=== PATIENT | female | born 1945 | race Caucasian/White ===

== ENCOUNTER 2017-03-12 22:05 | Inpatient (IN) | payer MEDICARE, MEDICAID ==
[~2017-03-12] VITALS: Ht 152.4 cm; Wt 73.9 kg
[2017-03-12 22:30] VITALS: BP 155/70
[2017-03-12] MEDS ORDERED: LORAZEPAM 0.5 MG TABLET PO PRN (23:00)
[2017-03-12] MEDS ORDERED: MAGNESIUM HYDROXIDE 30 ML UDC PO PRN (23:00)
[2017-03-12] MEDS ORDERED: MAG HYDROX/AL HYDROX/SIMETH 30 ML UDC PO PRN (23:00)
[2017-03-13] MEDS ORDERED: LISI2.5T2 PO (00:30)
[2017-03-13] MEDS ORDERED: MORP15TA PO (00:30)
[2017-03-13] MEDS ORDERED: SIMV20TA6 PO (00:30)
[2017-03-13] MEDS ORDERED: ESCI20TA PO (00:30)
[2017-03-13] MEDS ORDERED: ROPI1TAB4 PO (00:30)
[2017-03-13] MEDS ORDERED: MESA400C2 PO (00:30)
[2017-03-13] MEDS ORDERED: PRAZ1CAP5 PO (00:30)
[2017-03-13] MEDS ORDERED: METO-302 PO (00:30)
[2017-03-13] MEDS ORDERED: ZOLM5TAB10 PO (00:30)
[2017-03-13] MEDS ORDERED: TOPI-37 PO (00:30)
[2017-03-13] MEDS ORDERED: SOLI5TAB PO (00:30)
[2017-03-13] MEDS ORDERED: FURO40TA5 PO (00:30)
[2017-03-13] MEDS ORDERED: MORP60CP14 PO (00:30)
[2017-03-13] MEDS ORDERED: myrbetriq (00:34)
[2017-03-13] MEDS ORDERED: PRAZOSIN HCL 1 MG CAPSULE PO ONE (05:24)
[2017-03-13] MEDS ORDERED: FUROSEMIDE 40 MG TABLET ONE (05:24)
[2017-03-13] MEDS ORDERED: METOPROLOL SUCCINATE 25 MG TAB.SR.24H ONE (05:25)
[2017-03-13] MEDS ORDERED: ACETAMINOPHEN 325 MG TABLET ONE (05:27)
[2017-03-13] MEDS: ACETAMINOPHEN 325 MG TABLET PO PRN (05:34)
[2017-03-13] MEDS: PRAZOSIN HCL 1 MG CAPSULE PO SCH ×3 (05:34→14:32)
[2017-03-13] MEDS: FUROSEMIDE 40 MG TABLET PO SCH (05:34)
[2017-03-13] MEDS: METOPROLOL SUCCINATE 25 MG TAB.SR.24H PO SCH (05:35)
--- NOTE | 2017-03-13 06:30 | NUR ---
GPS RN NOTES ADMITTED THIS 72 YEAR OLD FEMALE ON 5150 HOLD FOR DANGER TO SELF. PATIENT ARRIVED VIA AMBULANCE AT AROUND 2230, 03/12/2017. PER HOLD PATIENT WAS ENDORSING SUICIDAL IDEATION AND TOOK AN UNKNOWN AMOUNT OF PILLS. ON FACE TO FACE, PATIENT WAS DEPRESSED, WITH FLAT AFFECT, HOPELESS, SAD. VITAL SIGNS CHECKED AND RECORDED. AFEBRILE. ASSESSMENT OF BODY SYSTEMS COMPLETED. SKIN/BODY CHECK DONE. SKIN IS CLEAR. PATIENTS BELONGINGS CHECKED FOR CONTRABAND ITEMS. CONTRABAND ITEMS BROUGHT TO SAFE. AFTER THE ASSESSMENT PATIENT ASKED TO GO TO THE BATHROOM. PATIENT ASSISTED TO THE BATHROOM, WHEN GOING BACK TO HER BED PATIENT HAD A SYNCOPAL EPISODE AND PASSED OUT FOR A FEW SECONDS. PATIENT WAS ASSISTED TO A CHAIR AND EVENTUALLY BACK TO HER BED. NO FURTHER UNTOWARD EPISODES NOTED THEREAFTER. PATIENT ADMITTED UNDER THE CARE OF DR. NARAYANAN FOR PSYCHE AND DR. BENJAMIN FOR MEDICAL. BOTH NOTIFIED OF THIS ADMISSION. MED RECON DONE. MRSA SWAB DONE WELL. PT EVAL REQUESTED. PATIENT KEPT COMFORTABLE IN BED.
[2017-03-13 08:00] VITALS: BP 157/90
[2017-03-13 09:00] VITALS: BP 150/87
--- NOTE | 2017-03-13 09:00 | NUR ---
GPS/RN PATIENT REFUSED TO REMOVE DENTURES X 3, EXPLAINED RISKS BUT STILL REFUSED. WAIVER SIGNED BY PATIENT
[2017-03-13] MEDS: LISINOPRIL (5MG) 5 MG TABLET PO SCH (09:19)
[2017-03-13] MEDS ORDERED: OXYBUTYNIN CHLORIDE 5 MG TABLET PO SCH (09:30)
[2017-03-13 09:37] LABS: ALANINE AMINOTRANSFERASE 21 U/L (12-78); ALBUMIN 3.1 g/dL (3.4-5.0); ALKALINE PHOSPHATASE 87 U/L (46-116); ASPARTATE AMINOTRANSFERASE 13 U/L (15-37); BILIRUBIN,TOTAL 0.3 mg/dL (0.2-1.0); CALCIUM, SERUM 8.6 mg/dL (8.5-10.1); CARBON DIOXIDE 25 mmol/L (21-32); CHLORIDE 108 mmol/L (98-107); GLUCOSE 123 mg/dL (74-106); POTASSIUM 2.9 mmol/L (3.5-5.1); SODIUM SERUM 143 mmol/L (136-145); TOTAL PROTEIN, SERUM 6.9 g/dL (6.4-8.2); UREA NITROGEN, BLOOD 8 mg/dL (7-18)
[2017-03-13 09:39] LABS: CHOLESTEROL 213 mg/dL (<200); HDL CHOLESTEROL 37 mg/dL (40-60); LDL 133 mg/dL (0-99); TRIGLYCERIDES 119 mg/dL (30-150)
[2017-03-13] MEDS: MORPHINE SULFATE SR 30 MG TABLET.SA PO SCH ×3 (10:32→21:50)
[2017-03-13] MEDS ORDERED: POTASSIUM CHLORIDE 10 MEQ TABLET.SA PO ONE (14:00)
--- NOTE | 2017-03-13 14:32 | NUR ---
Initial Discharge plan: Patient lives alone at [address] [address]. ([phone]). Patient wants to return home upon discharge. long term care social worker attempted to contact patient's sister Lauren Pond ([phone]) however, she was unavailable, long term care social worker left her a voicemail with her contact information. settlement worker will attempt again later. settlement worker will help form a safe and proper discharge. settlement worker will provide patient with referrals for substance abuse upon discharge.
--- NOTE | 2017-03-13 14:33 | NUR ---
GPS/RN DR GIRALDO CONTACTED REGARDING K LEVEL OF 2.9, NEW ORDERS OF K DUR 60 MEQ X ONE DOSE, CARRIED OUT ORDERED. WILL CONTINUE TO MONITOR.
--- NOTE | 2017-03-13 14:40 | NUR ---
GPS/RN CHECKED BP BEFORE ADMINISTERING MINIPRES 2MG PO, BP READING OF 179/115, ADMINISTERED ORDERED, WILL RECHECK IN 30 MIN.
[2017-03-13 15:30] VITALS: BP 145/95
--- NOTE | 2017-03-13 15:30 | NUR ---
GPS/RN RECHECKED PATIENT BP WITH A READING OF, 147/95, P - 72, 02- 97. BREATHING EVEN AND UNLABORED,STABLE CONDITION, NO DISTRESS NOTED, WILL CONTINUE TO MONITOR. Addendum: 03/13/17 at 1812 by TERI AN RN DR GIRALDO AWARE. NO NEW ORDERS.
[2017-03-13 16:22] VITALS: BP 147/95
--- NOTE | 2017-03-13 18:12 | NUR ---
GPS/RN SPOKE WITH DR GIRALDO REGARDING TOMAX 200 MG BID ON HOME MED LIST, STATED TO INPUT TOPOMAX 200 MG BID IN SYSTEM, CARRIED OUT ORDERED.
[2017-03-13 20:00] VITALS: BP 140/92
[2017-03-13] MEDS: SIMVASTATIN 20 MG TABLET PO SCH (21:50)
--- NOTE | 2017-03-14 01:44 | NUR ---
GPS/RN NOTE: C/O PAIN ON BOTH LEGS, TYLENOL 650 MG TAB PO GIVEN.
[2017-03-14] MEDS: ACETAMINOPHEN 325 MG TABLET PO PRN (01:45)
[2017-03-14] MEDS: ZOLPIDEM TARTRATE 5 MG TABLET PO PRN (01:46)
--- NOTE | 2017-03-14 01:47 | NUR ---
GPS/RN NOTE: C/O INSOMNIA, 5 MG TAB 1 PO GIVEN
[2017-03-14] MEDS: LISINOPRIL (5MG) 5 MG TABLET PO SCH (06:36)
[2017-03-14] MEDS: FUROSEMIDE 40 MG TABLET PO SCH (06:36)
[2017-03-14] MEDS: METOPROLOL SUCCINATE 25 MG TAB.SR.24H PO SCH (06:37)
[2017-03-14] MEDS: MORPHINE SULFATE SR 30 MG TABLET.SA PO SCH ×3 (06:38→21:41)
[2017-03-14] MEDS: PRAZOSIN HCL 1 MG CAPSULE PO SCH ×3 (06:39→14:21)
[2017-03-14 08:00] VITALS: BP 147/84
[2017-03-14] MEDS ORDERED: SOLIFENACIN SUCCINATE 5 MG TABLET PO SCH (09:00)
[2017-03-14] MEDS: DULOXETINE HCL 30 MG CAPSULE.DR PO SCH (09:08)
[2017-03-14] MEDS: TOPIRAMATE 100 MG TABLET PO SCH ×2 (09:08→16:10)
[2017-03-14] MEDS ORDERED: hydrALAZINE HCL 25 MG TABLET PO PRN (15:30)
[2017-03-14 16:35] VITALS: BP 148/90
--- NOTE | 2017-03-14 19:25 | NUR ---
GPS/RN NOTE: PATIENT ASLEEP, NO APPARENT DISTRESS NOTED.
[2017-03-14 20:00] VITALS: BP 121/67
[2017-03-14] MEDS: SIMVASTATIN 20 MG TABLET PO SCH (21:55)
[2017-03-15] MEDS: METOPROLOL SUCCINATE 25 MG TAB.SR.24H PO SCH (06:04)
[2017-03-15] MEDS: LISINOPRIL (5MG) 5 MG TABLET PO SCH (06:05)
[2017-03-15] MEDS: MORPHINE SULFATE SR 30 MG TABLET.SA PO SCH ×3 (06:06→23:55)
[2017-03-15] MEDS: PRAZOSIN HCL 1 MG CAPSULE PO SCH ×3 (06:08→13:45)
[2017-03-15] MEDS: FUROSEMIDE 40 MG TABLET PO SCH (07:01)
[2017-03-15 08:25] LABS: CALCIUM, SERUM 8.7 mg/dL (8.5-10.1); CARBON DIOXIDE 25 mmol/L (21-32); CHLORIDE 107 mmol/L (98-107); CREATININE 1.1 mg/dL (0.6-1.3); GLUCOSE 93 mg/dL (74-106); MAGNESIUM 1.8 mg/dL (1.8-2.4); POTASSIUM 3.3 mmol/L (3.5-5.1); SODIUM SERUM 143 mmol/L (136-145); UREA NITROGEN, BLOOD 22 mg/dL (7-18)
[2017-03-15 08:47] VITALS: BP 162/83
[2017-03-15] MEDS: DULOXETINE HCL 30 MG CAPSULE.DR PO SCH (09:02)
[2017-03-15] MEDS: TOPIRAMATE 100 MG TABLET PO SCH ×2 (09:02→16:23)
[2017-03-15] MEDS: SOLIFENACIN SUCCINATE 5 MG PO SCH (09:03)
[2017-03-15] MEDS ORDERED: POTASSIUM CHLORIDE 20 MEQ TAB.PRT.SR PO SCH (11:00)
[2017-03-15 13:45] VITALS: BP 126/76
[2017-03-15] MEDS ORDERED: POTASSIUM CHLORIDE 20 MEQ TAB.PRT.SR PO ONE (15:00)
[2017-03-15 16:14] VITALS: BP 132/78
[2017-03-15 20:00] VITALS: BP 98/60
[2017-03-15] MEDS: SIMVASTATIN 20 MG TABLET PO SCH (23:55)
[2017-03-15] MEDS: ZOLPIDEM TARTRATE 5 MG TABLET PO PRN (23:56)
[2017-03-16] MEDS: MORPHINE SULFATE IR 15 MG TABLET PO PRN
[2017-03-16] MEDS: MORPHINE SULFATE SR 30 MG TABLET.SA PO SCH ×3 (06:17→21:40)
[2017-03-16] MEDS: FUROSEMIDE 40 MG TABLET PO SCH (06:17)
[2017-03-16] MEDS: METOPROLOL SUCCINATE 25 MG TAB.SR.24H PO SCH (06:21)
[2017-03-16] MEDS: LISINOPRIL (5MG) 5 MG TABLET PO SCH (06:21)
[2017-03-16] MEDS: PRAZOSIN HCL 1 MG CAPSULE PO SCH ×3 (06:22→14:00)
[2017-03-16] MEDS: DULOXETINE HCL 30 MG CAPSULE.DR PO SCH (08:01)
[2017-03-16 08:02] LABS: CALCIUM, SERUM 8.6 mg/dL (8.5-10.1); CARBON DIOXIDE 26 mmol/L (21-32); CHLORIDE 104 mmol/L (98-107); CREATININE 1.2 mg/dL (0.6-1.3); GLUCOSE 101 mg/dL (74-106); POTASSIUM 3.9 mmol/L (3.5-5.1); SODIUM SERUM 139 mmol/L (136-145); UREA NITROGEN, BLOOD 27 mg/dL (7-18)
[2017-03-16] MEDS: SOLIFENACIN SUCCINATE 5 MG PO SCH (08:02)
[2017-03-16] MEDS: TOPIRAMATE 100 MG TABLET PO SCH ×2 (08:02→16:18)
[2017-03-16 08:12] VITALS: BP 124/88
[2017-03-16 10:30] VITALS: BP 110/54
[2017-03-16 16:14] VITALS: BP 105/60
[2017-03-16 20:00] VITALS: BP 114/66
[2017-03-16] MEDS: SIMVASTATIN 20 MG TABLET PO SCH (21:40)
[2017-03-16] MEDS: ZOLPIDEM TARTRATE 5 MG TABLET PO PRN (22:43)
--- NOTE | 2017-03-17 00:01 | NUR ---
Pt has been anhedonic, with flat affect, & withdrawn but denies any SI/HI. She complied with her meds w/o any promptings.
[2017-03-17] MEDS: MORPHINE SULFATE IR 15 MG TABLET PO PRN (01:51)
[2017-03-17] MEDS: PRAZOSIN HCL 1 MG CAPSULE PO SCH ×3 (06:00→14:00)
[2017-03-17] MEDS: FUROSEMIDE 40 MG TABLET PO SCH (06:19)
[2017-03-17] MEDS: MORPHINE SULFATE SR 30 MG TABLET.SA PO SCH ×3 (06:19→21:19)
[2017-03-17] MEDS: LISINOPRIL (5MG) 5 MG TABLET PO SCH (06:19)
[2017-03-17] MEDS: METOPROLOL SUCCINATE 25 MG TAB.SR.24H PO SCH (06:20)
[2017-03-17 08:00] VITALS: BP 133/69
[2017-03-17] MEDS: DULOXETINE HCL 30 MG CAPSULE.DR PO SCH (08:00)
[2017-03-17] MEDS: TOPIRAMATE 100 MG TABLET PO SCH ×2 (08:00→16:12)
[2017-03-17] MEDS: SOLIFENACIN SUCCINATE 5 MG PO SCH (08:09)
[2017-03-17 14:00] VITALS: BP 110/53
[2017-03-17 16:00] VITALS: BP 123/88
[2017-03-17 19:34] VITALS: BP 98/59
[2017-03-17] MEDS: SIMVASTATIN 20 MG TABLET PO SCH (21:19)
[2017-03-17] MEDS: ZOLPIDEM TARTRATE 5 MG TABLET PO PRN (23:48)
[2017-03-18] MEDS: PRAZOSIN HCL 1 MG CAPSULE PO SCH ×3 (06:00→14:00)
[2017-03-18] MEDS: METOPROLOL SUCCINATE 25 MG TAB.SR.24H PO SCH (06:00)
[2017-03-18] MEDS: MORPHINE SULFATE SR 30 MG TABLET.SA PO SCH ×3 (06:18→21:15)
[2017-03-18] MEDS: FUROSEMIDE 40 MG TABLET PO SCH (06:18)
[2017-03-18] MEDS: LISINOPRIL (5MG) 5 MG TABLET PO SCH (06:19)
[2017-03-18 08:00] VITALS: BP 122/56
[2017-03-18] MEDS: DULOXETINE HCL 30 MG CAPSULE.DR PO SCH (08:24)
[2017-03-18] MEDS: TOPIRAMATE 100 MG TABLET PO SCH ×2 (08:24→16:17)
[2017-03-18] MEDS: SOLIFENACIN SUCCINATE 5 MG PO SCH (08:26)
[2017-03-18] MEDS: MORPHINE SULFATE IR 15 MG TABLET PO PRN (09:35)
--- NOTE | 2017-03-18 09:35 | NUR ---
[id number]: PT WAS FOUND THE FLOOR BY RT. PT STATED, " I TRIPPED OVER MY FEET. I FALL ON MY LEFT SIDE OF MY CHEST. " NO REDNESS NOTED AT THIS TIME. PT IS ABLE TO MOVE ALL EXTREMITIES. PT COMPLAINED OF PAIN 8/10 PAIN ON LEFT SIDE OF THE CHEST AND REQUESTED FOR A PAIN PILL GAVE MORPHINE [address] NARAYANAN MADE AWARE. PHYSICAL SCIENCES PROFESSOR MADE AWARE. NOTIFIED KAILASH THOMAS ABOUT THE INCIDENT. KAILASH OH ORDERED CHEST X-RAY. ORDERED CARRIED OUT. NOTIFIED SISTER ISABEL ABOUT THE INCIDENT. PT HAS A HISTORY OF SYNCOPAL EPISODES. WILL CONTINUE TO MONITOR FOR SAFETY AND BEHAVIOR EVERY 15 MINUTES.
--- NOTE | 2017-03-18 10:30 | NUR ---
[id number]: PT IS CALM AND SLEEPING IN BED. PT STATED, " I DON'T HAVE ANY PAIN ANYMORE. " SAFETY PRECAUTIONS IMPLEMENTED. SIDE RAILS UP X2. CALL LOAIZA IS WITHIN REACH. BED IS AT THE LOWEST POSITION LOCKED. WILL CONTINUE TO MONITOR FOR SAFETY AND BEHAVIOR EVERY 15 MINUTES.
--- NOTE | 2017-03-18 11:45 | NUR ---
[id number]: NOTIFIED [employer] ALTHEA THOMAS ABOUT CHEST X-RAY RESULTS. NO NEW ORDERS GIVEN AT THIS TIME.
--- NOTE | 2017-03-18 12:30 | NUR ---
[id number]: PT IS CALM AND COOPERATIVE WITH STAFF. OBSERVED PT TO BE CONVERSING WITH PEERS IN THE DAYROOM. PT HAS BRIGHT AFFECT. PT STATED, " I FEEL BETTER NOW."
[2017-03-18 16:00] VITALS: BP 106/60
[2017-03-18 20:57] VITALS: BP 122/63
[2017-03-18] MEDS: SIMVASTATIN 20 MG TABLET PO SCH (21:14)
[2017-03-19] MEDS: PRAZOSIN HCL 1 MG CAPSULE PO SCH ×3 (06:00→14:50)
[2017-03-19] MEDS: METOPROLOL SUCCINATE 25 MG TAB.SR.24H PO SCH (06:00)
[2017-03-19] MEDS: FUROSEMIDE 40 MG TABLET PO SCH (06:12)
[2017-03-19] MEDS: LISINOPRIL (5MG) 5 MG TABLET PO SCH (06:12)
[2017-03-19] MEDS: MORPHINE SULFATE SR 30 MG TABLET.SA PO SCH ×3 (06:13→21:22)
[2017-03-19 08:00] VITALS: BP 124/66
[2017-03-19] MEDS: SOLIFENACIN SUCCINATE 5 MG PO SCH (08:17)
[2017-03-19] MEDS: TOPIRAMATE 100 MG TABLET PO SCH ×2 (08:17→17:04)
[2017-03-19] MEDS: DULOXETINE HCL 30 MG CAPSULE.DR PO SCH (08:17)
--- NOTE | 2017-03-19 08:24 | NUR ---
private household worker spoke to Sho from admissions (phone: [phone]/ ) from [place] [address] who stated that patient often goes between living in the facility and home. Sho stated that patient can return to the facility as long as she pays a fee up front. private household worker will follow-up with patient and patient's family.
--- NOTE | 2017-03-19 10:30 | NUR ---
RN-CO: Per Tasha ARCEO, patient's discharge will be cancelled due to transportation issue. Dr Rivas is aware.
--- NOTE | 2017-03-19 11:09 | NUR ---
RN-CO: Notified [address] that patient will be discharge tommorow.
--- NOTE | 2017-03-19 15:48 | NUR ---
tray service worker arranged transportation with Sheron ([phone]) from [facility] who stated that patient will be picked up at noon tomorrow March 20, 2017 and taken home.
--- NOTE | 2017-03-19 15:53 | NUR ---
family services worker spoke to patient's brother- in -law Raoul Pond ([phone]/ cell: [phone]) who stated that he and patient's sister Lauren Pond would help the patient pay the copay and upfront cost to [address] [address] (phone: [phone]/ ) if patient agreed to exterminator placement. family services worker spoke to patient regarding alf residential placement at [facility] and patient stated that she does not want to make that decision now and wanted to go home and talk to her family as to whether they would help her pay for temporary placement or whether she would agree to go long- term placement at [facility]. family services worker informed family of patient's decision and they were agreeable with the discharge plan of patient returning home.
[2017-03-19 16:00] VITALS: BP 107/62
[2017-03-19 20:11] VITALS: BP 118/60
[2017-03-19] MEDS: SIMVASTATIN 20 MG TABLET PO SCH (21:21)
[2017-03-19] MEDS: ZOLPIDEM TARTRATE 5 MG TABLET PO PRN (21:33)
[2017-03-20] MEDS: PRAZOSIN HCL 1 MG CAPSULE PO SCH ×2 (06:00→10:47)
[2017-03-20] MEDS: MORPHINE SULFATE SR 30 MG TABLET.SA PO SCH (06:02)
[2017-03-20] MEDS: METOPROLOL SUCCINATE 25 MG TAB.SR.24H PO SCH (06:02)
[2017-03-20] MEDS: FUROSEMIDE 40 MG TABLET PO SCH (06:02)
[2017-03-20] MEDS: LISINOPRIL (5MG) 5 MG TABLET PO SCH (06:03)
[2017-03-20] MEDS: DULOXETINE HCL 30 MG CAPSULE.DR PO SCH (08:30)
[2017-03-20] MEDS: TOPIRAMATE 100 MG TABLET PO SCH (08:30)
[2017-03-20 08:41] VITALS: BP 104/62
--- NOTE | 2017-03-20 08:56 | NUR ---
PT. WITH AN ORDER TO D/C HOLD AND D/C HOME. PT. WITHOUT DISTRESS, DENIES SUICIDAL AND HOMICIDAL. TO FOLLOW UP WITH PSYCH AND MEDICAL DOCTORS.
[2017-03-20] MEDS: SOLIFENACIN SUCCINATE 5 MG PO SCH (09:00)
[2017-03-20 10:47] VITALS: BP 104/62
--- NOTE | 2017-03-20 12:30 | NUR ---
GPS/RN PATIENT CLEARED FOR DISCHARGE HOME BY DR NARAYANAN AND KAILASH THOMAS. ALL D/C FORMS SIGNED, BELONGINGS RETURNED AND SIGNED FOR. PSYCHIATRIC PRESCRIPTIONS INCLUDED, MEDICAL PRESCRIPTION TRANSCRIBED ELECTRONICALLY BY KAILASH THOMAS, ALL MEDICATIONS EXPLAINED TO PATIENT, VERBALIZED UNDERSTANDING. PATIENT DENIES SI/HI/AH AT TIME OF DISCHARGE, PSYCHIATRIC TREATMENT PLANS MET, LEFT UNIT VIA WHEELCHAIR, CALM, COOPERATIVE, NO AGITATION, NO DISTRESS WITH TRANSPORT AND CN AT SIDE.
--- NOTE | 2017-03-20 13:33 | NUR ---
Discharge Note: Patient was discharged home [address] [place] [address]. ([phone]) via [facility] transportation ([employer] [phone]). Patient's sister Lauren Pond ([phone]) has been notified. Patient and patient's sister were agreeable with the discharge plan. Patient's mood and affect were appropriate upon discharge. Patient denied suicidal and homicidal ideations. Patient was also provided with a referral to [facility] [address] [facility] [place] [address] ([phone]) and agreed to follow-up with a psychiatrist within 30 days. Patient was referred to the [facility] drug and alcohol services. Walk-in screenings are done [address] [place] [address] ([phone]) Friday 8:30-11:30 am and 2:30-5:30pm. Facilitated info to IDT team who are in agreement with discharge arrangement. The multidisciplinary exitcare form was done, printed, signed, and given to the patient. Addendum: 03/20/17 at 1408 by LESA ARCEO farmworker diversified crops Lesa Fry wrote the discharge note.
== END 2017-03-20 12:30 | disposition home or self-care (01) | DRG 885 ==
LOC: GPS 22:05
PROVIDERS: ADMIT Psychiatry & Neurology Psychiatry; ATTEND Internal Medicine
DX: F33.2 Major depressive disorder, recurrent severe without psychotic features (principal); R45.851 Suicidal ideations; K86.1 Other chronic pancreatitis; F23 Brief psychotic disorder; F41.9 Anxiety disorder, unspecified; G89.4 Chronic pain syndrome; M79.7 Fibromyalgia; I10 Essential (primary) hypertension; Z73.6 Limitation of activities due to disability; M19.90 Unspecified osteoarthritis, unspecified site; N28.9 Disorder of kidney and ureter, unspecified
CPT/HCPCS: 36415; 71010-TC; 80048-TC; 80053-TC; 80061-TC; 82962-TC; 83735-TC; 87081-TC; 97001-TC; 97116-TC; 97530-TC

== ENCOUNTER 2017-05-03 12:18 | Inpatient (IN) | payer MEDICARE, MEDICAID ==
[~2017-05-03] VITALS: Ht 160 cm; Wt 64.4 kg
[~2017-05-03 12:18] MED LIST: ESCI20TA PO; FURO40TA5 PO; LISI2.5T2 PO; MESA400C2 PO; METO-302 PO; MORP15TA PO; MORP60CP14 PO; PRAZ1CAP5 PO; ROPI1TAB4 PO; SIMV20TA6 PO; SOLI5TAB PO; TOPI-37 PO; ZOLM5TAB10 PO; myrbetriq
[2017-05-03 12:44] VITALS: BP 165/78
[2017-05-03] MEDS ORDERED: BUTA-262 PO (12:44)
[2017-05-03] MEDS ORDERED: SOLI5TAB PO (12:44)
[2017-05-03] MEDS ORDERED: DIPH1TAB70 PO (12:44)
[2017-05-03] MEDS ORDERED: POTA10TA15 PO (12:44)
[2017-05-03] MEDS ORDERED: TRAZ-144 PO ×2 (12:46→16:16)
[2017-05-03] MEDS ORDERED: ACETAMINOPHEN 325 MG TABLET PO PRN (13:00)
[2017-05-03] MEDS ORDERED: LORAZEPAM 0.5 MG TABLET PO PRN (13:00)
[2017-05-03] MEDS ORDERED: MAGNESIUM HYDROXIDE 30 ML UDC PO PRN (13:00)
[2017-05-03] MEDS ORDERED: ZOLPIDEM TARTRATE 5 MG TABLET PO PRN (13:00)
[2017-05-03] MEDS ORDERED: MAG HYDROX/AL HYDROX/SIMETH 30 ML UDC PO PRN (13:00)
--- NOTE | 2017-05-03 13:01 | NUR ---
GPS ADMITTING NOTE: PATIENT 72 Y/O FEMALE ADMITTED TO [facility] ON 5150 HOLD FOR DANGER TO HERSELF.PER HOLD PATIENT ATTEMPTED TO CAT HERSELF AT THER HOUSE AND WHEN BROUGHT TO ER ATTEMPTED BITE HER HANDS AND WRIST.UPON 1:1 EVALUATION PATIENT A/O X3 DEPRESSED MOOD ANSWERING SONE QUESTIONS, DENIES SI/HI AT THIS TIME ADMITTED FOR BEEN HELPLESS AND DEPRESSED. DR NARAYANAN NOTIFIED WITH STANDING ORDERS, BELONGINGS CHECKED AND CONTRABAND TAKEN FROM PATIENT.PT HAS HX RESTLESS LEG SYNDROME,FIBROMYALGIA,CROHN DISEASE,HERD,HTN,PTSD WILL CONTINUE MONITORING FOR SAFETY AND BEHAVIOR Q 15 MIN
[2017-05-03 14:58] VITALS: BP 201/105
[2017-05-03] MEDS ORDERED: METOPROLOL TARTRATE 50 MG TABLET PO STA (15:03)
--- NOTE | 2017-05-03 15:08 | NUR ---
GPS RN NOTE: PT SITTING IN THE DINNING ROOM SHIVERING AND LOOKING PALE CHECKED PT VS PB 201/105 P81 T 98.8 R 19 ,REACHED 193/[address] HILL NOTIFIED WITH STAT ORDERS FOR EKG,CARDIAC ENZYMES,METOPROLOL 50 MG PO ONCE STAT AND TO TRANSFER PATIENT TO TELEMETRY. ORDER PLACED AND CARED OUT WILL CONTINUE MONITORING.
--- NOTE | 2017-05-03 15:16 | NUR ---
DR. NARAYANAN NOTIFIED THAT PT. WITH AN ORDER FROM THE BIT SHARPENER OPERATOR TO TRANSFER PT. TO TELEMETRY AND HE ORDERED TO D/C PT. TO TELEMETRY AND TO CONTINUE ON HOLD AND CONTINUE SAME MEDS.
[2017-05-03 15:25] VITALS: BP 193/87
[2017-05-03] MEDS ORDERED: LORA1TAB PO (16:16)
[2017-05-03] MEDS ORDERED: DULO60CA45 PO (16:16)
[2017-05-03] MEDS ORDERED: SUMA50TA PO (16:41)
[2017-05-03] MEDS ORDERED: TRAZODONE 50 MG TABLET PO SCH (22:00)
[2017-05-04] MEDS ORDERED: DULOXETINE HCL 30 MG CAPSULE.DR PO SCH (09:00)
== END 2017-05-03 15:38 | disposition short-term general hospital (02) | DRG 885 ==
LOC: GPS 12:18
PROVIDERS: ADMIT Psychiatry & Neurology Psychiatry; ATTEND Psychiatry & Neurology Psychiatry
DX: F33.2 Major depressive disorder, recurrent severe without psychotic features (principal); R45.851 Suicidal ideations; I10 Essential (primary) hypertension
CPT/HCPCS: 36415; 84484-TC; Z7610

== ENCOUNTER 2017-05-03 16:12 | Inpatient (IN) | payer MEDICARE, MEDICAID ==
[~2017-05-03] VITALS: Ht 160 cm; Wt 64.4 kg
[~2017-05-03 16:12] MED LIST changes: +BUTA-262 PO; +DIPH1TAB70 PO; +POTA10TA15 PO; +TRAZ-144 PO
[2017-05-03] MEDS ORDERED: LORA1TAB PO (16:16)
[2017-05-03] MEDS ORDERED: TRAZ-144 PO (16:16)
[2017-05-03] MEDS ORDERED: DULO60CA45 PO (16:16)
[2017-05-03 16:20] VITALS: BP 193/104
--- NOTE | 2017-05-03 16:20 | NUR ---
BIODIESEL PLANT MANAGER NOTES PATIENT FROM GPS TRANSFERRED TO DUE TO HIGH BP, DR. HILL NOTIFIED FOR ADMISSION. PATIENT CAME FROM AN ASSISTED LIVING IN [place], WITH SUICIDAL IDEATION AND DTS, SHE WAS INITIALLY ADMITTED AT GPS, PLACED ON [address]. SITTER AT BEDSIDE. PATIENT ALERT/ORIENTED X 3, ON RA, NOT IN ANY DISTRESS, C/O HEADACHE 04/24, WILL ADMINISTER MEDICATION IN A WHILE. REFUSE BODY EVALUATION AND PHOTOS OF SKIN ISSUES. THERES ONLY A BRUISE ON HER ABDOMEN, OT MEASURABLE. UNIT ORIENTATION DONE AND USE OF CALL LIGHT. SAFETY MEASURES IN PLACE. WILL CONT TO MONITOR.
[2017-05-03] MEDS ORDERED: SUMA50TA PO (16:41)
[2017-05-03] MEDS ORDERED: ONDANSETRON HCL/PF 4 MG/2 ML VIAL IVP PRN (17:00)
[2017-05-03] MEDS ORDERED: MAG HYDROX/AL HYDROX/SIMETH 30 ML UDC PO PRN (17:00)
[2017-05-03] MEDS ORDERED: Z GUARD REMEDY 2 OZ OINT TP PRN (17:00)
[2017-05-03] MEDS ORDERED: MAGNESIUM HYDROXIDE 30 ML UDC PO PRN (17:00)
[2017-05-03] MEDS ORDERED: ACETAMINOPHEN 325 MG TABLET PO PRN (17:00)
[2017-05-03] MEDS: MESALAMINE 400 MG CAP PO SCH (17:30)
[2017-05-03] MEDS: PRAZOSIN HCL 1 MG CAPSULE PO SCH (17:31)
[2017-05-03] MEDS: METOPROLOL SUCCINATE 25 MG TAB.SR.24H PO SCH (17:31)
[2017-05-03] MEDS: LISINOPRIL (5MG) 5 MG TABLET PO SCH (17:31)
[2017-05-03] MEDS: TOPIRAMATE 100 MG TABLET PO SCH (17:31)
[2017-05-03 18:00] VITALS: BP 180/90
--- NOTE | 2017-05-03 18:26 | NUR ---
GLAZE CARRIER CLOSING NOTES PT IN BED, RESTING, ASLEEP, AROUSABLE TO NAME AND TOUCH, ORIENTED X 3, PATIENT CAME FROM [facility] IN [place], WITH SUICIDAL IDEATION AND DTS, SHE WAS INITIALLY ADMITTED AT GPS, PLACED ON [address]. SITTER AT BEDSIDE. BP RECHECKED 180/90. DOES NOT WANT ANY LIGHTS INSIDE HER ROOM. TELEMETRY SR HR 62. DENIES ANY CHEST DISCOMFORT. RT FA F22 IN SITU, FLUSHES WELL. SITE CLEAR. CALL LIGHT WITHIN REACH. SAFETY MEASURES IN PLACE. ALL NEEDS MET. NO OTHER SIGNIFICANT CONDITION NOTED. WILL ENDORSE TO NEXT SHIFT FOR RAVINDRA.
[2017-05-03 20:00] VITALS: BP 149/82
--- NOTE | 2017-05-03 20:00 | NUR ---
TELE/RN RECEIVE PATIENT APPEAR SLEEPING, CALM AND COMFORTABLE, NO SIGNS OF DISTRESS NOTED, SITTER AT BEDSIDE. WILL MONITOR.
[2017-05-03] MEDS: HYDROCODONE/APAP 5/325MG 1 EACH TABLET PO PRN (21:00)
--- NOTE | 2017-05-03 22:39 | NUR ---
TELE/RN BROUGHT DOWN BY THE PHOTOGRAPHER FINISH FOR CT OF THE HEAD.
--- NOTE | 2017-05-03 22:48 | NUR ---
TELE/RN BACK FROM CT. NO CHANGE IN CONDITION. WILL CONTINUE TO MONITOR.
[2017-05-03] MEDS: TRAZODONE 50 MG TABLET PO SCH (22:59)
[2017-05-03] MEDS: SIMVASTATIN 20 MG TABLET PO SCH (23:00)
[2017-05-03] MEDS: ZOLPIDEM TARTRATE 5 MG TABLET PO PRN (23:56)
[2017-05-04] VITALS (8 sets, daily range): BP systolic 111–167; BP diastolic 53–97
--- NOTE | 2017-05-04 01:02 | NUR ---
TELE/RN PATIENT IS SLEEPING AT THIS TIME, EASILY AROUSABLE, APPEAR COMFORTABLE, NO DISTRESS NOTED, CALL LIGHT IN REACH. WILL MONITOR.
--- NOTE | 2017-05-04 06:21 | NUR ---
TELE/RN STILL SLEEPING, AROUSABLE, APPEAR COMFORTABLE, NO SIGNS OF DISTRESS NOTED, CALL LIGHT IN REACH. ALL NEEDS ATTENDED AT THIS TIME. WILL CONTINUE TO MONITOR.
[2017-05-04 06:59] LABS: BASOPHILS % (AUTO) 0.3 % (0.0-2.0); EOSINOPHILS # (AUTO) 0.1 /CMM (0.0-0.7); EOSINOPHILS % (AUTO) 1.8 % (0.0-6.0); HEMATOCRIT 38 % (33-45); HEMOGLOBIN 12.8 g/dL (11.5-14.8); LYMPHOCYTES # (AUTO) 1.7 /CMM (0.8-4.8); LYMPHOCYTES % (AUTO) 20.9 % (20.0-44.0); MEAN CORPUSCULAR HEMOGLOBIN 30 PG (26.0-33.0); MEAN CORPUSCULAR HGB CONC 34 g/dl (31.0-36.0); MEAN CORPUSCULAR VOLUME 89 fL (82-100); MONOCYTES # (AUTO) 0.4 /CMM (0.1-1.30); NEUTROPHILS # (AUTO) 5.9 /CMM (1.8-8.9); PLATELET COUNT (AUTO) 221 /CMM (150-450); RDW COEFFICIENT OF VARIATION 14.4 (11.5-15.0); RED BLOOD CELL COUNT(AUTO) 4.22 MIL/uL (4.0-5.2); WHITE BLOOD COUNT (AUTO) 8.2 K/uL (4.3-11.0)
[2017-05-04 07:18] LABS: CHOLESTEROL 213 mg/dL (<200); HDL CHOLESTEROL 44 mg/dL (40-60); LDL 128 mg/dL (0-99); THYROID STIMULATING HORMONE 0.873 uIU/mL (0.358-3.74); TRIGLYCERIDES 177 mg/dL (30-150)
[2017-05-04 07:21] LABS: RETICULOCYTE COUNT 1.8 % (0.6-2.5)
[2017-05-04 07:24] LABS: INR 0.94 (0.87-1.13)
--- NOTE | 2017-05-04 07:28 | NUR ---
TELE/RN AT AROUND 0710 WHILE I WAS GIVING REPORT TO THE NEXT RN, PATRICE, BY THE DOOR OF THE ROOM, I WAS NOTIFIED BY THE SITTER WHO WAS ASSISTING THE PATIENT IN THE BATHROOM. PER SITTER, WHILE THE PATIENT WAS WASHING HER HANDS IN THE SINK, VERBALIZING THAT SHE WAS NOT FEELING WELL. WHEN WE WENT INSIDE THE ROOM WE FOUND THE PATIENT STANDING BUT LOOKS WEAK,NOT ANSWERING TO QUESTIONS AND COULD NOT HOLD HER WEIGHT AND LOOKS ABOUT TO PASS OUT. WE ASSISTED HER TO THE FLOOR IN LYING POSITION. PATIENT STILL NOT VERBALLY RESPONSIVE, LOOKS PALE, EYES CLOSED, BUT RESPONSIVE TO PAINFUL STIMULATION. WE THEN CALLED RAPID RESPONSE, TRANSFERRED PATIENT TO THE BED, VITAL SIGNS TAKEN,TEMP 98.6, P 74, RR 18, BP 167/91, O2 SAT 97% ON ROOM AIR. BLOOD SUGAR 122. RAPID RESPONSE TEAM ARRIVED BUT THE PATIENT WAS ALREADY RESPONSIVE, AWAKE AND ORIENTED. RAPID RESPONSE TEAM LEFT, STAT EKG WAS DONE WHICH SHOWED SR. ENDORSED PATIENT TO NEXT RN.
--- NOTE | 2017-05-04 07:32 | NUR ---
RN OPENING NOTES RECEIVED REPORT FROM ILENE GATES IN THE ROOM AT 0710. PATIENT HAD AN ASSISTED FALL EVEN WHILE AMBULATED BACK FRFOM THE BATHROOM WITH THE SITTER. PATIENT UNRESPONSIVE. PULSE PALPABLE. TELE READING AT . PATIENT HAS RESPONSE TO PAIN. PATIENT WAS UNABLE TO RESPOND TO VERBAL COMMANDS. RAPID RESPONSE TEAM CALLED AT 0710. PATIENT WAS RETURNED TO BED AND VS CHECK. PATIENT. BP 167/91, HR 74, O2 100%. PATIENT WAS ABLE TO THEN RESPOND TO VERBAL COMMANDS. PATIENT WAS ABLE TO STATE NAME, YEAR AND PLACE. PATIENT NOW IN BED RESTING COMPLAINING OF HEADACHE AND ABD. DISCOMFORT. WILL IMPLEMENT APPROPRIATE INTERVENTIONS. PATIENT A/OX3. DENIES SOB. RESPIRATIONS EVEN AND UNLABORED. PATIENT DENIES SI AT THIS TIME. BED LOCKED IN THE LOWEST POSITION WITH SIDE RAILS UP X2. CALL LIGHT WITHIN REACH. SITTER AT BED SIDE. WILL CONTINUE TO MONITOR PATIENT FOR CHANGE IN LOC AND CONDITION. Addendum: 05/04/17 at 0808 by PATRICE CHOU RN RN OPENING NOTES RECEIVED REPORT FROM ILENE GATES IN THE ROOM AT 0710. PATIENT HAD AN ASSISTED FALL EVEN WHILE AMBULATED BACK FRFOM THE BATHROOM WITH THE SITTER. PATIENT UNRESPONSIVE. PULSE PALPABLE. TELE READING AT . PATIENT HAS RESPONSE TO PAIN. PATIENT WAS UNABLE TO RESPOND TO VERBAL COMMANDS. RAPID RESPONSE TEAM CALLED AT 0710. PATIENT WAS RETURNED TO BED AND VS CHECK. PATIENT. BP 167/91, HR 74, O2 100%. BS 122. PATIENT WAS ABLE TO THEN RESPOND TO VERBAL COMMANDS. PATIENT WAS ABLE TO STATE NAME, YEAR AND PLACE. PATIENT NOW IN BED RESTING COMPLAINING OF HEADACHE AND ABD. DISCOMFORT. WILL IMPLEMENT APPROPRIATE INTERVENTIONS. PATIENT A/OX3. DENIES SOB. RESPIRATIONS EVEN AND UNLABORED. PATIENT DENIES SI AT THIS TIME. BED LOCKED IN THE LOWEST POSITION WITH SIDE RAILS UP X2. CALL LIGHT WITHIN REACH. SITTER AT BED SIDE. WILL CONTINUE TO MONITOR PATIENT FOR CHANGE IN LOC AND CONDITION.
[2017-05-04 07:40] LABS: ALANINE AMINOTRANSFERASE 86 U/L (12-78); ALKALINE PHOSPHATASE 99 U/L (46-116); ASPARTATE AMINOTRANSFERASE 40 U/L (15-37); BILIRUBIN,TOTAL 0.3 mg/dL (0.2-1.0); CALCIUM, SERUM 8.9 mg/dL (8.5-10.1); CARBON DIOXIDE 20 mmol/L (21-32); CHLORIDE 111 mmol/L (98-107); GLUCOSE 102 mg/dL (74-106); POTASSIUM 3.9 mmol/L (3.5-5.1); SODIUM SERUM 142 mmol/L (136-145); TOTAL PROTEIN, SERUM 7.1 g/dL (6.4-8.2); UREA NITROGEN, BLOOD 24 mg/dL (7-18)
[2017-05-04 08:00] LABS: IRON, SERUM 76 ug/dl (50-175); TOTAL IRON BINDING CAPACITY 226 ug/dl (250-450)
[2017-05-04] MEDS: TOPIRAMATE 100 MG TABLET PO SCH ×2 (08:39→17:30)
[2017-05-04] MEDS: DULOXETINE HCL 30 MG CAPSULE.DR PO SCH (08:40)
[2017-05-04] MEDS: PANTOPRAZOLE 40 MG TABLET.DR PO SCH (08:40)
[2017-05-04] MEDS: LISINOPRIL (5MG) 5 MG TABLET PO SCH (08:40)
[2017-05-04] MEDS: PRAZOSIN HCL 1 MG CAPSULE PO SCH ×3 (08:40→17:00)
[2017-05-04] MEDS: MESALAMINE 400 MG CAP PO SCH ×2 (08:43→17:33)
[2017-05-04] MEDS ORDERED: SOLIFENACIN SUCCINATE 5 MG TABLET PO SCH (09:00)
[2017-05-04] MEDS: METOPROLOL SUCCINATE 25 MG TAB.SR.24H PO SCH (09:35)
[2017-05-04] MEDS: HYDROCODONE/APAP 5/325MG 1 EACH TABLET PO PRN ×2 (09:37→21:34)
--- NOTE | 2017-05-04 10:08 | NUR ---
RN NOTES PATIENT D/C FROM TELE. ORTHOSTATIC BP TAKEN. LAYING DOWN BP: 165/74. SITTING BP: 154/80, STANDING BP: 143/76. GIVEN TO CHARGE.
[2017-05-04] MEDS: IV NS 0.9% 1,000 ML IV PRN (10:40)
[2017-05-04] MEDS ORDERED: KETOROLAC TROMETHAMINE INJ 30 MG/ML VIAL IV STA (11:11)
--- NOTE | 2017-05-04 12:45 | NUR ---
RN NOTES NEW IV PLACED IN THE RAC 22G. PATIENT TOLERATED PROCEDURE WELL. THREE ATTEMPTS. NS RUNNING AT 125ML/HR. IV PATENT AND INTACT AT THIS TIME. NO S/S OF INFILTRATION. WILL CONTINUE TO MONITOR.
--- NOTE | 2017-05-04 13:01 | NUR ---
RN NON ADMIN NOTES PATIENT BP 111/70. BP MED HELD TO PREVENT HYPOTENSION. WILL CONTINUE TO MONITOR AND ASSESS.
[2017-05-04] MEDS: OXYBUTYNIN CHLORIDE 5 MG TABLET PO SCH (17:30)
--- NOTE | 2017-05-04 19:20 | NUR ---
RN CLOSING NOTES PATIENT IS RESTING COMFORTABLY IN BED AT THIS TIME WITH EYES CLOSED. PATIENT APPEARS TO BE IN NO ACUTE DISTRESS. PATIENT DENIED SI DURING SHIFT. PATIENT HAS SITTER AT THE BED SIDE. PATIENT HAS NS RUNNING AT 125 IN THE RAC. IV PATENT AND INTACT. ALL MEDS NEED. ALL MEDS GIVEN APPROPRIATE. BP CONTROLLED DURING SHIFT. REPORT GIVEN TO NIGHT RN FOR CONTINUATION OF CARE.
--- NOTE | 2017-05-04 19:35 | NUR ---
MS/RN NOTES RECEIVED PT. LYING IN BED. AWAKE, ALERT AND ORIENTED X3. BREATHING EVEN AND UNLABORED ON ROOM AIR. NO SOB, RESPIRATORY DISTRESS OR COMPLAINTS OF PAIN NOTED AT THIS TIME. PT. WITH RIGHT AC 22 GAUGE PERIPHERAL IV PRESENT, PATENT AND INTACT ADMINISTERING TO PT. NS @ 125 ML/HR. PT. WITH 1:1 SITTER PRESENT AT BEDSIDE. BED IN LOWEST POSITION, CALL LIGHT WITHIN REACH, SIDE RAILS UP X3, WILL CONTINUE TO MONITOR.
[2017-05-04 21:27] LABS: APPEARANCE,URINE SL CLOUDY (CLEAR); BILIRUBIN,URINE NEGATIVE (NEGATIVE); BLOOD, URINE NEGATIVE Ery/uL (NEGATIVE); COLOR,URINE YELLOW (YELLOW); KETONES,URINE TRACE (NEGATIVE); LEUKOCYTE ESTERASE ,URINE 1+ (NEGATIVE); NITRITE, URINE NEGATIVE (NEGATIVE); PH,URINE 5.5 (5.0-8.0); PROTEIN,URINE 1+ mg/dl (NEGATIVE); UGLUCOSE NEGATIVE (NEGATIVE); UROBILINOGEN,URINE 0.2 EU/dL (0.2)
[2017-05-04] MEDS: TRAZODONE 50 MG TABLET PO SCH (21:34)
[2017-05-04] MEDS: SIMVASTATIN 20 MG TABLET PO SCH (21:34)
[2017-05-04 21:38] LABS: BACTERIA,URINE 3+ /HPF (None Seen); WBC,URINE 21-50 /HPF (0-3)
--- NOTE | 2017-05-05 06:52 | NUR ---
MS/RN NOTES PT. IS LYING IN BED RESTING. BREATHING EVEN AND UNLABORED ON ROOM AIR. NO SOB, RESPIRATORY DISTRESS OR COMPLAINTS OF PAIN NOTED AT THIS TIME. PT. WITH RIGHT AC 22 GAUGE PERIPHERAL IV PRESENT, PATENT AND INTACT. PT. REFUSING IV FLUIDS AT THIS TIME. PT. WITH 1:1 SITTER PRESENT AT BEDSIDE. ALL PT. NEEDS MET. BED IN LOWEST POSITION, CALL LIGHT WITHIN REACH, SIDE RAILS UP X3, WILL ENDORSE TO DAYSHIFT NURSE FOR CONTINUITY OF CARE.
[2017-05-05 07:05] LABS: BASOPHILS % (AUTO) 0.7 % (0.0-2.0); EOSINOPHILS # (AUTO) 0.2 /CMM (0.0-0.7); EOSINOPHILS % (AUTO) 2.4 % (0.0-6.0); HEMATOCRIT 35 % (33-45); HEMOGLOBIN 11.8 g/dL (11.5-14.8); LYMPHOCYTES # (AUTO) 2.1 /CMM (0.8-4.8); LYMPHOCYTES % (AUTO) 27.9 % (20.0-44.0); MEAN CORPUSCULAR HEMOGLOBIN 30 PG (26.0-33.0); MEAN CORPUSCULAR HGB CONC 33 g/dl (31.0-36.0); MEAN CORPUSCULAR VOLUME 90 fL (82-100); MONOCYTES # (AUTO) 0.6 /CMM (0.1-1.30); MONOCYTES % (AUTO) 7.4 % (2.0-12.0); NEUTROPHILS # (AUTO) 4.6 /CMM (1.8-8.9); NEUTROPHILS % (AUTO) 61.6 % (43.0-81.0); PLATELET COUNT (AUTO) 174 /CMM (150-450); RDW COEFFICIENT OF VARIATION 14.4 (11.5-15.0); RED BLOOD CELL COUNT(AUTO) 3.91 MIL/uL (4.0-5.2); WHITE BLOOD COUNT (AUTO) 7.5 K/uL (4.3-11.0)
[2017-05-05 07:37] LABS: ALANINE AMINOTRANSFERASE 101 U/L (12-78); ALBUMIN 2.7 g/dL (3.4-5.0); ALKALINE PHOSPHATASE 88 U/L (46-116); ASPARTATE AMINOTRANSFERASE 36 U/L (15-37); BILIRUBIN,TOTAL 0.2 mg/dL (0.2-1.0); CALCIUM, SERUM 8.6 mg/dL (8.5-10.1); CARBON DIOXIDE 22 mmol/L (21-32); CHLORIDE 112 mmol/L (98-107); CREATININE 1.2 mg/dL (0.6-1.3); GLUCOSE 93 mg/dL (74-106); MAGNESIUM 1.9 mg/dL (1.8-2.4); PHOSPHORUS 4.1 mg/dL (2.5-4.9); SODIUM SERUM 144 mmol/L (136-145); TOTAL PROTEIN, SERUM 6.3 g/dL (6.4-8.2); UREA NITROGEN, BLOOD 33 mg/dL (7-18)
--- NOTE | 2017-05-05 07:48 | NUR ---
RN OPENING NOTES PATIENT IS RESTING QUIETLY IN BED WITH EYES OPEN. PATIENT APPEARS TO HAVE NO ACUTE DISTRESS. DENIES SOB. RESPIRATION EVEN AND UNLABORED. RAC 22G. IV PATENT AND INTACT WITH NS RUNNING AT 125 ML/HR. PATIENT DENIES ANY SI AT THIS TIME WILL CONTINUE TO REASSESS DURING SHIFT. PATIENT COMPLAINING OF A HEADACHE AND LEG PAIN 04/24. WILL IMPLEMENT APPROPRIATE INTERVENTIONS. BED LOCKED IN THE LOWEST POSITION WITH SIDE RAILS UP X2. CALL LIGHT WITHIN REACH. SITTER AT THE BED SIDE. WILL CONTINUE TO MONITOR, ASSESS AND EDUCATE PATIENT THROUGHOUT SHIFT.
[2017-05-05 08:00] VITALS: BP 151/101
[2017-05-05] MEDS: PANTOPRAZOLE 40 MG TABLET.DR PO SCH (09:01)
[2017-05-05] MEDS: PRAZOSIN HCL 1 MG CAPSULE PO SCH ×3 (09:02→18:28)
[2017-05-05] MEDS: LISINOPRIL (5MG) 5 MG TABLET PO SCH (09:02)
[2017-05-05] MEDS: DULOXETINE HCL 30 MG CAPSULE.DR PO SCH (09:02)
[2017-05-05] MEDS: OXYBUTYNIN CHLORIDE 5 MG TABLET PO SCH ×2 (09:03→18:28)
[2017-05-05] MEDS: METOPROLOL SUCCINATE 25 MG TAB.SR.24H PO SCH (09:03)
[2017-05-05] MEDS: TOPIRAMATE 100 MG TABLET PO SCH ×2 (09:03→18:28)
[2017-05-05] MEDS: MESALAMINE 400 MG CAP PO SCH ×2 (09:07→18:29)
--- NOTE | 2017-05-05 11:59 | NUR ---
RN NOTES PATIENT IV INFILTRATED. IV REMOVED FROM RAC. NEW IV PLACED IN THE RIGHT FOREARM. 22 G. PATIENT TOLERATED WELL. TWO ATTEMPTS. NS RUNNING AT 125ML/HR. IV PATENT AND INTACT. WILL CONTINUE TO MONITOR.
[2017-05-05] MEDS: CEFTRIAXONE 1 G in IV D5W 50 ML IV SCH (12:33)
[2017-05-05 16:00] VITALS: BP 138/74
--- NOTE | 2017-05-05 19:30 | NUR ---
MS/RN NOTES RECEIVED PT. LYING IN BED. AWAKE, ALERT AND ORIENTED X3. BREATHING EVEN AND UNLABORED ON ROOM AIR. NO SOB, RESPIRATORY DISTRESS OR COMPLAINTS OF PAIN NOTED AT THIS TIME. PT. WITH RIGHT FOREARM 22 GAUGE PERIPHERAL IV PRESENT, PATENT AND INTACT ADMINISTERING TO PT. NS @ 125 ML/HR. PT. WITH 1:1 SITTER PRESENT AT BEDSIDE. BED IN LOWEST POSITION, CALL LIGHT WITHIN REACH, SIDE RAILS UP X3, WILL CONTINUE TO MONITOR.
[2017-05-05 20:00] VITALS: BP 142/89
--- NOTE | 2017-05-05 20:03 | NUR ---
RN CLOSING NOTES PATIENT IS RESTING COMFORTABLY IN BED AT THIS TIME WITH EYES CLOSED. PATIENT APPEARS TO BE IN NO ACUTE DISTRESS. PATIENT DENIED SI DURING SHIFT. PATIENT HAS SITTER AT THE BED SIDE. PATIENT HAS NS RUNNING AT 125 IN THE RFA. IV PATENT AND INTACT. ALL MEDS NEED. ALL MEDS GIVEN APPROPRIATE. BP CONTROLLED DURING SHIFT. REPORT GIVEN TO NIGHT RN FOR CONTINUATION OF CARE.
[2017-05-05 20:28] VITALS: BP 142/77
[2017-05-05] MEDS: HYDROCODONE/APAP 5/325MG 1 EACH TABLET PO PRN (20:31)
[2017-05-05] MEDS: SIMVASTATIN 20 MG TABLET PO SCH (22:16)
[2017-05-05] MEDS: TRAZODONE 50 MG TABLET PO SCH (22:16)
[2017-05-05] MEDS: ZOLPIDEM TARTRATE 5 MG TABLET PO PRN (22:21)
[2017-05-06] MEDS: IV NS 0.9% 1,000 ML IV PRN (03:38)
--- NOTE | 2017-05-06 06:14 | NUR ---
MS/RN NOTES PT. IS LYING IN BED RESTING. BREATHING EVEN AND UNLABORED ON ROOM AIR. NO SOB, RESPIRATORY DISTRESS OR COMPLAINTS OF PAIN NOTED AT THIS TIME. PT. WITH RIGHT FOREARM 22 GAUGE PERIPHERAL IV PRESENT, PATENT AND INTACT ADMINISTERING TO PT. NS @ 125 ML/HR. ALL PT. NEEDS MET. PT. WITH 1:1 SITTER PRESENT AT BEDSIDE. BED IN LOWEST POSITION, CALL LIGHT WITHIN REACH, SIDE RAILS UP X3, WILL ENDORSE TO DAYSHIFT NURSE FOR CONTINUITY OF CARE.
--- NOTE | 2017-05-06 07:34 | NUR ---
RN OPENING NOTES PATIENT AWAKE RESTING IN BED WITH EYES OPEN. PATIENT AOX4. PATIENT DENIES SI AT THIS TIME. BSC AT THE BEDSIDE. PATIENT IS COMPLAINING OF HEADACHE. WILL IMPLEMENT APPROPRIATE INTERVENTIONS. PATIENT TO BE MOVED TO [facility] [place] PER RN HARLETT. PATIENT DENIES SOB. IV RFA 22G WITH NS RUNNING AT 125ML/HR. IV PATENT AND INTACT. PATIENT IN NO ACUTE DISTRESS. PATIENT RESPIRATIONS EVEN AND UNLABORED. BED LOCKED IN THE LOWEST POSITION WITH SIDE RAILS UP X2. CALL LIGHT WITHIN REACH. WILL CONTINUE TO MONITOR PATIENT THROUGHOUT SHIFT.
[2017-05-06 08:00] VITALS: BP 190/98
[2017-05-06 08:05] LABS: BASOPHILS % (AUTO) 0.4 % (0.0-2.0); EOSINOPHILS # (AUTO) 0.2 /CMM (0.0-0.7); EOSINOPHILS % (AUTO) 2.2 % (0.0-6.0); HEMATOCRIT 35 % (33-45); HEMOGLOBIN 11.7 g/dL (11.5-14.8); LYMPHOCYTES # (AUTO) 1.6 /CMM (0.8-4.8); LYMPHOCYTES % (AUTO) 21.8 % (20.0-44.0); MEAN CORPUSCULAR HEMOGLOBIN 30 PG (26.0-33.0); MEAN CORPUSCULAR HGB CONC 34 g/dl (31.0-36.0); MEAN CORPUSCULAR VOLUME 90 fL (82-100); MONOCYTES # (AUTO) 0.4 /CMM (0.1-1.30); MONOCYTES % (AUTO) 5.2 % (2.0-12.0); NEUTROPHILS # (AUTO) 5.2 /CMM (1.8-8.9); NEUTROPHILS % (AUTO) 70.4 % (43.0-81.0); PLATELET COUNT (AUTO) 175 /CMM (150-450); RDW COEFFICIENT OF VARIATION 14.2 (11.5-15.0); RED BLOOD CELL COUNT(AUTO) 3.88 MIL/uL (4.0-5.2); WHITE BLOOD COUNT (AUTO) 7.4 K/uL (4.3-11.0)
[2017-05-06 08:35] LABS: CALCIUM, SERUM 8.7 mg/dL (8.5-10.1); CARBON DIOXIDE 23 mmol/L (21-32); CHLORIDE 112 mmol/L (98-107); CREATININE 1.1 mg/dL (0.6-1.3); GLUCOSE 96 mg/dL (74-106); MAGNESIUM 1.9 mg/dL (1.8-2.4); PHOSPHORUS 4.1 mg/dL (2.5-4.9); POTASSIUM 4.1 mmol/L (3.5-5.1); SODIUM SERUM 144 mmol/L (136-145); UREA NITROGEN, BLOOD 28 mg/dL (7-18)
[2017-05-06] MEDS: PANTOPRAZOLE 40 MG TABLET.DR PO SCH (08:55)
[2017-05-06] MEDS: LISINOPRIL (5MG) 5 MG TABLET PO SCH (08:56)
[2017-05-06] MEDS: METOPROLOL SUCCINATE 25 MG TAB.SR.24H PO SCH (08:56)
[2017-05-06] MEDS: OXYBUTYNIN CHLORIDE 5 MG TABLET PO SCH ×2 (08:56→17:04)
[2017-05-06] MEDS: DULOXETINE HCL 30 MG CAPSULE.DR PO SCH (08:56)
[2017-05-06] MEDS: PRAZOSIN HCL 1 MG CAPSULE PO SCH ×3 (08:57→17:04)
[2017-05-06] MEDS: TOPIRAMATE 100 MG TABLET PO SCH ×2 (08:57→17:04)
[2017-05-06] MEDS: MESALAMINE 400 MG CAP PO SCH ×2 (08:58→17:05)
[2017-05-06] MEDS: CEFTRIAXONE 1 G in IV D5W 50 ML IV SCH (11:36)
[2017-05-06] MEDS ORDERED: IV 1/2NS 1000 ML 1,000 ML IV PRN (12:00)
[2017-05-06] MEDS: HYDROCODONE/APAP 5/325MG 1 EACH TABLET PO PRN ×3 (13:02→22:55)
[2017-05-06 13:36] VITALS: BP_SYST 113; BP_SYST 125; BP_SYST 133; BP_DIAS 66; BP_DIAS 68; BP_DIAS 72
--- NOTE | 2017-05-06 15:42 | NUR ---
RN NOTES PATIENT RESTING IN BED QUIETLY WATCHING TV. PATIENT HAS COMPLAINTS OF LEG PAIN 02/22. INTERVENTION ALREADY IMPLEMENTED. WILL REASSESS. PATIENT COMFORTABLE. SITTER AT THE BEDSIDE FOR SAFETY. WILL CONTINUE TO MONITOR PATIENT.
[2017-05-06 16:00] VITALS: BP 122/63
--- NOTE | 2017-05-06 18:32 | NUR ---
RN CLOSING NOTES PATIENT IS A/OX4. PATIENT DENIES SI. PATIENT IS RESTING COMFORTABLY IN BED WATCHING TV. PATIENT COMPLAINING OF PAIN 8/10 BILATERALLY IN THE LEGS. APPROPRIATE INTERVENTIONS IMPLEMENTED. DENIES SOB. NO S/S OF ACUTE DISTRESS. IV 22G LEFT HAND PATENT AND INTAKE WITH NS 1/2 @60ML/HR. PATIENT BP CONTROLLED DURING SHIFT. ALL NEEDS MET DURING SHIFT. ALL MEDS GIVEN APPROPRIATE. NO BM TODAY. BED LOCKED IN THE LOWEST POSITION WITH SIDERAILS UP X2. CALL LIGHT WITHIN REACH. WILL GIVE REPORT TO NIGHT RN FOR CONTINUATION OF CARE.
--- NOTE | 2017-05-06 19:30 | NUR ---
MS RN NOTE PATIENT STABLE. NO SOB OR RESPIRATORY DISTRESS. C/O 8/10 GENERALIZED PAIN. RELAXATION TECHNIQUES PROVIDED. WILL ADMINISTER PAIN MEDICATION WHEN DUE. IV SITE INTACT, WITH FLUIDS RUNNING ORDERED. SITTER AT BEDSIDE. BED LOCKED AND IN LOWEST POSITION. SIDE RAILS UP, CALL LIGHT WITHIN REACH. WILL CONTINUE TO MONITOR.
[2017-05-06 20:00] VITALS: BP 134/69
[2017-05-06] MEDS: TRAZODONE 50 MG TABLET PO SCH (21:29)
[2017-05-06] MEDS: SIMVASTATIN 20 MG TABLET PO SCH (21:29)
[2017-05-06 22:00] VITALS: BP 134/69
[2017-05-06] MEDS: ZOLPIDEM TARTRATE 5 MG TABLET PO PRN (23:53)
[2017-05-07] VITALS (8 sets, daily range): BP systolic 132–166; BP diastolic 55–99
--- NOTE | 2017-05-07 01:51 | NUR ---
RN NOTE , RESPOND TO FUNERAL HOME GENERAL MANAGER PT HAD AN EPISODE OF ALOC AFTER USING THE BED SIDE COMMODE. PT WAS WITH THE WOOD REPATCHERNABEEL THE WHOLE TIME USING THE COMMODE . WOOD REPATCHER SCREAMED FOR HELP AND PT WAS ASSISTED TO THE BED . CALLED FUNERAL HOME GENERAL MANAGER. PT GAINED CONSCIOUS AFTER STERNAL RUB. VITAL SIGNS OBTAINED. PT RETAINED SPO2 LEVEL OF 98% ON RA. BS:102. PT W/ C/O OF DIZZINESS . PT REMAINED STABLE AFTER THE EPISODE OF ALOC. MADE AWARE BY COLE ODOM W/ A NEW ORDER TO TRANSFER PT TO TELE. WILL CONT TO MONITOR
--- NOTE | 2017-05-07 02:00 | NUR ---
SAW RUNNER NOTE MD AWARE OF PILOT PLANT SUPERVISOR. NEW ORDER FOR TELE. PATIENT STABLE. NO DIZZINESS AT THIS TIME.
--- NOTE | 2017-05-07 06:46 | NUR ---
SUPPORT ASSOCIATE NOTE PATIENT STABLE. TELE SB 50. NO DIZZINESS AT THIS TIME. SITTER AT BEDSIDE. ALL NEEDS MET AND ATTENDED TO. WILL ENDORSE TO DAY SHIFT FOR RAVINDRA.
[2017-05-07 06:52] LABS: BASOPHILS % (AUTO) 0.6 % (0.0-2.0); EOSINOPHILS # (AUTO) 0.2 /CMM (0.0-0.7); EOSINOPHILS % (AUTO) 2.2 % (0.0-6.0); HEMATOCRIT 34 % (33-45); HEMOGLOBIN 11.4 g/dL (11.5-14.8); LYMPHOCYTES % (AUTO) 27.7 % (20.0-44.0); MEAN CORPUSCULAR HEMOGLOBIN 30 PG (26.0-33.0); MEAN CORPUSCULAR HGB CONC 33 g/dl (31.0-36.0); MEAN CORPUSCULAR VOLUME 90 fL (82-100); MONOCYTES # (AUTO) 0.5 /CMM (0.1-1.30); MONOCYTES % (AUTO) 6.9 % (2.0-12.0); NEUTROPHILS # (AUTO) 4.5 /CMM (1.8-8.9); NEUTROPHILS % (AUTO) 62.6 % (43.0-81.0); PLATELET COUNT (AUTO) 156 /CMM (150-450); RDW COEFFICIENT OF VARIATION 14.6 (11.5-15.0); RED BLOOD CELL COUNT(AUTO) 3.79 MIL/uL (4.0-5.2); WHITE BLOOD COUNT (AUTO) 7.3 K/uL (4.3-11.0)
[2017-05-07 07:26] LABS: CALCIUM, SERUM 8.5 mg/dL (8.5-10.1); CARBON DIOXIDE 23 mmol/L (21-32); CHLORIDE 113 mmol/L (98-107); GLUCOSE 91 mg/dL (74-106); POTASSIUM 3.7 mmol/L (3.5-5.1); SODIUM SERUM 145 mmol/L (136-145); UREA NITROGEN, BLOOD 23 mg/dL (7-18)
--- NOTE | 2017-05-07 07:30 | NUR ---
HOSPITALIST NOCTURNIST PHYSICIAN AM NOTES PATIENT IN BED, ASLEEP, RESPONDS TO NAME AND TOUCH, AOX3. NOT IN ANY DISTRESS, NO SOB, TELEMETRY READS SB HR 57, PATIENT DENIES PAIN AT THIS TIME. 1/2 NS AT 60 ML/H R INFUSING WELL TO LEFT HAND G22, SITE CLEAR. USES BEDSIDE COMMODE, CARDIAC DIET. BED LOCKED IN THE LOWEST POSITION WITH SIDE RAILS UP X2. CALL LIGHT WITHIN REACH. WILL CONTINUE TO MONITOR.
[2017-05-07] MEDS: POTASSIUM CHLORIDE 20 MEQ TAB.PRT.SR PO SCH ×2 (09:22→10:44)
[2017-05-07] MEDS: PANTOPRAZOLE 40 MG TABLET.DR PO SCH (09:22)
[2017-05-07] MEDS: LISINOPRIL (5MG) 5 MG TABLET PO SCH (09:23)
[2017-05-07] MEDS: PRAZOSIN HCL 1 MG CAPSULE PO SCH ×3 (09:23→16:33)
[2017-05-07] MEDS: DULOXETINE HCL 30 MG CAPSULE.DR PO SCH (09:23)
[2017-05-07] MEDS: TOPIRAMATE 100 MG TABLET PO SCH ×2 (09:24→16:33)
[2017-05-07] MEDS: METOPROLOL SUCCINATE 25 MG TAB.SR.24H PO SCH (09:24)
[2017-05-07] MEDS: OXYBUTYNIN CHLORIDE 5 MG TABLET PO SCH ×2 (09:24→16:33)
[2017-05-07] MEDS: MESALAMINE 400 MG CAP PO SCH ×2 (09:26→16:33)
[2017-05-07] MEDS: CEFTRIAXONE 1 G in IV D5W 50 ML IV SCH (09:30)
--- NOTE | 2017-05-07 09:30 | NUR ---
TARGET WORKER NOTES ADMINISTERED DUE MEDS. STARTED ROCEPHIN IV.
[2017-05-07] MEDS ORDERED: CEPH-570 PO (11:25)
--- NOTE | 2017-05-07 11:58 | NUR ---
MS ILENE NOTES SPOKE WITH PATIENT'S SISTER SAMANTHA [phone]. SHE CAN NOT PICK THE PATIENT " THERES NO WAY I CAN PICK HER UP, I AM 3 1/2 HOURS AWAY FROM YOU GUYS". Addendum: 05/07/17 at 1202 by BRIAN GONZALEZ RN MESSAGE LEFT AT CASE MANAGEMENT .
[2017-05-07] MEDS: HYDROCODONE/APAP 5/325MG 1 EACH TABLET PO PRN ×2 (13:40→19:41)
--- NOTE | 2017-05-07 18:21 | NUR ---
MS RN NOTES PATIENT TO BE DISCHARGED BACK TO [facility] [place] PER MD IN STABLE CONDITION. PROVIDED DC INSTRUCTIONS, MED RECON LIST AND PRESCRIPTIONS. TO FOLLOW UP WITH PCP IN 1-2 WEEKS. WILL MAKE OWN APPOINTMENT. ALL BELONGINGS SIGNED AND RETURNED. ALL PAPER WORKS SIGNED. PER CASE MANAGEMENT, PATIENT TO BE PICKED UP BY AMBULANCE TO BE PAID BY PATIENT. WILL REMOVE LEFT HAND IV ACCESS UPON AMBULANCE SPINNING LATHE OPERATOR. ALL NEEDS MET. NO OTHER SIGNIFICANT CHANGE IN CONDITION. SAFETY MEASURES IN PLACE. WILL ENDORSE TO NEXT SHIFT FOR RAVINDRA.
--- NOTE | 2017-05-07 19:30 | NUR ---
MS FIRE FIGHTER CRASH FIRE AND RESCUE INITIAL NOTES SEEN PT IN BED AWAKE AND ALERT , AWARE THAT SHE'S GOING HOME TONIGHT. NO SOB NOTED, DENIES ANY DIZZINESS. SHE JUST ASKED FOR PAIN MEDICATION FOR HER LOWER LEGS. SKIN WARM AND DRY TO TOUCH NO EDEMA NOTED. OFFERED TYLENOL OR NORCO AND SHE REQUESTED NORCO TABLET . PAIN 61/0.VITAL SIGNS FF BP 128/72, PULSE 77 RESP 18 AND TEMP 98.
--- NOTE | 2017-05-07 20:05 | NUR ---
SECRETARY SPECIALIST CLOSING NOTES PT AWAKE AND WATCHING TV, STATED FEEL MUCH BETTER. READY FOR IMCU SPECIALIST , KASIA NAME JONATHAN JUST ARRIVED, GAVED REPORT AND PT AWARE SHE GOING BACK HOME TO [place]. DENIES ANY PAIN OR NAY DISCOMFORT. STATED "THANK YOU ". COPY AND BELONGING GAVE TO THE PATIENT.
== END 2017-05-07 20:05 | disposition home or self-care (01) | DRG 304 ==
LOC: TELE 16:12 → MED 05-04 09:49 → TELE 05-07 01:45 → MED 05-07 09:17
PROVIDERS: ADMIT Internal Medicine; ATTEND Internal Medicine
DX: I16.0 Hypertensive urgency (principal); N17.0 Acute kidney failure with tubular necrosis; E44.0 Moderate protein-calorie malnutrition; F33.2 Major depressive disorder, recurrent severe without psychotic features; K86.1 Other chronic pancreatitis; K50.90 Crohn's disease, unspecified, without complications; R45.851 Suicidal ideations; N28.1 Cyst of kidney, acquired; N39.0 Urinary tract infection, site not specified; E86.0 Dehydration; I12.9 Hypertensive chronic kidney disease with stage 1 through stage 4 chronic kidney disease, or unspecified chronic kidney disease; G43.909 Migraine, unspecified, not intractable, without status migrainosus; F29 Unspecified psychosis not due to a substance or known physiological condition; Z73.6 Limitation of activities due to disability; D63.8 Anemia in other chronic diseases classified elsewhere; M19.90 Unspecified osteoarthritis, unspecified site; M79.7 Fibromyalgia; N18.2 Chronic kidney disease, stage 2 (mild); N27.0 Small kidney, unilateral; Z90.49 Acquired absence of other specified parts of digestive tract; R55 Syncope and collapse
CPT/HCPCS: 36415; 70450-TC; 71010-TC; 76700-TC; 80048-TC; 80053-TC; 80061-TC; 81000-TC; 82746; 82962-TC; 83540-TC; 83735-TC; 84100-TC; 84443-TC; 84484-TC; 85025-TC; 85045-TC; 85730-TC; 87040-TC; 87086-TC; 93307-TC; J0696; J1885; J3490; J7030; J7060

== ENCOUNTER 2018-12-27 23:40 | Inpatient (IN) | payer MEDICARE, OTHER ==
[~2018-12-27] VITALS: Ht 160 cm; Wt 97.5 kg
[~2018-12-27 23:40] MED LIST changes: -BUTA-262 PO; +CEPH-570 PO; -DIPH1TAB70 PO; +DULO60CA45 PO; -ESCI20TA PO; -FURO40TA5 PO; -METO-302 PO; +METO-356 PO; -MORP15TA PO; -MORP60CP14 PO; -POTA10TA15 PO; -ROPI1TAB4 PO; -SOLI5TAB PO; +SOLI5TAB2 PO; -TOPI-37 PO; +TOPI100T38 PO; -TRAZ-144 PO; +TRAZ-182 PO; -ZOLM5TAB10 PO; -myrbetriq
[2018-12-27 23:50] VITALS: BP 100/60
--- NOTE | 2018-12-27 23:50 | NUR ---
GPS-SALES SERVICE TECHNICIAN NOTES: ADMITTED A 73 YR-OLD, FEMALE, FROM [facility]. ADMITTED ON 5150 FOR DTS. PER HOLD, PATIENT ADMITS FOR DEPRESSION AND SELF HARM. SHE OVERDOSED 1 WEEK AGO. PATIENT ADMITS SUICIDE ATTEMPT CUT HER LEFT WRIST. UPON FACE TO FACE ASSESSMENT, PATIENT IS ALERT, ORIENTED X3, DEPRESSED, QUIET, INTERACT WHEN ENGAGED, AMBULATES WITH WALKER. DENIES SI/HI OR HALLUCINATIONS AT THIS TIME. IN NO APPARENT DISTRESS NOTED. PT. C/O MILD PAIN ON HER LOWER BACK, MEDICATED WITH PRN MEDICATION. BELONGINGS WERE INVENTORIED AND CHECKED FOR CONTRABAND. PT. IS UNDER THE PSYCHIATRIC CARE OF DR. MUSE ORDERS OBTAINED, AND UNDER THE MEDICAL CARE OF KAILASH HARRIS, EVALUATED AND ASSESSED PATIENT AT BEDSIDE. SKIN ASSESSMENT DONE NOTED WITH LACERATION/CUT ON LEFT WRIST. BED LOCKED AND PLACED ON LOWEST POSITION TO MAINTAIN SAFETY. FALL PRECAUTIONS IMPLEMENTED. WILL CONTINUE TO MONITOR Q15 MINS. FOR SAFETY AND BEHAVIOR.
[2018-12-28] MEDS ORDERED: MAGNESIUM HYDROXIDE 30 ML UDC PO PRN (00:30)
[2018-12-28] MEDS ORDERED: MAG HYDROX/AL HYDROX/SIMETH 30 ML UDC PO PRN (00:30)
[2018-12-28] MEDS: ACETAMINOPHEN 325 MG TABLET PO PRN ×2 (02:08→14:35)
--- NOTE | 2018-12-28 06:52 | NUR ---
GPS-RN CALLED PATIENT'S SISTER ISABEL WEISS ([phone]) NO ANSWER. LEFT A MESSAGE ON VOICEMAIL. WILL ENDORSE TO ONCOMING SHIFT FOR CONTINUITY OF CARE.
[2018-12-28 07:12] LABS: BASOPHILS # (AUTO) 0.1 /CMM (0.0-0.2); BASOPHILS % (AUTO) 0.7 % (0.0-2.0); EOSINOPHILS % (AUTO) 2.2 % (0.0-6.0); HEMATOCRIT 36 % (33-45); HEMOGLOBIN 11.8 g/dL (11.5-14.8); LYMPHOCYTES # (AUTO) 1.7 /CMM (0.8-4.8); LYMPHOCYTES % (AUTO) 22.3 % (20.0-44.0); MEAN CORPUSCULAR HGB CONC 32 g/dl (31.0-36.0); MEAN CORPUSCULAR VOLUME 89 fL (82-100); MONOCYTES # (AUTO) 0.6 /CMM (0.1-1.30); MONOCYTES % (AUTO) 8.3 % (2.0-12.0); NEUTROPHILS % (AUTO) 66.5 % (43.0-81.0); PLATELET COUNT (AUTO) 153 /CMM (150-450); RED BLOOD CELL COUNT(AUTO) 4.07 MIL/uL (4.0-5.2); WHITE BLOOD COUNT (AUTO) 7.5 K/uL (4.3-11.0)
[2018-12-28 07:25] LABS: CALCIUM, SERUM 9.2 mg/dL (8.5-10.1); CARBON DIOXIDE 18 mmol/L (21-32); CHLORIDE 106 mmol/L (98-107); CREATININE 1.8 mg/dL (0.6-1.3); GLUCOSE 108 mg/dL (74-106); PHOSPHORUS 4.8 mg/dL (2.5-4.9); POTASSIUM 3.9 mmol/L (3.5-5.1); SODIUM SERUM 138 mmol/L (136-145); UREA NITROGEN, BLOOD 49 mg/dL (7-18)
[2018-12-28] MEDS ORDERED: ESCI10TA PO (07:58)
[2018-12-28] MEDS ORDERED: ROPI0.5T PO (07:58)
[2018-12-28] MEDS ORDERED: DIPH1TAB PO (07:58)
[2018-12-28] MEDS ORDERED: BUTA-247 PO (07:58)
[2018-12-28] MEDS ORDERED: HYDR25TA4 PO (07:58)
[2018-12-28 08:00] VITALS: BP 106/60
[2018-12-28 08:45] LABS: CHOLESTEROL 188 mg/dL (<200); HDL CHOLESTEROL 40 mg/dL (40-60); LDL 121 mg/dL (0-99); TRIGLYCERIDES 203 mg/dL (30-150)
[2018-12-28] MEDS ORDERED: DIPHENOXYLATE HCL/ATROP SULF 1 UDTAB TABLET PO PRN (10:00)
[2018-12-28] MEDS ORDERED: BUTALB/APAP/CAFFEINE 1 EACH TABLET PO PRN (10:00)
[2018-12-28] MEDS: OXYBUTYNIN CHLORIDE 5 MG TABLET PO SCH ×2 (10:34→17:19)
[2018-12-28] MEDS: LISINOPRIL (5MG) 5 MG TABLET PO SCH (10:34)
[2018-12-28] MEDS: ropiniROLE 0.5 MG TABLET PO SCH ×2 (13:19→17:18)
[2018-12-28] MEDS: PRAZOSIN HCL 1 MG CAPSULE PO SCH ×2 (13:25→17:18)
--- NOTE | 2018-12-28 14:37 | NUR ---
RN NOTE: Patient c/o pain 6/10 on BLE and back. Tylenol 650mg given. Re-Assess pain.
[2018-12-28 16:00] VITALS: BP 148/56
[2018-12-28] MEDS: TOPIRAMATE 100 MG TABLET PO SCH (17:19)
[2018-12-28 19:52] VITALS: BP 107/62
[2018-12-28 20:00] VITALS: BP 107/62
[2018-12-28] MEDS: ARIPIPRAZOLE 5 MG TABLET PO SCH (21:35)
[2018-12-28] MEDS: SIMVASTATIN 20 MG TABLET PO SCH (21:35)
[2018-12-29 07:40] LABS: ALANINE AMINOTRANSFERASE 19 U/L (12-78); ALBUMIN 2.9 g/dL (3.4-5.0); ALKALINE PHOSPHATASE 85 U/L (46-116); ASPARTATE AMINOTRANSFERASE 15 U/L (15-37); BILIRUBIN,TOTAL 0.3 mg/dL (0.2-1.0); CALCIUM, SERUM 8.9 mg/dL (8.5-10.1); CARBON DIOXIDE 19 mmol/L (21-32); CHLORIDE 106 mmol/L (98-107); CREATININE 1.8 mg/dL (0.6-1.3); GLUCOSE 103 mg/dL (74-106); SODIUM SERUM 139 mmol/L (136-145); TOTAL PROTEIN, SERUM 6.8 g/dL (6.4-8.2); UREA NITROGEN, BLOOD 58 mg/dL (7-18)
[2018-12-29 08:00] VITALS: BP 107/64
[2018-12-29] MEDS: OXYBUTYNIN CHLORIDE 5 MG TABLET PO SCH ×2 (08:45→16:30)
[2018-12-29] MEDS: TOPIRAMATE 100 MG TABLET PO SCH ×2 (08:45→16:30)
[2018-12-29] MEDS: ESCITALOPRAM OXALATE (10 MG) 10 MG TABLET PO SCH (08:48)
[2018-12-29] MEDS: ropiniROLE 0.5 MG TABLET PO SCH ×3 (08:49→16:30)
[2018-12-29] MEDS ORDERED: HYDROCHLOROTHIAZIDE 25 MG TABLET PO SCH (09:00)
[2018-12-29] MEDS ORDERED: SOLIFENACIN SUCCINATE 5 MG TABLET PO SCH (09:00)
[2018-12-29] MEDS: PRAZOSIN HCL 1 MG CAPSULE PO SCH ×2 (10:33→16:29)
[2018-12-29] MEDS: LISINOPRIL (5MG) 5 MG TABLET PO SCH (10:34)
--- NOTE | 2018-12-29 10:34 | NUR ---
WOUND CARE CONSULT: PT PRESENTS WITH DRY SCRATCH MOTA ON LEFT WRIST AND REDNESS/RASH TO ABDOMINAL FOLDS, PRESENT ON ADMISSION. PT REQUESTS NYSTATIN POWDER FOR ABDOMINAL FOLD AREA. RECOMMENDATIONS DISCUSSED WITH NURSING STAFF FOR SKIN CARE AND PROTECTION. WILL SEE PRN. BOYER IN AGREEMENT WITH PLAN OF CARE. PT IS CONTINENT AND INDEPENDENT WITH BED MOBILITY. CURRENT TC SCORE IS 19. Addendum: 12/29/18 at 1036 by ALEXUS HEART WNDNU Amended: Links added.
[2018-12-29] MEDS ORDERED: Z GUARD REMEDY 2 OZ OINT TP PRN (11:00)
[2018-12-29 16:00] VITALS: BP 119/76
[2018-12-29] MEDS: NYSTATIN TOP POWDER 15 GM BOTTLE TP SCH (17:51)
--- NOTE | 2018-12-29 18:58 | NUR ---
RN NOTE :PATIENT FOUND ON THE FLOOR BY WALL INSULATION SPRAYER PATIENT STATED "I FELL ON THE FLOOR ".BODY ASSESSMENT DONE ABLE TO MOVE UPPER AND LOWER EXTREMITIES ,NO C/O PAIN AT THIS TIME ,NO BRUISES OR BLEEDING NOTED BP 124/72,P108 ,R 20 ,O2 SAT 93%.ALTHEA THOMAS ACCIDENT INVESTIGATOR NOTIFIED WITH NEW ORDER CT HEAD WITHOUT CONTRAST ,CBC,BMP IN AM .NURSING LEAD MATERIAL HANDLER SARAH ESCOBEDO NOTIFIED .LEFT MESSAGE FOR SISTER PHYLLIS. REPORT GIVEN TO INCOMING NURSE .
[2018-12-29 20:09] VITALS: BP 92/60
[2018-12-29] MEDS: TEMAZEPAM 7.5 MG CAPSULE PO PRN (21:22)
[2018-12-29] MEDS: ARIPIPRAZOLE 5 MG TABLET PO SCH (21:23)
[2018-12-29] MEDS: SIMVASTATIN 20 MG TABLET PO SCH (21:23)
--- NOTE | 2018-12-29 22:05 | NUR ---
ms/rn notes Patient in bed, aaox3. Resp. even et unlabored. Denies pain or discomfort. V/ss table, afebrile. Denies pain or discomfort. Medicated with Restoril for insomnia. All safety precautions rendered. Bed alarm on.
[2018-12-30] MEDS: LORAZEPAM 0.5 MG TABLET PO PRN (01:01)
[2018-12-30 07:16] LABS: CALCIUM, SERUM 8.6 mg/dL (8.5-10.1); CARBON DIOXIDE 20 mmol/L (21-32); CHLORIDE 106 mmol/L (98-107); CREATININE 1.9 mg/dL (0.6-1.3); GLUCOSE 99 mg/dL (74-106); SODIUM SERUM 139 mmol/L (136-145); UREA NITROGEN, BLOOD 56 mg/dL (7-18)
[2018-12-30 07:22] LABS: BASOPHILS % (AUTO) 0.5 % (0.0-2.0); EOSINOPHILS % (AUTO) 2.2 % (0.0-6.0); HEMATOCRIT 36 % (33-45); HEMOGLOBIN 11.8 g/dL (11.5-14.8); LYMPHOCYTES # (AUTO) 1.6 /CMM (0.8-4.8); LYMPHOCYTES % (AUTO) 20.5 % (20.0-44.0); MEAN CORPUSCULAR HGB CONC 33 g/dl (31.0-36.0); MEAN CORPUSCULAR VOLUME 89 fL (82-100); MONOCYTES # (AUTO) 0.7 /CMM (0.1-1.30); MONOCYTES % (AUTO) 8.5 % (2.0-12.0); NEUTROPHILS # (AUTO) 5.5 /CMM (1.8-8.9); NEUTROPHILS % (AUTO) 68.3 % (43.0-81.0); PLATELET COUNT (AUTO) 139 /CMM (150-450); RED BLOOD CELL COUNT(AUTO) 4.07 MIL/uL (4.0-5.2)
[2018-12-30 08:00] VITALS: BP 132/61
[2018-12-30] MEDS: PRAZOSIN HCL 1 MG CAPSULE PO SCH ×2 (09:03→18:15)
[2018-12-30] MEDS: ESCITALOPRAM OXALATE (10 MG) 10 MG TABLET PO SCH (09:04)
[2018-12-30] MEDS: TOPIRAMATE 100 MG TABLET PO SCH ×2 (09:04→18:15)
[2018-12-30] MEDS: ropiniROLE 0.5 MG TABLET PO SCH ×3 (09:05→18:13)
[2018-12-30] MEDS: HYDROCHLOROTHIAZIDE 25 MG TABLET PO SCH (09:06)
[2018-12-30] MEDS: OXYBUTYNIN CHLORIDE 5 MG TABLET PO SCH ×2 (09:06→18:14)
[2018-12-30] MEDS: LISINOPRIL (5MG) 5 MG TABLET PO SCH (09:07)
[2018-12-30] MEDS: NYSTATIN TOP POWDER 15 GM BOTTLE TP SCH ×2 (09:08→18:16)
--- NOTE | 2018-12-30 11:01 | NUR ---
Initial Discharge Plan: Pt currently resides at a detention apartment called [facility] located at [address] [place] [address], [place] [address]; ([phone]). Per pt, she would like to return to her apartment as soon as possible. SW will work with the pt and the MD regarding appropriate discharge planning. SW will form a safe and proper discharge.
--- NOTE | 2018-12-30 11:02 | NUR ---
ADIS called [facility] ([phone]) and left a voicemail message for Ariadne stating that she would like to coordinate with her regarding whether or not the pt can return to the facility.
--- NOTE | 2018-12-30 11:04 | NUR ---
Pt did not give the permission to contact the pt's sister, Lauren ([phone]), because she is on vacation in [place] and she does not want her to be bothered with her situation.
--- NOTE | 2018-12-30 11:44 | NUR ---
Ariadne ([phone]) from [facility] called the SW and stated that the pt is allowed to return to her home once she is cleared for discharge. She also stated that the pt did much better in a previous setting at [facility] and asked the SW to work on transferring the pt there so that she can receive the necessary support.
[2018-12-30 12:33] LABS: APPEARANCE,URINE SL CLOUDY (CLEAR); BILIRUBIN,URINE NEGATIVE (NEGATIVE); BLOOD, URINE NEGATIVE Ery/uL (NEGATIVE); COLOR,URINE YELLOW (YELLOW); KETONES,URINE NEGATIVE (NEGATIVE); LEUKOCYTE ESTERASE ,URINE NEGATIVE (NEGATIVE); NITRITE, URINE NEGATIVE (NEGATIVE); PH,URINE 5.5 (5.0-8.0); PROTEIN,URINE NEGATIVE (NEGATIVE); UGLUCOSE NEGATIVE (NEGATIVE); UROBILINOGEN,URINE 0.2 EU/dL (0.2)
[2018-12-30 16:00] VITALS: BP 124/73
--- NOTE | 2018-12-30 16:16 | NUR ---
Group Therapy: SW prompted the pt to go to group but the pt refused.
--- NOTE | 2018-12-30 19:33 | NUR ---
GPS/RN OPENING NOTES RECEIVED PATIENT IN BED, ABLE TO AMBULATE WITH WALKER WITH ASSIST, MONITORED FOR ANY CHANGES, REQUESTED FOR PAIN MEDICATION IN BOTH LEGS, PAIN LEVEL 8/10. WILL CONTINUE TO MONITOR.
[2018-12-30 19:36] VITALS: BP 120/64
[2018-12-30] MEDS: ACETAMINOPHEN 325 MG TABLET PO PRN (19:44)
[2018-12-30 20:30] VITALS: BP 120/64
[2018-12-30] MEDS: TEMAZEPAM 7.5 MG CAPSULE PO PRN (21:33)
[2018-12-30] MEDS: SIMVASTATIN 20 MG TABLET PO SCH (21:33)
[2018-12-31 07:57] LABS: BASOPHILS # (AUTO) 0.1 /CMM (0.0-0.2); BASOPHILS % (AUTO) 0.7 % (0.0-2.0); EOSINOPHILS % (AUTO) 3.5 % (0.0-6.0); HEMATOCRIT 36 % (33-45); HEMOGLOBIN 11.9 g/dL (11.5-14.8); LYMPHOCYTES # (AUTO) 1.7 /CMM (0.8-4.8); LYMPHOCYTES % (AUTO) 24.2 % (20.0-44.0); MEAN CORPUSCULAR HGB CONC 33 g/dl (31.0-36.0); MEAN CORPUSCULAR VOLUME 88 fL (82-100); MONOCYTES # (AUTO) 0.6 /CMM (0.1-1.30); MONOCYTES % (AUTO) 8.6 % (2.0-12.0); NEUTROPHILS # (AUTO) 4.4 /CMM (1.8-8.9); PLATELET COUNT (AUTO) 149 /CMM (150-450); RED BLOOD CELL COUNT(AUTO) 4.14 MIL/uL (4.0-5.2)
[2018-12-31 08:00] VITALS: BP 115/63
[2018-12-31 08:10] LABS: CALCIUM, SERUM 8.8 mg/dL (8.5-10.1); CARBON DIOXIDE 20 mmol/L (21-32); CHLORIDE 104 mmol/L (98-107); CREATININE 1.7 mg/dL (0.6-1.3); GLUCOSE 101 mg/dL (74-106); POTASSIUM 3.7 mmol/L (3.5-5.1); SODIUM SERUM 138 mmol/L (136-145); UREA NITROGEN, BLOOD 50 mg/dL (7-18)
[2018-12-31] MEDS: ropiniROLE 0.5 MG TABLET PO SCH ×3 (08:10→16:44)
[2018-12-31] MEDS: TOPIRAMATE 100 MG TABLET PO SCH ×2 (08:11→16:44)
[2018-12-31] MEDS: LISINOPRIL (5MG) 5 MG TABLET PO SCH (08:11)
[2018-12-31] MEDS: OXYBUTYNIN CHLORIDE 5 MG TABLET PO SCH ×2 (08:11→16:44)
[2018-12-31] MEDS: PRAZOSIN HCL 1 MG CAPSULE PO SCH ×2 (08:12→17:00)
[2018-12-31] MEDS: HYDROCHLOROTHIAZIDE 25 MG TABLET PO SCH (08:14)
[2018-12-31] MEDS: ESCITALOPRAM OXALATE (10 MG) 10 MG TABLET PO SCH (08:16)
[2018-12-31] MEDS: NYSTATIN TOP POWDER 15 GM BOTTLE TP SCH ×2 (09:33→16:51)
[2018-12-31] MEDS: ACETAMINOPHEN 325 MG TABLET PO PRN ×2 (10:27→16:43)
[2018-12-31 16:00] VITALS: BP 114/60
[2018-12-31 17:25] VITALS: BP 97/57
--- NOTE | 2018-12-31 17:45 | NUR ---
RN NOTE: Acetaminophen 650 mg was given to patient d/t complaints of 6/10 back pain radiating to bilateral legs. Re-Assessed patient post divorce mediator. No more complaints of back pain. Patient satisfied.
[2018-12-31 20:00] VITALS: BP 105/53
[2018-12-31] MEDS: ARIPIPRAZOLE 5 MG TABLET PO SCH (21:18)
[2018-12-31] MEDS: SIMVASTATIN 20 MG TABLET PO SCH (21:18)
[2018-12-31] MEDS: TEMAZEPAM 7.5 MG CAPSULE PO PRN (21:56)
[2019-01-01 08:00] VITALS: BP 132/69
[2019-01-01] MEDS: TOPIRAMATE 100 MG TABLET PO SCH ×2 (08:22→16:57)
[2019-01-01] MEDS: ESCITALOPRAM OXALATE (10 MG) 10 MG TABLET PO SCH (08:22)
[2019-01-01] MEDS: OXYBUTYNIN CHLORIDE 5 MG TABLET PO SCH ×2 (08:22→16:58)
[2019-01-01] MEDS: ropiniROLE 0.5 MG TABLET PO SCH ×3 (08:22→16:58)
[2019-01-01] MEDS: HYDROCHLOROTHIAZIDE 25 MG TABLET PO SCH (08:23)
[2019-01-01] MEDS: PRAZOSIN HCL 1 MG CAPSULE PO SCH ×2 (08:23→16:57)
[2019-01-01] MEDS: LISINOPRIL (5MG) 5 MG TABLET PO SCH (08:24)
[2019-01-01] MEDS: NYSTATIN TOP POWDER 15 GM BOTTLE TP SCH ×2 (09:21→17:05)
[2019-01-01 09:30] LABS: BASOPHILS % (AUTO) 0.4 % (0.0-2.0); EOSINOPHILS % (AUTO) 2.4 % (0.0-6.0); HEMATOCRIT 37 % (33-45); LYMPHOCYTES # (AUTO) 1.3 /CMM (0.8-4.8); LYMPHOCYTES % (AUTO) 16.2 % (20.0-44.0); MEAN CORPUSCULAR HGB CONC 33 g/dl (31.0-36.0); MEAN CORPUSCULAR VOLUME 88 fL (82-100); MONOCYTES # (AUTO) 0.5 /CMM (0.1-1.30); MONOCYTES % (AUTO) 6.8 % (2.0-12.0); NEUTROPHILS # (AUTO) 5.9 /CMM (1.8-8.9); NEUTROPHILS % (AUTO) 74.2 % (43.0-81.0); PLATELET COUNT (AUTO) 148 /CMM (150-450); RED BLOOD CELL COUNT(AUTO) 4.15 MIL/uL (4.0-5.2)
[2019-01-01 09:35] LABS: CREATINE KINASE, TOTAL 89 U/L (26-192)
[2019-01-01 09:38] LABS: ALANINE AMINOTRANSFERASE 38 U/L (12-78); ALBUMIN 3.1 g/dL (3.4-5.0); ALKALINE PHOSPHATASE 95 U/L (46-116); ASPARTATE AMINOTRANSFERASE 14 U/L (15-37); BILIRUBIN,TOTAL 0.3 mg/dL (0.2-1.0); CALCIUM, SERUM 8.3 mg/dL (8.5-10.1); CARBON DIOXIDE 20 mmol/L (21-32); CHLORIDE 104 mmol/L (98-107); CREATININE 2.2 mg/dL (0.6-1.3); GLUCOSE 154 mg/dL (74-106); MAGNESIUM 1.8 mg/dL (1.8-2.4); PHOSPHORUS 4.6 mg/dL (2.5-4.9); POTASSIUM 3.7 mmol/L (3.5-5.1); SODIUM SERUM 139 mmol/L (136-145); TOTAL PROTEIN, SERUM 7.2 g/dL (6.4-8.2); UREA NITROGEN, BLOOD 66 mg/dL (7-18)
[2019-01-01] MEDS ORDERED: hydrALAZINE HCL 25 MG TABLET PO PRN (12:00)
--- NOTE | 2019-01-01 13:53 | NUR ---
Ariadne ([phone]) from [facility] called the SW and the SW informed her that the pt was not transferred and that she will be discharged on Friday.
[2019-01-01 16:14] VITALS: BP 114/65
[2019-01-01 20:00] VITALS: BP 97/42
[2019-01-01] MEDS: SIMVASTATIN 20 MG TABLET PO SCH (21:03)
[2019-01-01] MEDS: ARIPIPRAZOLE 5 MG TABLET PO SCH (21:03)
[2019-01-01] MEDS: TEMAZEPAM 7.5 MG CAPSULE PO PRN (21:04)
[2019-01-02 08:00] VITALS: BP 136/67
[2019-01-02 08:11] LABS: BASOPHILS # (AUTO) 0.1 /CMM (0.0-0.2); BASOPHILS % (AUTO) 0.7 % (0.0-2.0); EOSINOPHILS % (AUTO) 2.7 % (0.0-6.0); HEMATOCRIT 39 % (33-45); HEMOGLOBIN 12.3 g/dL (11.5-14.8); LYMPHOCYTES # (AUTO) 1.9 /CMM (0.8-4.8); LYMPHOCYTES % (AUTO) 21.4 % (20.0-44.0); MEAN CORPUSCULAR HGB CONC 32 g/dl (31.0-36.0); MEAN CORPUSCULAR VOLUME 91 fL (82-100); MONOCYTES # (AUTO) 0.6 /CMM (0.1-1.30); MONOCYTES % (AUTO) 6.7 % (2.0-12.0); NEUTROPHILS # (AUTO) 6.2 /CMM (1.8-8.9); NEUTROPHILS % (AUTO) 68.5 % (43.0-81.0); PLATELET COUNT (AUTO) 139 /CMM (150-450); RED BLOOD CELL COUNT(AUTO) 4.26 MIL/uL (4.0-5.2); WHITE BLOOD COUNT (AUTO) 9.1 K/uL (4.3-11.0)
[2019-01-02] MEDS: PRAZOSIN HCL 1 MG CAPSULE PO SCH ×2 (08:27→17:10)
[2019-01-02] MEDS: ESCITALOPRAM OXALATE (10 MG) 10 MG TABLET PO SCH (08:28)
[2019-01-02] MEDS: OXYBUTYNIN CHLORIDE 5 MG TABLET PO SCH ×2 (08:29→17:10)
[2019-01-02] MEDS: TOPIRAMATE 100 MG TABLET PO SCH ×2 (08:29→17:10)
[2019-01-02] MEDS: ropiniROLE 0.5 MG TABLET PO SCH ×3 (08:29→17:10)
[2019-01-02] MEDS: NYSTATIN TOP POWDER 15 GM BOTTLE TP SCH ×2 (08:30→17:13)
[2019-01-02 09:03] LABS: CALCIUM, SERUM 8.6 mg/dL (8.5-10.1); CARBON DIOXIDE 18 mmol/L (21-32); CHLORIDE 104 mmol/L (98-107); CREATININE 2.4 mg/dL (0.6-1.3); GLUCOSE 117 mg/dL (74-106); MAGNESIUM 2.1 mg/dL (1.8-2.4); PHOSPHORUS 5.2 mg/dL (2.5-4.9); POTASSIUM 4.3 mmol/L (3.5-5.1); SODIUM SERUM 137 mmol/L (136-145)
[2019-01-02 09:10] LABS: UREA NITROGEN, BLOOD 81 mg/dL (7-18)
[2019-01-02] MEDS ORDERED: IV 1/2NS 1000 ML 1,000 ML IV PRN (09:30)
--- NOTE | 2019-01-02 10:30 | NUR ---
GPS/RN-NOTES DR. GIRALDO IN THE UNIT AND MADE AWARE OF PATIENT LABS RESULTS INCLUDING BUN OF 81 WITH ORDER OF IV FLUID OF 1/2 NS 1000ML AT 100 MLS/HR. IV LINE STARTED ON LEFT HAND #20 GAUGE.
[2019-01-02 12:11] LABS: PTH, INTACT 144 pg/mL (15-65)
[2019-01-02 16:00] VITALS: BP 124/75
--- NOTE | 2019-01-02 18:23 | NUR ---
GPS/RN-NOTES PATIENT AGREED ON APPLYING FREEDOM SPLINT ON LEFT HAND TO STABILIZE IV INFUSION.
[2019-01-02 20:00] VITALS: BP 119/59
[2019-01-02] MEDS: SIMVASTATIN 20 MG TABLET PO SCH (21:25)
[2019-01-02] MEDS: ARIPIPRAZOLE 5 MG TABLET PO SCH (21:25)
[2019-01-02] MEDS: TEMAZEPAM 7.5 MG CAPSULE PO PRN (22:20)
[2019-01-03] MEDS: LORAZEPAM 0.5 MG TABLET PO PRN ×2 (00:23→19:54)
--- NOTE | 2019-01-03 06:44 | NUR ---
GPS RN NOTES : PT. RECEIVED 1/2 NS ,100ML IV FLUID PER MD ORDERS , PT. TOLERATE WELL, NO ACUTE DISTRESS NOTED ,DENIES ANY DISCOMFORT AT THIS TIME . WILL CONTINUTY WITH CARE.
[2019-01-03 07:22] LABS: BASOPHILS % (AUTO) 0.6 % (0.0-2.0); HEMATOCRIT 34 % (33-45); HEMOGLOBIN 11.5 g/dL (11.5-14.8); LYMPHOCYTES # (AUTO) 1.5 /CMM (0.8-4.8); LYMPHOCYTES % (AUTO) 19.1 % (20.0-44.0); MEAN CORPUSCULAR HGB CONC 34 g/dl (31.0-36.0); MEAN CORPUSCULAR VOLUME 87 fL (82-100); MONOCYTES # (AUTO) 0.6 /CMM (0.1-1.30); MONOCYTES % (AUTO) 7.2 % (2.0-12.0); NEUTROPHILS # (AUTO) 5.5 /CMM (1.8-8.9); NEUTROPHILS % (AUTO) 70.1 % (43.0-81.0); PLATELET COUNT (AUTO) 145 /CMM (150-450); RED BLOOD CELL COUNT(AUTO) 3.95 MIL/uL (4.0-5.2); WHITE BLOOD COUNT (AUTO) 7.8 K/uL (4.3-11.0)
[2019-01-03 07:37] LABS: CALCIUM, SERUM 8.6 mg/dL (8.5-10.1); CARBON DIOXIDE 18 mmol/L (21-32); CHLORIDE 105 mmol/L (98-107); CREATININE 1.8 mg/dL (0.6-1.3); GLUCOSE 111 mg/dL (74-106); POTASSIUM 4.2 mmol/L (3.5-5.1); SODIUM SERUM 139 mmol/L (136-145); UREA NITROGEN, BLOOD 65 mg/dL (7-18)
[2019-01-03 08:00] VITALS: BP 139/64
[2019-01-03] MEDS: TOPIRAMATE 100 MG TABLET PO SCH ×2 (08:24→17:07)
[2019-01-03] MEDS: ESCITALOPRAM OXALATE (10 MG) 10 MG TABLET PO SCH (08:25)
[2019-01-03] MEDS: OXYBUTYNIN CHLORIDE 5 MG TABLET PO SCH ×2 (08:26→17:09)
[2019-01-03] MEDS: PRAZOSIN HCL 1 MG CAPSULE PO SCH ×2 (08:29→17:31)
[2019-01-03] MEDS: ropiniROLE 0.5 MG TABLET PO SCH ×3 (08:29→17:10)
[2019-01-03] MEDS: NYSTATIN TOP POWDER 15 GM BOTTLE TP SCH ×2 (08:30→17:11)
--- NOTE | 2019-01-03 10:40 | NUR ---
Approx 1040 Candy LEAD RIDER notified regarding abnormal lab results BUN = 65 & CR =1.8 N.N.O given.
[2019-01-03 16:00] VITALS: BP 132/65
[2019-01-03 19:48] VITALS: BP 128/63
[2019-01-03] MEDS: ARIPIPRAZOLE 5 MG TABLET PO SCH (21:15)
[2019-01-03] MEDS: SIMVASTATIN 20 MG TABLET PO SCH (21:15)
--- NOTE | 2019-01-04 06:48 | NUR ---
GPS RN NOTES: PT. RESTING IN HER BED , NO ACUTE DISTRESS NOTED, DENIES ANY PAIN DISCOMFORT AT THIS TIME , WILL CONTINUITY WITH CARE.
[2019-01-04 07:44] LABS: BASOPHILS % (AUTO) 0.6 % (0.0-2.0); EOSINOPHILS % (AUTO) 2.5 % (0.0-6.0); HEMATOCRIT 35 % (33-45); HEMOGLOBIN 11.6 g/dL (11.5-14.8); LYMPHOCYTES # (AUTO) 1.4 /CMM (0.8-4.8); LYMPHOCYTES % (AUTO) 16.8 % (20.0-44.0); MEAN CORPUSCULAR HGB CONC 34 g/dl (31.0-36.0); MEAN CORPUSCULAR VOLUME 87 fL (82-100); MONOCYTES # (AUTO) 0.6 /CMM (0.1-1.30); MONOCYTES % (AUTO) 7.1 % (2.0-12.0); PLATELET COUNT (AUTO) 149 /CMM (150-450); RED BLOOD CELL COUNT(AUTO) 3.97 MIL/uL (4.0-5.2); WHITE BLOOD COUNT (AUTO) 8.2 K/uL (4.3-11.0)
[2019-01-04 07:55] LABS: ALANINE AMINOTRANSFERASE 37 U/L (12-78); ALBUMIN 3.3 g/dL (3.4-5.0); ALKALINE PHOSPHATASE 97 U/L (46-116); ASPARTATE AMINOTRANSFERASE 15 U/L (15-37); BILIRUBIN,TOTAL 0.3 mg/dL (0.2-1.0); CALCIUM, SERUM 8.6 mg/dL (8.5-10.1); CARBON DIOXIDE 20 mmol/L (21-32); CHLORIDE 105 mmol/L (98-107); CREATININE 1.6 mg/dL (0.6-1.3); GLUCOSE 107 mg/dL (74-106); MAGNESIUM 1.9 mg/dL (1.8-2.4); PHOSPHORUS 3.5 mg/dL (2.5-4.9); POTASSIUM 4.1 mmol/L (3.5-5.1); SODIUM SERUM 139 mmol/L (136-145); TOTAL PROTEIN, SERUM 7.6 g/dL (6.4-8.2); UREA NITROGEN, BLOOD 47 mg/dL (7-18)
[2019-01-04 08:00] VITALS: BP 148/56
[2019-01-04 08:06] LABS: *SPE A/G RATIO 0.9 (0.7-1.7); *SPE ALBUMIN 3.1 g/dL (2.9-4.4); *SPE ALPHA-1-GLOBULIN 0.2 g/dL (0.0-0.4); *SPE ALPHA-2-GLOBULIN 1.1 g/dL (0.4-1.0); *SPE BETA GLOBULIN 1.1 g/dL (0.7-1.3); *SPE GLOBULIN, TOTAL 3.5 g/dL (2.2-3.9); *SPE M-SPIKE Not Observed g/dL (Not Observed); *SPEGAMMA GLOBULIN 1.2 g/dL (0.4-1.8)
[2019-01-04] MEDS: TOPIRAMATE 100 MG TABLET PO SCH ×2 (08:32→16:20)
[2019-01-04] MEDS: ropiniROLE 0.5 MG TABLET PO SCH ×3 (08:32→16:19)
[2019-01-04] MEDS: OXYBUTYNIN CHLORIDE 5 MG TABLET PO SCH ×2 (08:32→16:20)
[2019-01-04] MEDS: ESCITALOPRAM OXALATE (10 MG) 10 MG TABLET PO SCH (08:32)
[2019-01-04] MEDS: PRAZOSIN HCL 1 MG CAPSULE PO SCH ×2 (08:33→16:20)
[2019-01-04] MEDS: NYSTATIN TOP POWDER 15 GM BOTTLE TP SCH ×2 (08:34→16:20)
--- NOTE | 2019-01-04 12:51 | NUR ---
Discharge Planning: community action worker attempted to reach [facility], no pickling solution maker. community action worker left two voicemail requesting return call. community action worker reached out to [facility] at [phone], no pickling solution maker, SW left for return call.
--- NOTE | 2019-01-04 13:46 | NUR ---
Discharge Planning: fabric worker attempted to reach [facility], no merchandise pickup/receiving associate. fabric worker reached out to main office and was transferred to Mono Carbajal LCSW ([phone]), GASOLINE POWER SHOVEL OPERATOR stated that he will set up transportation however can not confirm time of merchandise pickup/receiving associate. GASOLINE POWER SHOVEL OPERATOR is to call SO and update SW tomorrow morning.
[2019-01-04 16:00] VITALS: BP 150/75
--- NOTE | 2019-01-04 16:16 | NUR ---
animal nursery worker called Ariadne ([phone]) from [facility], SW informed her that the pt is to be discharged Friday however no time has been specified.
[2019-01-04 20:15] VITALS: BP 130/56
[2019-01-04] MEDS: ARIPIPRAZOLE 5 MG TABLET PO SCH (21:11)
[2019-01-04] MEDS: SIMVASTATIN 20 MG TABLET PO SCH (21:12)
[2019-01-05 07:38] LABS: CALCIUM, SERUM 8.6 mg/dL (8.5-10.1); CARBON DIOXIDE 22 mmol/L (21-32); CHLORIDE 105 mmol/L (98-107); CREATININE 1.5 mg/dL (0.6-1.3); GLUCOSE 106 mg/dL (74-106); POTASSIUM 3.8 mmol/L (3.5-5.1); SODIUM SERUM 140 mmol/L (136-145); UREA NITROGEN, BLOOD 41 mg/dL (7-18)
[2019-01-05 08:00] VITALS: BP 145/63
[2019-01-05] MEDS: OXYBUTYNIN CHLORIDE 5 MG TABLET PO SCH ×2 (08:24→16:28)
[2019-01-05] MEDS: TOPIRAMATE 100 MG TABLET PO SCH ×2 (08:25→16:29)
[2019-01-05] MEDS: ESCITALOPRAM OXALATE (10 MG) 10 MG TABLET PO SCH (08:26)
[2019-01-05] MEDS: ropiniROLE 0.5 MG TABLET PO SCH ×3 (08:27→16:29)
[2019-01-05] MEDS: PRAZOSIN HCL 1 MG CAPSULE PO SCH ×2 (08:27→16:28)
--- NOTE | 2019-01-05 09:07 | NUR ---
SW called Mono Carbajal ([phone]) from the [facility] and he stated that there are no rides available for today and that they rescheduled it for the following day.
[2019-01-05] MEDS: NYSTATIN TOP POWDER 15 GM BOTTLE TP SCH ×2 (09:42→16:30)
--- NOTE | 2019-01-05 10:45 | NUR ---
GPS RN NOTE: PT WAS SEEN AND EXAMINE PT LEFT WRIST BY DR. AUSTIN ANTIBIOTIC ORDERED
[2019-01-05] MEDS: CLINDAMYCIN HCL 150 MG CAPSULE PO SCH ×2 (12:14→21:22)
[2019-01-05 16:00] VITALS: BP 153/79
[2019-01-05] MEDS: ACETAMINOPHEN 325 MG TABLET PO PRN (18:05)
--- NOTE | 2019-01-05 18:07 | NUR ---
RN NOTE: PATIENT C/O 7/10 PAIN TO LEFT WRIST. ACETAMINOPHEN 650 MG PO PRN WAS GIVEN. WILL MONITOR PAIN.
[2019-01-05 20:01] VITALS: BP 141/89
[2019-01-05] MEDS: SIMVASTATIN 20 MG TABLET PO SCH (21:22)
[2019-01-05] MEDS: ARIPIPRAZOLE 5 MG TABLET PO SCH (21:22)
[2019-01-06] MEDS ORDERED: CLINDAMYCIN HCL 150 MG CAPSULE PO ONE (06:17)
[2019-01-06] MEDS: CLINDAMYCIN HCL 150 MG CAPSULE PO SCH ×3 (06:20→20:26)
[2019-01-06 08:00] VITALS: BP 138/84
[2019-01-06] MEDS: OXYBUTYNIN CHLORIDE 5 MG TABLET PO SCH ×2 (08:21→16:53)
[2019-01-06] MEDS: ropiniROLE 0.5 MG TABLET PO SCH ×3 (08:22→16:55)
[2019-01-06] MEDS: TOPIRAMATE 100 MG TABLET PO SCH ×2 (08:22→16:53)
[2019-01-06] MEDS: PRAZOSIN HCL 1 MG CAPSULE PO SCH ×2 (08:23→16:54)
[2019-01-06] MEDS: ESCITALOPRAM OXALATE (10 MG) 10 MG TABLET PO SCH (08:25)
--- NOTE | 2019-01-06 08:30 | NUR ---
ADIS called Mono Carbajal ([phone]) who stated that a ride was arranged to picking supervisor the pt the previous night but the night nurses were unable to discharge the pt. He stated that the SW should call his pack worker supervisor, Rufino Tan ([phone]). ADIS stated that she would follow up with his pack worker supervisor.
--- NOTE | 2019-01-06 08:35 | NUR ---
ADIS called Rufino Tan ([phone]), retail chain store area supervisor at the [facility], and he stated that he was disappointed with the staff's inability to discharge the pt when a ride had become available. ADIS apologized for the inconvenience and he stated that he set up an alternative ride to parts picker the pt around 3pm.
[2019-01-06] MEDS: NYSTATIN TOP POWDER 15 GM BOTTLE TP SCH ×2 (09:00→17:00)
--- NOTE | 2019-01-06 09:15 | NUR ---
ADIS called Ariadne ([phone]) from [facility] and left a voicemail stating that the pt is going to be discharged today because there were no rides available the previous day. ADIS stated that the pt has an infection and she is currently on antibiotics so that she would like a call back from someone regarding that matter.
--- NOTE | 2019-01-06 09:38 | NUR ---
Yelena ([phone]) from [facility] called and stated that Ariadne was out of the office for the rest of the week. ADIS stated that someone needs to make sure that the pt takes her medications especially her antibiotics. Yelena stated that their facility is very independent and that the residents take care of themselves.
--- NOTE | 2019-01-06 10:22 | NUR ---
WOUND CARE CONSULT: PT PRESENTS WITH LEFT WRIST RAISED RED AREA AND PURULENT WOUND. PER NURSING STAFF, PT PREVIOUSLY HAD IV IN THIS LOCATION. PT EXAMINED BY DR MARI AND IS IN AGREEMENT WITH TREATMENT PLAN. PT ON CLINDAMYCIN AT THIS TIME. DISCUSSED RECOMMENDATIONS WITH NURSING STAFF. WILL SEE PRN.
[2019-01-06] MEDS ORDERED: NEOMY SULF/BACITRAC ZN/POLY 15 GM TUBE TP SCH (10:30)
--- NOTE | 2019-01-06 12:54 | NUR ---
ADIS faxed a referral to [facility] to the fax number: [phone].
--- NOTE | 2019-01-06 15:00 | NUR ---
GPS RN NOTE: PT NOTED AT 0700 WITH LEFT WRIST PUS COMING,REDNESS ,COMPLAINING OF PAIN ON LEFT WRIST. SEEN AND EXAMIN BY DR MARI, CONTINUE ANTIBIOTIC ,WAS SEEN BY WOUND NURSE ORDER NEOSPORIN OINTMENT , CLEAN WITH NS, DRY APPLY DRESSING. CN AWARE , NS NOTIFIED, PICTURE PLACED IN THE CHART.INCIDENT REPORT DONE.
--- NOTE | 2019-01-06 15:42 | NUR ---
Shira ([phone]) from [facility] called the and stated that their services do not reach out to the [facility] and offered back up referrals.
--- NOTE | 2019-01-06 15:43 | NUR ---
ADIS faxed a home health referral to [facility] to the fax number: [phone].
--- NOTE | 2019-01-06 15:43 | NUR ---
ADIS faxed a referral to [facility] to the fax number: [phone].
[2019-01-06 16:00] VITALS: BP 118/77
--- NOTE | 2019-01-06 16:05 | NUR ---
[facility] ([phone]) called the SW and stated that they would be assisting with the pt and they have been on her case previously in the past.
[2019-01-06 20:00] VITALS: BP 135/65
--- NOTE | 2019-01-06 21:13 | NUR ---
DISCHARGE NOTES: PT. DISCHARGE TO HOME IN STABLE CONDITION, NO ACUTE DISTRESS NOTED , DENIES SI/ HI AT THIS TIME , AND PICKED UP BY [employer] ,HOME HEALTH ORDERS, SKIN ASSESSMENT DONE AND PICTURES TAKEN PLACED IN THE CHART,ALL PRESCRIPTION EXPLAINED TO PATIENT VERBALIZED UNDERSTANDING, PT. WHEEL BY STAFF MEMEBER TO KAYLEEN ,
--- NOTE | 2019-01-07 11:59 | NUR ---
Discharge Note: Pt was discharged back to [facility] located at [address], [address], [place] [address]; ([phone]). Pts facility is aware that the pt is returning. Pt appeared to be in a euthymic mood and presented with a calm and pleasant affect. Pt denied both suicidal and homicidal ideation as well as auditory and visual hallucinations. Pt was also referred to [facility] and they will begin services the next day. Pt will be under the care of a psychiatrist, [facility], located at [address] [place] [address]; ([phone]), information was faxed to: [phone] and her acute care physician, Dr. Alberto Engel, located at [address] [place] [address], [facility], [place] [address]; ([phone]).
== END 2019-01-06 21:10 | disposition home health service (06) | DRG 885 ==
LOC: GPS 23:40
PROVIDERS: ADMIT Psychiatry & Neurology Psychosomatic Medicine; ATTEND Nurse Practitioner Acute Care
DX: F33.2 Major depressive disorder, recurrent severe without psychotic features (principal); N17.0 Acute kidney failure with tubular necrosis; N18.9 Chronic kidney disease, unspecified; K50.90 Crohn's disease, unspecified, without complications; R45.851 Suicidal ideations; L03.113 Cellulitis of right upper limb; Z91.5 Personal history of self-harm; Z73.6 Limitation of activities due to disability; F41.9 Anxiety disorder, unspecified; Z87.442 Personal history of urinary calculi; I12.9 Hypertensive chronic kidney disease with stage 1 through stage 4 chronic kidney disease, or unspecified chronic kidney disease; G43.909 Migraine, unspecified, not intractable, without status migrainosus; D63.1 Anemia in chronic kidney disease; N27.0 Small kidney, unilateral; R73.9 Hyperglycemia, unspecified
CPT/HCPCS: 36415; 70450-TC; 71045-TC; 76770-TC; 80048-TC; 80053-TC; 80061-TC; 81000-TC; 82550-TC; 83735-TC; 83970; 84100-TC; 84155; 84165; 85025-TC; 87081-TC; A6402; J3490

== ENCOUNTER 2019-01-23 16:03 | Inpatient (IN) | payer MEDICARE, OTHER ==
[~2019-01-23] VITALS: Ht 152.4 cm; Wt 97.5 kg
[~2019-01-23 16:03] MED LIST changes: +BUTA-247 PO; -CEPH-570 PO; +DIPH1TAB PO; -DULO60CA45 PO; +ESCI10TA PO; +HYDR25TA4 PO; -MESA400C2 PO; -METO-356 PO; +ROPI0.5T PO
[2019-01-23] MEDS ORDERED: MAGNESIUM HYDROXIDE 30 ML UDC PO PRN (20:30)
[2019-01-23] MEDS ORDERED: MAG HYDROX/AL HYDROX/SIMETH 30 ML UDC PO PRN (20:30)
--- NOTE | 2019-01-23 20:30 | NUR ---
GPS MEDICAL CODER NOTE: ADMITTED A 74 YEAR OLD FEMALE FROM [place] WHO LIVES IN AN APARTMENT, ALONE., CAME TO THE UNIT ACCOMPANIED BY PARAMEDICS.PATIENT ADMITTED ON 5150 HOLD FOR DTS. PLACED IN BED COMFORTABLY. PER HOLD, PATIENT CONTINUES TO ENDORSE FEELINGS OF DEPRESSION WITH FLAT AFFECT. HAS 2 RECENT ATTEMPTS OF SUICIDE, PATIENT REPORTED PLAN OF SLITTING HER WRIST. AWAKE, ALERT, ORIENTED X3-4, AMBULATORY. PATIENT IS CALM, COOPERATIVE, PROVIDES PERTINENT INFORMATIONS. PATIENT SHOWS NO S/S OF ANY PAIN, NO ACUTE DISTRESS NOTED, BREATHING PATTERN NON-LABORED. PATIENT IS COOPERATIVE, AMBULATORY, SKIN ASSESSMENT, CLEAR AND NO SWELLING NOTED. BELONGINGS INVENTORIED AND CHECKED FOR CONTRABAND. PATIENT IS UNDER THE PSYCHIATRIC CARE OF DR. MUSE AND MEDICAL CARE OF KAILASH AUSTIN. PATIENT REFUSED TO SIGN LEGAL CONSENT. BED LOCKED AND PLACED ON LOWEST POSITION TO MAINTAIN SAFETY. WILL CONTINUE TO MONITOR Q 15 MINS. FOR SAFETY AND BEHAVIOR.
--- NOTE | 2019-01-23 22:20 | NUR ---
C/O GASTRIC UPSET, MAALOX 30 ML PO GIVEN AT [phone]
--- NOTE | 2019-01-23 22:35 | NUR ---
RESTORIL 7.5 MG TAB PO GIVEN PER REQUEST FOR INSOMNIA @8590
[2019-01-23] MEDS: TEMAZEPAM 7.5 MG CAPSULE PO PRN (22:36)
[2019-01-23] MEDS: LORAZEPAM 0.5 MG TABLET PO PRN (23:20)
--- NOTE | 2019-01-24 00:26 | NUR ---
ATIVAN 0.5 MG TAB PO GIVEN FOR ANXIETY
--- NOTE | 2019-01-24 00:27 | NUR ---
PAGED AND SPOKE WITH KAILASH AUSTIN, RE: INCREASED BP, LEFT ARM 162/122, HR 70, RIGHT ARM 164/115, HR 72. NEW ORDER GIVEN FOR CLONIDINE 0.1 MG PRN SPB.160, HR>110. CURRENT BP AT 12 MN 164/113, HR 75 AT MIDNIGHT.
[2019-01-24] MEDS: CLONIDINE HCL 0.1 MG TABLET PO PRN (00:32)
[2019-01-24] MEDS ORDERED: SPIR25TA PO (01:46)
[2019-01-24] MEDS ORDERED: MONT10TA22 PO (01:46)
[2019-01-24] MEDS ORDERED: SENN-168 PO (01:46)
[2019-01-24] MEDS ORDERED: BUDE0.5A4 NEB (01:46)
[2019-01-24] MEDS ORDERED: DILT-32 PO (01:46)
[2019-01-24] MEDS ORDERED: METO-357 PO ×2 (01:46→08:01)
[2019-01-24] MEDS ORDERED: FURO40TA5 PO (01:46)
[2019-01-24] MEDS ORDERED: APIX2.5T PO (01:46)
--- NOTE | 2019-01-24 04:56 | NUR ---
LATEST BP 147/70,. HR 71. PATIENT AWAKE, ALERT, STABLE CONDITION, NO ACUTE DISTRESS NOTED.
[2019-01-24 08:00] VITALS: BP 149/79
[2019-01-24] MEDS ORDERED: ARIP5TAB10 PO (08:01)
[2019-01-24] MEDS ORDERED: MESA800T9 PO (08:01)
[2019-01-24] MEDS ORDERED: HYDR-4076 PO (08:01)
[2019-01-24] MEDS ORDERED: OXYB5TAB11 PO (08:01)
[2019-01-24] MEDS ORDERED: CLIN300C11 PO (08:01)
[2019-01-24] MEDS ORDERED: POTA10TA15 PO (08:01)
[2019-01-24 08:58] LABS: CHOLESTEROL 207 mg/dL (<200); HDL CHOLESTEROL 45 mg/dL (40-60); LDL 137 mg/dL (0-99); TRIGLYCERIDES 140 mg/dL (30-150)
[2019-01-24 09:05] LABS: ALANINE AMINOTRANSFERASE 23 U/L (12-78); ALBUMIN 3.1 g/dL (3.4-5.0); ALKALINE PHOSPHATASE 90 U/L (46-116); ASPARTATE AMINOTRANSFERASE 13 U/L (15-37); BILIRUBIN,TOTAL 0.2 mg/dL (0.2-1.0); CALCIUM, SERUM 8.5 mg/dL (8.5-10.1); CARBON DIOXIDE 21 mmol/L (21-32); CHLORIDE 105 mmol/L (98-107); CREATININE 1.6 mg/dL (0.6-1.3); GLUCOSE 100 mg/dL (74-106); POTASSIUM 4.1 mmol/L (3.5-5.1); SODIUM SERUM 138 mmol/L (136-145); TOTAL PROTEIN, SERUM 7.5 g/dL (6.4-8.2); UREA NITROGEN, BLOOD 42 mg/dL (7-18)
[2019-01-24 09:14] LABS: BASOPHILS # (AUTO) 0.1 /CMM (0.0-0.2); BASOPHILS % (AUTO) 0.8 % (0.0-2.0); EOSINOPHILS % (AUTO) 3.8 % (0.0-6.0); HEMATOCRIT 34 % (33-45); HEMOGLOBIN 11.2 g/dL (11.5-14.8); LYMPHOCYTES # (AUTO) 1.4 /CMM (0.8-4.8); LYMPHOCYTES % (AUTO) 18.8 % (20.0-44.0); MEAN CORPUSCULAR HGB CONC 33 g/dl (31.0-36.0); MEAN CORPUSCULAR VOLUME 88 fL (82-100); MONOCYTES # (AUTO) 0.6 /CMM (0.1-1.30); MONOCYTES % (AUTO) 7.5 % (2.0-12.0); NEUTROPHILS # (AUTO) 5.3 /CMM (1.8-8.9); NEUTROPHILS % (AUTO) 69.1 % (43.0-81.0); PLATELET COUNT (AUTO) 162 /CMM (150-450); RED BLOOD CELL COUNT(AUTO) 3.87 MIL/uL (4.0-5.2); WHITE BLOOD COUNT (AUTO) 7.7 K/uL (4.3-11.0)
[2019-01-24] MEDS: LORAZEPAM 0.5 MG TABLET PO PRN ×2 (10:13→21:10)
[2019-01-24 16:00] VITALS: BP 152/86
[2019-01-24] MEDS: PRAZOSIN HCL 1 MG CAPSULE PO SCH (17:47)
[2019-01-24] MEDS: OXYBUTYNIN CHLORIDE 5 MG TABLET PO SCH (17:47)
--- NOTE | 2019-01-24 18:16 | NUR ---
RN NOTES ALL NEEDS MET. PATIENT NOT IN ANY DISTRESS. MED RECON AND CODE STATUS DISCUSSED WITH GUNNAR HARRIS EARLIER. PER PATIENT WANTS TO BE TRANSFERRED TO [facility].
[2019-01-24 20:00] VITALS: BP 169/90
[2019-01-24] MEDS: hydrALAZINE HCL 25 MG TABLET PO PRN (20:42)
[2019-01-24] MEDS: SIMVASTATIN 20 MG TABLET PO SCH (21:10)
[2019-01-24 21:15] VITALS: BP 145/88
[2019-01-24] MEDS: TEMAZEPAM 7.5 MG CAPSULE PO PRN (21:39)
--- NOTE | 2019-01-24 21:52 | NUR ---
GPS-RN PATIENT IS AWAKE, ALERT AND ORIENTED X3, PT. CALLED FOR HELP AND FOUND SITTING ON THE FLOOR. WHEN ASKED WHAT HAPPENED? "PATIENT STATED I WAS TRYING TO GET UP FROM BED AND SLID OFF FROM BED SLOWLY. I WAS TRYING TO FIX MY SHOES AND I GOT OUT OF BALANCE". ASSISTED BACK TO BED WITH 2 PERSON ASSIST. FULL BODY ASSESSMENT DONE NO APPARENT INJURY NOTED, NO BRUISES NOTED. NO C/O BACK PAIN. PT. DENIES HITTING HER HEAD PT. C/O MILD PAIN ON HER BILATERAL KNEE 3/10 PAIN SCALE. ACETAMINOPHEN 650MG PO GIVEN. 22:10 SPOKE WITH FOREIGN EXCHANGE CLERK GEOVANNA NOTIFIED OF THE INCIDENT WITH NO NEW ORDER AT THIS TIME. SWATCH PASTER MADE AWARE. NOTIFICATION TO FAMILY WILL BE DONE IN AM. 22:12 PATIENT ASLEEP AT THIS TIME. NO S/SX OF ACUTE DISTRESS NOTED. INSTRUCTED PATIENT TO USE CALL LOAIZA WHEN ASSISTANCE IS NEEDED. PT VERBALIZED UNDERSTANDING. BED IN LOCKED AND IN LOWEST POSITION. FALL PRECAUTIONS IMPLEMENTED. WILL CONTINUE TO MONITOR Q15MIN ROUNDS FOR SAFETY AND BEHAVIOR. Addendum: 01/25/19 at 0609 by VIVEK GRISSOM RN PT FOUND SITTING ON THE FLOOR NEXT TO BED. PATIENT REFUSED TO HAVE HER SISTER ISABEL NOTIFY REGARDING THE INCIDENT S/P FALL. EXPLAINED PT THAT IT IS A PROTOCOL TO INFORM THE NEXT OF KIN BUT PT. STILL REFUSED.
[2019-01-24] MEDS: ACETAMINOPHEN 325 MG TABLET PO PRN (21:54)
[2019-01-25] MEDS: CLONIDINE HCL 0.1 MG TABLET PO PRN ×2 (06:00→19:51)
[2019-01-25 08:00] VITALS: BP 157/95
[2019-01-25] MEDS: OXYBUTYNIN CHLORIDE 5 MG TABLET PO SCH ×2 (08:15→16:31)
[2019-01-25] MEDS: PRAZOSIN HCL 1 MG CAPSULE PO SCH ×2 (08:15→16:31)
[2019-01-25] MEDS: HYDROCHLOROTHIAZIDE 25 MG TABLET PO SCH (08:16)
[2019-01-25] MEDS: METOPROLOL SUCCINATE 50 MG TAB.SR.24H PO SCH (08:17)
--- NOTE | 2019-01-25 09:57 | NUR ---
GPS RN NOTE: T.O. ORDER FROM DR GILMER MCCLURE 5 MG PO HS , LEXAPRO 10 MG PO DAILY ORDER PLACED AND CARED OUT.
[2019-01-25] MEDS ORDERED: ESCITALOPRAM OXALATE (10 MG) 10 MG TABLET PO SCH (10:00)
--- NOTE | 2019-01-25 14:08 | NUR ---
Group note: Pt attended a group session on 01/25/19 at 11AM discussing the topic of what has caused their admission to the hospital and what contributes to their discharge plan. S: Pt stated, I have been feeling depressed lately and especially at night when it is past 3AM. The worst thing about feeling depressed at that time is that there is no one around, no one to call, and I am just all by myself. I like living in a senior care community because everyone is a support to each other but at night it gets really hard and I do not know how to handle it. O: Pt was present during the group session and was attentive and cooperative. Pt appeared to be in a euthymic mood and presented with a calm affect. Pt maintained appropriate eye contact throughout the group. A: SW worked with the pt in discussing other potential options for what the pt can do at 3AM when she feels depressed such as journaling, playing her music, creating art or even being with her cats. Pt gained awareness on other options for positive coping and expressed her gratitude towards having these options. P: Pt will continue milieu treatment and medication stabilization.
[2019-01-25 16:00] VITALS: BP 159/75
[2019-01-25 19:46] VITALS: BP 170/99
[2019-01-25] MEDS: ACETAMINOPHEN 325 MG TABLET PO PRN (20:33)
[2019-01-25] MEDS: LORAZEPAM 0.5 MG TABLET PO PRN (20:34)
[2019-01-25] MEDS: SIMVASTATIN 20 MG TABLET PO SCH (21:25)
[2019-01-25 21:30] VITALS: BP 146/88
[2019-01-25] MEDS: ARIPIPRAZOLE 5 MG TABLET PO SCH (21:38)
[2019-01-25] MEDS: TEMAZEPAM 7.5 MG CAPSULE PO PRN (21:46)
[2019-01-25] MEDS ORDERED: DULOXETINE HCL 30 MG CAPSULE.DR PO SCH (22:00)
[2019-01-26 08:00] VITALS: BP 159/98
[2019-01-26] MEDS: PRAZOSIN HCL 1 MG CAPSULE PO SCH ×2 (08:20→16:57)
[2019-01-26] MEDS: HYDROCHLOROTHIAZIDE 25 MG TABLET PO SCH (08:20)
[2019-01-26] MEDS: METOPROLOL SUCCINATE 50 MG TAB.SR.24H PO SCH (08:21)
[2019-01-26] MEDS: OXYBUTYNIN CHLORIDE 5 MG TABLET PO SCH ×2 (08:21→16:56)
--- NOTE | 2019-01-26 12:16 | NUR ---
Psychosocial Note: I, Barbara Bowers MSW, attest to the patients previous psychosocial information dated on 12/30/18. Update On Events leading to Admission and Discharge Plan: Pt has returned to the geropsychiatric unit of the hospital within one month of her previous discharge date (01/06/19) from [facility]. Per hold, the pt endorsed suicidal ideation and had attempted to overdose on her medications on 01/20/19. Pt female lives alone and was unable to present a viable safety plan. Pt endorsed suicidal ideation to the school photographer and stated that she had a plan to slit her wrists. The pt appeared to be oriented x4 (time, place, self and situation). The pt appeared to be in a depressed mood and presented with a flat affect. Pt appeared to be ambulatory with the assistance of a walker. Pt appeared to be well groomed and appropriately dressed. SW will work with the pt, the pts family and the MD regarding appropriate discharge planning. Pt stated that she needs a psychiatrist and the SW discussed outpatient treatment programs as a potential option. SW will form a safe and proper discharge.
--- NOTE | 2019-01-26 12:28 | NUR ---
ADIS called the pt's sister, Lauren ([phone]), and informed her of the pts admission to the hospital and discussed the initial discharge plan. ADIS stated that she is more than welcome to give the SW a call back if she has any questions.
[2019-01-26] MEDS: SPIRONOLACTONE 25 MG TABLET PO SCH (12:51)
--- NOTE | 2019-01-26 15:11 | NUR ---
GROUP NOTE: TOPIC: "Why were you placed on a hold?" S: "I was suicidal and I called 911 and they called the crisis team and that is how I ended up here. They went straight to my apartment. I have their number as my favorites on my phone. My medication was not working and I just didn't know what to do anymore. I feel way better now and I am ready to go home to my 2 cats." O: Pts mood was euthymic with congruent affect. Pt maintained appropriate eye contact and was appropriately participating in group. Pt was interacting with other pts and giving appropriate feedback. A: Pt gained awareness of mental health and stated, she has been suffering with depression and anxiety and stated she would do a better job at making sure she was compliant with her medication and also requested to be referred to outside community programs. P: Pt will continue milieu treatment and medication compliance.
[2019-01-26 16:00] VITALS: BP 158/98
--- NOTE | 2019-01-26 19:30 | NUR ---
GPS RN NOTE, RECEIVED PATIENT AWAKE AND IN ROOM NO S/S OR COMPLAINTS OF PAIN AT THIS TIME. PATIENT IS DISPLAYING NO S/S OF APPARENT DISTRESS AT THIS TIME. PATIENT BREATHING IS UNLABORED WITH EQUAL RISE AND FALL OF THE CHEST. PATIENT IS ALERT AND ORIENTED X 3 ON ROOM AIR WITH A SPO2 OF 99%. PATIENT IS MED COMPLAINT, ANXIOUS, BRIGHT, COOPERATIVE, AND NEEDS REORIENTATION. PATIENT DENIES SUICIDE AND HOMICIDAL IDEATIONS AT THIS TIME. PATIENT ASSISTED WITH TURNING AND REPOSITIONING Q2HR AND PRN FOR COMFORT AND CIRCULATION. PATIENT HAS NO NEEDS AT THIS TIME. PATIENT EDUCATED ON THE USE OF THE CALL LOAIZA. PATIENT BED SIDE RAILS ARE UP X 2 FOR SAFETY, BED IS LOCKED AND LOW. WILL CONTINUE TO MONITOR AND MAINTAIN SAFETY Q15 MIN WITH THE HELP OF STAFF.
[2019-01-26 19:47] VITALS: BP 132/60
[2019-01-26] MEDS: SIMVASTATIN 20 MG TABLET PO SCH (21:55)
[2019-01-26] MEDS: ARIPIPRAZOLE 5 MG TABLET PO SCH (21:55)
[2019-01-26] MEDS: TEMAZEPAM 7.5 MG CAPSULE PO PRN (21:56)
--- NOTE | 2019-01-26 21:56 | NUR ---
GPS RN NOTE, PATIENT HAS A COMPLAINT OF NOT BEING ABLE TO SLEEP AND IS REQUESTING RESTORIL AT THIS TIME. PATIENT VITAL SIGNS ARE STABLE. GAVE RESTORIL 15 MG PO HS ORDERED. WILL REASSESS FOR INSOMNIA AND I WILL CONTINUE TO MONITOR THIS PATIENT.
[2019-01-26] MEDS ORDERED: DULOXETINE HCL 30 MG CAPSULE.DR PO SCH (22:00)
[2019-01-27] MEDS: CLONIDINE HCL 0.1 MG TABLET PO PRN (05:36)
--- NOTE | 2019-01-27 05:36 | NUR ---
GPS RN NOTE, PATIENT BLOOD PRESSURE IS FOLLOWS 198 /78. GAVE CLONIDINE 0.1MG PO Q8HR PRN ORDERED. WILL REASSESS B/P AND I WILL CONTINUE TO MONITOR THIS PATIENT.
[2019-01-27 06:33] LABS: BASOPHILS # (AUTO) 0.1 /CMM (0.0-0.2); BASOPHILS % (AUTO) 0.9 % (0.0-2.0); EOSINOPHILS % (AUTO) 3.8 % (0.0-6.0); HEMATOCRIT 35 % (33-45); HEMOGLOBIN 11.6 g/dL (11.5-14.8); LYMPHOCYTES # (AUTO) 1.9 /CMM (0.8-4.8); LYMPHOCYTES % (AUTO) 23.7 % (20.0-44.0); MEAN CORPUSCULAR HGB CONC 33 g/dl (31.0-36.0); MEAN CORPUSCULAR VOLUME 89 fL (82-100); MONOCYTES # (AUTO) 0.6 /CMM (0.1-1.30); MONOCYTES % (AUTO) 8.3 % (2.0-12.0); NEUTROPHILS % (AUTO) 63.3 % (43.0-81.0); PLATELET COUNT (AUTO) 155 /CMM (150-450); RED BLOOD CELL COUNT(AUTO) 3.95 MIL/uL (4.0-5.2); WHITE BLOOD COUNT (AUTO) 7.8 K/uL (4.3-11.0)
[2019-01-27 06:47] LABS: ALANINE AMINOTRANSFERASE 24 U/L (12-78); ALBUMIN 3.2 g/dL (3.4-5.0); ALKALINE PHOSPHATASE 91 U/L (46-116); ASPARTATE AMINOTRANSFERASE 13 U/L (15-37); BILIRUBIN,TOTAL 0.2 mg/dL (0.2-1.0); CALCIUM, SERUM 8.8 mg/dL (8.5-10.1); CARBON DIOXIDE 22 mmol/L (21-32); CHLORIDE 105 mmol/L (98-107); CREATININE 1.6 mg/dL (0.6-1.3); GLUCOSE 101 mg/dL (74-106); PHOSPHORUS 3.3 mg/dL (2.5-4.9); POTASSIUM 4.2 mmol/L (3.5-5.1); SODIUM SERUM 139 mmol/L (136-145); TOTAL PROTEIN, SERUM 7.5 g/dL (6.4-8.2); UREA NITROGEN, BLOOD 39 mg/dL (7-18)
[2019-01-27 08:00] VITALS: BP 164/97
[2019-01-27] MEDS: OXYBUTYNIN CHLORIDE 5 MG TABLET PO SCH ×2 (08:40→16:13)
[2019-01-27] MEDS: PRAZOSIN HCL 1 MG CAPSULE PO SCH ×2 (08:40→16:13)
[2019-01-27] MEDS: METOPROLOL SUCCINATE 50 MG TAB.SR.24H PO SCH (08:40)
[2019-01-27] MEDS: HYDROCHLOROTHIAZIDE 25 MG TABLET PO SCH (08:41)
[2019-01-27] MEDS: SPIRONOLACTONE 25 MG TABLET PO SCH (08:41)
--- NOTE | 2019-01-27 15:01 | NUR ---
Group note: Pt attended a group session on 01/27/19 at 1:30PM discussing the topic of their substance abuse/abusing prescription medication as well as the importance of being compliant with their medications. S: Pt stated, I have overdosed on my medications multiple times as well as making other attempts such as slitting my wrists. I always do this because I think that I want to kill myself but always immediately after I think that I made a mistake. I think that I do it as a cry for help or attention since I always call someone and tell them what I did after doing it. If I ask for help I usually do not get it until I overdose or cut myself. O: Pt was present during the group session and was attentive and cooperative. Pt appeared to be in a euthymic mood and presented with a calm affect. Pt maintained appropriate eye contact throughout the group. A: Pt gained awareness on her need for receiving help and how she can ask in a more positive and adaptive way. Pt also made a statement about the importance of therapy. She stated that she understands that she needs to ask for help before her actions become maladaptive and she makes a serious attempt on her life. P: Pt will continue milieu treatment and medication stabilization.
[2019-01-27 16:00] VITALS: BP 151/94
--- NOTE | 2019-01-27 16:03 | NUR ---
SW called the [facility] ([phone]) and stated that she would like to refer the pt to the program and was told to call on the day of her discharge so that the pt can get up directly with services.
[2019-01-27] MEDS: LIDOCAINE 5% OINT 35.44 GM TUBE TP SCH (16:13)
[2019-01-27 19:56] VITALS: BP 131/83
[2019-01-27] MEDS: SIMVASTATIN 20 MG TABLET PO SCH (21:29)
[2019-01-27] MEDS: DULOXETINE HCL 30 MG CAPSULE.DR PO SCH (21:29)
[2019-01-27] MEDS: ARIPIPRAZOLE 5 MG TABLET PO SCH (21:30)
[2019-01-27] MEDS: TEMAZEPAM 7.5 MG CAPSULE PO PRN (21:42)
[2019-01-28] MEDS: ACETAMINOPHEN 325 MG TABLET PO PRN (01:36)
[2019-01-28 08:00] VITALS: BP 164/90
[2019-01-28] MEDS: SPIRONOLACTONE 25 MG TABLET PO SCH (08:14)
[2019-01-28] MEDS: METOPROLOL SUCCINATE 50 MG TAB.SR.24H PO SCH (08:15)
[2019-01-28] MEDS: PRAZOSIN HCL 1 MG CAPSULE PO SCH ×3 (08:15→16:23)
[2019-01-28] MEDS: OXYBUTYNIN CHLORIDE 5 MG TABLET PO SCH ×2 (08:15→16:22)
[2019-01-28] MEDS: HYDROCHLOROTHIAZIDE 25 MG TABLET PO SCH (08:16)
[2019-01-28] MEDS: LIDOCAINE 5% OINT 35.44 GM TUBE TP SCH ×2 (08:57→16:23)
[2019-01-28 10:46] VITALS: BP 141/101
[2019-01-28 13:49] VITALS: BP 155/93
--- NOTE | 2019-01-28 15:31 | NUR ---
GROUP NOTE: TOPIC: "Discharge Planning" S: "I don't know when I'll be discharged but I do know I need to follow up with a psychiatrist and psychologist near my home. I really hope I can be connected to services before I'm discharged." O: Pt maintained appropriate eye contact and also provided good feedback to the rest of the group. Pts angela appeared euthymic with congruent affect. A: Pt gained awareness of her needs after discharge and also expressed concern for the wellbeing of her mental health. Addendum: 01/28/19 at 1618 by AMALIA ARCEO P: Pt will continue milieu treatment and medication compliance.
[2019-01-28 16:00] VITALS: BP 154/91
[2019-01-28 20:00] VITALS: BP 139/90
[2019-01-28] MEDS: SIMVASTATIN 20 MG TABLET PO SCH (20:44)
[2019-01-28] MEDS: DULOXETINE HCL 30 MG CAPSULE.DR PO SCH (20:44)
[2019-01-28] MEDS: ARIPIPRAZOLE 5 MG TABLET PO SCH (20:44)
[2019-01-28] MEDS: TEMAZEPAM 7.5 MG CAPSULE PO PRN (20:44)
[2019-01-29] MEDS: ACETAMINOPHEN 325 MG TABLET PO PRN ×2 (05:11→22:25)
--- NOTE | 2019-01-29 05:13 | NUR ---
RN NOTES COMPLAINED OF BILATERAL KNEE PAIN- TYLENOL 650MG PO GIVEN ORDERED
[2019-01-29 08:21] VITALS: BP 162/112
[2019-01-29] MEDS: CLONIDINE HCL 0.1 MG TABLET PO PRN (08:40)
[2019-01-29] MEDS: PRAZOSIN HCL 1 MG CAPSULE PO SCH ×2 (08:40→16:10)
[2019-01-29] MEDS: METOPROLOL SUCCINATE 50 MG TAB.SR.24H PO SCH (08:41)
[2019-01-29] MEDS: SPIRONOLACTONE 25 MG TABLET PO SCH (08:41)
[2019-01-29] MEDS: OXYBUTYNIN CHLORIDE 5 MG TABLET PO SCH ×2 (08:41→16:10)
[2019-01-29] MEDS: HYDROCHLOROTHIAZIDE 25 MG TABLET PO SCH (08:41)
[2019-01-29] MEDS: LIDOCAINE 5% OINT 35.44 GM TUBE TP SCH ×2 (08:49→16:18)
[2019-01-29 10:14] VITALS: BP 154/98
[2019-01-29] MEDS: hydrALAZINE HCL 25 MG TABLET PO PRN (11:19)
[2019-01-29] MEDS: LORAZEPAM 0.5 MG TABLET PO PRN (11:19)
[2019-01-29 11:39] VITALS: BP 122/78
--- NOTE | 2019-01-29 13:25 | NUR ---
SW called [facility] ([phone]) and stated that the pt will be discharging on Friday morning. It was stated that the SW would have to call on the day of discharge to see if a ride can be provided. ADIS stated that was not concrete and would push the discharge if a ride was unavailable but was told that there are no other options.
[2019-01-29 16:00] VITALS: BP 126/51
--- NOTE | 2019-01-29 16:00 | NUR ---
Group note: Pt attended a group session on 01/29/19 at 3PM discussing the topic of what their needs are upon their discharge. S: Pt stated, I feel like everything that I need for being discharged has been provided to me through my stay. I have an aftercare plan, I have home health in order, my medications have been stabilized. This hospitalization is just what I needed. O: Pt was present during the group session and was attentive and cooperative. Pt appeared to be in a euthymic mood and presented with a calm affect. Pt maintained appropriate eye contact throughout the group. A: Pt expressed how her medications being changed and stabilized were the most important factor for her hospitalization and she feels like she did her part in being compliant with all of the changes. Pt stated that the Cymbalta caused a real difference for her. She came to understand that medication management is important but also she needs to be able to utilize other coping skills when she feels depressed. P: Pt will continue milieu treatment and medication stabilization.
[2019-01-29 20:00] VITALS: BP 108/57
[2019-01-29] MEDS: SIMVASTATIN 20 MG TABLET PO SCH (21:13)
[2019-01-29] MEDS: ARIPIPRAZOLE 5 MG TABLET PO SCH (21:13)
[2019-01-29] MEDS: DULOXETINE HCL 30 MG CAPSULE.DR PO SCH (21:13)
[2019-01-29] MEDS: TEMAZEPAM 7.5 MG CAPSULE PO PRN (21:14)
--- NOTE | 2019-01-29 22:28 | NUR ---
GPS RN NOTES: NURSES ATTENTION WAS CALLED BY PATIENT, PER ROOMMATE, SHE ASSISTED THE PATIENT TO THE FLOOR, WHEN SHE FELT HER KNEE CLICK. THE PATIENT WAS ASKED IF SHE FELL, PATIENT ANSWERED "NO, I NEED TO HAVE SURGERY OF MY KNEES BECAUSE IT IS HURTING SO BAD." STATED THAT SHE IS IN PAIN, AND FACIAL GRIMACE WAS NOTED, TYLENOL 650 MG GIVEN ORALLY A PRN ORDER. WILL MONITOR PATIENT.
[2019-01-30 08:00] VITALS: BP 164/63
[2019-01-30] MEDS: SPIRONOLACTONE 25 MG TABLET PO SCH (08:27)
[2019-01-30] MEDS: PRAZOSIN HCL 1 MG CAPSULE PO SCH ×2 (08:27→16:18)
[2019-01-30] MEDS: HYDROCHLOROTHIAZIDE 25 MG TABLET PO SCH (08:28)
[2019-01-30] MEDS: METOPROLOL SUCCINATE 50 MG TAB.SR.24H PO SCH (08:28)
[2019-01-30] MEDS: OXYBUTYNIN CHLORIDE 5 MG TABLET PO SCH ×2 (08:28→16:17)
[2019-01-30] MEDS: LIDOCAINE 5% OINT 35.44 GM TUBE TP SCH ×2 (08:29→16:18)
[2019-01-30 16:00] VITALS: BP 144/63
[2019-01-30] MEDS: ACETAMINOPHEN 325 MG TABLET PO PRN (19:55)
--- NOTE | 2019-01-30 19:55 | NUR ---
GPS RN NOTE, RECEIVED PATIENT AWAKE AND IN ROOM COMPLAINT OF RIGHT KNEE PAIN AT A 3 OUT 10 ON THE PAIN SCALE. PATIENT IS TAKING ORAL PAIN MEDICATION FOR THIS PAIN. PATIENT IS DISPLAYING NO S/S OF APPARENT DISTRESS AT THIS TIME. PATIENT BREATHING IS UNLABORED WITH EQUAL RISE AND FALL OF THE CHEST. PATIENT IS ALERT AND ORIENTED X 3 ON ROOM AIR WITH A SPO2 OF 95%. PATIENT IS MED COMPLAINT, ANXIOUS, BRIGHT, COOPERATIVE, AND NEEDS REORIENTATION. PATIENT DENIES SUICIDE AND HOMICIDAL IDEATIONS AT THIS TIME. PATIENT ASSISTED WITH TURNING AND REPOSITIONING Q2HR AND PRN FOR COMFORT AND CIRCULATION. PATIENT HAS NO NEEDS AT THIS TIME. PATIENT EDUCATED ON THE USE OF THE CALL LOAIZA. PATIENT BED SIDE RAILS ARE UP X 2 FOR SAFETY, BED IS LOCKED AND LOW. WILL CONTINUE TO MONITOR AND MAINTAIN SAFETY Q15 MIN WITH THE HELP OF STAFF.
--- NOTE | 2019-01-30 19:55 | NUR ---
GPS RN NOTE, PATIENT HAS A COMPLAINT OF RIGHT KNEE PAIN AT A 3 OUT OF 10 ON THE PAIN SCALE AND IS REQUESTING TYLENOL AT THIS TIME. PATIENT VITAL SIGNS ARE STABLE. GAVE TYLENOL 650 MG PO Q6HR PRN ORDERED. WILL REASSESS PAIN AND I WILL CONTINUE TO MONITOR THIS PATIENT.
[2019-01-30 20:00] VITALS: BP 157/84
[2019-01-30] MEDS: DULOXETINE HCL 30 MG CAPSULE.DR PO SCH (21:37)
[2019-01-30] MEDS: SIMVASTATIN 20 MG TABLET PO SCH (21:37)
[2019-01-30] MEDS: ARIPIPRAZOLE 5 MG TABLET PO SCH (21:37)
[2019-01-30] MEDS: TEMAZEPAM 7.5 MG CAPSULE PO PRN (23:35)
--- NOTE | 2019-01-30 23:35 | NUR ---
GPS RN NOTE, PATIENT HAS A COMPLAINT OF NOT BEING ABLE TO SLEEP AND IS REQUESTING RESTORIL AT THIS TIME. PATIENT VITAL SIGNS ARE STABLE. GAVE RESTORIL 15MG PO HS ORDERED. WILL REASSESS FOR INSOMNIA AND I WILL CONTINUE TO MONITOR THIS PATIENT.
[2019-01-31] MEDS: ACETAMINOPHEN 325 MG TABLET PO PRN ×2 (03:27→11:09)
[2019-01-31 06:47] LABS: BASOPHILS # (AUTO) 0.1 /CMM (0.0-0.2); BASOPHILS % (AUTO) 1.1 % (0.0-2.0); EOSINOPHILS % (AUTO) 3.9 % (0.0-6.0); HEMATOCRIT 35 % (33-45); HEMOGLOBIN 11.6 g/dL (11.5-14.8); LYMPHOCYTES # (AUTO) 1.8 /CMM (0.8-4.8); LYMPHOCYTES % (AUTO) 23.7 % (20.0-44.0); MEAN CORPUSCULAR HGB CONC 33 g/dl (31.0-36.0); MEAN CORPUSCULAR VOLUME 87 fL (82-100); MONOCYTES # (AUTO) 0.7 /CMM (0.1-1.30); MONOCYTES % (AUTO) 8.9 % (2.0-12.0); NEUTROPHILS # (AUTO) 4.7 /CMM (1.8-8.9); NEUTROPHILS % (AUTO) 62.4 % (43.0-81.0); PLATELET COUNT (AUTO) 145 /CMM (150-450); RED BLOOD CELL COUNT(AUTO) 4.01 MIL/uL (4.0-5.2); WHITE BLOOD COUNT (AUTO) 7.5 K/uL (4.3-11.0)
[2019-01-31 07:42] LABS: ALANINE AMINOTRANSFERASE 32 U/L (12-78); ALBUMIN 3.1 g/dL (3.4-5.0); ALKALINE PHOSPHATASE 92 U/L (46-116); ASPARTATE AMINOTRANSFERASE 18 U/L (15-37); BILIRUBIN,TOTAL 0.2 mg/dL (0.2-1.0); CALCIUM, SERUM 8.9 mg/dL (8.5-10.1); CARBON DIOXIDE 22 mmol/L (21-32); CHLORIDE 103 mmol/L (98-107); CREATININE 1.6 mg/dL (0.6-1.3); GLUCOSE 100 mg/dL (74-106); SODIUM SERUM 138 mmol/L (136-145); TOTAL PROTEIN, SERUM 7.3 g/dL (6.4-8.2); UREA NITROGEN, BLOOD 44 mg/dL (7-18)
[2019-01-31 08:00] VITALS: BP 160/97
[2019-01-31] MEDS: HYDROCHLOROTHIAZIDE 25 MG TABLET PO SCH (08:40)
[2019-01-31] MEDS: PRAZOSIN HCL 1 MG CAPSULE PO SCH ×2 (08:40→16:18)
[2019-01-31] MEDS: hydrALAZINE HCL 25 MG TABLET PO PRN (08:41)
[2019-01-31] MEDS: METOPROLOL SUCCINATE 50 MG TAB.SR.24H PO SCH (08:41)
[2019-01-31] MEDS: SPIRONOLACTONE 25 MG TABLET PO SCH (08:42)
[2019-01-31] MEDS: OXYBUTYNIN CHLORIDE 5 MG TABLET PO SCH ×2 (08:44→16:18)
[2019-01-31] MEDS: LIDOCAINE 5% OINT 35.44 GM TUBE TP SCH ×2 (08:45→16:19)
[2019-01-31 11:25] VITALS: BP 137/90
[2019-01-31 16:00] VITALS: BP 156/85
--- NOTE | 2019-01-31 20:26 | NUR ---
GPS RN NOTE, PATIENT HAS A COMPLAINT OF CHRONIC RIGHT KNEE PAIN AT 7 OUT 10 PAIN ON THE PAIN SCALE. PATIENT WOULD LIKE A MEDICATION THAT IS STRONGER THAN TYLENOL. PAGED [facility] AND INFORMED JOSÉ LAUREN OF MY FINDINGS. JOSÉ LAUREN ORDERED TO GIVE NORCO 5-325 1 TAB PO Q6HR PRN FOR MODERATE PAIN 4-7. ALL ORDERS NOTED AND CARRIED OUT WILL CONTINUE TO MONITOR THIS PATIENT.
[2019-01-31] MEDS: SIMVASTATIN 20 MG TABLET PO SCH (21:18)
[2019-01-31] MEDS: ARIPIPRAZOLE 5 MG TABLET PO SCH (21:19)
[2019-01-31] MEDS: DULOXETINE HCL 30 MG CAPSULE.DR PO SCH (21:19)
[2019-01-31] MEDS: TEMAZEPAM 7.5 MG CAPSULE PO PRN (21:20)
[2019-01-31] MEDS: HYDROCODONE/APAP 5/325MG 1 EACH TABLET PO PRN (21:22)
[2019-01-31 21:30] VITALS: BP 148/63
[2019-02-01] MEDS: HYDROCODONE/APAP 5/325MG 1 EACH TABLET PO PRN ×3 (04:40→18:39)
--- NOTE | 2019-02-01 04:40 | NUR ---
GPS RN NOTE, PATIENT HAS A COMPLAINT OF CHRONIC RIGHT KNEE PAIN AT 7 OUT 10 ON THE PAIN SCALE AND IS REQUESTING NORCO AT THIS TIME. PATIENT VITAL SIGNS ARE STABLE. GAVE NORCO 5-325 1 TAB PO Q6HR PRN ORDERED. WILL REASSESS PAIN AND I WILL CONTINUE TO MONITOR THIS PATIENT.
[2019-02-01] MEDS: hydrALAZINE HCL 25 MG TABLET PO PRN (05:44)
[2019-02-01] MEDS: METOPROLOL SUCCINATE 50 MG TAB.SR.24H PO SCH (08:32)
[2019-02-01] MEDS: HYDROCHLOROTHIAZIDE 25 MG TABLET PO SCH (08:33)
[2019-02-01] MEDS: PRAZOSIN HCL 1 MG CAPSULE PO SCH ×2 (08:33→16:04)
[2019-02-01] MEDS: SPIRONOLACTONE 25 MG TABLET PO SCH (08:33)
[2019-02-01] MEDS: OXYBUTYNIN CHLORIDE 5 MG TABLET PO SCH ×2 (08:33→16:04)
[2019-02-01] MEDS: LIDOCAINE 5% OINT 35.44 GM TUBE TP SCH ×2 (08:34→16:04)
[2019-02-01 09:06] VITALS: BP 155/94
--- NOTE | 2019-02-01 09:14 | NUR ---
ADIS called the pt's sister, Lauren ([phone]), and informed her that the pt will be discharging back to [facility] tomorrow. ADIS stated that the [facility] would like a call on the day of discharge to arrange transportation if drivers are available. ADIS stated that is not a concrete plan and asked if it would be possible for the pts sister to pick her up. She stated that she cannot due to the distance. ADIS stated that she understands and hopes that the [facility] will be able to provide transportation the day of.
--- NOTE | 2019-02-01 09:22 | NUR ---
ADIS called [employer] ([phone]) and was told that the pt's discharge summary would have to be faxed over the morning of her discharge and then a road train driver can be scheduled. AIDS stated that she would fax over the paperwork the following morning then.
--- NOTE | 2019-02-01 09:28 | NUR ---
ADIS called Ariadne ([phone]) from [facility] and informed her that the pt is going to be discharged tomorrow with the following services: FSP, Home health and a psychiatrist appointment. She stated that transportation cannot be provided so the SW stated that she is arranging transportation with [employer].
--- NOTE | 2019-02-01 10:43 | NUR ---
GPS RN NOTE: PATIENT HAS A COMPLAINT OF BOTH KNEE PAIN AT 8 OUT 10 ON THE PAIN SCALE AND IS REQUESTING NORCO AT THIS TIME. GAVE NORCO 5-325 1 TAB PO Q6HR PRN ORDERED. WILL REASSESS PAIN AND I WILL CONTINUE TO MONITOR THIS PATIENT.
--- NOTE | 2019-02-01 15:50 | NUR ---
Group Note: Pt attended a group session on 02/01/2019 at 2 PM to discuss patients' feelings about being at [facility] and plans after discharge S = Pt. stated, " I am here because I tried to commit suicide and that was not the first time, I tried many times before. This time I cut my wrists on Mother's day, I only have these thoughts at night. I am going to be discharged tomorrow" O- Pt. active participated in session, respond to questions cooperatively and cohesively.Pt. had a calm affect and demonstrated good listening skills. Good eye contact and sense of humor. A - Pt said that she feels good about the medication given to her, does not feel depressed and does not have suicidal ideations . Pt said she misses her cats and can't wait to see them again. She mentioned that she is aware the importance of taking her medications daily and will do so. P- Patient will continue with treatment and medication stabilization.
[2019-02-01 16:00] VITALS: BP 150/90
[2019-02-01 20:47] VITALS: BP 142/86
[2019-02-01] MEDS: ACETAMINOPHEN 325 MG TABLET PO PRN (20:59)
[2019-02-01] MEDS: SIMVASTATIN 20 MG TABLET PO SCH (21:01)
[2019-02-01] MEDS: DULOXETINE HCL 30 MG CAPSULE.DR PO SCH (21:01)
[2019-02-01] MEDS: ARIPIPRAZOLE 5 MG TABLET PO SCH (21:01)
[2019-02-01] MEDS: TEMAZEPAM 7.5 MG CAPSULE PO PRN (21:30)
[2019-02-02] MEDS: HYDROCODONE/APAP 5/325MG 1 EACH TABLET PO PRN ×4 (01:47→21:33)
[2019-02-02 08:00] VITALS: BP 106/90
--- NOTE | 2019-02-02 08:34 | NUR ---
ADIS faxed a discharge order to [facility] to the fax number: [phone]. ADIS also faxed it to an alternative fax number: [phone].
[2019-02-02] MEDS: HYDROCHLOROTHIAZIDE 25 MG TABLET PO SCH (08:40)
[2019-02-02] MEDS: PRAZOSIN HCL 1 MG CAPSULE PO SCH ×2 (08:40→16:59)
[2019-02-02] MEDS: SPIRONOLACTONE 25 MG TABLET PO SCH (08:40)
[2019-02-02] MEDS: OXYBUTYNIN CHLORIDE 5 MG TABLET PO SCH ×2 (08:40→16:59)
[2019-02-02] MEDS: METOPROLOL SUCCINATE 50 MG TAB.SR.24H PO SCH (08:41)
[2019-02-02] MEDS: LIDOCAINE 5% OINT 35.44 GM TUBE TP SCH ×2 (08:41→17:00)
--- NOTE | 2019-02-02 08:53 | NUR ---
MEDICATED FOR BILATERAL KNEE PAIN.
--- NOTE | 2019-02-02 09:40 | NUR ---
VERBALIZED CONCERN THAT BP MAY BE HIGH.RN CHECKED AND 148/113 HEART RATE 99.
--- NOTE | 2019-02-02 14:00 | NUR ---
ADIS called [employer] ([phone]) and spoke to the male at the javascript front end developer who stated that the pts fax went through and that they are working on having the trip authorized with the insurance company due to the distance. ADIS stated that she would like to be updated.
--- NOTE | 2019-02-02 14:01 | NUR ---
ADIS called [employer] ([phone]) once again and was told that it may expedite the process if the SW called [facility] about the trip. ADIS called [employer] ([phone]) and was told to speak to Haven at the [employer] [facility] about scheduling the ride and having the insurance authorize it later.
--- NOTE | 2019-02-02 14:02 | NUR ---
ADIS called [employer] ([phone]) and asked to speak to Hvaen. Priya answered the phone and stated that Haven is not available but she would try to assist the SW. When the SW provided the pts information to her, she stated that her [employer] is on hold and therefore they will not be able to authorize a trip.
--- NOTE | 2019-02-02 14:03 | NUR ---
ADIS called the pt's sister, Lauren ([phone]), and left her a voicemail stating that she would like a call back regarding the pts discharge.
--- NOTE | 2019-02-02 14:46 | NUR ---
ADIS called Ariadne ([phone]) from [facility] and informed her that the pt is going to be discharged tomorrow and that she will be transported via [employer] bus. She stated that someone will need to pick her up from the station and ADIS stated that she would work on it.
--- NOTE | 2019-02-02 15:12 | NUR ---
MED. AGAIN FOR BILATERAL KNEE PAIN.
[2019-02-02 16:14] VITALS: BP 161/90
--- NOTE | 2019-02-02 18:05 | NUR ---
PT. CALLED OUT AND REPORTS RT. KNEE BUCKLED AND LOWERED HERSELF ON FLOOR,SUPPORTING HERSELF ON SINK.STATES NO PAIN ANYWHERE.PT. PUT IN W/CHAIR.WAS USING WALKER FOR ASSIST AND HAS HAD PAIN IN BOTH KNEES.PASSENGER FLAGMAN ASH AND EPIC MD Clementina MCGRAW TABLEAU ADMINISTRATOR NOTIFIED. NO APPARENT INJURY AND NO NEW ORDERS.
[2019-02-02 20:00] VITALS: BP 149/102
[2019-02-02] MEDS: SIMVASTATIN 20 MG TABLET PO SCH (21:31)
[2019-02-02] MEDS: ARIPIPRAZOLE 5 MG TABLET PO SCH (21:31)
[2019-02-02] MEDS: DULOXETINE HCL 30 MG CAPSULE.DR PO SCH (21:32)
[2019-02-02] MEDS: TEMAZEPAM 7.5 MG CAPSULE PO PRN (21:33)
[2019-02-02 23:19] VITALS: BP 149/102
[2019-02-03] MEDS: HYDROCODONE/APAP 5/325MG 1 EACH TABLET PO PRN (03:40)
[2019-02-03 07:54] LABS: CALCIUM, SERUM 8.7 mg/dL (8.5-10.1); CARBON DIOXIDE 25 mmol/L (21-32); CHLORIDE 102 mmol/L (98-107); CREATININE 1.6 mg/dL (0.6-1.3); GLUCOSE 112 mg/dL (74-106); MAGNESIUM 1.9 mg/dL (1.8-2.4); PHOSPHORUS 3.8 mg/dL (2.5-4.9); POTASSIUM 3.9 mmol/L (3.5-5.1); SODIUM SERUM 139 mmol/L (136-145); UREA NITROGEN, BLOOD 43 mg/dL (7-18)
[2019-02-03 08:00] VITALS: BP 145/88
[2019-02-03 08:05] LABS: BASOPHILS # (AUTO) 0.1 /CMM (0.0-0.2); BASOPHILS % (AUTO) 0.9 % (0.0-2.0); EOSINOPHILS % (AUTO) 4.7 % (0.0-6.0); HEMATOCRIT 35 % (33-45); HEMOGLOBIN 11.5 g/dL (11.5-14.8); LYMPHOCYTES % (AUTO) 23.6 % (20.0-44.0); MEAN CORPUSCULAR HGB CONC 33 g/dl (31.0-36.0); MEAN CORPUSCULAR VOLUME 89 fL (82-100); MONOCYTES # (AUTO) 0.6 /CMM (0.1-1.30); MONOCYTES % (AUTO) 7.7 % (2.0-12.0); NEUTROPHILS # (AUTO) 5.2 /CMM (1.8-8.9); NEUTROPHILS % (AUTO) 63.1 % (43.0-81.0); PLATELET COUNT (AUTO) 154 /CMM (150-450); RED BLOOD CELL COUNT(AUTO) 3.99 MIL/uL (4.0-5.2); WHITE BLOOD COUNT (AUTO) 8.3 K/uL (4.3-11.0)
[2019-02-03 08:21] VITALS: BP 145/88
[2019-02-03] MEDS: HYDROCHLOROTHIAZIDE 25 MG TABLET PO SCH (08:21)
[2019-02-03] MEDS: SPIRONOLACTONE 25 MG TABLET PO SCH (08:21)
[2019-02-03] MEDS: OXYBUTYNIN CHLORIDE 5 MG TABLET PO SCH (08:21)
[2019-02-03] MEDS: METOPROLOL SUCCINATE 50 MG TAB.SR.24H PO SCH (08:21)
[2019-02-03] MEDS: PRAZOSIN HCL 1 MG CAPSULE PO SCH (08:21)
[2019-02-03] MEDS: LIDOCAINE 5% OINT 35.44 GM TUBE TP SCH (09:24)
--- NOTE | 2019-02-03 09:45 | NUR ---
ADIS called the pts brother in law, Filiberto ([phone]), and informed him that the pt is being discharged to the [facility] and will be arriving around 5:20PM. He stated that he would be the one to go machine operator picker the pt and take her to her home.
--- NOTE | 2019-02-03 11:08 | NUR ---
ADIS faxed a home health referral to [facility] with attention to [place] to the fax number: [phone].
--- NOTE | 2019-02-03 12:00 | NUR ---
GPS/RN-NOTES PATIENT DISCHARGE TO HOME TODAY. DR. MUSE ( PSYCHIATRIST) AND KAILASH MURDOCK ( FACILITIES MAINTENANCE TECHNICIAN) AWARE AND AGREES OF PATIENT DISCHARGE WITH ORDERS. DISCHARGE MEDICATION WAS REVIEWED WITH THE PATIENT WITH UNDERSTANDING ALSO INSTRUCTED PATIENT TO F/U WITH PRIMARY PHYSICIAN AND PSYCHIATRIST AND GO TO THE NEAREST EMERGENCY FACILITY OR CALL 911 FOR EMERGENCY.PATIENT SIGNS ALL DISCHARGE PAPERS ,RX WAS GIVEN TO THE PATIENT, PATIENT DID NOT VERBALIZE SI/HI,DENIES VISUAL/AUDITORY HALLUCINATIONS AT THE TIME OF DISCHARGE. PATIENT LEFT THE UNIT IN STABLE CONDITION, AMBULATORY WITH WALKER ,LEFT WITH ALL BELONGINGS. PATIENT WAS ACCOMPANIED IN THE LOBBY BY THE ACTIVITY STAFF FOR SAFETY. SERVICE PLUMBER BY [employer].
--- NOTE | 2019-02-03 13:32 | NUR ---
Discharge Note: Pt was discharged back to [facility] located at [address], [address] [place] [address]; ([phone]). arranged transportation through [employer]. Pt was given a taxi voucher to the [facility] at 12PM. Upon discharge, the pt appeared to be in a euthymic mood and presented with a calm and cooperative affect. Pt has been set up with home health for medication management and physical therapy. Pt is also connected with the [facility]. Pt will be under the care of her psychiatrist, Dr. Mitch Kessler, located at [address] [place] [address]; ([phone]); and a fax with updated notes was sent to: ([phone]). Pt has an appointment on February 05 at 10:30AM. Pt will be under the care of her director energy, Dr. Alberto Engel, located at [address], [address], [place] [address]; ([phone]).
--- NOTE | 2019-02-03 13:32 | NUR ---
ADIS called the [facility] in [facility] ([phone]) and it was stated that the pt is set up to see Dr. Kessler on Friday and that she is connected to the FSP program.
== END 2019-02-03 12:00 | disposition home health service (06) | DRG 885 ==
LOC: GPS 19:55
PROVIDERS: ADMIT Psychiatry & Neurology Psychiatry; ATTEND Nurse Practitioner Acute Care
DX: F33.2 Major depressive disorder, recurrent severe without psychotic features (principal); N17.0 Acute kidney failure with tubular necrosis; N18.9 Chronic kidney disease, unspecified; F23 Brief psychotic disorder; K50.90 Crohn's disease, unspecified, without complications; M79.7 Fibromyalgia; D63.8 Anemia in other chronic diseases classified elsewhere; I12.9 Hypertensive chronic kidney disease with stage 1 through stage 4 chronic kidney disease, or unspecified chronic kidney disease; M20.10 Hallux valgus (acquired), unspecified foot; Z73.6 Limitation of activities due to disability; F41.9 Anxiety disorder, unspecified; L84 Corns and callosities; M21.619 Bunion of unspecified foot
CPT/HCPCS: 36415; 80048-TC; 80053-TC; 80061-TC; 83735-TC; 84100-TC; 85025-TC; 87081-TC

== ENCOUNTER 2019-02-18 09:35 | Inpatient (IN) | payer MEDICARE, OTHER ==
[~2019-02-18] VITALS: Ht 152.4 cm; Wt 99.8 kg
[~2019-02-18 09:35] MED LIST changes: +ARIP5TAB10 PO; -BUTA-247 PO; +CLIN300C11 PO; -ESCI10TA PO; +HYDR-4076 PO; +MESA800T9 PO; +METO-357 PO; +OXYB5TAB11 PO; +POTA10TA15 PO; -SOLI5TAB2 PO; -TRAZ-182 PO
[2019-02-18] MEDS ORDERED: NYST15PO4 TD (14:17)
[2019-02-18] MEDS ORDERED: TRAM50TA2 PO (14:17)
[2019-02-18] MEDS ORDERED: DULO60CA45 PO (14:17)
[2019-02-18] MEDS ORDERED: ESCI10TA PO (14:17)
[2019-02-18] MEDS ORDERED: MAGNESIUM HYDROXIDE 30 ML UDC PO PRN (14:30)
[2019-02-18] MEDS ORDERED: LORAZEPAM 0.5 MG TABLET PO PRN (14:30)
[2019-02-18] MEDS ORDERED: MAG HYDROX/AL HYDROX/SIMETH 30 ML UDC PO PRN (14:30)
[2019-02-18 15:07] VITALS: BP 159/76
[2019-02-18 16:00] VITALS: BP 158/94
--- NOTE | 2019-02-18 16:48 | NUR ---
Group Note: Pt attended a group session on 02/18/19 at 2PM discussing goals for when they are in the hospital and goals for once they are discharged. S: Pt stated, My goal is to stop cutting. I know that I am very impulsive and I just take the razor and cut even if I am not triggered or overwhelmed." O: Pt was present during the group session and was engaged. Pt appeared to be in a depressed mood and presented with a calm affect. Pt maintained appropriate eye contact and had an appropriate tone of voice. A: Pt expressed that she understands that she needs to stop engaging in self harming activities but continuously stated that she does not know how to. SW attempted to have the pt think about what feelings occur when she decides to cut and she stated that she may have been feeling overwhelmed. Pt explored the feeling of cutting and how it does not necessarily help with the overwhelming feeling. P: Pt will continue milieu treatment and medication stabilization.
--- NOTE | 2019-02-18 17:59 | NUR ---
GPS/RN-NOTES ADMITTED 74 Y.O FEMALE FEMALE PATIENT FROM [facility]. PATIENT ON 5150 FOR DTS. PATIENT IS UNDER THE CARE OF DR. FINN( PSYCHIATRIST) AND KAILASH HARRIS ( AIR REDUCTION EQUIPMENT OPERATOR), BOTH WERE MADE AWARE OF THE ADMISSION. UPON FACE TO FACE ASSESSMENT WITH THE PATIENT,PATIENT ALERT ORIENTED X3 AMBULATORY USING WALKER. PATIENT DENIES SI/HI AT THIS TIME. PATIENT'S RIGHT WAS REVIEWED WITH THE PATIENT WITH UNDERSTANDING, A PATIENT'S RIGHT COPY AND ADVISEMENT WAS GIVEN TO THE PATIENT. CONTRABAND, AND FULL BODY ASSESSMENT DONE. PATIENT WAS ORIENTED IN THE UNIT AND UNIT POLICIES. PATIENT SISTER ISABEL ) MADE AWARE OF THE PATIENT 'S ADMISSION. MRSA SWAB DONE AND SEND TO THE LAB.
[2019-02-18] MEDS: ACETAMINOPHEN 325 MG TABLET PO PRN (19:58)
[2019-02-18 20:00] VITALS: BP 123/91
--- NOTE | 2019-02-18 20:54 | NUR ---
PAGED DR. MARI, RE: MED RECONCILIATION.
[2019-02-18] MEDS: MESALAMINE 400 MG CAP PO SCH (22:27)
[2019-02-18] MEDS: OXYBUTYNIN CHLORIDE 5 MG TABLET PO SCH (22:28)
[2019-02-18] MEDS: PRAZOSIN HCL 1 MG CAPSULE PO SCH (22:28)
[2019-02-18] MEDS: ropiniROLE 0.5 MG TABLET PO SCH (22:29)
[2019-02-18] MEDS: SIMVASTATIN 20 MG TABLET PO SCH (22:29)
[2019-02-18] MEDS: TEMAZEPAM 7.5 MG CAPSULE PO PRN (22:30)
[2019-02-19] MEDS: TRAMADOL HCL 50 MG TABLET PO PRN ×3 (05:58→23:03)
[2019-02-19 07:53] LABS: BASOPHILS % (AUTO) 0.4 % (0.0-2.0); EOSINOPHILS % (AUTO) 3.3 % (0.0-6.0); HEMATOCRIT 38 % (33-45); HEMOGLOBIN 12.3 g/dL (11.5-14.8); LYMPHOCYTES # (AUTO) 1.7 /CMM (0.8-4.8); LYMPHOCYTES % (AUTO) 19.2 % (20.0-44.0); MEAN CORPUSCULAR HGB CONC 33 g/dl (31.0-36.0); MEAN CORPUSCULAR VOLUME 89 fL (82-100); MONOCYTES # (AUTO) 0.5 /CMM (0.1-1.30); MONOCYTES % (AUTO) 6.1 % (2.0-12.0); NEUTROPHILS # (AUTO) 6.2 /CMM (1.8-8.9); PLATELET COUNT (AUTO) 204 /CMM (150-450); RED BLOOD CELL COUNT(AUTO) 4.24 MIL/uL (4.0-5.2); WHITE BLOOD COUNT (AUTO) 8.7 K/uL (4.3-11.0)
[2019-02-19 08:00] VITALS: BP 155/90
[2019-02-19 08:05] LABS: CHOLESTEROL 220 mg/dL (<200); HDL CHOLESTEROL 39 mg/dL (40-60); LDL 147 mg/dL (0-99); TRIGLYCERIDES 191 mg/dL (30-150)
[2019-02-19 08:06] LABS: ALANINE AMINOTRANSFERASE 26 U/L (12-78); ALBUMIN 3.2 g/dL (3.4-5.0); ALKALINE PHOSPHATASE 96 U/L (46-116); ASPARTATE AMINOTRANSFERASE 14 U/L (15-37); BILIRUBIN,TOTAL 0.3 mg/dL (0.2-1.0); CALCIUM, SERUM 9.2 mg/dL (8.5-10.1); CARBON DIOXIDE 20 mmol/L (21-32); CHLORIDE 106 mmol/L (98-107); CREATININE 1.6 mg/dL (0.6-1.3); GLUCOSE 111 mg/dL (74-106); PHOSPHORUS 3.7 mg/dL (2.5-4.9); POTASSIUM 4.3 mmol/L (3.5-5.1); SODIUM SERUM 139 mmol/L (136-145); TOTAL PROTEIN, SERUM 7.7 g/dL (6.4-8.2); UREA NITROGEN, BLOOD 42 mg/dL (7-18)
[2019-02-19] MEDS: ropiniROLE 0.5 MG TABLET PO SCH ×3 (08:39→16:27)
[2019-02-19] MEDS: METOPROLOL SUCCINATE 50 MG TAB.SR.24H PO SCH (08:40)
[2019-02-19] MEDS: MESALAMINE 400 MG CAP PO SCH ×2 (08:40→16:26)
[2019-02-19] MEDS: PRAZOSIN HCL 1 MG CAPSULE PO SCH ×2 (08:41→16:27)
[2019-02-19] MEDS: POTASSIUM CHLORIDE 10 MEQ TABLET.SA PO SCH (08:41)
[2019-02-19] MEDS: LISINOPRIL (5MG) 5 MG TABLET PO SCH (08:41)
[2019-02-19] MEDS: OXYBUTYNIN CHLORIDE 5 MG TABLET PO SCH ×2 (08:42→16:27)
[2019-02-19] MEDS: HYDROCHLOROTHIAZIDE 25 MG TABLET PO SCH (08:42)
--- NOTE | 2019-02-19 10:50 | NUR ---
ADIS called the pt's sister, Gene ([phone]), and left her a voicemail stating that the SW for the pt would like to discuss the pt's treatment plan and her initial discharge plan.
--- NOTE | 2019-02-19 12:38 | NUR ---
RN NOTES/PAIN MANAGEMENT PATIENT C/O B/L KNEE PAIN, PRN TRAMADOL 50 MG PO ADMINISTERED AT 1237. WILL CONTINUE TO MONITOR AND REASSESS PT.
--- NOTE | 2019-02-19 14:26 | NUR ---
Initial Discharge Plan: Pt currently resides at [facility] located at [address], [address], [place] [address]; ([phone]). Per pt, she would like to return to her home and to her cats. SW will work with the pt and the MD regarding appropriate discharge planning. SW will form a safe and proper discharge.
--- NOTE | 2019-02-19 14:27 | NUR ---
Gene ([phone]), pts sister, called the SW back and stated that she will be going on vacation for the next 6 weeks to the [facility]. She stated that she feels as if the pt gets admitted to the hospital whenever her family members leave for their vacations. SW went over the pts treatment plan and initial discharge plan and stated that she would provide her with an update once she can speak to the pts psychiatrist.
--- NOTE | 2019-02-19 14:59 | NUR ---
Group Note: Pt attended a group session on 02/19/19 at 2PM discussing stress management strategies for when they are in the hospital and for once they are discharged. S: Pt stated, I like to draw and color when I am stressed. It is something I really enjoy and I can share this hobby with my sister who is an artist so its even more fun for me. O: Pt was present during the group session and was engaged. Pt appeared to be in a relaxed mood and presented with a calm affect. Pt maintained appropriate eye contact and had an appropriate tone of voice. A: Pt expressed that she has been using art as a stress reliever for many years, and it is always a useful tool for her to use when she is very stressed. She states that she enjoys coloring mandalas and is happy that she has access to adult coloring books while she is here. Pt states that when she is discharged she will continue to do her art because it is her hobby. P: Pt will continue milieu treatment and medication stabilization.
[2019-02-19 16:00] VITALS: BP 128/93
--- NOTE | 2019-02-19 20:01 | NUR ---
urine collected for urine profile and culture, lab was notified. 02/19/2019
[2019-02-19 20:11] VITALS: BP 152/82
[2019-02-19 20:16] LABS: APPEARANCE,URINE CLEAR (CLEAR); BILIRUBIN,URINE NEGATIVE (NEGATIVE); BLOOD, URINE NEGATIVE Ery/uL (NEGATIVE); COLOR,URINE YELLOW (YELLOW); KETONES,URINE NEGATIVE (NEGATIVE); LEUKOCYTE ESTERASE ,URINE NEGATIVE (NEGATIVE); NITRITE, URINE NEGATIVE (NEGATIVE); PH,URINE 5.5 (5.0-8.0); PROTEIN,URINE NEGATIVE (NEGATIVE); UGLUCOSE NEGATIVE (NEGATIVE); UROBILINOGEN,URINE 0.2 EU/dL (0.2)
[2019-02-19] MEDS ORDERED: DIVALPROEX SODIUM 250 MG TABLET.DR PO SCH (22:00)
[2019-02-19] MEDS: SIMVASTATIN 20 MG TABLET PO SCH (23:02)
[2019-02-19] MEDS: ARIPIPRAZOLE 5 MG TABLET PO SCH (23:02)
[2019-02-20] MEDS: TRAMADOL HCL 50 MG TABLET PO PRN ×3 (05:22→21:19)
[2019-02-20 08:00] VITALS: BP 128/97
[2019-02-20] MEDS: LISINOPRIL (5MG) 5 MG TABLET PO SCH (09:16)
[2019-02-20] MEDS: METOPROLOL SUCCINATE 50 MG TAB.SR.24H PO SCH (09:17)
[2019-02-20] MEDS: OXYBUTYNIN CHLORIDE 5 MG TABLET PO SCH ×2 (09:17→17:54)
[2019-02-20] MEDS: MESALAMINE 400 MG CAP PO SCH ×2 (09:17→17:54)
[2019-02-20] MEDS: DULOXETINE HCL 30 MG CAPSULE.DR PO SCH (09:18)
[2019-02-20] MEDS: HYDROCHLOROTHIAZIDE 25 MG TABLET PO SCH (09:18)
[2019-02-20] MEDS: PRAZOSIN HCL 1 MG CAPSULE PO SCH ×2 (09:23→17:53)
[2019-02-20] MEDS: POTASSIUM CHLORIDE 10 MEQ TABLET.SA PO SCH (09:24)
[2019-02-20] MEDS: ropiniROLE 0.5 MG TABLET PO SCH ×3 (09:24→17:54)
--- NOTE | 2019-02-20 14:05 | NUR ---
MEDICATED FOR KNEE PAIN WITH ULTRAM.
[2019-02-20 16:00] VITALS: BP 123/86
[2019-02-20] MEDS: DIVALPROEX SODIUM 250 MG TABLET.DR PO SCH (19:39)
[2019-02-20 19:42] VITALS: BP 146/106
[2019-02-20] MEDS: ARIPIPRAZOLE 5 MG TABLET PO SCH (21:19)
[2019-02-20] MEDS: SIMVASTATIN 20 MG TABLET PO SCH (21:19)
[2019-02-20] MEDS: ACETAMINOPHEN 325 MG TABLET PO PRN (22:51)
[2019-02-21] MEDS: TRAMADOL HCL 50 MG TABLET PO PRN ×3 (06:13→21:43)
[2019-02-21] MEDS: NYSTATIN TOP POWDER 15 GM BOTTLE TP PRN ×2 (07:24→21:13)
[2019-02-21 08:00] VITALS: BP 148/81
[2019-02-21] MEDS: MESALAMINE 400 MG CAP PO SCH ×2 (08:56→17:20)
[2019-02-21] MEDS: ropiniROLE 0.5 MG TABLET PO SCH ×3 (08:57→17:20)
[2019-02-21] MEDS: DULOXETINE HCL 30 MG CAPSULE.DR PO SCH (08:57)
[2019-02-21] MEDS: POTASSIUM CHLORIDE 10 MEQ TABLET.SA PO SCH (08:57)
[2019-02-21] MEDS: OXYBUTYNIN CHLORIDE 5 MG TABLET PO SCH ×2 (08:57→17:19)
[2019-02-21] MEDS: LISINOPRIL (5MG) 5 MG TABLET PO SCH (08:58)
[2019-02-21] MEDS: PRAZOSIN HCL 1 MG CAPSULE PO SCH ×2 (08:59→17:21)
[2019-02-21] MEDS: hydrALAZINE HCL 25 MG TABLET PO PRN (08:59)
[2019-02-21] MEDS: METOPROLOL SUCCINATE 50 MG TAB.SR.24H PO SCH (08:59)
[2019-02-21] MEDS: HYDROCHLOROTHIAZIDE 25 MG TABLET PO SCH (09:00)
[2019-02-21 16:00] VITALS: BP 126/86
[2019-02-21 21:10] VITALS: BP 117/87
[2019-02-21] MEDS: DIVALPROEX SODIUM 250 MG TABLET.DR PO SCH (21:11)
[2019-02-21] MEDS: ARIPIPRAZOLE 5 MG TABLET PO SCH (21:11)
[2019-02-21] MEDS: SIMVASTATIN 20 MG TABLET PO SCH (21:12)
[2019-02-21] MEDS: TEMAZEPAM 7.5 MG CAPSULE PO PRN (22:45)
[2019-02-22] MEDS: TRAMADOL HCL 50 MG TABLET PO PRN ×3 (05:47→20:51)
[2019-02-22 08:00] VITALS: BP 130/76
[2019-02-22] MEDS: MESALAMINE 400 MG CAP PO SCH ×2 (08:40→17:06)
[2019-02-22] MEDS: ropiniROLE 0.5 MG TABLET PO SCH ×3 (08:41→17:05)
[2019-02-22] MEDS: PRAZOSIN HCL 1 MG CAPSULE PO SCH ×2 (08:41→17:05)
[2019-02-22] MEDS: POTASSIUM CHLORIDE 10 MEQ TABLET.SA PO SCH (08:43)
[2019-02-22] MEDS: METOPROLOL SUCCINATE 50 MG TAB.SR.24H PO SCH (08:43)
[2019-02-22] MEDS: OXYBUTYNIN CHLORIDE 5 MG TABLET PO SCH ×2 (08:43→17:09)
[2019-02-22] MEDS: LISINOPRIL (5MG) 5 MG TABLET PO SCH (08:44)
[2019-02-22] MEDS: DULOXETINE HCL 30 MG CAPSULE.DR PO SCH (08:44)
[2019-02-22] MEDS: HYDROCHLOROTHIAZIDE 25 MG TABLET PO SCH (08:44)
--- NOTE | 2019-02-22 15:50 | NUR ---
GROUP NOTE: Pt was present in group therapy on 02/22/19 at 2:00pm but minimally participated. Pt remained quiet with her head down and only stated she would consider moving to a different place with her cats. SW attempted to engage pt in conversation but pt appeared sad with flat affect and did not want to share anything else regarding her discharge plan.
[2019-02-22 16:00] VITALS: BP 123/80
[2019-02-22 20:31] VITALS: BP 116/63
[2019-02-22] MEDS: DIVALPROEX SODIUM 250 MG TABLET.DR PO SCH (20:49)
[2019-02-22] MEDS: SIMVASTATIN 20 MG TABLET PO SCH (21:18)
[2019-02-22] MEDS: ARIPIPRAZOLE 5 MG TABLET PO SCH (21:18)
--- NOTE | 2019-02-22 23:00 | NUR ---
gps rn notes: patient found by annie carroll on the floor. patient was then asked by the write if she fell, patient denied. per patient once she feels the clicking sound other knees, it gives her excruciating pain. patient then assisted back to bed, and tucked back into bed. will continue to monitor patient's pain status.
[2019-02-22] MEDS: TEMAZEPAM 7.5 MG CAPSULE PO PRN (23:25)
[2019-02-23] MEDS: TRAMADOL HCL 50 MG TABLET PO PRN ×2 (05:15→17:16)
[2019-02-23 08:00] VITALS: BP 153/88
--- NOTE | 2019-02-23 08:35 | NUR ---
PC Hearing: SW called the pt's sister, Gene ([phone]), and left her a voicemail stating that the pt is going to have a Probable Cause Hearing today and if they have any questions to give the SW a call back.
[2019-02-23] MEDS: MESALAMINE 400 MG CAP PO SCH ×2 (09:51→17:07)
[2019-02-23] MEDS: METOPROLOL SUCCINATE 50 MG TAB.SR.24H PO SCH (09:52)
[2019-02-23] MEDS: PRAZOSIN HCL 1 MG CAPSULE PO SCH ×2 (09:52→17:07)
[2019-02-23] MEDS: DULOXETINE HCL 30 MG CAPSULE.DR PO SCH (09:53)
[2019-02-23] MEDS: LISINOPRIL (5MG) 5 MG TABLET PO SCH (09:53)
[2019-02-23] MEDS: OXYBUTYNIN CHLORIDE 5 MG TABLET PO SCH ×2 (09:53→17:08)
[2019-02-23] MEDS: HYDROCHLOROTHIAZIDE 25 MG TABLET PO SCH (09:54)
[2019-02-23] MEDS: POTASSIUM CHLORIDE 10 MEQ TABLET.SA PO SCH (09:54)
[2019-02-23] MEDS: ropiniROLE 0.5 MG TABLET PO SCH ×3 (10:03→17:08)
--- NOTE | 2019-02-23 15:25 | NUR ---
Group Note: Pt attended group therapy on 02/23/19 at 2pm discussing the topic of their goals in areas of both their hospitalization and their personal life. S: Pt stated, There was no misunderstanding about why I am here. My goal was to kill myself but I did not succeed. Next time I will have to do a better job if nothing helps. O: Pt was present during the group session but appeared to be less engaged. Pt appeared to be in a depressed mood and presented with a calm affect. Pt maintained appropriate eye contact and had an appropriate tone of voice. A: Pt expressed that she feels like she comes into the hospital to have her medications adjusted but then she goes home and sometimes it becomes hard for her to manage her life and she does not know what to do about it other than make an attempt on her life. Pt expressed that she cannot rely on her sister for support because she does not understand how the pt feels. Pt expressed feeling lonely in her life and determined that her goal would be to create meaningful connections and relationships with others. P: Pt will continue milieu treatment and medication stabilization.
[2019-02-23 16:00] VITALS: BP 147/99
--- NOTE | 2019-02-23 20:00 | NUR ---
RN-NOTES: PATIENT NOTED WITH ELEVEN RINGS ON HER FINGERS SINCE ADMISSION. PATIENT IS WILLING TO PUT HER RINGS IN THE SAFE BUT THEY WILL NOT COME OFF HER FINGERS DUE TO RINGS BEING STUCK.
[2019-02-23] MEDS: hydrALAZINE HCL 25 MG TABLET PO PRN (20:20)
[2019-02-23] MEDS: DIVALPROEX SODIUM 250 MG TABLET.DR PO SCH (20:22)
[2019-02-23 20:32] VITALS: BP 162/85
[2019-02-23] MEDS: SIMVASTATIN 20 MG TABLET PO SCH (21:10)
[2019-02-23] MEDS: ARIPIPRAZOLE 5 MG TABLET PO SCH (21:10)
[2019-02-23 21:12] VITALS: BP 148/75
[2019-02-23] MEDS: TEMAZEPAM 7.5 MG CAPSULE PO PRN (21:53)
[2019-02-24] MEDS: TRAMADOL HCL 50 MG TABLET PO PRN ×2 (05:50→16:09)
[2019-02-24 07:33] LABS: ALANINE AMINOTRANSFERASE 18 U/L (12-78); ALKALINE PHOSPHATASE 92 U/L (46-116); ASPARTATE AMINOTRANSFERASE 11 U/L (15-37); BILIRUBIN,TOTAL 0.2 mg/dL (0.2-1.0); CALCIUM, SERUM 8.8 mg/dL (8.5-10.1); CARBON DIOXIDE 22 mmol/L (21-32); CHLORIDE 102 mmol/L (98-107); CREATININE 1.6 mg/dL (0.6-1.3); GLUCOSE 100 mg/dL (74-106); PHOSPHORUS 3.8 mg/dL (2.5-4.9); POTASSIUM 4.4 mmol/L (3.5-5.1); SODIUM SERUM 136 mmol/L (136-145); TOTAL PROTEIN, SERUM 7.4 g/dL (6.4-8.2); UREA NITROGEN, BLOOD 38 mg/dL (7-18)
[2019-02-24 07:41] LABS: BASOPHILS # (AUTO) 0.1 /CMM (0.0-0.2); BASOPHILS % (AUTO) 0.8 % (0.0-2.0); EOSINOPHILS % (AUTO) 4.1 % (0.0-6.0); HEMATOCRIT 34 % (33-45); HEMOGLOBIN 11.3 g/dL (11.5-14.8); LYMPHOCYTES # (AUTO) 1.7 /CMM (0.8-4.8); LYMPHOCYTES % (AUTO) 24.3 % (20.0-44.0); MEAN CORPUSCULAR HGB CONC 34 g/dl (31.0-36.0); MEAN CORPUSCULAR VOLUME 87 fL (82-100); MONOCYTES # (AUTO) 0.6 /CMM (0.1-1.30); NEUTROPHILS # (AUTO) 4.5 /CMM (1.8-8.9); NEUTROPHILS % (AUTO) 62.8 % (43.0-81.0); PLATELET COUNT (AUTO) 148 /CMM (150-450); RED BLOOD CELL COUNT(AUTO) 3.87 MIL/uL (4.0-5.2); WHITE BLOOD COUNT (AUTO) 7.1 K/uL (4.3-11.0)
[2019-02-24 08:00] VITALS: BP 167/91
[2019-02-24] MEDS: OXYBUTYNIN CHLORIDE 5 MG TABLET PO SCH ×2 (08:05→16:10)
[2019-02-24] MEDS: DULOXETINE HCL 30 MG CAPSULE.DR PO SCH (08:05)
[2019-02-24] MEDS: POTASSIUM CHLORIDE 10 MEQ TABLET.SA PO SCH (08:05)
[2019-02-24] MEDS: METOPROLOL SUCCINATE 50 MG TAB.SR.24H PO SCH (08:05)
[2019-02-24] MEDS: PRAZOSIN HCL 1 MG CAPSULE PO SCH ×2 (08:06→16:10)
[2019-02-24] MEDS: ropiniROLE 0.5 MG TABLET PO SCH ×3 (08:06→16:09)
[2019-02-24] MEDS: HYDROCHLOROTHIAZIDE 25 MG TABLET PO SCH (08:07)
[2019-02-24] MEDS: LISINOPRIL (5MG) 5 MG TABLET PO SCH (08:07)
[2019-02-24] MEDS: MESALAMINE 400 MG CAP PO SCH ×2 (08:07→16:09)
--- NOTE | 2019-02-24 11:28 | NUR ---
WOUND CARE CONSULT: PT REQUESTS NYSTATIN POWDER FOR ABDOMINAL FOLD REDNESS, PRESENT ON ADMISSION. RECOMMENDATIONS DISCUSSED WITH NURSING STAFF. PT IS AMBULATORY AND CONTINENT. WILL SEE PRN. IN AGREEMENT WITH PLAN OF CARE.
--- NOTE | 2019-02-24 15:20 | NUR ---
Group Note: Pt attended group therapy on 02/24/19 at 2pm discussing the topic of patients rights. S: Pt stated, I have enjoyed my stay at the hospital and I feel as if my rights have been respected. O: Pt was present during the group session and was engaged. Pt appeared to be in a euthymic mood and presented with a calm affect. Pt maintained appropriate eye contact and had an appropriate tone of voice. A: Pt expressed that she understands that the patients have rights in the hospital and she expressed that every time she has been in the hospital she has been respected. P: Pt will continue milieu treatment and medication stabilization.
[2019-02-24 16:00] VITALS: BP 142/68
[2019-02-24] MEDS: DIVALPROEX SODIUM 250 MG TABLET.DR PO SCH (19:58)
[2019-02-24] MEDS: hydrALAZINE HCL 25 MG TABLET PO PRN (19:58)
[2019-02-24 20:00] VITALS: BP 163/99
[2019-02-24 20:34] VITALS: BP 145/89
[2019-02-24] MEDS: SIMVASTATIN 20 MG TABLET PO SCH (21:11)
[2019-02-24] MEDS: ARIPIPRAZOLE 5 MG TABLET PO SCH (21:11)
[2019-02-24] MEDS: TEMAZEPAM 7.5 MG CAPSULE PO PRN (21:29)
[2019-02-25] MEDS: TRAMADOL HCL 50 MG TABLET PO PRN ×3 (01:13→16:57)
[2019-02-25 08:00] VITALS: BP 141/59
[2019-02-25] MEDS: ropiniROLE 0.5 MG TABLET PO SCH ×3 (08:56→16:44)
[2019-02-25] MEDS: DULOXETINE HCL 30 MG CAPSULE.DR PO SCH (08:56)
[2019-02-25] MEDS: PRAZOSIN HCL 1 MG CAPSULE PO SCH ×2 (08:56→16:45)
[2019-02-25] MEDS: METOPROLOL SUCCINATE 50 MG TAB.SR.24H PO SCH (08:57)
[2019-02-25] MEDS: MESALAMINE 400 MG CAP PO SCH ×2 (08:57→16:44)
[2019-02-25] MEDS: LISINOPRIL (5MG) 5 MG TABLET PO SCH (08:57)
[2019-02-25] MEDS: HYDROCHLOROTHIAZIDE 25 MG TABLET PO SCH (08:58)
[2019-02-25] MEDS: POTASSIUM CHLORIDE 10 MEQ TABLET.SA PO SCH (08:58)
[2019-02-25] MEDS: OXYBUTYNIN CHLORIDE 5 MG TABLET PO SCH ×2 (08:58→16:44)
[2019-02-25 16:00] VITALS: BP 124/71
--- NOTE | 2019-02-25 16:15 | NUR ---
Gene ([phone]), pts sister, called the SW back and stated that the pt was once at a facility called [facility] and that the SW should attempt to get the pt readmitted. SW stated that she would send a referral.
[2019-02-25] MEDS: MENTHOL/CETYLPYRD (CEPACOL) 1 LOZ LOZENGE PO PRN (18:44)
[2019-02-25] MEDS: DIVALPROEX SODIUM 250 MG TABLET.DR PO SCH (20:27)
[2019-02-25] MEDS: ACETAMINOPHEN 325 MG TABLET PO PRN (21:45)
[2019-02-25] MEDS: ARIPIPRAZOLE 5 MG TABLET PO SCH (21:46)
[2019-02-25] MEDS: SIMVASTATIN 20 MG TABLET PO SCH (21:46)
--- NOTE | 2019-02-25 22:21 | NUR ---
GPR/RN NOTE: AT AROUND 2029, PATIENT CALLED FROM HER ROOM, WENT TO CHECK, SHE WAS FOUND SITTING ON THE FLOOR. PATIENT CLAIMED SHE USED THE TOILET AND FELL WHILE ON HER WAY BACK TO HER BED USING HER WALKER. PATIENT IS A/O X4, MOSTLY INDEPENDENT WITH ROUTINE ADL'S. PATIENT UNABLE TO GET UP ON HER OWN DUE TO PAIN ON HER RIGHT LEG. AUDITOR IN CHARGE ASSIGNED ASSISTED HER BACK TO BED. NO SWELLING, SKIN DISCOLORATION, NO OPEN AREA NOTED. VITALS TAKEN 113/53, 78, 19, 98.0. C/O PAIN ON THE RIGHT LEG, TYLENOL 650 MG TAB PO GIVEN. SISTER ISABEL WEISS WAS NOTIFIED OF THE INCIDENT, RN SPECIALTY THERAPIST RONNY SCHERER MADE AWARE. PAGED AND SPOKE WITH WAREHOUSE STOCK CLERK NABEEL MCGRAW, ORDERED X-RAY OF THE RIGHT LEG TO RULE OUT FRACTURE. INSTRUCTED PATIENT TO CALL/USE HER CALL LO[employer]ZA WHEN HELP IS NEEDED, STAFF INSTRUCTED TO KEEP CALL [employer]ZA WITHIN REACH AT ALL TIME, BED LOCKED AND PLACED ON LOWEST POSITION, SIDE RAILS UP X2, BED ALARM ALWAYS ACTIVATED. WILL CONTINUE TO MONITOR Q 2 HOURS FOR SAFETY.
[2019-02-26] MEDS: TRAMADOL HCL 50 MG TABLET PO PRN ×3 (01:17→23:01)
[2019-02-26 05:43] VITALS: BP 116/71
--- NOTE | 2019-02-26 06:25 | NUR ---
PATIENT REFUSED TO TAKE ULTRAM @ 0115, MEDICATION UNDONE. PATIENT REQUESTED FOR ULTRAM NOW, C/O PAIN ON THE RIGHT KNEE.
[2019-02-26 08:00] VITALS: BP 158/87
[2019-02-26] MEDS: DULOXETINE HCL 30 MG CAPSULE.DR PO SCH (08:43)
[2019-02-26] MEDS: HYDROCHLOROTHIAZIDE 25 MG TABLET PO SCH (08:43)
[2019-02-26] MEDS: MESALAMINE 400 MG CAP PO SCH ×2 (08:43→16:01)
[2019-02-26] MEDS: OXYBUTYNIN CHLORIDE 5 MG TABLET PO SCH ×2 (08:43→16:01)
[2019-02-26] MEDS: ropiniROLE 0.5 MG TABLET PO SCH ×3 (08:43→16:02)
[2019-02-26] MEDS: POTASSIUM CHLORIDE 10 MEQ TABLET.SA PO SCH (08:43)
[2019-02-26] MEDS: LISINOPRIL (5MG) 5 MG TABLET PO SCH (08:44)
[2019-02-26] MEDS: METOPROLOL SUCCINATE 50 MG TAB.SR.24H PO SCH (08:44)
[2019-02-26] MEDS: PRAZOSIN HCL 1 MG CAPSULE PO SCH ×2 (08:44→16:02)
[2019-02-26] MEDS: MENTHOL/CETYLPYRD (CEPACOL) 1 LOZ LOZENGE PO PRN ×2 (10:22→15:52)
--- NOTE | 2019-02-26 12:25 | NUR ---
Group Note: Pt attended group therapy on 02/26/19 at 11:30 discussing the topic of social supports for when they are in the hospital and for once they are discharged S: Pt stated, I have a very close family. We are very close. They are my support group. Especially my sister. I have a lot of friends too. And my psychiatrist is also a support. O: Pt was present during the group session and was engaged. Pt appeared depressed and presented with a calm affect. Pt maintained appropriate eye contact and had an appropriate tone of voice. A: Pt expressed that she has a good support group but admits that it is sometimes difficult to reach out to people when she is having difficulties. Pt will work on being more assertive with asking for help, and she hopes to extend her support group with volunteer opportunities once she is discharged from the hospital. P: Pt will continue milieu treatment and medication stabilization.
--- NOTE | 2019-02-26 15:16 | NUR ---
ADIS faxed a referral to [facility] to the fax number: [phone].
[2019-02-26 16:00] VITALS: BP 119/77
[2019-02-26] MEDS: ACETAMINOPHEN 325 MG TABLET PO PRN (16:07)
--- NOTE | 2019-02-26 16:08 | NUR ---
RN-CO: TYLENOL 650 MG PO GIVEN FOR MILD KNEE PAIN, 12/01.
[2019-02-26] MEDS: DIVALPROEX SODIUM 250 MG TABLET.DR PO SCH (19:50)
[2019-02-26 20:00] VITALS: BP 118/59
[2019-02-26] MEDS: ARIPIPRAZOLE 5 MG TABLET PO SCH (21:14)
[2019-02-26] MEDS: SIMVASTATIN 20 MG TABLET PO SCH (21:14)
[2019-02-26] MEDS: TEMAZEPAM 7.5 MG CAPSULE PO PRN (21:27)
[2019-02-27 07:41] LABS: VALPROIC ACID 73 ug/mL (50-100)
[2019-02-27] MEDS: TRAMADOL HCL 50 MG TABLET PO PRN ×3 (07:42→18:33)
[2019-02-27 07:46] LABS: BASOPHILS # (AUTO) 0.1 /CMM (0.0-0.2); BASOPHILS % (AUTO) 1.3 % (0.0-2.0); EOSINOPHILS % (AUTO) 4.5 % (0.0-6.0); HEMATOCRIT 33 % (33-45); HEMOGLOBIN 11.1 g/dL (11.5-14.8); LYMPHOCYTES # (AUTO) 1.5 /CMM (0.8-4.8); LYMPHOCYTES % (AUTO) 20.3 % (20.0-44.0); MEAN CORPUSCULAR HGB CONC 33 g/dl (31.0-36.0); MEAN CORPUSCULAR VOLUME 88 fL (82-100); MONOCYTES # (AUTO) 0.5 /CMM (0.1-1.30); MONOCYTES % (AUTO) 7.2 % (2.0-12.0); NEUTROPHILS % (AUTO) 66.7 % (43.0-81.0); PLATELET COUNT (AUTO) 133 /CMM (150-450); RED BLOOD CELL COUNT(AUTO) 3.79 MIL/uL (4.0-5.2); WHITE BLOOD COUNT (AUTO) 7.5 K/uL (4.3-11.0)
[2019-02-27 08:01] LABS: ALANINE AMINOTRANSFERASE 16 U/L (12-78); ALBUMIN 2.9 g/dL (3.4-5.0); ALKALINE PHOSPHATASE 87 U/L (46-116); ASPARTATE AMINOTRANSFERASE 11 U/L (15-37); BILIRUBIN,TOTAL 0.3 mg/dL (0.2-1.0); CALCIUM, SERUM 8.6 mg/dL (8.5-10.1); CARBON DIOXIDE 25 mmol/L (21-32); CHLORIDE 101 mmol/L (98-107); CREATININE 1.7 mg/dL (0.6-1.3); GLUCOSE 90 mg/dL (74-106); POTASSIUM 4.3 mmol/L (3.5-5.1); SODIUM SERUM 136 mmol/L (136-145); TOTAL PROTEIN, SERUM 6.8 g/dL (6.4-8.2); UREA NITROGEN, BLOOD 44 mg/dL (7-18)
[2019-02-27 08:05] VITALS: BP 160/89
[2019-02-27] MEDS: MENTHOL/CETYLPYRD (CEPACOL) 1 LOZ LOZENGE PO PRN ×2 (08:41→20:23)
[2019-02-27] MEDS: POTASSIUM CHLORIDE 10 MEQ TABLET.SA PO SCH (08:41)
[2019-02-27] MEDS: OXYBUTYNIN CHLORIDE 5 MG TABLET PO SCH ×2 (08:41→17:55)
[2019-02-27] MEDS: DULOXETINE HCL 30 MG CAPSULE.DR PO SCH (08:41)
[2019-02-27] MEDS: PRAZOSIN HCL 1 MG CAPSULE PO SCH ×2 (08:42→17:54)
[2019-02-27] MEDS: ropiniROLE 0.5 MG TABLET PO SCH ×3 (08:43→17:55)
[2019-02-27] MEDS: MESALAMINE 400 MG CAP PO SCH ×2 (08:43→17:55)
[2019-02-27] MEDS: METOPROLOL SUCCINATE 50 MG TAB.SR.24H PO SCH (08:43)
[2019-02-27] MEDS: LISINOPRIL (5MG) 5 MG TABLET PO SCH (10:38)
[2019-02-27] MEDS: HYDROCHLOROTHIAZIDE 25 MG TABLET PO SCH (10:38)
--- NOTE | 2019-02-27 14:14 | NUR ---
DR. LEMUS JUST HERE AND INFORMED PT. WITH LOOSE CONGESTION AND COUGH,NOW PT. STATES SHE HAS MOD. PRODUCTION OF THICK YELLOW SPUTUM.CALL OUT TO DR. LEMUS TO INFORM HIM.
--- NOTE | 2019-02-27 14:21 | NUR ---
RECEIVED ORDER FROM DR. LEMUS REGARDING SPUTUM PRODUCTION.
--- NOTE | 2019-02-27 14:49 | NUR ---
PT. INFORMED OF NEED FOR SPUTUM SAMPLE.
[2019-02-27 16:00] VITALS: BP 135/89
--- NOTE | 2019-02-27 18:02 | NUR ---
SPUTUM SPECIMEN OBTAINED PER ORDERS.
[2019-02-27] MEDS: NYSTATIN TOP POWDER 15 GM BOTTLE TP PRN (18:42)
--- NOTE | 2019-02-27 18:56 | NUR ---
MEDICATED FOR BILATERAL KNEE PAIN WITH ULTRAM X2 TODAY
[2019-02-27 20:00] VITALS: BP 135/66
[2019-02-27] MEDS: DIVALPROEX SODIUM 250 MG TABLET.DR PO SCH (20:01)
[2019-02-27] MEDS: SIMVASTATIN 20 MG TABLET PO SCH (22:03)
[2019-02-27] MEDS: ARIPIPRAZOLE 5 MG TABLET PO SCH (22:04)
[2019-02-28] MEDS: ACETAMINOPHEN 325 MG TABLET PO PRN (05:55)
[2019-02-28 08:00] VITALS: BP 141/62
[2019-02-28] MEDS: DULOXETINE HCL 30 MG CAPSULE.DR PO SCH (08:54)
[2019-02-28] MEDS: ropiniROLE 0.5 MG TABLET PO SCH ×3 (08:55→17:04)
[2019-02-28] MEDS: OXYBUTYNIN CHLORIDE 5 MG TABLET PO SCH ×2 (08:55→16:57)
[2019-02-28] MEDS: MESALAMINE 400 MG CAP PO SCH ×2 (08:55→16:56)
[2019-02-28] MEDS: PRAZOSIN HCL 1 MG CAPSULE PO SCH ×2 (08:56→16:57)
[2019-02-28] MEDS: HYDROCHLOROTHIAZIDE 25 MG TABLET PO SCH (08:56)
[2019-02-28] MEDS: POTASSIUM CHLORIDE 10 MEQ TABLET.SA PO SCH (08:56)
[2019-02-28] MEDS: hydrALAZINE HCL 25 MG TABLET PO PRN (08:57)
[2019-02-28] MEDS: METOPROLOL SUCCINATE 50 MG TAB.SR.24H PO SCH (08:57)
[2019-02-28] MEDS: LISINOPRIL (20MG) 20 MG TABLET PO SCH (08:58)
[2019-02-28] MEDS: TRAMADOL HCL 50 MG TABLET PO PRN (14:15)
[2019-02-28 16:11] VITALS: BP 149/78
[2019-02-28] MEDS: MENTHOL/CETYLPYRD (CEPACOL) 1 LOZ LOZENGE PO PRN (16:56)
[2019-02-28 20:01] VITALS: BP 157/91
[2019-02-28] MEDS: DIVALPROEX SODIUM 250 MG TABLET.DR PO SCH (20:55)
[2019-02-28] MEDS: SIMVASTATIN 20 MG TABLET PO SCH (21:25)
[2019-02-28] MEDS: TEMAZEPAM 7.5 MG CAPSULE PO PRN (21:25)
[2019-02-28] MEDS: ARIPIPRAZOLE 5 MG TABLET PO SCH (21:25)
[2019-03-01] MEDS: TRAMADOL HCL 50 MG TABLET PO PRN ×3 (02:49→18:51)
[2019-03-01 08:00] VITALS: BP 199/98
[2019-03-01] MEDS: METOPROLOL SUCCINATE 50 MG TAB.SR.24H PO SCH ×2 (08:15→09:00)
[2019-03-01] MEDS: POTASSIUM CHLORIDE 10 MEQ TABLET.SA PO SCH (08:16)
[2019-03-01] MEDS: HYDROCHLOROTHIAZIDE 25 MG TABLET PO SCH (08:16)
[2019-03-01] MEDS: PRAZOSIN HCL 1 MG CAPSULE PO SCH ×2 (08:16→17:02)
[2019-03-01] MEDS: DULOXETINE HCL 30 MG CAPSULE.DR PO SCH (08:16)
[2019-03-01] MEDS: OXYBUTYNIN CHLORIDE 5 MG TABLET PO SCH ×2 (08:17→17:02)
[2019-03-01] MEDS: LISINOPRIL (20MG) 20 MG TABLET PO SCH (08:17)
[2019-03-01] MEDS: ropiniROLE 0.5 MG TABLET PO SCH ×3 (08:45→17:01)
[2019-03-01] MEDS: MESALAMINE 400 MG CAP PO SCH ×2 (08:45→17:00)
[2019-03-01 09:00] VITALS: BP 163/119
[2019-03-01] MEDS: hydrALAZINE HCL 25 MG TABLET PO PRN (10:04)
--- NOTE | 2019-03-01 10:18 | NUR ---
RN NOTE: PATIENT HAD BP 199/98 P 78 THIS MORNING. MORNING MEDICATIONS WERE GIVEN WITH HTN ATC MEDS INCLUDING 25MG METOPROLOL. KAILASH ROOT WAS NOTIFIED OF PATIENT'S VITALS. BP WAS RE-CHECKED, BP 163/119 P 76. HYDRALAZINE WAS GIVEN. DK CHANGED METOPROLOL DOSE TO 50MG AND CAME UP ON THE NOV TO ADMINISTER AT 0900. DK WAS CONTACTED FOR CLARIFICATION AND INSTRUCTED TO HOLD THE METOPROLOL UNTIL NEXT DOSE AND CONTACT BACK IF HTN PERSISTS. Addendum: 03/01/19 at 1108 by CHRISTELLE MONTERO RN VS RE-CHECKED: BP 167/84 P 73- WILL CONTINUE TO MONITOR BP.
--- NOTE | 2019-03-01 10:55 | NUR ---
Judy Group Note: Pt attended group therapy on 03/01/19 at 9:30 discussing the topic of anger management for when they are in the hospital and for once they are discharged S: Pt stated, I sometimes get angry but I try to not let other people get to me. I try to relax and not pay attention to them. O: Pt was present during the group session and was engaged. Pt appeared depressed and presented with a calm affect. Pt maintained appropriate eye contact and had an appropriate tone of voice. A: Pt expressed that she is able to manager forensic her anger by staying calm and practicing meditation. Pt states that her emotional support animals are a source of comfort and she is able to calm herself when she gets angry by petting her pets. Pt will work on speaking up when something initially upsets her in order to manage her feelings before they get dysregulated. P: Pt will continue milieu treatment and medication stabilization.
[2019-03-01 11:00] VITALS: BP 167/84
--- NOTE | 2019-03-01 11:02 | NUR ---
ADIS called [facility] ([phone]) and left a voicemail for Tri the director of nurses registry. ADIS stated that the pt is being discharged tomorrow and would like to know if the pt was accepted to their facility or not.
--- NOTE | 2019-03-01 12:00 | NUR ---
SW called [facility] ([phone]) and spoke to Haleigh who stated that she can arrange transportation and that the SW does not need to be in contact with a [facility] aquacultural worker supervisor. ADIS provided her with information about the pts discharge and she stated that she would submit the request and then call the SW back with updates.
[2019-03-01] MEDS ORDERED: ALBUTEROL FS 2.5 MG/0.5 ML VIAL.NEB NEB PRN (14:30)
[2019-03-01] MEDS: GUAIFENESIN 300 MG/15 ML UDC PO PRN ×2 (15:03→20:51)
[2019-03-01 16:00] VITALS: BP 123/76
[2019-03-01 19:32] VITALS: BP 156/79
[2019-03-01] MEDS: DIVALPROEX SODIUM 250 MG TABLET.DR PO SCH (20:51)
[2019-03-01] MEDS: ARIPIPRAZOLE 5 MG TABLET PO SCH (21:32)
[2019-03-01] MEDS: SIMVASTATIN 20 MG TABLET PO SCH (21:32)
[2019-03-01] MEDS: TEMAZEPAM 7.5 MG CAPSULE PO PRN (21:33)
[2019-03-02 08:00] VITALS: BP 161/82
[2019-03-02] MEDS: DULOXETINE HCL 30 MG CAPSULE.DR PO SCH (08:08)
[2019-03-02] MEDS: METOPROLOL SUCCINATE 50 MG TAB.SR.24H PO SCH (08:08)
[2019-03-02] MEDS: POTASSIUM CHLORIDE 10 MEQ TABLET.SA PO SCH (08:09)
[2019-03-02] MEDS: ropiniROLE 0.5 MG TABLET PO SCH (08:09)
[2019-03-02] MEDS: OXYBUTYNIN CHLORIDE 5 MG TABLET PO SCH (08:09)
[2019-03-02] MEDS: HYDROCHLOROTHIAZIDE 25 MG TABLET PO SCH (08:09)
[2019-03-02] MEDS: MESALAMINE 400 MG CAP PO SCH (08:09)
[2019-03-02 08:10] VITALS: BP 161/82
[2019-03-02] MEDS: GUAIFENESIN 300 MG/15 ML UDC PO PRN (08:10)
[2019-03-02] MEDS: LISINOPRIL (20MG) 20 MG TABLET PO SCH (08:10)
[2019-03-02] MEDS: PRAZOSIN HCL 1 MG CAPSULE PO SCH (08:10)
--- NOTE | 2019-03-02 09:23 | NUR ---
[facility][phone][facility] and left a voicemail stating that the SW would like to apply for [facility] lunchroom food service supervisor for the pt who is being discharged today.
--- NOTE | 2019-03-02 09:40 | NUR ---
ADIS called the pts brother in law, Raoul ([phone]), and informed him and the pts sister Gene that the pt is being discharged today back to [facility] where she will be transported via [place] [facility]. DAIS also informed them that she is in the process of being set up with [facility] caretakers.
--- NOTE | 2019-03-02 09:52 | NUR ---
Rachael from [facility] ([phone]) called the SW and conducted the application for the pt over the phone. Rachael stated that she will fax the medication request to the SW who will then fax it back to her at [phone]. She stated that once that is completed, a SW will go to the pts home and conduct their assessment.
--- NOTE | 2019-03-02 12:30 | NUR ---
NURSING DISCHARGE NOTE: PT WAS DISCHARGED TODAY AT 1230 TO [facility] LOCATED AT [address], [address], [place], [place] [id number] . PT LEFT THE UNIT VIA WHEELCHAIR ACCOMPANIED BY 1 WILDLIFE BIOSTATION RESEARCH ECOLOGIST AND A [facility] FERTILIZER LOADER JACQUELINE DONNAJEROME TO [facility]. PT IS A&OX4, CALM, COOPERATIVE, PLEASANT, MED COMPLIANT, DENIES SI/HI AT THE TIME OF DISCHARGE. PT WAS COOPERATIVE WITH DISCHARGE PROCESS AND HAS SIGNED ALL DISCHARGE PAPERWORK. DISCHARGE ORDER WAS GIVEN BY DR. MUSE WITH PRESCRIPTIONS WELL. PT HAS BEEN MEDICALLY CLEARED FOR DISCHARGE BY DR. ROOT WITH PRESCRIPTIONS WELL. PER DR. ROOT PT WAS BEEN NOTIFIED TO FOLLOW UP WITH HER PCP IN 1 WEEK REGARDING RECENT CHANGE OF BP MEDS AND HIGH BP. 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 ALL BELONGINGS WERE RETURNED TO PT AND PT HAS SIGNED THE PAPERWORK WELL. SKIN ASSESSMENT HAS BEEN DONE AND PHOTOS WERE TAKEN AND PLACED IN THE CHART. VS STABLE, NO S/S OF ANY DISTRESS NOTED. NO C/O PAIN OR ANY DISCOMFORT. ALL DISCHARGE PAPERWORK WAS GIVEN TO THE [facility] FERTILIZER LOADER INCLUDING PRESCRIPTIONS.
--- NOTE | 2019-03-02 12:53 | NUR ---
Discharge Note: Pt was discharged back to [facility] located at [address], [address], [place] [address]; ([phone]). Pt was picked up by [facility] drivers at 12pm. Pts sister, Gene ([phone]), was made aware of this discharge. Upon discharge, the pt appeared to be in a euthymic mood and presented with a calm affect. Pt denied both suicidal and homicidal ideation as well as auditory and visual hallucinations. Pt was referred to [facility] special assets officer. Pt will be under the care of her psychiatrist, Dr. Mitch Kessler, located at [address] [place] [address]; ([phone]); and a fax with updated notes was sent to: ([phone]). Pt will be under the care of his television production clerk, Dr. Alberto Engel, located at [address], [address], [place] [address]; ([phone]).
== END 2019-03-02 12:30 | disposition home or self-care (01) | DRG 885 ==
LOC: GPS 13:30
PROVIDERS: ADMIT Psychiatry & Neurology Psychosomatic Medicine; ATTEND Nurse Practitioner Acute Care
DX: F39 Unspecified mood [affective] disorder (principal); N17.9 Acute kidney failure, unspecified; N18.9 Chronic kidney disease, unspecified; K50.90 Crohn's disease, unspecified, without complications; F23 Brief psychotic disorder; R45.851 Suicidal ideations; D63.8 Anemia in other chronic diseases classified elsewhere; I12.9 Hypertensive chronic kidney disease with stage 1 through stage 4 chronic kidney disease, or unspecified chronic kidney disease; F32.9 Major depressive disorder, single episode, unspecified; M21.629 Bunionette of unspecified foot; L84 Corns and callosities; M20.10 Hallux valgus (acquired), unspecified foot; F41.9 Anxiety disorder, unspecified; M79.7 Fibromyalgia; Z87.442 Personal history of urinary calculi
CPT/HCPCS: 36415; 71046; 73564-TC; 80053-TC; 80061-TC; 80164-TC; 81000-TC; 83735-TC; 84100-TC; 85025-TC; 87070-TC; 87081-TC; 87086-TC

== ENCOUNTER 2019-03-22 12:06 | Inpatient (IN) | payer MEDICARE, OTHER ==
[~2019-03-22] VITALS: Ht 152.4 cm; Wt 99.8 kg
[~2019-03-22 12:06] MED LIST changes: -ARIP5TAB10 PO; -CLIN300C11 PO; +NYST15PO4 TD; -TOPI100T38 PO; +TRAM50TA2 PO
[2019-03-22] MEDS ORDERED: MAG HYDROX/AL HYDROX/SIMETH 30 ML UDC PO PRN (12:30)
[2019-03-22] MEDS ORDERED: MAGNESIUM HYDROXIDE 30 ML UDC PO PRN (12:30)
[2019-03-22] MEDS ORDERED: ARIP5TAB10 PO (13:19)
[2019-03-22] MEDS ORDERED: DIVA-78 PO (13:19)
[2019-03-22] MEDS ORDERED: DULO30CA2 PO (13:19)
[2019-03-22] MEDS ORDERED: SIMVASTATIN 20 MG TABLET PO SCH (15:30)
[2019-03-22] MEDS ORDERED: NYSTATIN TOP POWDER 15 GM BOTTLE TP PRN (15:30)
[2019-03-22 16:00] VITALS: BP 149/90
[2019-03-22] MEDS: PRAZOSIN HCL 1 MG CAPSULE PO SCH (16:25)
[2019-03-22] MEDS: OXYBUTYNIN CHLORIDE 5 MG TABLET PO SCH (16:25)
[2019-03-22] MEDS: ropiniROLE 0.5 MG TABLET PO SCH (16:25)
[2019-03-22] MEDS: LISINOPRIL (5MG) 5 MG TABLET PO SCH (16:25)
[2019-03-22] MEDS: MESALAMINE 400 MG CAP PO SCH (16:25)
[2019-03-22] MEDS: HYDROCHLOROTHIAZIDE 25 MG TABLET PO SCH (16:26)
[2019-03-22] MEDS: METOPROLOL SUCCINATE 25 MG TAB.SR.24H PO SCH (16:27)
[2019-03-22 16:58] LABS: CALCIUM, SERUM 9.1 mg/dL (8.5-10.1); CARBON DIOXIDE 19 mmol/L (21-32); CHLORIDE 103 mmol/L (98-107); CREATININE 1.8 mg/dL (0.6-1.3); GLUCOSE 142 mg/dL (74-106); POTASSIUM 3.9 mmol/L (3.5-5.1); SODIUM SERUM 135 mmol/L (136-145)
[2019-03-22 17:08] LABS: UREA NITROGEN, BLOOD 51 mg/dL (7-18)
[2019-03-22] MEDS: POTASSIUM CHLORIDE 10 MEQ TABLET.SA PO SCH (17:31)
[2019-03-22 20:49] VITALS: BP 127/77
[2019-03-22] MEDS: SIMVASTATIN 20 MG TABLET PO SCH (21:46)
[2019-03-22] MEDS ORDERED: risperiDONE 0.25 MG TABLET PO SCH (22:00)
[2019-03-22] MEDS ORDERED: DIVALPROEX SODIUM 250 MG TABLET.DR PO SCH (22:00)
[2019-03-23 08:00] VITALS: BP 129/60
[2019-03-23 08:07] LABS: ALANINE AMINOTRANSFERASE 21 U/L (12-78); ALBUMIN 3.3 g/dL (3.4-5.0); ALKALINE PHOSPHATASE 80 U/L (46-116); ASPARTATE AMINOTRANSFERASE 11 U/L (15-37); BILIRUBIN,TOTAL 0.3 mg/dL (0.2-1.0); CALCIUM, SERUM 8.5 mg/dL (8.5-10.1); CARBON DIOXIDE 20 mmol/L (21-32); CHLORIDE 103 mmol/L (98-107); CREATININE 2.5 mg/dL (0.6-1.3); GLUCOSE 103 mg/dL (74-106); POTASSIUM 4.3 mmol/L (3.5-5.1); SODIUM SERUM 137 mmol/L (136-145); TOTAL PROTEIN, SERUM 7.9 g/dL (6.4-8.2); UREA NITROGEN, BLOOD 64 mg/dL (7-18)
[2019-03-23 08:19] LABS: CHOLESTEROL 185 mg/dL (<200); HDL CHOLESTEROL 39 mg/dL (40-60); LDL 118 mg/dL (0-99); TRIGLYCERIDES 179 mg/dL (30-150)
[2019-03-23] MEDS: MESALAMINE 400 MG CAP PO SCH ×2 (09:22→16:59)
[2019-03-23] MEDS: POTASSIUM CHLORIDE 10 MEQ TABLET.SA PO SCH (09:23)
[2019-03-23] MEDS: ropiniROLE 0.5 MG TABLET PO SCH ×3 (09:23→17:01)
[2019-03-23] MEDS: PRAZOSIN HCL 1 MG CAPSULE PO SCH ×2 (09:24→17:01)
[2019-03-23] MEDS: LISINOPRIL (5MG) 5 MG TABLET PO SCH (09:25)
[2019-03-23] MEDS: METOPROLOL SUCCINATE 25 MG TAB.SR.24H PO SCH (09:25)
[2019-03-23] MEDS: HYDROCHLOROTHIAZIDE 25 MG TABLET PO SCH (09:26)
[2019-03-23] MEDS: OXYBUTYNIN CHLORIDE 5 MG TABLET PO SCH ×2 (09:26→17:00)
[2019-03-23 16:00] VITALS: BP 120/59
[2019-03-23 20:31] VITALS: BP 135/79
[2019-03-23] MEDS: SIMVASTATIN 20 MG TABLET PO SCH (21:13)
[2019-03-23] MEDS: risperiDONE 0.25 MG TABLET PO SCH (21:13)
[2019-03-23] MEDS: DIVALPROEX SODIUM 250 MG TABLET.DR PO SCH (21:13)
[2019-03-23] MEDS: TEMAZEPAM 7.5 MG CAPSULE PO PRN (21:14)
[2019-03-24 08:00] VITALS: BP 136/80
[2019-03-24] MEDS: MESALAMINE 400 MG CAP PO SCH ×2 (09:25→17:52)
[2019-03-24] MEDS: ropiniROLE 0.5 MG TABLET PO SCH ×3 (09:26→17:51)
[2019-03-24] MEDS: HYDROCHLOROTHIAZIDE 25 MG TABLET PO SCH (09:26)
[2019-03-24] MEDS: POTASSIUM CHLORIDE 10 MEQ TABLET.SA PO SCH (09:27)
[2019-03-24] MEDS: OXYBUTYNIN CHLORIDE 5 MG TABLET PO SCH ×2 (09:27→17:52)
[2019-03-24] MEDS: METOPROLOL SUCCINATE 25 MG TAB.SR.24H PO SCH (09:27)
[2019-03-24] MEDS: LISINOPRIL (5MG) 5 MG TABLET PO SCH (11:27)
[2019-03-24] MEDS: PRAZOSIN HCL 1 MG CAPSULE PO SCH ×2 (11:27→17:52)
[2019-03-24 14:42] LABS: BASOPHILS # (AUTO) 0.1 /CMM (0.0-0.2); BASOPHILS % (AUTO) 1.1 % (0.0-2.0); EOSINOPHILS % (AUTO) 4.8 % (0.0-6.0); HEMATOCRIT 38 % (33-45); HEMOGLOBIN 12.4 g/dL (11.5-14.8); LYMPHOCYTES # (AUTO) 1.8 /CMM (0.8-4.8); LYMPHOCYTES % (AUTO) 20.5 % (20.0-44.0); MEAN CORPUSCULAR HGB CONC 33 g/dl (31.0-36.0); MEAN CORPUSCULAR VOLUME 88 fL (82-100); MONOCYTES # (AUTO) 0.6 /CMM (0.1-1.30); MONOCYTES % (AUTO) 6.5 % (2.0-12.0); NEUTROPHILS % (AUTO) 67.1 % (43.0-81.0); PLATELET COUNT (AUTO) 143 /CMM (150-450); RED BLOOD CELL COUNT(AUTO) 4.27 MIL/uL (4.0-5.2)
[2019-03-24 15:06] LABS: ALANINE AMINOTRANSFERASE 20 U/L (12-78); ALBUMIN 3.3 g/dL (3.4-5.0); ALKALINE PHOSPHATASE 86 U/L (46-116); ASPARTATE AMINOTRANSFERASE 13 U/L (15-37); BILIRUBIN,TOTAL 0.2 mg/dL (0.2-1.0); CALCIUM, SERUM 8.5 mg/dL (8.5-10.1); CARBON DIOXIDE 20 mmol/L (21-32); CHLORIDE 101 mmol/L (98-107); CREATININE 1.9 mg/dL (0.6-1.3); GLUCOSE 104 mg/dL (74-106); MAGNESIUM 2.1 mg/dL (1.8-2.4); PHOSPHORUS 4.2 mg/dL (2.5-4.9); POTASSIUM 4.3 mmol/L (3.5-5.1); SODIUM SERUM 133 mmol/L (136-145); TOTAL PROTEIN, SERUM 8.1 g/dL (6.4-8.2); UREA NITROGEN, BLOOD 61 mg/dL (7-18)
[2019-03-24 15:40] LABS: APPEARANCE,URINE CLEAR (CLEAR); BILIRUBIN,URINE NEGATIVE (NEGATIVE); BLOOD, URINE NEGATIVE Ery/uL (NEGATIVE); COLOR,URINE YELLOW (YELLOW); KETONES,URINE NEGATIVE (NEGATIVE); LEUKOCYTE ESTERASE ,URINE NEGATIVE (NEGATIVE); NITRITE, URINE NEGATIVE (NEGATIVE); PH,URINE 5.5 (5.0-8.0); PROTEIN,URINE NEGATIVE (NEGATIVE); UGLUCOSE NEGATIVE (NEGATIVE); UROBILINOGEN,URINE 0.2 EU/dL (0.2)
[2019-03-24 15:53] LABS: CREATININE, URINE 48.2 MG/DL (30.0-125.0); URINE TOTAL PROTEIN 3.4 mg/dL (0-11.9)
[2019-03-24 16:00] VITALS: BP 133/77
[2019-03-24 16:12] LABS: EOSINOPHIL,URINE None Seen
[2019-03-24 20:11] VITALS: BP 136/84
[2019-03-24] MEDS: SIMVASTATIN 20 MG TABLET PO SCH (21:11)
[2019-03-24] MEDS: risperiDONE 0.25 MG TABLET PO SCH (21:11)
[2019-03-24] MEDS: DIVALPROEX SODIUM 250 MG TABLET.DR PO SCH (21:12)
[2019-03-25 07:05] LABS: BASOPHILS # (AUTO) 0.1 /CMM (0.0-0.2); BASOPHILS % (AUTO) 1.2 % (0.0-2.0); HEMATOCRIT 34 % (33-45); HEMOGLOBIN 11.5 g/dL (11.5-14.8); LYMPHOCYTES # (AUTO) 1.6 /CMM (0.8-4.8); LYMPHOCYTES % (AUTO) 20.3 % (20.0-44.0); MEAN CORPUSCULAR HGB CONC 33 g/dl (31.0-36.0); MEAN CORPUSCULAR VOLUME 87 fL (82-100); MONOCYTES # (AUTO) 0.6 /CMM (0.1-1.30); MONOCYTES % (AUTO) 7.6 % (2.0-12.0); NEUTROPHILS # (AUTO) 5.1 /CMM (1.8-8.9); NEUTROPHILS % (AUTO) 65.9 % (43.0-81.0); PLATELET COUNT (AUTO) 128 /CMM (150-450); RED BLOOD CELL COUNT(AUTO) 3.94 MIL/uL (4.0-5.2); WHITE BLOOD COUNT (AUTO) 7.7 K/uL (4.3-11.0)
[2019-03-25 07:22] LABS: CALCIUM, SERUM 8.4 mg/dL (8.5-10.1); CARBON DIOXIDE 20 mmol/L (21-32); CHLORIDE 103 mmol/L (98-107); CREATININE 1.9 mg/dL (0.6-1.3); GLUCOSE 104 mg/dL (74-106); MAGNESIUM 2.2 mg/dL (1.8-2.4); PHOSPHORUS 4.2 mg/dL (2.5-4.9); POTASSIUM 4.6 mmol/L (3.5-5.1); SODIUM SERUM 134 mmol/L (136-145); UREA NITROGEN, BLOOD 58 mg/dL (7-18)
[2019-03-25 07:53] LABS: CREATINE KINASE, TOTAL 1 U/L (26-192)
[2019-03-25 08:00] VITALS: BP 159/68
[2019-03-25] MEDS: OXYBUTYNIN CHLORIDE 5 MG TABLET PO SCH ×2 (08:39→17:03)
[2019-03-25] MEDS: METOPROLOL SUCCINATE 25 MG TAB.SR.24H PO SCH (08:40)
[2019-03-25] MEDS: MESALAMINE 400 MG CAP PO SCH ×2 (08:40→17:05)
[2019-03-25] MEDS: LISINOPRIL (5MG) 5 MG TABLET PO SCH (08:40)
[2019-03-25] MEDS: POTASSIUM CHLORIDE 10 MEQ TABLET.SA PO SCH (08:40)
[2019-03-25] MEDS: PRAZOSIN HCL 1 MG CAPSULE PO SCH ×2 (08:40→17:03)
[2019-03-25] MEDS: ropiniROLE 0.5 MG TABLET PO SCH ×3 (08:40→17:02)
[2019-03-25] MEDS: HYDROCHLOROTHIAZIDE 25 MG TABLET PO SCH (08:41)
[2019-03-25 16:00] VITALS: BP 140/80
[2019-03-25 20:00] VITALS: BP 148/51
[2019-03-25] MEDS: risperiDONE 0.25 MG TABLET PO SCH (21:50)
[2019-03-25] MEDS: SIMVASTATIN 20 MG TABLET PO SCH (21:50)
[2019-03-25] MEDS: DIVALPROEX SODIUM 250 MG TABLET.DR PO SCH (21:50)
[2019-03-26 08:00] VITALS: BP 143/73
[2019-03-26] MEDS: PRAZOSIN HCL 1 MG CAPSULE PO SCH ×2 (08:44→16:45)
[2019-03-26] MEDS: ropiniROLE 0.5 MG TABLET PO SCH ×3 (08:44→16:45)
[2019-03-26] MEDS: OXYBUTYNIN CHLORIDE 5 MG TABLET PO SCH ×2 (08:45→16:46)
[2019-03-26] MEDS: POTASSIUM CHLORIDE 10 MEQ TABLET.SA PO SCH (08:45)
[2019-03-26] MEDS: METOPROLOL SUCCINATE 25 MG TAB.SR.24H PO SCH (08:45)
[2019-03-26] MEDS: HYDROCHLOROTHIAZIDE 25 MG TABLET PO SCH (08:45)
[2019-03-26] MEDS: LISINOPRIL (10MG) 10 MG TABLET PO SCH (08:46)
[2019-03-26] MEDS: MESALAMINE 400 MG CAP PO SCH ×2 (08:46→16:46)
[2019-03-26 16:00] VITALS: BP 151/79
[2019-03-26 19:52] VITALS: BP 122/69
[2019-03-26 20:11] VITALS: BP 122/69
[2019-03-26] MEDS: risperiDONE 0.25 MG TABLET PO SCH (22:01)
[2019-03-26] MEDS: DIVALPROEX SODIUM 250 MG TABLET.DR PO SCH (22:01)
[2019-03-26] MEDS: SIMVASTATIN 20 MG TABLET PO SCH (22:01)
[2019-03-27 08:00] VITALS: BP 125/76
[2019-03-27] MEDS: ropiniROLE 0.5 MG TABLET PO SCH ×3 (08:17→16:20)
[2019-03-27] MEDS: POTASSIUM CHLORIDE 10 MEQ TABLET.SA PO SCH (08:17)
[2019-03-27] MEDS: PRAZOSIN HCL 1 MG CAPSULE PO SCH ×2 (08:18→16:20)
[2019-03-27] MEDS: OXYBUTYNIN CHLORIDE 5 MG TABLET PO SCH ×2 (08:18→16:19)
[2019-03-27] MEDS: METOPROLOL SUCCINATE 25 MG TAB.SR.24H PO SCH (08:18)
[2019-03-27] MEDS: LISINOPRIL (10MG) 10 MG TABLET PO SCH (08:19)
[2019-03-27] MEDS: HYDROCHLOROTHIAZIDE 25 MG TABLET PO SCH (08:19)
[2019-03-27] MEDS: MESALAMINE 400 MG CAP PO SCH ×2 (08:51→16:20)
[2019-03-27 16:00] VITALS: BP 128/88
[2019-03-27 19:51] VITALS: BP 144/87
[2019-03-27] MEDS: SIMVASTATIN 20 MG TABLET PO SCH (21:29)
[2019-03-27] MEDS: risperiDONE 0.25 MG TABLET PO SCH (21:29)
[2019-03-27] MEDS: TEMAZEPAM 7.5 MG CAPSULE PO PRN (21:30)
[2019-03-27] MEDS: DIVALPROEX SODIUM 250 MG TABLET.DR PO SCH (21:30)
[2019-03-28 07:16] LABS: CALCIUM, SERUM 8.6 mg/dL (8.5-10.1); CARBON DIOXIDE 18 mmol/L (21-32); CHLORIDE 103 mmol/L (98-107); CREATININE 1.8 mg/dL (0.6-1.3); GLUCOSE 99 mg/dL (74-106); MAGNESIUM 2.1 mg/dL (1.8-2.4); PHOSPHORUS 4.2 mg/dL (2.5-4.9); POTASSIUM 4.7 mmol/L (3.5-5.1); SODIUM SERUM 136 mmol/L (136-145); UREA NITROGEN, BLOOD 56 mg/dL (7-18)
[2019-03-28 07:21] LABS: BASOPHILS # (AUTO) 0.1 /CMM (0.0-0.2); BASOPHILS % (AUTO) 1.1 % (0.0-2.0); EOSINOPHILS % (AUTO) 5.7 % (0.0-6.0); HEMATOCRIT 34 % (33-45); LYMPHOCYTES # (AUTO) 2.8 /CMM (0.8-4.8); LYMPHOCYTES % (AUTO) 26.3 % (20.0-44.0); MEAN CORPUSCULAR HGB CONC 33 g/dl (31.0-36.0); MEAN CORPUSCULAR VOLUME 89 fL (82-100); MONOCYTES # (AUTO) 0.9 /CMM (0.1-1.30); MONOCYTES % (AUTO) 8.1 % (2.0-12.0); NEUTROPHILS # (AUTO) 6.2 /CMM (1.8-8.9); NEUTROPHILS % (AUTO) 58.8 % (43.0-81.0); PLATELET COUNT (AUTO) 115 /CMM (150-450); RED BLOOD CELL COUNT(AUTO) 3.78 MIL/uL (4.0-5.2); WHITE BLOOD COUNT (AUTO) 10.5 K/uL (4.3-11.0)
[2019-03-28 08:00] VITALS: BP 149/84
[2019-03-28] MEDS: PRAZOSIN HCL 1 MG CAPSULE PO SCH ×2 (08:19→16:52)
[2019-03-28] MEDS: OXYBUTYNIN CHLORIDE 5 MG TABLET PO SCH ×2 (08:20→16:51)
[2019-03-28] MEDS: LISINOPRIL (10MG) 10 MG TABLET PO SCH (08:20)
[2019-03-28] MEDS: ropiniROLE 0.5 MG TABLET PO SCH ×3 (08:20→16:52)
[2019-03-28] MEDS: METOPROLOL SUCCINATE 25 MG TAB.SR.24H PO SCH (08:20)
[2019-03-28] MEDS: MESALAMINE 400 MG CAP PO SCH ×2 (08:21→16:55)
[2019-03-28] MEDS: POTASSIUM CHLORIDE 10 MEQ TABLET.SA PO SCH (08:21)
[2019-03-28] MEDS: HYDROCHLOROTHIAZIDE 25 MG TABLET PO SCH (08:21)
[2019-03-28 16:00] VITALS: BP 140/88
[2019-03-28] MEDS: ACETAMINOPHEN 325 MG TABLET PO PRN ×2 (16:02→23:51)
[2019-03-28 20:00] VITALS: BP 145/55
[2019-03-28] MEDS: risperiDONE 0.25 MG TABLET PO SCH (21:26)
[2019-03-28] MEDS: DIVALPROEX SODIUM 250 MG TABLET.DR PO SCH (21:26)
[2019-03-28] MEDS: TEMAZEPAM 7.5 MG CAPSULE PO PRN (21:26)
[2019-03-28] MEDS: SIMVASTATIN 20 MG TABLET PO SCH (21:26)
[2019-03-29 08:00] VITALS: BP 138/94
[2019-03-29 08:09] LABS: *SPE A/G RATIO 0.9 (0.7-1.7); *SPE ALBUMIN 3.4 g/dL (2.9-4.4); *SPE ALPHA-1-GLOBULIN 0.3 g/dL (0.0-0.4); *SPE ALPHA-2-GLOBULIN 1.1 g/dL (0.4-1.0); *SPE BETA GLOBULIN 1.1 g/dL (0.7-1.3); *SPE M-SPIKE 0.2 g/dL (Not Observed); *SPEGAMMA GLOBULIN 1.5 g/dL (0.4-1.8)
[2019-03-29] MEDS: PRAZOSIN HCL 1 MG CAPSULE PO SCH ×2 (09:06→17:50)
[2019-03-29] MEDS: METOPROLOL SUCCINATE 25 MG TAB.SR.24H PO SCH (09:07)
[2019-03-29] MEDS: POTASSIUM CHLORIDE 10 MEQ TABLET.SA PO SCH (09:08)
[2019-03-29] MEDS: LISINOPRIL (10MG) 10 MG TABLET PO SCH (09:08)
[2019-03-29] MEDS: ropiniROLE 0.5 MG TABLET PO SCH ×3 (09:08→17:49)
[2019-03-29] MEDS: HYDROCHLOROTHIAZIDE 25 MG TABLET PO SCH (09:09)
[2019-03-29] MEDS: OXYBUTYNIN CHLORIDE 5 MG TABLET PO SCH ×2 (09:09→17:49)
[2019-03-29] MEDS: MESALAMINE 400 MG CAP PO SCH ×2 (09:09→17:50)
[2019-03-29] MEDS: LORAZEPAM 0.5 MG TABLET PO PRN ×2 (15:49→21:46)
[2019-03-29 20:19] VITALS: BP 153/106
[2019-03-29] MEDS: DIVALPROEX SODIUM 250 MG TABLET.DR PO SCH (21:45)
[2019-03-29] MEDS: SIMVASTATIN 20 MG TABLET PO SCH (21:45)
[2019-03-29] MEDS: risperiDONE 0.25 MG TABLET PO SCH (21:45)
[2019-03-30] MEDS: ACETAMINOPHEN 325 MG TABLET PO PRN (02:07)
[2019-03-30 08:00] VITALS: BP 153/102
[2019-03-30] MEDS: OXYBUTYNIN CHLORIDE 5 MG TABLET PO SCH ×2 (09:41→16:58)
[2019-03-30] MEDS: LISINOPRIL (10MG) 10 MG TABLET PO SCH (09:41)
[2019-03-30] MEDS: METOPROLOL SUCCINATE 25 MG TAB.SR.24H PO SCH (09:41)
[2019-03-30] MEDS: PRAZOSIN HCL 1 MG CAPSULE PO SCH ×2 (09:41→16:59)
[2019-03-30] MEDS: POTASSIUM CHLORIDE 10 MEQ TABLET.SA PO SCH (09:42)
[2019-03-30] MEDS: MESALAMINE 400 MG CAP PO SCH ×2 (09:42→16:58)
[2019-03-30] MEDS: ropiniROLE 0.5 MG TABLET PO SCH ×3 (09:42→16:58)
[2019-03-30] MEDS: HYDROCHLOROTHIAZIDE 25 MG TABLET PO SCH (09:42)
[2019-03-30 16:00] VITALS: BP 155/81
[2019-03-30 20:24] VITALS: BP 157/83
[2019-03-30] MEDS: SIMVASTATIN 20 MG TABLET PO SCH (23:46)
[2019-03-30] MEDS: TEMAZEPAM 7.5 MG CAPSULE PO PRN (23:46)
[2019-03-30] MEDS: risperiDONE 0.25 MG TABLET PO SCH (23:47)
[2019-03-30] MEDS: DIVALPROEX SODIUM 250 MG TABLET.DR PO SCH (23:47)
[2019-03-31 06:32] LABS: BASOPHILS # (AUTO) 0.1 /CMM (0.0-0.2); EOSINOPHILS % (AUTO) 5.8 % (0.0-6.0); HEMATOCRIT 32 % (33-45); HEMOGLOBIN 10.8 g/dL (11.5-14.8); LYMPHOCYTES # (AUTO) 2.1 /CMM (0.8-4.8); LYMPHOCYTES % (AUTO) 25.3 % (20.0-44.0); MEAN CORPUSCULAR HGB CONC 34 g/dl (31.0-36.0); MEAN CORPUSCULAR VOLUME 87 fL (82-100); MONOCYTES # (AUTO) 0.7 /CMM (0.1-1.30); NEUTROPHILS # (AUTO) 4.8 /CMM (1.8-8.9); NEUTROPHILS % (AUTO) 58.9 % (43.0-81.0); PLATELET COUNT (AUTO) 132 /CMM (150-450); WHITE BLOOD COUNT (AUTO) 8.2 K/uL (4.3-11.0)
[2019-03-31 06:56] LABS: CALCIUM, SERUM 8.6 mg/dL (8.5-10.1); CARBON DIOXIDE 21 mmol/L (21-32); CHLORIDE 99 mmol/L (98-107); CREATININE 1.9 mg/dL (0.6-1.3); GLUCOSE 102 mg/dL (74-106); MAGNESIUM 1.7 mg/dL (1.8-2.4); PHOSPHORUS 4.8 mg/dL (2.5-4.9); POTASSIUM 4.6 mmol/L (3.5-5.1); SODIUM SERUM 132 mmol/L (136-145); UREA NITROGEN, BLOOD 47 mg/dL (7-18)
[2019-03-31 07:01] LABS: VALPROIC ACID 73 ug/mL (50-100)
[2019-03-31 08:00] VITALS: BP 136/92
[2019-03-31] MEDS: POTASSIUM CHLORIDE 10 MEQ TABLET.SA PO SCH (09:38)
[2019-03-31] MEDS: MESALAMINE 400 MG CAP PO SCH ×2 (09:39→17:47)
[2019-03-31] MEDS: LISINOPRIL (10MG) 10 MG TABLET PO SCH (09:39)
[2019-03-31] MEDS: PRAZOSIN HCL 1 MG CAPSULE PO SCH ×2 (09:39→17:47)
[2019-03-31] MEDS: ropiniROLE 0.5 MG TABLET PO SCH ×3 (09:40→17:47)
[2019-03-31] MEDS: OXYBUTYNIN CHLORIDE 5 MG TABLET PO SCH ×2 (09:40→17:47)
[2019-03-31] MEDS: METOPROLOL SUCCINATE 25 MG TAB.SR.24H PO SCH (09:41)
[2019-03-31] MEDS: HYDROCHLOROTHIAZIDE 25 MG TABLET PO SCH (09:42)
[2019-03-31 16:00] VITALS: BP 139/87
[2019-03-31 17:47] VITALS: BP 139/87
== END 2019-03-31 18:45 | DRG 885 ==
LOC: GPS 12:06
PROVIDERS: ADMIT Psychiatry & Neurology Psychosomatic Medicine; ATTEND Nurse Practitioner Acute Care
DX: F31.9 Bipolar disorder, unspecified (principal); N17.0 Acute kidney failure with tubular necrosis; N18.9 Chronic kidney disease, unspecified; Z68.41 Body mass index [BMI] 40.0-44.9, adult; K50.90 Crohn's disease, unspecified, without complications; I12.9 Hypertensive chronic kidney disease with stage 1 through stage 4 chronic kidney disease, or unspecified chronic kidney disease; M79.7 Fibromyalgia; E78.5 Hyperlipidemia, unspecified; E66.01 Morbid (severe) obesity due to excess calories; F41.9 Anxiety disorder, unspecified; F29 Unspecified psychosis not due to a substance or known physiological condition; Z73.6 Limitation of activities due to disability; D63.8 Anemia in other chronic diseases classified elsewhere; M19.90 Unspecified osteoarthritis, unspecified site; N27.0 Small kidney, unilateral; Z87.442 Personal history of urinary calculi; Z91.5 Personal history of self-harm
CPT/HCPCS: 36415; 76770-TC; 80048-TC; 80053-TC; 80061-TC; 80164-TC; 81000-TC; 82550-TC; 82570-TC; 83735-TC; 83970; 84100-TC; 84155; 84155-TC; 84165; 84300-TC; 85025-TC; 87081-TC

== ENCOUNTER 2019-05-01 21:14 | Emergency (ER) | payer MEDICARE, OTHER ==
[~2019-05-01] VITALS: Ht 154.9 cm; Wt 104.3 kg
[~2019-05-01 21:14] MED LIST changes: -DIPH1TAB PO; -HYDR-4076 PO; -TRAM50TA2 PO
--- NOTE | 2019-05-01 21:20 | NUR ---
PT AMANDA FROM HOME C/O HEADACHE X2 HR GRINDER CARBON PLANT. PER RA, REC'D TYLENOL AND KLONIDINE GRINDER CARBON PLANT. PT AAOX4. RESPIRATIONS EVEN AND UNLABORED. SKIN INTACT. NO ACUTE DISTRESS NOTED AT THIS TIME. PT HYPERTENSIVE, ER AWARE. PLACED ON MONITOR, WILL CONTINUE TO MONITOR. WAITING MD MARI
[2019-05-01] MEDS ORDERED: NA P133E RC (21:47)
[2019-05-01] MEDS ORDERED: ACET325C5 PO (21:47)
[2019-05-01] MEDS ORDERED: MAG30ORA PO (21:47)
[2019-05-01] MEDS ORDERED: DOCU-141 PO (21:47)
[2019-05-01] MEDS ORDERED: DIVA500T2 PO (21:47)
[2019-05-01] MEDS ORDERED: RISP0.5T5 PO (21:47)
[2019-05-01] MEDS ORDERED: hydrALAZINE HCL IV 20 MG VIAL IV ONE (22:00)
--- NOTE | 2019-05-01 22:00 | NUR ---
IV INITIATED L FOREARM 20G. LABS DRAWN FROM SITE. CUSTODIAL LABORER AT BED SIDE FOR COLLECTION. IV INTACT AND PATENT, PLACED ON SALINE LOCK.
[2019-05-01] MEDS ORDERED: hydrALAZINE HCL IV 20 MG VIAL ONE (22:01)
[2019-05-01 22:11] LABS: BASOPHILS # (AUTO) 0.1 /CMM (0.0-0.2); BASOPHILS % (AUTO) 0.9 % (0.0-2.0); EOSINOPHILS % (AUTO) 3.9 % (0.0-6.0); HEMATOCRIT 33 % (33-45); HEMOGLOBIN 10.8 g/dL (11.5-14.8); LYMPHOCYTES % (AUTO) 23.6 % (20.0-44.0); MEAN CORPUSCULAR HGB CONC 33 g/dl (31.0-36.0); MEAN CORPUSCULAR VOLUME 90 fL (82-100); MONOCYTES # (AUTO) 0.8 /CMM (0.1-1.30); MONOCYTES % (AUTO) 9.9 % (2.0-12.0); NEUTROPHILS # (AUTO) 5.2 /CMM (1.8-8.9); NEUTROPHILS % (AUTO) 61.7 % (43.0-81.0); PLATELET COUNT (AUTO) 162 /CMM (150-450); WHITE BLOOD COUNT (AUTO) 8.5 K/uL (4.3-11.0)
--- NOTE | 2019-05-01 22:13 | NUR ---
PT BROUGHT BY RADIOLOGY TO CT
[2019-05-01] MEDS ORDERED: diphenhydrAMINE HCL 50 MG/ML VIAL ONE (22:28)
[2019-05-01] MEDS ORDERED: METOCLOPRAMIDE HCL 10 MG/2 ML VIAL ONE (22:28)
[2019-05-01] MEDS ORDERED: KETOROLAC TROMETHAMINE INJ 30 MG/ML VIAL ONE (22:28)
[2019-05-01] MEDS ORDERED: KETOROLAC TROMETHAMINE INJ 30 MG/ML VIAL IV ONE (22:30)
[2019-05-01] MEDS ORDERED: diphenhydrAMINE HCL 50 MG/ML VIAL IV ONE (22:30)
[2019-05-01] MEDS ORDERED: METOCLOPRAMIDE HCL 10 MG/2 ML VIAL IV ONE (22:30)
[2019-05-01 22:33] LABS: CALCIUM, SERUM 9.1 mg/dL (8.5-10.1); CARBON DIOXIDE 23 mmol/L (21-32); CHLORIDE 102 mmol/L (98-107); CREATININE 1.9 mg/dL (0.6-1.3); GLUCOSE 114 mg/dL (74-106); POTASSIUM 4.8 mmol/L (3.5-5.1); SODIUM SERUM 135 mmol/L (136-145); UREA NITROGEN, BLOOD 49 mg/dL (7-18)
[2019-05-01 22:38] LABS: ALANINE AMINOTRANSFERASE 23 U/L (12-78); ALKALINE PHOSPHATASE 79 U/L (46-116); ASPARTATE AMINOTRANSFERASE 16 U/L (15-37); BILIRUBIN,DIRECT 0.1 mg/dL (0.0-0.2); BILIRUBIN,TOTAL 0.1 mg/dL (0.2-1.0); TOTAL PROTEIN, SERUM 7.2 g/dL (6.4-8.2)
--- NOTE | 2019-05-01 22:38 | NUR ---
PT RETURNED FROM CT
--- NOTE | 2019-05-01 22:48 | NUR ---
DURING ADMINISTRATION OF REGLAN, PT COMPLAINING OF WORSENING HEADACHE. STATES "I FEEL LIKE MY HEAD IS GOING TO EXPLODE". PER VERBAL MD ORDER, STOPPED REGLAN ADMINISTRATION. PT RECEIVED ABOUT 5MG REGLAN IV
--- NOTE | 2019-05-01 22:55 | NUR ---
PT ABLE TO AMBULATE TO RESTROOM WITH ASSISTANCE
--- NOTE | 2019-05-01 23:01 | NUR ---
[facility]ON [facility]
--- NOTE | 2019-05-01 23:40 | NUR ---
GAVE REPORT TO [facility]ANA OD[facility] WILL BE RETURNING
--- NOTE | 2019-05-01 23:43 | NUR ---
CALLED [facility] [phone] FOR TRANSPORT. SPOKE ANDI. TRANSFER ETA TO [facility] 1AM. TRIP #[id number]
[2019-05-02] MEDS ORDERED: DEXAMETHASONE SOD PHOSPHATE 10 MG in IV D5W 50 ML IV ONE ×2
[2019-05-02] MEDS ORDERED: DEXAMETHASONE SOD PHOSPHATE 10 MG/ML VIAL ONE (00:10)
--- NOTE | 2019-05-02 00:38 | NUR ---
GAVE REPORT TO PRABHJOT Lott FOR TRANSPORTATION RAVINDRA
[2019-05-02 00:55] VITALS: BP 119/55
== END 2019-05-02 00:56 | disposition home or self-care (01) ==
LOC: ER 21:14
DX: R51 Headache (principal); I12.9 Hypertensive chronic kidney disease with stage 1 through stage 4 chronic kidney disease, or unspecified chronic kidney disease; N18.9 Chronic kidney disease, unspecified; M19.90 Unspecified osteoarthritis, unspecified site; M79.7 Fibromyalgia; Z79.899 Other long term (current) drug therapy
CPT/HCPCS: 36415; 70450; 80048; 80076; 84484; 85025; 96374; 96375 ×2; 99284; J0360; J1100 ×2; J1200; J1885; J2765; J7060

== ENCOUNTER 2019-05-10 02:22 | Emergency (ER) | payer MEDICARE, OTHER ==
[~2019-05-10] VITALS: Ht 152.4 cm; Wt 97.5 kg
[~2019-05-10 02:22] MED LIST changes: +ACET325C5 PO; +DIVA500T2 PO; +DOCU-141 PO; +MAG30ORA PO; +NA P133E RC; -NYST15PO4 TD; +RISP0.5T5 PO
--- NOTE | 2019-05-10 03:20 | NUR ---
[facility] BED 11. AAOX4. NO RESP DISTRESS NOTED, EVEN AND UNLABORED BREATHING. C/O MID CHEST PAIN X 1 HOUR AGO. PT REPORTS PAIN OF 8/10 DULL ACHING PAIN RADIATING TO JAW AND BACK. PT DENIES ANY N/V/D.MD AT BEDSIDE FOR EVAL. ORDERS RECEIVED, NOTED AND CARRIED OUT
[2019-05-10 03:56] LABS: BASOPHILS # (AUTO) 0.1 /CMM (0.0-0.2); EOSINOPHILS % (AUTO) 3.9 % (0.0-6.0); HEMATOCRIT 31 % (33-45); HEMOGLOBIN 10.7 g/dL (11.5-14.8); LYMPHOCYTES # (AUTO) 1.9 /CMM (0.8-4.8); LYMPHOCYTES % (AUTO) 22.2 % (20.0-44.0); MEAN CORPUSCULAR HGB CONC 34 g/dl (31.0-36.0); MEAN CORPUSCULAR VOLUME 89 fL (82-100); MONOCYTES # (AUTO) 0.7 /CMM (0.1-1.30); NEUTROPHILS # (AUTO) 5.6 /CMM (1.8-8.9); NEUTROPHILS % (AUTO) 64.9 % (43.0-81.0); PLATELET COUNT (AUTO) 148 /CMM (150-450); RED BLOOD CELL COUNT(AUTO) 3.51 MIL/uL (4.0-5.2); WHITE BLOOD COUNT (AUTO) 8.7 K/uL (4.3-11.0)
--- NOTE | 2019-05-10 03:57 | NUR ---
EKG AND BLOOD DRAW DONE
--- NOTE | 2019-05-10 03:57 | NUR ---
XRAY AT BEDSIDE
[2019-05-10 04:04] LABS: CARBON DIOXIDE 24 mmol/L (21-32); CHLORIDE 106 mmol/L (98-107); CREATININE 1.6 mg/dL (0.6-1.3); GLUCOSE 111 mg/dL (74-106); POTASSIUM 4.6 mmol/L (3.5-5.1); SODIUM SERUM 140 mmol/L (136-145); UREA NITROGEN, BLOOD 37 mg/dL (7-18)
[2019-05-10] MEDS ORDERED: CLONIDINE HCL 0.1 MG TABLET ONE (04:49)
[2019-05-10] MEDS: CLONIDINE HCL 0.1 MG TABLET PO ONE (04:52)
--- NOTE | 2019-05-10 04:53 | NUR ---
BP NOTED AT 204/130. MADE AWARE. ORDER RECEIVED, NOTED AND CARIIED OUT
--- NOTE | 2019-05-10 05:51 | NUR ---
PRABHJOT CALLED FOR TRANSPORT. ETA [phone]. TRIP# [id number]
--- NOTE | 2019-05-10 06:00 | NUR ---
REPORT GIVEN TO ILENE ELLIS FOR RAVINDRA AT THE [facility]
[2019-05-10 06:50] VITALS: BP 145/92
--- NOTE | 2019-05-10 06:51 | NUR ---
AMBULANZ 122 AT BEDSIDE FOR PT TRANSPORT TO [facility] FOR [facility]. REPORT GIVEN. PT IS IN STABLE CONDITION FOR TRANPORT. NAD NOTED UPON D/C
[2019-05-10] MEDS ORDERED: MAGN400O6 PO (10:31)
[2019-05-10] MEDS ORDERED: NA P133E RC (10:31)
[2019-05-10] MEDS ORDERED: BISA10SU11 RC (10:31)
[2019-05-11] MEDS ORDERED: HYDR-4077 PO (09:56)
== END 2019-05-10 07:00 | disposition home or self-care (01) ==
LOC: ER 02:25
DX: R07.89 Other chest pain (principal); E11.22 Type 2 diabetes mellitus with diabetic chronic kidney disease; I12.9 Hypertensive chronic kidney disease with stage 1 through stage 4 chronic kidney disease, or unspecified chronic kidney disease; N18.9 Chronic kidney disease, unspecified; G43.909 Migraine, unspecified, not intractable, without status migrainosus; M79.7 Fibromyalgia; F20.9 Schizophrenia, unspecified; R45.851 Suicidal ideations; F31.9 Bipolar disorder, unspecified; F41.9 Anxiety disorder, unspecified; F39 Unspecified mood [affective] disorder
CPT/HCPCS: 36415; 71045-TC; 80048-TC; 84484-TC; 85025-TC

== ENCOUNTER 2019-05-10 08:21 | Inpatient (IN) | payer MEDICARE, OTHER ==
[~2019-05-10] VITALS: Ht 154.9 cm; Wt 103.9 kg
--- NOTE | 2019-05-10 08:27 | NUR ---
PT BIB PRIVATE AMBULANCE, WAS SEEN EARLIER FOR CHEST PAIN AND WAS DISCHARGE. [facility]PORT[facility] BECAUSE HER SYSTOLIC BP WAS IN THE 170'S. PT GOWNED AND PLACED ON MONITOR. CURRENT BP 148/66. VSS. AWAITING MD MARI.
--- NOTE | 2019-05-10 08:47 | NUR ---
room 106
--- NOTE | 2019-05-10 09:22 | NUR ---
REPORT GIVEN TO NARDA OF TELE UNIT
--- NOTE | 2019-05-10 09:45 | NUR ---
COMMUNITY CASE MANAGER NOTE TO RU PATIENT ADMITTED FROM ER FOR HYPERTENSIVE EPISODE. ALERT ORIENTED X3. COOPERATIVE IN CARE IV PATENT AND INTACT. PATIET ABLE TO AMBULATE WITH ASSIST TO RESTOOM. MD AWARE PATIENT IS ON UNIT. MONITORING PRESSURE AND AWAITING MED RECON TO BE DONE. NO WOUNDS PRESENT AT ALL ON ADMISSION. CALL LIGHT WITHIN REACH, BED IN LOW POSTIION EXTERNAL MONITOR IN PLACE.
[2019-05-10] MEDS ORDERED: BISA10SU11 RC (10:31)
[2019-05-10] MEDS ORDERED: MAGN400O6 PO (10:31)
[2019-05-10] MEDS ORDERED: NA P133E RC (10:31)
[2019-05-10 12:00] VITALS: BP 167/80
[2019-05-10 13:00] VITALS: BP 167/80
[2019-05-10] MEDS ORDERED: NA PHOS,M-B/NA PHOS,DI-BA 1 EA ENEMA RC PRN (13:30)
[2019-05-10] MEDS ORDERED: MAG HYDROX/AL HYDROX/SIMETH 30 ML UDC PO PRN (13:30)
[2019-05-10] MEDS ORDERED: MAGNESIUM HYDROXIDE 30 ML UDC PO PRN (13:30)
[2019-05-10] MEDS ORDERED: ACETAMINOPHEN 325 MG TABLET PO PRN (13:30)
[2019-05-10] MEDS: PRAZOSIN HCL 1 MG CAPSULE PO SCH ×2 (13:30→18:29)
[2019-05-10] MEDS ORDERED: BISACODYL SUPP (10 MG) 10 MG/SUPP.RECT SUPP.RECT RC PRN (13:30)
[2019-05-10] MEDS ORDERED: HYDROCHLOROTHIAZIDE 25 MG TABLET PO SCH (13:30)
--- NOTE | 2019-05-10 13:30 | NUR ---
RN NOTE MINIPRESS NOT GIVEN, UNAVAILABLE THROUGH PHARM. WILL ADMINISTER PM DOSE PER MD ORDER
[2019-05-10] MEDS ORDERED: LISINOPRIL (5MG) 5 MG TABLET PO SCH (14:00)
[2019-05-10] MEDS: DOCUSATE SODIUM 100 MG CAPSULE PO SCH (14:12)
[2019-05-10] MEDS: DIVALPROEX SODIUM 500 MG TABLET.DR PO SCH ×2 (14:12→21:10)
[2019-05-10] MEDS: METOPROLOL SUCCINATE 25 MG TAB.SR.24H PO SCH (14:19)
[2019-05-10] MEDS: OXYBUTYNIN CHLORIDE 5 MG TABLET PO SCH ×2 (14:19→16:30)
[2019-05-10 16:00] VITALS: BP 189/90
[2019-05-10] MEDS ORDERED: ENOXAPARIN SODIUM 30 MG/0.3 ML DISP.SYRIN SQ SCH (16:00)
[2019-05-10 16:28] LABS: THYROID STIMULATING HORMONE 2.454 uIU/mL (0.358-3.74)
[2019-05-10] MEDS: NITROGLYCERIN 30 GM TUBE TP SCH ×2 (16:30→21:10)
[2019-05-10] MEDS: hydrALAZINE HCL 50 MG TABLET PO SCH (16:31)
[2019-05-10] MEDS: MESALAMINE 400 MG CAP PO SCH (16:31)
[2019-05-10 17:00] VITALS: BP 148/84
[2019-05-10] MEDS ORDERED: risperiDONE 0.25 MG TABLET PO SCH (18:00)
--- NOTE | 2019-05-10 19:25 | NUR ---
RN CLOSING NOTE PATIENT ALERT AND ORIENTED ABLE TO PARTICIPATE IN CARE. BED IN LOW POSITION CALL LIGHT WITHIN REACH. MONITOR FOR HYPERTENSIVE CRISIS, BP MANAGED WITH MEDICATION REGIMEN. CARDIOLOGY AND NEPHRO SAW PATIENT TODAY, ORDERS CARRIED OUT BY RN. CALL LIGHT WITHIN REACH, BED IN LOW POSITION SAFETY MEASURES IN PLACE.
[2019-05-10 20:00] VITALS: BP 139/78
--- NOTE | 2019-05-10 20:00 | NUR ---
MS ILENE NOTE PT IN BED AWAKE. A/O X 3, NO SOB, NO DISTRESS OR DISCOMFORT NOTED. DENIES PAIN. ALL NEEDS ATTENDED. SIDE RAILS UP X 2 AND CALL LIGHT WITHIN REACH. VSS. CONTINUE TO MONITOR HER. Addendum: 05/11/19 at 0335 by MARILYN GARCIA RN CHARTED MY NOTE ACCIDENTLY UNDER WRONG EMPLOYEE.
[2019-05-10 21:00] VITALS: BP 139/78
[2019-05-10] MEDS ORDERED: SIMVASTATIN 20 MG TABLET PO SCH (22:00)
[2019-05-11 04:00] VITALS: BP 137/68
[2019-05-11 05:00] VITALS: BP 137/68
--- NOTE | 2019-05-11 06:49 | NUR ---
MS RN NOTE PT IN BED ASLEEP, AROUSABLE. NO DISTRESS OR DISCOMFORT NOTED. DENIES PAIN. SL INTACT AND PATENT. SIDE RAILS UP X 2 AND CALL LIGHT WITHIN REACH. WILL ENDORSE TO DAY SHIFT NURSE FOR CONTINUE TO CARE.
[2019-05-11 06:54] LABS: ALANINE AMINOTRANSFERASE 17 U/L (12-78); ALBUMIN 2.6 g/dL (3.4-5.0); ALKALINE PHOSPHATASE 62 U/L (46-116); ASPARTATE AMINOTRANSFERASE 13 U/L (15-37); BILIRUBIN,TOTAL 0.2 mg/dL (0.2-1.0); CALCIUM, SERUM 8.6 mg/dL (8.5-10.1); CARBON DIOXIDE 22 mmol/L (21-32); CHLORIDE 103 mmol/L (98-107); CREATININE 1.5 mg/dL (0.6-1.3); GLUCOSE 96 mg/dL (74-106); MAGNESIUM 1.6 mg/dL (1.8-2.4); PHOSPHORUS 5.1 mg/dL (2.5-4.9); POTASSIUM 4.7 mmol/L (3.5-5.1); SODIUM SERUM 137 mmol/L (136-145); TOTAL PROTEIN, SERUM 6.4 g/dL (6.4-8.2); UREA NITROGEN, BLOOD 37 mg/dL (7-18)
[2019-05-11 07:09] LABS: BASOPHILS # (AUTO) 0.1 /CMM (0.0-0.2); HEMATOCRIT 30 % (33-45); HEMOGLOBIN 10.1 g/dL (11.5-14.8); LYMPHOCYTES # (AUTO) 2.1 /CMM (0.8-4.8); LYMPHOCYTES % (AUTO) 22.8 % (20.0-44.0); MEAN CORPUSCULAR HGB CONC 33 g/dl (31.0-36.0); MEAN CORPUSCULAR VOLUME 90 fL (82-100); MONOCYTES # (AUTO) 0.7 /CMM (0.1-1.30); MONOCYTES % (AUTO) 7.7 % (2.0-12.0); NEUTROPHILS # (AUTO) 5.9 /CMM (1.8-8.9); NEUTROPHILS % (AUTO) 64.5 % (43.0-81.0); PLATELET COUNT (AUTO) 127 /CMM (150-450); RED BLOOD CELL COUNT(AUTO) 3.38 MIL/uL (4.0-5.2); WHITE BLOOD COUNT (AUTO) 9.2 K/uL (4.3-11.0)
[2019-05-11 08:00] VITALS: BP 134/71
--- NOTE | 2019-05-11 08:30 | NUR ---
PATIENT RESTING IN ROOM - EYES CLOSED- CHEST RISING AND FALLING- NO S/S OD DISTRESS- SAFETY PRECAUTIONS IN PLACE- RECEIVED BEDSIDE SBAR- WILL CONTINUE TO MONITOR REPORT AND RECORD
[2019-05-11 09:00] VITALS: BP 134/71
[2019-05-11] MEDS ORDERED: POTASSIUM CHLORIDE 10 MEQ TABLET.SA PO SCH (09:00)
[2019-05-11] MEDS: METOPROLOL SUCCINATE 25 MG TAB.SR.24H PO SCH (09:33)
[2019-05-11] MEDS: PRAZOSIN HCL 1 MG CAPSULE PO SCH (09:33)
[2019-05-11] MEDS: MESALAMINE 400 MG CAP PO SCH (09:33)
[2019-05-11] MEDS: ropiniROLE 0.5 MG TABLET PO SCH ×2 (09:33→12:33)
[2019-05-11] MEDS: hydrALAZINE HCL 50 MG TABLET PO SCH ×2 (09:34→12:34)
[2019-05-11] MEDS: OXYBUTYNIN CHLORIDE 5 MG TABLET PO SCH (09:34)
[2019-05-11] MEDS: DOCUSATE SODIUM 100 MG CAPSULE PO SCH (09:34)
[2019-05-11] MEDS: NITROGLYCERIN 30 GM TUBE TP SCH (09:35)
[2019-05-11 09:55] LABS: LYMPHOCYTES % (MANUAL) 23 % (16-48); NEUTROPHILS % (MANUAL) 70 (42-76)
[2019-05-11 09:56] LABS: EOSINOPHILS % (MANUAL) 2 % (0-4); MONOCYTES % (MANUAL) 5 % (0-11.0)
[2019-05-11] MEDS ORDERED: HYDR-4077 PO (09:56)
--- NOTE | 2019-05-11 10:44 | NUR ---
patient has discharge orders- returning to [facility]- will be gin the set up for dc
[2019-05-11] MEDS ORDERED: MAGNESIUM OXIDE 400 MG TABLET PO ONE (11:30)
--- NOTE | 2019-05-11 12:00 | NUR ---
patient resting in room- tolerating her diet- safety precautions in place- the patient has been discharged to [facility] - waiting for patient transport- report has been give- piv remove- nutrition and discharge instructions reviewed with patient- understanding was verbalized- will continue to monitor report and record
--- NOTE | 2019-05-11 12:02 | NUR ---
report has been called to [facility]- ILENE Mujica - educated on discharge and transport and potato picker - will continue to monitor report and record
[2019-05-11 12:06] LABS: *SPE A/G RATIO 0.8 (0.7-1.7); *SPE ALBUMIN 2.8 g/dL (2.9-4.4); *SPE ALPHA-1-GLOBULIN 0.3 g/dL (0.0-0.4); *SPE ALPHA-2-GLOBULIN 1.1 g/dL (0.4-1.0); *SPE BETA GLOBULIN 1.1 g/dL (0.7-1.3); *SPE GLOBULIN, TOTAL 3.6 g/dL (2.2-3.9); *SPE M-SPIKE Not Observed g/dL (Not Observed); *SPEGAMMA GLOBULIN 1.2 g/dL (0.4-1.8)
[2019-05-11 12:34] VITALS: BP 132/71
--- NOTE | 2019-05-11 15:09 | NUR ---
patient escorted off unit by transport- paperwork and report provided by myself to transport
== END 2019-05-11 14:50 | DRG 305 ==
LOC: ER 08:23 → TELE1 09:22 → MEDSG1 20:54
PROVIDERS: ADMIT Internal Medicine; ATTEND Internal Medicine
DX: I16.0 Hypertensive urgency (principal); I12.9 Hypertensive chronic kidney disease with stage 1 through stage 4 chronic kidney disease, or unspecified chronic kidney disease; N18.3 Chronic kidney disease, stage 3 (moderate); D64.9 Anemia, unspecified; M79.7 Fibromyalgia
CPT/HCPCS: 36415; 71045-TC; 80048-TC; 80053-TC; 80061-TC; 82728-TC; 83540-TC; 83735-TC; 84100-TC; 84155; 84165; 84439-TC; 84443-TC; 84484-TC; 85025-TC; 87081-TC; 93307-TC; 97116-TC; 97530-TC; G0378; J1650

== ENCOUNTER 2022-10-31 15:31 | Inpatient (IN) | payer MEDICARE, OTHER ==
[~2022-10-31] VITALS: Ht 157.5 cm; Wt 96.2 kg
[~2022-10-31 15:31] MED LIST changes: -ACET325C5 PO; +ACET325C7 PO; +ALBU6.7H9 IH; +AMLO10TA4 PO; +ASCO500C17 PO; +ASPI-1169 PO; +ATOR20TA PO; +BISA10SU11 RC; +CYAN-51 PO; +DICY10CA37 PO; +DIVA-78 PO; +FERR325T28 PO; +FLUO20CA36 PO; +FLUT16SP NS; +HYDR-4077 PO; +HYDR100T27 PO; +MAGN400O6 PO; +MAGN400T8 PO; -OXYB5TAB11 PO; +OXYB5TAB16 PO; +PANT40TA49 PO; +QUET200T PO; +SIMV-46 PO; -SIMV20TA6 PO; +TRAM50TA2 PO
--- NOTE | 2022-10-31 16:13 | NUR ---
COVID SWAB COLLECTED AND SENT TO LAB
--- NOTE | 2022-10-31 16:26 | NUR ---
PT IN BED BREATHING IS EVEN AND UNLABORED, A/O X4 CLAIMS THAT SHE FELT SUICIDAL BEFORE ARRIVAL BUT IS NOT CURRENTLY SUICIDAL, CLAIMS THAT SHE DOES NOT HAVE A PLAN FOR KILLING HER SELF. PT UNDER ER OBSERVATION. ATTACHED TO BEDISDE MONITOR VITAL SIGNS WNL.
--- NOTE | 2022-10-31 16:27 | NUR ---
PT ADDED THAT SHE HAD NOT EATTEN FOR 3 DAYS. REPORTS PAIN WHEN SWALLOWING.
--- NOTE | 2022-10-31 16:30 | NUR ---
URINE SAMPLE COLLECTED AND SENT TO LAB
[2022-10-31 16:43] LABS: BASOPHILS % (AUTO) 0.3 % (0.0-2.0); EOSINOPHILS % (AUTO) 0.8 % (0.0-6.0); HEMATOCRIT 23 % (33-45); LYMPHOCYTES # (AUTO) 1.1 K/uL (0.8-4.8); LYMPHOCYTES % (AUTO) 8.5 % (20.0-44.0); MEAN CORPUSCULAR HGB CONC 29 g/dl (31.0-36.0); MEAN CORPUSCULAR VOLUME 76 fL (82-100); MONOCYTES % (AUTO) 7.1 % (2.0-12.0); NEUTROPHILS # (AUTO) 11.3 K/uL (1.8-8.9); NEUTROPHILS % (AUTO) 83.3 % (43.0-81.0); PLATELET COUNT (AUTO) 408 K/uL (150-450); WHITE BLOOD COUNT (AUTO) 13.6 K/uL (4.3-11.0)
[2022-10-31 16:46] LABS: BILIRUBIN,URINE NEGATIVE (NEGATIVE); COLOR,URINE YELLOW (YELLOW); LEUKOCYTE ESTERASE ,URINE TRACE (NEGATIVE); NITRITE, URINE NEGATIVE (NEGATIVE); PROTEIN,URINE 1+ mg/dl (NEGATIVE); UGLUCOSE NEGATIVE (NEGATIVE)
[2022-10-31 16:52] LABS: HEMOGLOBIN 6.6 g/dL (11.5-14.8)
[2022-10-31 16:53] LABS: ALANINE AMINOTRANSFERASE 48 U/L (12-78); ALKALINE PHOSPHATASE 178 U/L (46-116); ASPARTATE AMINOTRANSFERASE 33 U/L (15-37); BILIRUBIN,DIRECT 0.1 mg/dL (0.0-0.2); BILIRUBIN,TOTAL 0.2 mg/dL (0.2-1.0); CALCIUM, SERUM 8.8 mg/dL (8.5-10.1); CARBON DIOXIDE 23 mmol/L (21-32); CHLORIDE 102 mmol/L (98-107); CREATININE 1.5 mg/dL (0.6-1.3); GLUCOSE 114 mg/dL (74-106); POTASSIUM 3.5 mmol/L (3.5-5.1); SODIUM SERUM 141 mmol/L (136-145); TOTAL PROTEIN, SERUM 7.3 g/dL (6.4-8.2); UREA NITROGEN, BLOOD 19 mg/dL (7-18)
--- NOTE | 2022-10-31 16:53 | NUR ---
HEMOGLOBIN 6.6 PER LAB. MADE AWARE.
[2022-10-31 16:58] LABS: ACETAMINOPHEN < 10 ug/ml (10-30); ALCOHOL, BLOOD < 3 mg/dL (0-0)
--- NOTE | 2022-10-31 16:58 | NUR ---
MOVE SHEET SUBMITTED.
[2022-10-31 17:08] LABS: ALBUMIN 1.8 g/dL (3.4-5.0)
[2022-10-31 17:19] LABS: BACTERIA,URINE 1+ /HPF (None Seen); RBC,URINE 21-50 /HPF (0-2); SQUAMOUS EPITHELIAL CELL,UR 21-50 /HPF (None Seen); TRIPLE PHOSPHATE CRYSTAL,UR Few /HPF (None Seen)
[2022-10-31 17:46] LABS: BAND % (MANUAL) 3 % (0.0-5.0); EOSINOPHILS % (MANUAL) 1 % (0-4); LYMPHOCYTES % (MANUAL) 20 % (16-48); MONOCYTES % (MANUAL) 7 % (0-11.0); NEUTROPHILS % (MANUAL) 69 (42-76)
--- NOTE | 2022-10-31 18:20 | NUR ---
LAB NOTIFED ON NEED FOR BLOOD LAB CURRENTLY RUNNING TYPE AND SCREEN.
--- NOTE | 2022-10-31 18:25 | NUR ---
ESTABLISHED IV ACCESS 20G LEFT WRIST.
[2022-10-31] MEDS ORDERED: BISACODYL SUPP (10 MG) 10 MG/SUPP.RECT SUPP.RECT RC PRN (19:30)
[2022-10-31] MEDS ORDERED: MAGNESIUM HYDROXIDE 30 ML UDC PO PRN ×2 (19:30→20:00)
[2022-10-31] MEDS ORDERED: NA PHOS,M-B/NA PHOS,DI-BA 1 EA ENEMA RC PRN (19:30)
[2022-10-31] MEDS ORDERED: MAG HYDROX/AL HYDROX/SIMETH 30 ML UDC PO PRN (20:00)
[2022-10-31] MEDS ORDERED: Z GUARD REMEDY 4 OZ OINT TP PRN (20:00)
[2022-10-31] MEDS ORDERED: ACETAMINOPHEN 325 MG TABLET PO PRN (20:00)
[2022-10-31] MEDS ORDERED: ONDANSETRON HCL/PF 4 MG/2 ML VIAL IVP PRN (20:00)
--- NOTE | 2022-10-31 20:01 | NUR ---
CONSENT TO BLOOD TRANSFUSION SIGNED.
--- NOTE | 2022-10-31 20:21 | NUR ---
RN NOTE RECEIVED REPORT FROM ED ILENE ROJO
--- NOTE | 2022-10-31 20:21 | NUR ---
REPORT GIVEN TO AKBAR ODOM ROOM 107 FOR RAVINDRA
--- NOTE | 2022-10-31 20:26 | NUR ---
TRANSFERRED TO ROOM VIA ACLS PROTOCOL
--- NOTE | 2022-10-31 20:26 | NUR ---
PT GOING TO UNIT ON GURNEY WITH EMT AND RN AT BEDSIDE. PT IS IN STABLE CONDITION FOR TRANSPORT.
--- NOTE | 2022-10-31 20:30 | NUR ---
RN NOTE ADMITTED 77Y F PT FROM ER WITH MAIN DX OF ANEMIA AND SUICIDAL THOUGHTS/IDEATION, PT ARRIVED VIA GURNEY ACCOMPANIED BY CIGARETTE AND FILTER CHIEF INSPECTORILENE ROJO AND EMT, PT ORIGINALLY FROM [facility]. PT IS AAOX4, VERBALLY RESPONSIVE. DENIES PAIN/DISCOMFORT AT THIS TIME. PT ON ROOM AIR, RESPIRATIONS EVEN AND UNLABORED. RECEIVED PT WITH CRITICAL LAB VALUES (H/H: 6.6), MD AWARE WITH ORDER TO TRANSFUSE 1 PRBC, LAB NOTIFIED, WAITING FOR BLOOD BANK. PT IN NO APPARENT DISTRESS, SKIN WNL, COOL TO TOUCH, PT NOTED WITH BLE +2 EDEMA. SKIN ASSESSMENT DONE, NOTED WITH REDNESS ON ABD FOLD, B GROIN, AND DISCOLORATION ON R FOOT, SKIN INTACT. WOUND EVAL ORDER PLACED. ALL NEEDS ATTENDED. SAFETY PRECAUTIONS IMPLEMENTED, ORIENTED PT TO ROOM, VERBALIZE UNDERSTANDING. PT ON CLOSE MONITORING WITH 1:1 SITTER. WILL CONT POC. Addendum: 11/01/22 at 0127 by NATHANIEL AKBAR RN PRODUCE CLERK NOTE
[2022-10-31] MEDS ORDERED: CEFTRIAXONE 1 G VIAL ONE (20:36)
[2022-10-31] MEDS: CEFTRIAXONE 1 G in IV D5W 50 ML IV SCH (21:11)
[2022-10-31] MEDS: IV NS 0.9% 1,000 ML IV SCH (21:12)
[2022-10-31 21:20] VITALS: BP 150/94
--- NOTE | 2022-10-31 21:20 | NUR ---
RN NOTE BLOOD TRANSFUSION STARTED, PT IN STABLE CONDITION. VSS: T- 98.5, HR- 100, RR-26, BP- 150/94, O2 SAT 94%. WILL CLOSELY MONITOR PT
[2022-10-31 21:35] VITALS: BP 148/90
--- NOTE | 2022-10-31 21:35 | NUR ---
RN NOTE CURRENTLY TRANSFUSING PRBC, NO ASE REACTION NOTED. PT REMAINS IN STABLE CONDITION. VSS. T- 97.8, HR- 90, RR- 24, BP- 148/90. O2 SAT- 93%
[2022-10-31 21:38] VITALS: BP 150/94
[2022-10-31 21:50] VITALS: BP 149/92
[2022-10-31 22:05] VITALS: BP 151/71
[2022-10-31] MEDS: QUETIAPINE FUMARATE 100 MG TABLET PO SCH (22:11)
[2022-10-31] MEDS: CLONIDINE HCL 0.1 MG TABLET PO PRN (22:15)
[2022-10-31] MEDS: DIVALPROEX SODIUM 250 MG TABLET.DR PO SCH (22:15)
[2022-10-31] MEDS: DIVALPROEX SODIUM 500 MG TABLET.DR PO SCH (22:17)
[2022-10-31 22:20] VITALS: BP 145/86
[2022-11-01 00:20] VITALS: BP 146/84
--- NOTE | 2022-11-01 00:20 | NUR ---
RN NOTE PRBC TRANSFUSION COMPLETED, WELL TOLERATED, NO ASE NOTED. PT REMAINS IN STABLE CONDITION. VSS. T- 98.3, HR- 95, RR-19, BP- 146/84, O2 SAT- 96%
[2022-11-01] MEDS: ALBUTEROL FS 2.5 MG/3 ML VIAL.NEB NEB SCH ×4 (01:30→20:03)
--- NOTE | 2022-11-01 01:30 | NUR ---
RN NOTE NOTED PT WITH ABNORMAL LAB VALUE- aPTT RESULT >170 VERIFIED BY REPEAT ANALYSIS, NOTIFIED MARILU HARRIS WITH NNO AT THIS TIME.
[2022-11-01 04:00] VITALS: BP 159/92
[2022-11-01] MEDS: CLONIDINE HCL 0.1 MG TABLET PO PRN (04:52)
[2022-11-01 06:38] LABS: BASOPHILS % (AUTO) 0.5 % (0.0-2.0); HEMATOCRIT 22 % (33-45); LYMPHOCYTES # (AUTO) 1.4 K/uL (0.8-4.8); LYMPHOCYTES % (AUTO) 12.8 % (20.0-44.0); MEAN CORPUSCULAR HGB CONC 30 g/dl (31.0-36.0); MEAN CORPUSCULAR VOLUME 77 fL (82-100); MONOCYTES # (AUTO) 0.9 K/uL (0.1-1.30); MONOCYTES % (AUTO) 8.6 % (2.0-12.0); NEUTROPHILS # (AUTO) 8.4 K/uL (1.8-8.9); NEUTROPHILS % (AUTO) 77.1 % (43.0-81.0); PLATELET COUNT (AUTO) 327 K/uL (150-450); RED BLOOD CELL COUNT(AUTO) 2.79 MIL/uL (4.0-5.2); WHITE BLOOD COUNT (AUTO) 10.9 K/uL (4.3-11.0)
--- NOTE | 2022-11-01 06:45 | NUR ---
RN NOTE RECEIVED CALL FROM WITH CRITICAL LAB VALUE- HGB 6.5, MARILU HARRIS NOTIFIED. AWAITING FOR CALL BACK. PT AAOX3, VERBALLY RESPONSIVE, VSS.
[2022-11-01 06:51] LABS: CALCIUM, SERUM 8.3 mg/dL (8.5-10.1); CARBON DIOXIDE 25 mmol/L (21-32); CHLORIDE 107 mmol/L (98-107); CREATININE 1.5 mg/dL (0.6-1.3); GLUCOSE 105 mg/dL (74-106); MAGNESIUM 2.5 mg/dL (1.8-2.4); POTASSIUM 3.5 mmol/L (3.5-5.1); SODIUM SERUM 142 mmol/L (136-145); UREA NITROGEN, BLOOD 15 mg/dL (7-18)
[2022-11-01 06:54] LABS: HEMOGLOBIN 6.5 g/dL (11.5-14.8)
--- NOTE | 2022-11-01 07:12 | NUR ---
RN NOTE PT CURRENTLY IN BED, ASLEEP, EASILY AROUSABLE BY VERBAL/TACTILE STIMULI. REMAINS ON RA, WELL SALVADOR, RESPIRATION EVEN AND UNLABORED. CLOSELY MONITORED PT THORUGHOUT THE SHIFT, REMAINS ON 1:1 SITTER. PT CALM AND COOPERATIVE, FOLLOWS COMMANDS, ABLE TO MAKE NEEDS KNOWN. ALL NEEDS ATTENDED. L WRIST 18G IV ACCESS PATENT, CURRENTLY INFUSING NS AT 75ML/HR. SAFETY PRECAUTIONS OBSERVED AT ALL TIMES. CALL LIGHT WITHIN REACH. WILL ENDORSE TO AM SHIFT
--- NOTE | 2022-11-01 07:14 | NUR ---
RN NOTE AWAITING ORDER FROM KAILASH HARRIS, WILL F/U. PT IN STABLE CONDITION. NO ACUTE DISTRESS. WILL ENDORSE TO AM SHIFT
--- NOTE | 2022-11-01 07:26 | NUR ---
RN NOTE F/U MARILU HARRIS REGARDING CRITICAL LAB VALUE HGB 6.5 WITH NEW ORDER TO REPEAT CBC THIS AFTERNOON AT 1300. NOTED AND CARRIED OUT. VSS.
[2022-11-01] MEDS: MESALAMINE 400 MG CAP PO SCH ×2 (08:39→16:56)
[2022-11-01] MEDS: OXYBUTYNIN CHLORIDE 5 MG TABLET PO SCH ×2 (08:39→16:16)
[2022-11-01] MEDS: DOCUSATE SODIUM 100 MG CAPSULE PO SCH ×3 (08:39→16:16)
[2022-11-01] MEDS: FLUTICASONE PROPIONATE 16 GM BOTTLE NS SCH ×2 (08:39→16:15)
[2022-11-01] MEDS: ropiniROLE 0.5 MG TABLET PO SCH ×3 (08:39→16:16)
[2022-11-01] MEDS: PANTOPRAZOLE 40 MG VIAL IV SCH (08:39)
[2022-11-01] MEDS: METOPROLOL SUCCINATE 50 MG TAB.SR.24H PO SCH (08:40)
[2022-11-01] MEDS: AMLODIPINE BESYLATE 10 MG TABLET PO SCH (08:40)
[2022-11-01] MEDS: DICYCLOMINE HCL 10 MG CAPSULE PO SCH ×3 (08:44→16:16)
[2022-11-01] MEDS: TRAMADOL HCL 50 MG TABLET PO SCH ×3 (08:46→16:17)
[2022-11-01] MEDS: FLUOXETINE HCL 20 MG CAPSULE PO SCH (08:47)
--- NOTE | 2022-11-01 09:00 | NUR ---
STOOL SAMPLE COLLECTED FOR OCCULT BLOOD AND INFORMED LAB
[2022-11-01] MEDS: IV NS 0.9% 1,000 ML IV SCH ×2 (09:20→22:57)
--- NOTE | 2022-11-01 10:00 | NUR ---
STOOL SAMPLE COLLECTED FOR OCCULT BLOOD AND INFORMED LAB
[2022-11-01 10:45] LABS: IRON, SERUM 16 ug/dl (50-175); TOTAL IRON BINDING CAPACITY 199 ug/dl (250-450)
[2022-11-01 11:57] LABS: BAND % (MANUAL) 8 % (0.0-5.0); EOSINOPHILS % (MANUAL) 1 % (0-4); LYMPHOCYTES % (MANUAL) 20 % (16-48); MONOCYTES % (MANUAL) 5 % (0-11.0); NEUTROPHILS % (MANUAL) 66 (42-76)
[2022-11-01 12:00] VITALS: BP 143/65
--- NOTE | 2022-11-01 12:41 | NUR ---
WOUND CARE CONSULT: LIMITED ASSESSMENT AT THIS TIME DUE TO PT COUGHING VERY HARD. RESPIRATORY TREATMENT WAS REQUESTED BY NURSING STAFF. RT FOOT NOTED TO HAVE DISCOLORATION AND IS VERY TENDER. DPM CONSULT CALLED TO DR DING. DISCUSSED SKIN PROTECTION WITH NURSING STAFF. MD IN AGREEMENT WITH PLAN OF CARE.
--- NOTE | 2022-11-01 12:52 | NUR ---
OPENING NOTE; RECEIVE PATIENT RESTING IN BED COMFORTABLY, NO SIGNS IF IN DISTRESS, UNLABORED BREATHING ON 2L/MIN O2-, F/U ON H/H AFTER ONE UNIT OF BLOOD GIVEN LAST NIGHT. PATIENT HAS 1;1 SITTER TODAY.
[2022-11-01 13:00] LABS: BASOPHILS % (AUTO) 0.3 % (0.0-2.0); EOSINOPHILS % (AUTO) 0.9 % (0.0-6.0); HEMATOCRIT 25 % (33-45); HEMOGLOBIN 7.4 g/dL (11.5-14.8); LYMPHOCYTES % (AUTO) 15.9 % (20.0-44.0); MEAN CORPUSCULAR HGB CONC 30 g/dl (31.0-36.0); MEAN CORPUSCULAR VOLUME 77 fL (82-100); MONOCYTES # (AUTO) 1.1 K/uL (0.1-1.30); MONOCYTES % (AUTO) 8.6 % (2.0-12.0); NEUTROPHILS # (AUTO) 9.4 K/uL (1.8-8.9); NEUTROPHILS % (AUTO) 74.3 % (43.0-81.0); PLATELET COUNT (AUTO) 384 K/uL (150-450); RED BLOOD CELL COUNT(AUTO) 3.23 MIL/uL (4.0-5.2); WHITE BLOOD COUNT (AUTO) 12.7 K/uL (4.3-11.0)
[2022-11-01] MEDS: CLOTRIMAZOLE 1% 15 GM TUBE TP SCH (16:15)
--- NOTE | 2022-11-01 16:37 | NUR ---
PATIENT ON 2LNC SATURATIONS AT 96% HHN TXS SALVADOR WELL WITH NO ADVERSE REACTION NOTED.
[2022-11-01] MEDS: risperiDONE 0.25 MG TABLET PO SCH (17:04)
[2022-11-01 17:12] LABS: BAND % (MANUAL) 3 % (0.0-5.0); EOSINOPHILS % (MANUAL) 1 % (0-4); LYMPHOCYTES % (MANUAL) 16 % (16-48); MONOCYTES % (MANUAL) 8 % (0-11.0); NEUTROPHILS % (MANUAL) 72 (42-76)
--- NOTE | 2022-11-01 18:40 | NUR ---
CLOSING NOTE NOTE PT CURRENTLY IN BED, ASLEEP, EASILY AROUSABLE NO SIGNS OF IN DISTRESS, NO C/O PAIN, UNLABORED BREATHING ON 2L/MIN NC , LEFT WRIST IV LINE RUNNING WITH NS @75ML/HR INFUSING WELL, VITAL SIGNS ARE STABLE, BED IN LOW POSITION,SIDE RAILS UPX2,CALL LIGHT WITHIN REACH, SITTER IS AT BEDSIDE.
--- NOTE | 2022-11-01 19:00 | NUR ---
RN NOTE Received patient in bed, on semi glez's, sitter at bedside, AO x 4, in no acute distress, breathing unlabored, saturation at 96% on 3L via NC, HR is 82. IV line at L wrist 20g patent and flushing well, NS infusing at 75 ml/hr. External urinary catheter placed, draining to a clear yellow output. Safety measures in place, bed is locked and at lowest position, HOB elevated, call light within reach of patient. Will cont to monitor.
[2022-11-01] MEDS: CEFTRIAXONE 1 G in IV D5W 50 ML IV SCH (19:32)
[2022-11-01 20:00] VITALS: BP 157/62
[2022-11-01 21:22] LABS: OCCULT BLOOD STOOL POSITIVE (NEGATIVE)
[2022-11-01] MEDS: QUETIAPINE FUMARATE 100 MG TABLET PO SCH (21:35)
[2022-11-01] MEDS: DIVALPROEX SODIUM 250 MG TABLET.DR PO SCH (21:35)
[2022-11-01] MEDS: DIVALPROEX SODIUM 500 MG TABLET.DR PO SCH (21:35)
--- NOTE | 2022-11-01 22:34 | NUR ---
RN NOTE Patient reports no suicidal thoughts at this time.
[2022-11-02] VITALS (12 sets, daily range): BP systolic 139–165; BP diastolic 59–76
[2022-11-02] MEDS: ALBUTEROL FS 2.5 MG/3 ML VIAL.NEB NEB SCH ×4 (03:03→20:06)
[2022-11-02] MEDS: CLONIDINE HCL 0.1 MG TABLET PO PRN (05:00)
--- NOTE | 2022-11-02 05:22 | NUR ---
RN NOTE Fecal occult blood resulted positive. Dr Gupta made aware, who acknowledged with no new orders.
[2022-11-02 06:23] LABS: BASOPHILS % (AUTO) 0.3 % (0.0-2.0); EOSINOPHILS % (AUTO) 1.9 % (0.0-6.0); HEMATOCRIT 22 % (33-45); LYMPHOCYTES # (AUTO) 1.6 K/uL (0.8-4.8); LYMPHOCYTES % (AUTO) 17.6 % (20.0-44.0); MEAN CORPUSCULAR HGB CONC 30 g/dl (31.0-36.0); MEAN CORPUSCULAR VOLUME 77 fL (82-100); MONOCYTES # (AUTO) 0.8 K/uL (0.1-1.30); MONOCYTES % (AUTO) 8.4 % (2.0-12.0); NEUTROPHILS # (AUTO) 6.4 K/uL (1.8-8.9); NEUTROPHILS % (AUTO) 71.8 % (43.0-81.0); PLATELET COUNT (AUTO) 312 K/uL (150-450); RED BLOOD CELL COUNT(AUTO) 2.85 MIL/uL (4.0-5.2)
--- NOTE | 2022-11-02 07:00 | NUR ---
RN OPENING NOTE PATIENT IS IN BED, ASLEEP, EASILY ABUSABLE, NO S/S OF DISTRESS, BREATHING IS UNLABORED ON 2L O2 VIA NC, LEFT WRIST IV LINE RUNNING WITH NS @75ML/HR INFUSING WELL, PUREWICK IN PLACE, DRAINING CLEAR URINE. BED IN LOW AND LOCKED POSITION, SIDE RAILS UPX2, CALL LIGHT WITHIN REACH, 1:1 SITTER IS AT BEDSIDE. WILL CONTINUE TO MONITOR.
[2022-11-02 07:28] LABS: HEMOGLOBIN 6.6 g/dL (11.5-14.8)
[2022-11-02 07:33] LABS: CALCIUM, SERUM 8.4 mg/dL (8.5-10.1); CREATININE 1.3 mg/dL (0.6-1.3); MAGNESIUM 2.4 mg/dL (1.8-2.4); PHOSPHORUS 4.2 mg/dL (2.5-4.9); POTASSIUM 3.3 mmol/L (3.5-5.1)
--- NOTE | 2022-11-02 07:35 | NUR ---
PATIENT HAS HGB VALUE OF 6.6, DOCTOR AWARE.
--- NOTE | 2022-11-02 08:00 | NUR ---
DR ORDERED NPO FOR PT, GI CONSULT WILL BE DONE LATER TODAY. NPO SIGH PLACED, EATER REMOVED FROM THE BEDSIDE
[2022-11-02] MEDS: TRAMADOL HCL 50 MG TABLET PO SCH ×3 (08:25→16:48)
[2022-11-02] MEDS: AMLODIPINE BESYLATE 10 MG TABLET PO SCH (08:26)
[2022-11-02] MEDS: DOCUSATE SODIUM 100 MG CAPSULE PO SCH ×3 (08:27→16:49)
[2022-11-02] MEDS: FLUOXETINE HCL 20 MG CAPSULE PO SCH (08:28)
[2022-11-02] MEDS: ropiniROLE 0.5 MG TABLET PO SCH ×3 (08:29→16:49)
[2022-11-02] MEDS: MESALAMINE 400 MG CAP PO SCH ×2 (08:30→16:48)
[2022-11-02] MEDS: FLUTICASONE PROPIONATE 16 GM BOTTLE NS SCH ×2 (08:31→16:49)
[2022-11-02] MEDS: CLOTRIMAZOLE 1% 15 GM TUBE TP SCH ×2 (08:31→16:49)
[2022-11-02] MEDS: METOPROLOL SUCCINATE 50 MG TAB.SR.24H PO SCH (08:51)
[2022-11-02] MEDS: PANTOPRAZOLE 40 MG VIAL IV SCH (08:51)
[2022-11-02] MEDS: DICYCLOMINE HCL 10 MG CAPSULE PO SCH ×3 (08:52→16:51)
[2022-11-02] MEDS: OXYBUTYNIN CHLORIDE 5 MG TABLET PO SCH ×2 (08:55→16:49)
[2022-11-02] MEDS ORDERED: POTASSIUM CL. PREMIX PERIPHER. 50 ML IV SCH (11:00)
--- NOTE | 2022-11-02 11:21 | NUR ---
PATIENT UNDERWENT MIDLINE IV ACCESS PLACEMENT LEFT UPPER ARM.
--- NOTE | 2022-11-02 12:00 | NUR ---
PATIENT WILL GET BLOOD TRANSFUSION, INFORMATION VERIFIED, CONSENT SIGNED. PATIENT CONTINUE TO BE NPO.
[2022-11-02] MEDS: IV NS 0.9% 1,000 ML IV SCH (12:18)
--- NOTE | 2022-11-02 14:00 | NUR ---
ONE UNIT OF RBC INFUSED, VITALS SIGNS STABLE, NO REACTION NOTED.
--- NOTE | 2022-11-02 15:00 | NUR ---
PATIENT TAKEN TO THE SURGICAL DEPARTMENT FOR ENDOSCOPY, GI CONSULT. CONSENTS SIGNED, PRE PROCEDURE CHECKLIST PROVIDED.
--- NOTE | 2022-11-02 16:05 | NUR ---
PT RETURNED AFTER PROCEDURE, CONDITION STABLE, AWAKE.
[2022-11-02] MEDS: risperiDONE 0.25 MG TABLET PO SCH (17:53)
--- NOTE | 2022-11-02 18:45 | NUR ---
RN CLOSING NOTE PATIENT COMFORTABLE IN BED, AWAKE, NO SIGNS OF IN DISTRESS, NO C/O PAIN, UNLABORED BREATHING ON 2L/MIN NC , IV ACCESS LEFT UPPER ARM MIDLINE INTACT. BED IN LOW POSITION,SIDE RAILS UPX2,CALL LIGHT WITHIN REACH.
[2022-11-02 19:35] LABS: BAND % (MANUAL) 3 % (0.0-5.0); EOSINOPHILS % (MANUAL) 1 % (0-4); LYMPHOCYTES % (MANUAL) 22 % (16-48); MONOCYTES % (MANUAL) 7 % (0-11.0); NEUTROPHILS % (MANUAL) 66 (42-76); REACTIVE LYMPHOCYTES 1 % (0-0)
[2022-11-02] MEDS: CEFTRIAXONE 1 G in IV D5W 50 ML IV SCH (20:05)
[2022-11-02] MEDS: QUETIAPINE FUMARATE 100 MG TABLET PO SCH (21:13)
[2022-11-02] MEDS: DIVALPROEX SODIUM 500 MG TABLET.DR PO SCH (21:13)
[2022-11-02] MEDS: DIVALPROEX SODIUM 250 MG TABLET.DR PO SCH (21:13)
[2022-11-03] MEDS: ALBUTEROL FS 2.5 MG/3 ML VIAL.NEB NEB SCH ×3 (01:30→13:24)
[2022-11-03] MEDS: IV NS 0.9% 1,000 ML IV SCH (02:00)
[2022-11-03 04:00] VITALS: BP 163/97
[2022-11-03 06:56] LABS: BASOPHILS % (AUTO) 0.2 % (0.0-2.0); EOSINOPHILS % (AUTO) 2.9 % (0.0-6.0); HEMATOCRIT 26 % (33-45); HEMOGLOBIN 7.8 g/dL (11.5-14.8); LYMPHOCYTES # (AUTO) 1.2 K/uL (0.8-4.8); LYMPHOCYTES % (AUTO) 15.6 % (20.0-44.0); MEAN CORPUSCULAR HGB CONC 30 g/dl (31.0-36.0); MEAN CORPUSCULAR VOLUME 80 fL (82-100); MONOCYTES # (AUTO) 0.7 K/uL (0.1-1.30); MONOCYTES % (AUTO) 8.8 % (2.0-12.0); NEUTROPHILS # (AUTO) 5.7 K/uL (1.8-8.9); NEUTROPHILS % (AUTO) 72.5 % (43.0-81.0); PLATELET COUNT (AUTO) 274 K/uL (150-450); WHITE BLOOD COUNT (AUTO) 7.9 K/uL (4.3-11.0)
--- NOTE | 2022-11-03 07:05 | NUR ---
RN OPENING NOTE PATIENT IS IN BED, ASLEEP, EASILY ABUSABLE, NO S/S OF DISTRESS, BREATHING IS UNLABORED ON RA, LEFT UPPER ARM MIDLINE IV ACCESS INTACT, PUREWICK IN PLACE, DRAINING CLEAR URINE. BED IN LOW AND LOCKED POSITION, SIDE RAILS UPX2, CALL LIGHT WITHIN REACH. WILL CONTINUE TO MONITOR.
[2022-11-03 07:06] LABS: CALCIUM, SERUM 8.4 mg/dL (8.5-10.1); CREATININE 1.2 mg/dL (0.6-1.3); POTASSIUM 3.7 mmol/L (3.5-5.1)
[2022-11-03] MEDS: PANTOPRAZOLE 40 MG VIAL IV SCH (08:14)
[2022-11-03] MEDS: FLUOXETINE HCL 20 MG CAPSULE PO SCH (08:14)
[2022-11-03] MEDS: ropiniROLE 0.5 MG TABLET PO SCH ×2 (08:15→13:35)
[2022-11-03] MEDS: DICYCLOMINE HCL 10 MG CAPSULE PO SCH ×2 (08:15→13:34)
[2022-11-03] MEDS: AMLODIPINE BESYLATE 10 MG TABLET PO SCH (08:15)
[2022-11-03] MEDS: DOCUSATE SODIUM 100 MG CAPSULE PO SCH ×2 (08:16→08:18)
[2022-11-03] MEDS: METOPROLOL SUCCINATE 50 MG TAB.SR.24H PO SCH (08:17)
[2022-11-03] MEDS: TRAMADOL HCL 50 MG TABLET PO SCH ×2 (08:17→13:34)
[2022-11-03] MEDS: OXYBUTYNIN CHLORIDE 5 MG TABLET PO SCH (08:17)
[2022-11-03] MEDS: CLOTRIMAZOLE 1% 15 GM TUBE TP SCH (08:18)
[2022-11-03] MEDS: FLUTICASONE PROPIONATE 16 GM BOTTLE NS SCH (08:18)
[2022-11-03] MEDS: MESALAMINE 400 MG CAP PO SCH (08:33)
[2022-11-03] MEDS ORDERED: PANT40TA2 PO (09:15)
[2022-11-03 12:00] VITALS: BP 135/79
== END 2022-11-03 15:19 | DRG 377 ==
LOC: ER 15:33 → TELE1 20:15 → MEDSG1 20:58
PROVIDERS: ADMIT Internal Medicine; ATTEND Internal Medicine
PROC: 30233N1 Transfusion of Nonautologous Red Blood Cells into Peripheral Vein, Percutaneous Approach (ICD-10-PCS; principal; 2022-10-31)
PROC: 05HC33Z Insertion of Infusion Device into Left Basilic Vein, Percutaneous Approach (ICD-10-PCS; 2022-11-02)
DX: K25.4 Chronic or unspecified gastric ulcer with hemorrhage (principal); E43 Unspecified severe protein-calorie malnutrition; N17.0 Acute kidney failure with tubular necrosis; K50.911 Crohn's disease, unspecified, with rectal bleeding; R45.851 Suicidal ideations; N39.0 Urinary tract infection, site not specified; F31.5 Bipolar disorder, current episode depressed, severe, with psychotic features; D62 Acute posthemorrhagic anemia; K29.71 Gastritis, unspecified, with bleeding; Z20.822 Contact with and (suspected) exposure to COVID-19; M79.7 Fibromyalgia; I12.9 Hypertensive chronic kidney disease with stage 1 through stage 4 chronic kidney disease, or unspecified chronic kidney disease; N18.9 Chronic kidney disease, unspecified; M19.90 Unspecified osteoarthritis, unspecified site; Z91.018 Allergy to other foods; Z91.030 Bee allergy status; Z79.82 Long term (current) use of aspirin; Z79.51 Long term (current) use of inhaled steroids; E66.9 Obesity, unspecified; Z68.38 Body mass index [BMI] 38.0-38.9, adult; G89.4 Chronic pain syndrome; E61.1 Iron deficiency; E88.09 Other disorders of plasma-protein metabolism, not elsewhere classified; D63.8 Anemia in other chronic diseases classified elsewhere; Z79.899 Other long term (current) drug therapy; E87.6 Hypokalemia; G43.909 Migraine, unspecified, not intractable, without status migrainosus; M21.611 Bunion of right foot; F41.0 Panic disorder [episodic paroxysmal anxiety]; R41.9 Unspecified symptoms and signs involving cognitive functions and awareness; K31.84 Gastroparesis; N28.1 Cyst of kidney, acquired
CPT/HCPCS: 36415; 80048-TC; 80076-TC; 81001; 82272-TC; 83540-TC; 83735-TC; 84100-TC; 85025-TC; 85610-TC; 85730-TC; 86850-TC; 87081-TC; 94799-TC; A4223; C9113; C9803; G0378; G0480; J0696; J2704; J3480; J7030; J7040; J7050; J7060; P9016

== ENCOUNTER 2023-04-19 21:00 | Inpatient (IN) | payer MEDICARE, OTHER ==
[~2023-04-19] VITALS: Ht 154.9 cm; Wt 104.3 kg
[~2023-04-19 21:00] MED LIST changes: +ACET-868 PO; -ACET325C7 PO; -ALBU6.7H9 IH; -ASCO500C17 PO; -ASPI-1169 PO; -ATOR20TA PO; -CYAN-51 PO; -DICY10CA37 PO; -DIVA500T2 PO; +ESCI10TA PO; -FLUT16SP NS; +FLUTICASONE PROP BNOSTRILS; +FURO-144 PO; -HYDR-4077 PO; -HYDR100T27 PO; -HYDR25TA4 PO; -LISI2.5T2 PO; -MAG30ORA PO; -NA P133E RC; +ONDA-97 PO; +PANT40TA2 PO; -PANT40TA49 PO; +POTA-10 PO; -POTA10TA15 PO; -PRAZ1CAP5 PO; -SIMV-46 PO; +TRIA5PAS5 TP
[2023-04-19 21:31] VITALS: O2SAT 99
[2023-04-19] MEDS ORDERED: MORPHINE SULFATE INJ 2 MG/ML DISP.SYRIN IV ONE (22:00)
[2023-04-19] MEDS ORDERED: CEFEPIME 1 GM in IV D5W 50 ML IV ONE (22:00)
[2023-04-19] MEDS ORDERED: VANCOMYCIN 1 GM in IV D5W 250 ML IV ONE (22:00)
[2023-04-19 22:53] LABS: INR 0.94 (0.91-1.10); PARTIAL THROMBOPLASTIN TIME 29.3 SEC (24.3-34.3); PROTHROMBIN TIME 9.9 SECS (9.2-11.1)
[2023-04-19 22:54] LABS: C-REACTIVE PROTEIN 1.8 mg/dL (0.0-0.9)
[2023-04-19 22:57] LABS: CALCIUM, SERUM 9.3 mg/dL (8.5-10.1); CARBON DIOXIDE 18 mmol/L (21-32); CHLORIDE 105 mmol/L (98-107); CREATININE 1.5 mg/dL (0.6-1.3); GLUCOSE 119 mg/dL (74-106); POTASSIUM 3.6 mmol/L (3.5-5.1); SODIUM SERUM 140 mmol/L (136-145); UREA NITROGEN, BLOOD 33 mg/dL (7-18)
[2023-04-19 22:57] LABS: BASOPHILS # (AUTO) 0.1 K/uL (0.0-0.2); BASOPHILS % (AUTO) 1.1 % (0.0-2.0); EOSINOPHILS # (AUTO) 0.3 K/uL (0.0-0.7); EOSINOPHILS % (AUTO) 2.3 % (0.0-6.0); HEMATOCRIT 34 % (33-45); HEMOGLOBIN 10.7 g/dL (11.5-14.8); MEAN CORPUSCULAR HEMOGLOBIN 26 PG (26.0-33.0); MEAN CORPUSCULAR HGB CONC 31 g/dl (31.0-36.0); MEAN CORPUSCULAR VOLUME 82 fL (82-100); MONOCYTES # (AUTO) 0.9 K/uL (0.1-1.30); MONOCYTES % (AUTO) 6.7 % (2.0-12.0); NEUTROPHILS # (AUTO) 9.5 K/uL (1.8-8.9); NEUTROPHILS % (AUTO) 73.9 % (43.0-81.0); PLATELET COUNT (AUTO) 220 K/uL (150-450); RED BLOOD CELL COUNT(AUTO) 4.15 MIL/uL (4.0-5.2); RED CELL DISTRIBUTION WIDTH 25.1 % (11.5-15.0); WHITE BLOOD COUNT (AUTO) 12.8 K/uL (4.3-11.0)
[2023-04-19 23:05] LABS: LACTIC ACID 0.8 mmol/L (0.4-2.0)
[2023-04-19] MEDS ORDERED: MORPHINE SULFATE INJ 2 MG/ML DISP.SYRIN ONE (23:06)
[2023-04-19] MEDS ORDERED: CEFEPIME 1 GM VIAL ONE (23:06)
[2023-04-19 23:08] LABS: APPEARANCE,URINE CLEAR (CLEAR); BILIRUBIN,URINE NEGATIVE (NEGATIVE); BLOOD, URINE TRACE-INTA Ery/uL (NEGATIVE); COLOR,URINE YELLOW (YELLOW); KETONES,URINE NEGATIVE (NEGATIVE); LEUKOCYTE ESTERASE ,URINE NEGATIVE (NEGATIVE); NITRITE, URINE NEGATIVE (NEGATIVE); PROTEIN,URINE 2+ mg/dl (NEGATIVE); UGLUCOSE NEGATIVE (NEGATIVE); UROBILINOGEN,URINE 0.2 EU/dL (0.2)
[2023-04-19 23:16] LABS: ALANINE AMINOTRANSFERASE 20 U/L (12-78); ALBUMIN 2.9 g/dL (3.4-5.0); ALKALINE PHOSPHATASE 112 U/L (46-116); ASPARTATE AMINOTRANSFERASE 7 U/L (15-37); BILIRUBIN,TOTAL 0.2 mg/dL (0.2-1.0); TOTAL PROTEIN, SERUM 7.8 g/dL (6.4-8.2)
[2023-04-19] MEDS ORDERED: MAG HYDROX/AL HYDROX/SIMETH 30 ML UDC PO PRN (23:30)
[2023-04-19] MEDS ORDERED: BISACODYL SUPP (10 MG) 10 MG/SUPP.RECT SUPP.RECT RC PRN (23:30)
[2023-04-19] MEDS ORDERED: ACETAMINOPHEN 325 MG TABLET PO PRN (23:30)
[2023-04-19] MEDS ORDERED: ONDANSETRON HCL/PF 4 MG/2 ML VIAL IVP PRN (23:30)
[2023-04-19] MEDS ORDERED: MAGNESIUM HYDROXIDE 30 ML UDC PO PRN (23:30)
[2023-04-20 00:04] LABS: ADD URINE CULTURE NO; BACTERIA,URINE 1+ /HPF (None Seen); MUCUS,URINE Moderate /LPF (None Seen); RBC,URINE 0-2 /HPF (0-2); WBC,URINE NONE SEEN /HPF (0-3)
[2023-04-20 00:12] LABS: BAND % (MANUAL) 1 % (0.0-5.0); EOSINOPHILS % (MANUAL) 1 % (0-4); LYMPHOCYTES % (MANUAL) 12 % (16-48); MONOCYTES % (MANUAL) 12 % (0-11.0); NEUTROPHILS % (MANUAL) 74 (42-76); PLATELET ESTIMATE ADEQU
[2023-04-20] MEDS ORDERED: PIPERACI/TAZO 3.375GM/D5W 50ML PB IV ONE (04:23)
[2023-04-20] MEDS ORDERED: ZOSYN IVPB 3.375 G in IV D5W 50ml IV ONE (05:00)
[2023-04-20 05:47] LABS: BASOPHILS # (AUTO) 0.1 K/uL (0.0-0.2); BASOPHILS % (AUTO) 0.6 % (0.0-2.0); EOSINOPHILS # (AUTO) 0.3 K/uL (0.0-0.7); EOSINOPHILS % (AUTO) 2.8 % (0.0-6.0); HEMATOCRIT 29 % (33-45); HEMOGLOBIN 9.3 g/dL (11.5-14.8); LYMPHOCYTES # (AUTO) 1.8 K/uL (0.8-4.8); MEAN CORPUSCULAR HEMOGLOBIN 26 PG (26.0-33.0); MEAN CORPUSCULAR HGB CONC 32 g/dl (31.0-36.0); MEAN CORPUSCULAR VOLUME 81 fL (82-100); MONOCYTES # (AUTO) 0.7 K/uL (0.1-1.30); MONOCYTES % (AUTO) 7.8 % (2.0-12.0); NEUTROPHILS # (AUTO) 6.6 K/uL (1.8-8.9); NEUTROPHILS % (AUTO) 69.8 % (43.0-81.0); PLATELET COUNT (AUTO) 190 K/uL (150-450); RED BLOOD CELL COUNT(AUTO) 3.63 MIL/uL (4.0-5.2); RED CELL DISTRIBUTION WIDTH 24.9 % (11.5-15.0); WHITE BLOOD COUNT (AUTO) 9.4 K/uL (4.3-11.0)
[2023-04-20 06:32] LABS: ALANINE AMINOTRANSFERASE 18 U/L (12-78); ALBUMIN 2.4 g/dL (3.4-5.0); ALKALINE PHOSPHATASE 92 U/L (46-116); ASPARTATE AMINOTRANSFERASE 10 U/L (15-37); BILIRUBIN,TOTAL 0.1 mg/dL (0.2-1.0); CALCIUM, SERUM 8.8 mg/dL (8.5-10.1); CARBON DIOXIDE 18 mmol/L (21-32); CHLORIDE 108 mmol/L (98-107); CREATININE 1.5 mg/dL (0.6-1.3); GLUCOSE 100 mg/dL (74-106); MAGNESIUM 1.8 mg/dL (1.8-2.4); POTASSIUM 3.4 mmol/L (3.5-5.1); SODIUM SERUM 139 mmol/L (136-145); TOTAL PROTEIN, SERUM 6.6 g/dL (6.4-8.2); UREA NITROGEN, BLOOD 33 mg/dL (7-18)
[2023-04-20 06:34] LABS: EOSINOPHILS % (MANUAL) 1 % (0-4); LYMPHOCYTES % (MANUAL) 17 % (16-48); MONOCYTES % (MANUAL) 5 % (0-11.0); NEUTROPHILS % (MANUAL) 77 (42-76); PLATELET ESTIMATE ADEQUATE
[2023-04-20 06:44] LABS: THYROID STIMULATING HORMONE 3.817 uIU/mL (0.358-3.74)
[2023-04-20 08:00] VITALS: BP 157/64; TEMP 98.2; O2SAT 93
[2023-04-20] MEDS ORDERED: VANCOMYCIN 500 MG in IV D5W 100ml IV ONE (08:00)
[2023-04-20] MEDS ORDERED: ALBU18HF2 IH (08:02)
[2023-04-20] MEDS: PANTOPRAZOLE 40 MG TABLET.DR PO SCH (08:29)
[2023-04-20] MEDS: ropiniROLE 0.5 MG TABLET PO SCH ×3 (08:37→17:10)
[2023-04-20] MEDS: Fluoxetine 10 mg capsule PO SCH (08:37)
[2023-04-20] MEDS: MAGNESIUM OXIDE 400 MG TABLET PO SCH (08:38)
[2023-04-20] MEDS: MESALAMINE 400 MG CAP PO SCH ×2 (08:38→17:10)
[2023-04-20] MEDS: OXYBUTYNIN CHLORIDE 5 MG TABLET PO SCH ×2 (08:39→17:10)
[2023-04-20] MEDS: DOCUSATE SODIUM 100 MG CAPSULE PO SCH (08:39)
[2023-04-20] MEDS: AMLODIPINE BESYLATE 10 MG TABLET PO SCH (08:40)
[2023-04-20] MEDS: ESCITALOPRAM OXALATE (10 MG) 10 MG TABLET PO SCH (08:40)
[2023-04-20] MEDS: HYDROCODONE/APAP 5/325MG TABLET PO PRN ×2 (08:42→18:43)
[2023-04-20] MEDS: HEPARIN SODIUM, PORCINE 5000 UNITS/1 ML VIAL SQ SCH ×2 (08:46→21:24)
[2023-04-20] MEDS ORDERED: POTASSIUM CHLORIDE 20 MEQ TAB.PRT.SR PO ONE (09:00)
[2023-04-20] MEDS ORDERED: FUROSEMIDE 40 MG TABLET PO SCH (09:00)
[2023-04-20] MEDS ORDERED: METOPROLOL SUCCINATE 50 MG TAB.SR.24H PO SCH (09:00)
[2023-04-20] MEDS ORDERED: DOCUSATE SODIUM 100 MG CAPSULE PO SCH (09:00)
[2023-04-20] MEDS ORDERED: FUROSEMIDE 40 MG/4 ML VIAL IV ONE (09:00)
[2023-04-20] MEDS: METOPROLOL SUCCINATE 25 MG TAB.SR.24H PO SCH (11:41)
[2023-04-20] MEDS: ZOSYN IVPB 2.25 G in IV D5W 50ml IV SCH ×3 (12:50→23:22)
[2023-04-20] MEDS: MORPHINE SULFATE INJ 2 MG/ML DISP.SYRIN IV PRN (12:53)
[2023-04-20] MEDS ORDERED: PIPERACILLIN /TAZOBACTAM 3.375 G in IV D5W 50 ML IV SCH (13:00)
[2023-04-20 16:00] VITALS: BP 113/58; TEMP 97.2; O2SAT 92
[2023-04-20 20:47] VITALS: BP 129/64; TEMP 98.8; O2SAT 94
[2023-04-20] MEDS: QUETIAPINE FUMARATE 100 MG TABLET PO SCH (21:23)
[2023-04-20] MEDS: DIVALPROEX SODIUM 500 MG TABLET.DR PO SCH (21:23)
[2023-04-21] MEDS: ZOSYN IVPB 2.25 G in IV D5W 50ml IV SCH (05:13)
[2023-04-21 06:03] LABS: CALCIUM, SERUM 8.9 mg/dL (8.5-10.1); CARBON DIOXIDE 21 mmol/L (21-32); CHLORIDE 109 mmol/L (98-107); CREATININE 1.7 mg/dL (0.6-1.3); GLUCOSE 92 mg/dL (74-106); POTASSIUM 3.7 mmol/L (3.5-5.1); SODIUM SERUM 140 mmol/L (136-145); UREA NITROGEN, BLOOD 33 mg/dL (7-18)
[2023-04-21 06:09] LABS: BASOPHILS # (AUTO) 0.1 K/uL (0.0-0.2); BASOPHILS % (AUTO) 0.7 % (0.0-2.0); EOSINOPHILS # (AUTO) 0.3 K/uL (0.0-0.7); EOSINOPHILS % (AUTO) 2.8 % (0.0-6.0); HEMATOCRIT 31 % (33-45); LYMPHOCYTES # (AUTO) 1.5 K/uL (0.8-4.8); LYMPHOCYTES % (AUTO) 15.7 % (20.0-44.0); MEAN CORPUSCULAR HEMOGLOBIN 26 PG (26.0-33.0); MEAN CORPUSCULAR HGB CONC 32 g/dl (31.0-36.0); MEAN CORPUSCULAR VOLUME 81 fL (82-100); MONOCYTES # (AUTO) 0.6 K/uL (0.1-1.30); MONOCYTES % (AUTO) 6.8 % (2.0-12.0); NEUTROPHILS # (AUTO) 6.9 K/uL (1.8-8.9); PLATELET COUNT (AUTO) 172 K/uL (150-450); RED BLOOD CELL COUNT(AUTO) 3.87 MIL/uL (4.0-5.2); RED CELL DISTRIBUTION WIDTH 24.7 % (11.5-15.0); WHITE BLOOD COUNT (AUTO) 9.3 K/uL (4.3-11.0)
[2023-04-21 08:00] VITALS: BP 142/60; TEMP 98; O2SAT 94
[2023-04-21] MEDS: MAGNESIUM OXIDE 400 MG TABLET PO SCH (08:47)
[2023-04-21] MEDS: ropiniROLE 0.5 MG TABLET PO SCH ×3 (08:48→16:07)
[2023-04-21] MEDS: FUROSEMIDE 20 MG/2 ML VIAL IV SCH (08:48)
[2023-04-21] MEDS: POTASSIUM CHLORIDE 20 MEQ TAB.PRT.SR PO SCH (08:49)
[2023-04-21] MEDS: MESALAMINE 400 MG CAP PO SCH ×2 (08:49→16:07)
[2023-04-21] MEDS: METOPROLOL SUCCINATE 25 MG TAB.SR.24H PO SCH (08:49)
[2023-04-21] MEDS: ESCITALOPRAM OXALATE (10 MG) 10 MG TABLET PO SCH (08:49)
[2023-04-21] MEDS: OXYBUTYNIN CHLORIDE 5 MG TABLET PO SCH ×2 (08:50→16:07)
[2023-04-21] MEDS: Fluoxetine 10 mg capsule PO SCH (08:50)
[2023-04-21] MEDS: DOCUSATE SODIUM 100 MG CAPSULE PO SCH (08:50)
[2023-04-21] MEDS: AMLODIPINE BESYLATE 10 MG TABLET PO SCH (08:50)
[2023-04-21] MEDS: HEPARIN SODIUM, PORCINE 5000 UNITS/1 ML VIAL SQ SCH ×2 (08:53→20:31)
[2023-04-21] MEDS: PANTOPRAZOLE 40 MG TABLET.DR PO SCH (08:55)
[2023-04-21] MEDS: HYDROCODONE/APAP 5/325MG TABLET PO PRN ×2 (08:58→16:07)
[2023-04-21 10:25] LABS: APPEARANCE,URINE CLEAR (CLEAR); BILIRUBIN,URINE NEGATIVE (NEGATIVE); BLOOD, URINE NEGATIVE Ery/uL (NEGATIVE); COLOR,URINE YELLOW (YELLOW); KETONES,URINE NEGATIVE (NEGATIVE); LEUKOCYTE ESTERASE ,URINE NEGATIVE (NEGATIVE); NITRITE, URINE NEGATIVE (NEGATIVE); PROTEIN,URINE 1+ mg/dl (NEGATIVE); UGLUCOSE NEGATIVE (NEGATIVE); UROBILINOGEN,URINE 0.2 EU/dL (0.2)
[2023-04-21 10:44] LABS: ADD URINE CULTURE NO; BACTERIA,URINE None seen /HPF (None Seen); RBC,URINE NONE SEEN /HPF (0-2); WBC,URINE 0-2 /HPF (0-3)
[2023-04-21 10:45] LABS: SQUAMOUS EPITHELIAL CELL,UR Few /HPF (None Seen)
[2023-04-21 11:26] LABS: EOSINOPHIL,URINE None Seen
[2023-04-21 15:39] LABS: OCCULT BLOOD STOOL NEGATIVE (NEGATIVE)
[2023-04-21 16:00] VITALS: BP 142/77; TEMP 98.3; O2SAT 94
[2023-04-21] MEDS: VANCOMYCIN 1.25 GM in IV D5W 250 ML IV SCH (19:28)
[2023-04-21] MEDS: MORPHINE SULFATE INJ 2 MG/ML DISP.SYRIN IV PRN (20:52)
[2023-04-21] MEDS: PIPERACILLIN /TAZOBACTAM 3.375 G in IV D5W 100 ML IV SCH (21:43)
[2023-04-21] MEDS: QUETIAPINE FUMARATE 100 MG TABLET PO SCH (21:53)
[2023-04-21] MEDS: DIVALPROEX SODIUM 500 MG TABLET.DR PO SCH (21:53)
[2023-04-22] MEDS: MORPHINE SULFATE INJ 2 MG/ML DISP.SYRIN IV PRN ×5 (03:35→21:29)
[2023-04-22 07:08] LABS: CARBON DIOXIDE 20 mmol/L (21-32); CHLORIDE 107 mmol/L (98-107); CREATININE 1.4 mg/dL (0.6-1.3); GLUCOSE 93 mg/dL (74-106); POTASSIUM 3.6 mmol/L (3.5-5.1); SODIUM SERUM 140 mmol/L (136-145); UREA NITROGEN, BLOOD 27 mg/dL (7-18)
[2023-04-22 08:00] VITALS: BP 137/84; TEMP 98.2; O2SAT 94
[2023-04-22] MEDS: Fluoxetine 10 mg capsule PO SCH (08:43)
[2023-04-22] MEDS: AMLODIPINE BESYLATE 10 MG TABLET PO SCH (08:44)
[2023-04-22] MEDS: METOPROLOL SUCCINATE 25 MG TAB.SR.24H PO SCH (08:44)
[2023-04-22] MEDS: PANTOPRAZOLE 40 MG TABLET.DR PO SCH (08:45)
[2023-04-22] MEDS: POTASSIUM CHLORIDE 20 MEQ TAB.PRT.SR PO SCH (08:45)
[2023-04-22] MEDS: OXYBUTYNIN CHLORIDE 5 MG TABLET PO SCH ×2 (08:49→16:47)
[2023-04-22] MEDS: MESALAMINE 400 MG CAP PO SCH ×2 (08:49→16:48)
[2023-04-22] MEDS: ESCITALOPRAM OXALATE (10 MG) 10 MG TABLET PO SCH (08:49)
[2023-04-22] MEDS: FUROSEMIDE 20 MG/2 ML VIAL IV SCH (08:50)
[2023-04-22] MEDS: ropiniROLE 0.5 MG TABLET PO SCH ×3 (08:50→16:47)
[2023-04-22] MEDS: MAGNESIUM OXIDE 400 MG TABLET PO SCH (08:50)
[2023-04-22] MEDS: DOCUSATE SODIUM 100 MG CAPSULE PO SCH (08:50)
[2023-04-22] MEDS: PIPERACILLIN /TAZOBACTAM 3.375 G in IV D5W 100 ML IV SCH ×2 (10:07→20:39)
[2023-04-22] MEDS: HEPARIN SODIUM, PORCINE 5000 UNITS/1 ML VIAL SQ SCH ×2 (10:27→21:21)
[2023-04-22 15:55] VITALS: BP 158/73; TEMP 98.1; O2SAT 94
[2023-04-22] MEDS: HYDROCODONE/APAP 5/325MG TABLET PO PRN (18:07)
[2023-04-22 20:03] VITALS: BP 143/66; TEMP 98.5; O2SAT 98
[2023-04-22] MEDS: DIVALPROEX SODIUM 500 MG TABLET.DR PO SCH (21:18)
[2023-04-22] MEDS: QUETIAPINE FUMARATE 100 MG TABLET PO SCH (21:18)
[2023-04-23] MEDS: MORPHINE SULFATE INJ 2 MG/ML DISP.SYRIN IV PRN ×2 (03:12→10:18)
[2023-04-23 05:41] LABS: BASOPHILS % (AUTO) 0.7 % (0.0-2.0); EOSINOPHILS # (AUTO) 0.2 K/uL (0.0-0.7); EOSINOPHILS % (AUTO) 3.9 % (0.0-6.0); HEMATOCRIT 32 % (33-45); HEMOGLOBIN 10.2 g/dL (11.5-14.8); LYMPHOCYTES # (AUTO) 1.2 K/uL (0.8-4.8); LYMPHOCYTES % (AUTO) 20.3 % (20.0-44.0); MEAN CORPUSCULAR HEMOGLOBIN 26 PG (26.0-33.0); MEAN CORPUSCULAR HGB CONC 32 g/dl (31.0-36.0); MEAN CORPUSCULAR VOLUME 82 fL (82-100); MONOCYTES # (AUTO) 0.6 K/uL (0.1-1.30); MONOCYTES % (AUTO) 9.4 % (2.0-12.0); NEUTROPHILS % (AUTO) 65.7 % (43.0-81.0); PLATELET COUNT (AUTO) 166 K/uL (150-450); RED CELL DISTRIBUTION WIDTH 24.1 % (11.5-15.0); WHITE BLOOD COUNT (AUTO) 6.1 K/uL (4.3-11.0)
[2023-04-23 05:49] LABS: CALCIUM, SERUM 9.3 mg/dL (8.5-10.1); CARBON DIOXIDE 23 mmol/L (21-32); CHLORIDE 105 mmol/L (98-107); CREATININE 1.5 mg/dL (0.6-1.3); GLUCOSE 112 mg/dL (74-106); POTASSIUM 3.7 mmol/L (3.5-5.1); SODIUM SERUM 140 mmol/L (136-145); UREA NITROGEN, BLOOD 29 mg/dL (7-18)
[2023-04-23 07:00] VITALS: BP 146/72; TEMP 97.8; O2SAT 94
[2023-04-23] MEDS: PANTOPRAZOLE 40 MG TABLET.DR PO SCH (07:58)
[2023-04-23] MEDS: VANCOMYCIN 1.25 GM in IV D5W 250 ML IV SCH (07:58)
[2023-04-23] MEDS: HYDROCODONE/APAP 5/325MG TABLET PO PRN ×2 (08:10→13:12)
[2023-04-23] MEDS: PIPERACILLIN /TAZOBACTAM 3.375 G in IV D5W 100 ML IV SCH (10:12)
[2023-04-23] MEDS: FUROSEMIDE 20 MG/2 ML VIAL IV SCH (10:19)
[2023-04-23] MEDS: OXYBUTYNIN CHLORIDE 5 MG TABLET PO SCH (10:19)
[2023-04-23] MEDS: METOPROLOL SUCCINATE 25 MG TAB.SR.24H PO SCH (10:19)
[2023-04-23 10:20] VITALS: BP 146/72
[2023-04-23] MEDS: AMLODIPINE BESYLATE 10 MG TABLET PO SCH (10:20)
[2023-04-23] MEDS: POTASSIUM CHLORIDE 20 MEQ TAB.PRT.SR PO SCH (10:20)
[2023-04-23] MEDS: DOCUSATE SODIUM 100 MG CAPSULE PO SCH (10:21)
[2023-04-23] MEDS: ESCITALOPRAM OXALATE (10 MG) 10 MG TABLET PO SCH (10:21)
[2023-04-23] MEDS: Fluoxetine 10 mg capsule PO SCH (10:21)
[2023-04-23] MEDS: MESALAMINE 400 MG CAP PO SCH (10:21)
[2023-04-23] MEDS: ropiniROLE 0.5 MG TABLET PO SCH ×2 (10:21→13:10)
[2023-04-23] MEDS: HEPARIN SODIUM, PORCINE 5000 UNITS/1 ML VIAL SQ SCH (10:24)
[2023-04-23] MEDS: MAGNESIUM OXIDE 400 MG TABLET PO SCH (11:23)
[2023-04-23] MEDS ORDERED: PNEUMOCOCCAL 23-VAL P-SAC VAC 0.5 ML VIAL SQ ONE (12:30)
== END 2023-04-23 16:30 | disposition home health service (06) | DRG 291 ==
LOC: ER 21:13 → MED 04-20 01:20
PROVIDERS: ADMIT Internal Medicine; ATTEND Internal Medicine
PROC: 05H933Z Insertion of Infusion Device into Right Brachial Vein, Percutaneous Approach (ICD-10-PCS; principal; 2023-04-21)
DX: I13.0 Hypertensive heart and chronic kidney disease with heart failure and stage 1 through stage 4 chronic kidney disease, or unspecified chronic kidney disease (principal); E43 Unspecified severe protein-calorie malnutrition; N17.0 Acute kidney failure with tubular necrosis; I50.33 Acute on chronic diastolic (congestive) heart failure; L03.115 Cellulitis of right lower limb; K50.90 Crohn's disease, unspecified, without complications; Z68.41 Body mass index [BMI] 40.0-44.9, adult; E87.20 Acidosis, unspecified; L03.116 Cellulitis of left lower limb; N18.30 Chronic kidney disease, stage 3 unspecified; M79.7 Fibromyalgia; I25.10 Atherosclerotic heart disease of native coronary artery without angina pectoris; M19.90 Unspecified osteoarthritis, unspecified site; I48.91 Unspecified atrial fibrillation; G43.909 Migraine, unspecified, not intractable, without status migrainosus; Z91.018 Allergy to other foods; Z79.899 Other long term (current) drug therapy; F32.9 Major depressive disorder, single episode, unspecified; E66.01 Morbid (severe) obesity due to excess calories; E88.09 Other disorders of plasma-protein metabolism, not elsewhere classified; K25.9 Gastric ulcer, unspecified as acute or chronic, without hemorrhage or perforation; K29.70 Gastritis, unspecified, without bleeding; K31.84 Gastroparesis; Z80.9 Family history of malignant neoplasm, unspecified; Z82.49 Family history of ischemic heart disease and other diseases of the circulatory system; Z86.79 Personal history of other diseases of the circulatory system; Z98.890 Other specified postprocedural states; J44.9 Chronic obstructive pulmonary disease, unspecified; I73.9 Peripheral vascular disease, unspecified; Z87.11 Personal history of peptic ulcer disease; G25.81 Restless legs syndrome; E78.5 Hyperlipidemia, unspecified; D64.9 Anemia, unspecified; I70.0 Atherosclerosis of aorta; Z87.891 Personal history of nicotine dependence; N26.1 Atrophy of kidney (terminal); N28.1 Cyst of kidney, acquired; N32.9 Bladder disorder, unspecified
CPT/HCPCS: 36410; 36415; 71045-TC; 76770-TC; 80048-TC; 80053-TC; 80076-TC; 80202-TC; 81001; 82272-TC; 82570-TC; 83605-TC; 83735-TC; 83880; 84300-TC; 84443-TC; 85025-TC; 85652-TC; 85730-TC; 86140-TC; 87040-TC; 87081-TC; 87086-TC; 90732; 93970-TC; A4223; A6403; G0378; J0692; J1644; J1940; J2270; J2543; J3370; J7060

== ENCOUNTER 2023-11-08 15:56 | Emergency (ER) | payer MEDICARE, OTHER ==
[~2023-11-08] VITALS: Ht 162.6 cm; Wt 119.7 kg
[~2023-11-08 15:56] MED LIST changes: +ALBU18HF2 IH; -ESCI10TA PO; -FURO-144 PO; -POTA-10 PO
[2023-11-08] MEDS ORDERED: GUAIFENESIN/D-METHORPHAN HB 5 ML UDC ONE (17:15)
[2023-11-08] MEDS: GUAIFENESIN/D-METHORPHAN HB 5 ML UDC PO ONE (17:18)
[2023-11-08 17:29] LABS: BASOPHILS # (AUTO) 0.1 K/uL (0.0-0.2); BASOPHILS % (AUTO) 0.8 % (0.0-2.0); EOSINOPHILS # (AUTO) 0.8 K/uL (0.0-0.7); EOSINOPHILS % (AUTO) 7.8 % (0.0-6.0); HEMATOCRIT 36 % (33-45); HEMOGLOBIN 11.6 g/dL (11.5-14.8); LYMPHOCYTES % (AUTO) 18.8 % (20.0-44.0); MEAN CORPUSCULAR HEMOGLOBIN 29 PG (26.0-33.0); MEAN CORPUSCULAR HGB CONC 32 g/dl (31.0-36.0); MEAN CORPUSCULAR VOLUME 91 fL (82-100); MONOCYTES % (AUTO) 9.4 % (2.0-12.0); NEUTROPHILS # (AUTO) 6.6 K/uL (1.8-8.9); NEUTROPHILS % (AUTO) 63.2 % (43.0-81.0); PLATELET COUNT (AUTO) 252 K/uL (150-450); RED BLOOD CELL COUNT(AUTO) 3.99 MIL/uL (4.0-5.2); RED CELL DISTRIBUTION WIDTH 15.1 % (11.5-15.0); WHITE BLOOD COUNT (AUTO) 10.4 K/uL (4.3-11.0)
[2023-11-08 17:37] LABS: CARBON DIOXIDE 24 mmol/L (21-32); CHLORIDE 101 mmol/L (98-107); CREATININE 1.8 mg/dL (0.6-1.3); GLUCOSE 133 mg/dL (74-106); POTASSIUM 4.1 mmol/L (3.5-5.1); SODIUM SERUM 136 mmol/L (136-145); UREA NITROGEN, BLOOD 35 mg/dL (7-18)
[2023-11-08 18:22] VITALS: TEMP 98.4
[2023-11-08] MEDS ORDERED: BENZ-13 PO (18:57)
[2023-11-08 20:00] VITALS: BP 139/79; O2SAT 99
== END 2023-11-08 20:01 ==
LOC: ER 16:16
DX: R05.9 Cough, unspecified (principal); I10 Essential (primary) hypertension; M79.7 Fibromyalgia; G43.909 Migraine, unspecified, not intractable, without status migrainosus; M19.90 Unspecified osteoarthritis, unspecified site; Z91.030 Bee allergy status; Z91.018 Allergy to other foods; Z79.899 Other long term (current) drug therapy; Z20.822 Contact with and (suspected) exposure to COVID-19
CPT/HCPCS: 36415; 71045-TC; 80048-TC; 85025-TC

== ENCOUNTER 2024-03-03 19:41 | Emergency (ER) | payer OTHER, MEDICAID ==
[~2024-03-03] VITALS: Ht 162.6 cm; Wt 119.7 kg
[~2024-03-03 19:41] MED LIST changes: +BENZ-13 PO
[2024-03-03] MEDS ORDERED: CLINDAMYCIN HCL 150 MG CAPSULE ONE (20:17)
[2024-03-03] MEDS ORDERED: CLIN300C12 PO (20:26)
[2024-03-03] MEDS: CLINDAMYCIN HCL 150 MG CAPSULE PO ONE (20:27)
[2024-03-03 21:55] VITALS: BP 171/101; TEMP 98.6; O2SAT 95
== END 2024-03-03 22:01 | disposition home or self-care (01) ==
LOC: ER 19:46
DX: L03.116 Cellulitis of left lower limb (principal); L03.115 Cellulitis of right lower limb; G43.909 Migraine, unspecified, not intractable, without status migrainosus; I10 Essential (primary) hypertension; Z79.899 Other long term (current) drug therapy; Z88.1 Allergy status to other antibiotic agents

== ENCOUNTER 2024-04-03 17:04 | Inpatient (IN) | payer OTHER ==
[~2024-04-03] VITALS: Ht 152.4 cm; Wt 124.3 kg
[~2024-04-03 17:04] MED LIST changes: +CLIN300C12 PO
[2024-04-03] MEDS ORDERED: ALBUTEROL FS 2.5 MG/3 ML VIAL.NEB ONE (17:41)
[2024-04-03] MEDS ORDERED: IPRATROPIUM NEB FS 0.5 MG/2.5 ML AMPUL.NEB ONE (17:41)
[2024-04-03 17:48] VITALS: O2SAT 92
[2024-04-03] MEDS: ALBUTEROL FS 2.5 MG/3 ML VIAL.NEB NEB ONE (17:48)
[2024-04-03] MEDS: IPRATROPIUM NEB FS 0.5 MG/2.5 ML AMPUL.NEB NEB ONE (17:48)
[2024-04-03 17:58] VITALS: O2SAT 97
[2024-04-03 17:59] VITALS: O2SAT 97
[2024-04-03 18:08] VITALS: O2SAT 97
[2024-04-03] MEDS ORDERED: BUDE10.2 IH (18:24)
[2024-04-03] MEDS ORDERED: FLUT16SP NS (18:24)
[2024-04-03] MEDS ORDERED: POTA-88 PO (18:24)
[2024-04-03] MEDS ORDERED: DICY20TA11 PO (18:24)
[2024-04-03] MEDS ORDERED: DICL100G26 TP (18:24)
[2024-04-03] MEDS ORDERED: NYST30CR2 TP (18:24)
[2024-04-03] MEDS ORDERED: FURO-144 PO (18:24)
[2024-04-03] MEDS ORDERED: PRED10TA PO (18:24)
[2024-04-03] MEDS ORDERED: CONGESTION PO (18:24)
[2024-04-03 18:25] LABS: BASOPHILS # (AUTO) 0.1 K/uL (0.0-0.2); BASOPHILS % (AUTO) 0.4 % (0.0-2.0); EOSINOPHILS # (AUTO) 0.1 K/uL (0.0-0.7); EOSINOPHILS % (AUTO) 0.7 % (0.0-6.0); HEMATOCRIT 31 % (33-45); HEMOGLOBIN 10.1 g/dL (11.5-14.8); LYMPHOCYTES # (AUTO) 1.8 K/uL (0.8-4.8); LYMPHOCYTES % (AUTO) 10.1 % (20.0-44.0); MEAN CORPUSCULAR HEMOGLOBIN 29 PG (26.0-33.0); MEAN CORPUSCULAR HGB CONC 32 g/dl (31.0-36.0); MEAN CORPUSCULAR VOLUME 88 fL (82-100); MONOCYTES # (AUTO) 1.2 K/uL (0.1-1.30); MONOCYTES % (AUTO) 6.4 % (2.0-12.0); NEUTROPHILS # (AUTO) 15.1 K/uL (1.8-8.9); NEUTROPHILS % (AUTO) 82.4 % (43.0-81.0); PLATELET COUNT (AUTO) 168 K/uL (150-450); RED BLOOD CELL COUNT(AUTO) 3.54 MIL/uL (4.0-5.2); RED CELL DISTRIBUTION WIDTH 16.9 % (11.5-15.0); WHITE BLOOD COUNT (AUTO) 18.3 K/uL (4.3-11.0)
[2024-04-03 18:37] LABS: CARBON DIOXIDE 24 mmol/L (21-32); CHLORIDE 105 mmol/L (98-107); CREATININE 1.5 mg/dL (0.6-1.3); GLUCOSE 175 mg/dL (74-106); SODIUM SERUM 139 mmol/L (136-145); UREA NITROGEN, BLOOD 34 mg/dL (7-18)
[2024-04-03 18:51] LABS: ALANINE AMINOTRANSFERASE 26 U/L (12-78); ALBUMIN 2.1 g/dL (3.4-5.0); ALKALINE PHOSPHATASE 95 U/L (46-116); ASPARTATE AMINOTRANSFERASE < 5 U/L (15-37); BILIRUBIN,DIRECT 0.1 mg/dL (0.0-0.2); BILIRUBIN,TOTAL 0.2 mg/dL (0.2-1.0); NT-PRO BNP 845 pg/mL (0-125); TOTAL PROTEIN, SERUM 6.5 g/dL (6.4-8.2)
[2024-04-03] MEDS: VANCOMYCIN 1 GM in IV D5W 250 ML IV ONE (19:00)
[2024-04-03] MEDS: CEFEPIME 1 GM in IV D5W 50 ML IV ONE (19:00)
[2024-04-03] MEDS ORDERED: CEFEPIME 1 GM VIAL ONE (19:14)
[2024-04-03] MEDS ORDERED: VANCOMYCIN 1 GM /D5W 250 ML PB IV ONE ×2 (19:49→19:51)
[2024-04-03] MEDS: ACETAMINOPHEN ES 500 MG TABLET PO ONE (19:53)
[2024-04-03 20:15] LABS: APPEARANCE,URINE CLEAR (CLEAR); BILIRUBIN,URINE NEGATIVE (NEGATIVE); BLOOD, URINE NEGATIVE Ery/uL (NEGATIVE); COLOR,URINE YELLOW (YELLOW); KETONES,URINE NEGATIVE (NEGATIVE); LEUKOCYTE ESTERASE ,URINE NEGATIVE (NEGATIVE); NITRITE, URINE NEGATIVE (NEGATIVE); PROTEIN,URINE 3+ mg/dl (NEGATIVE); UGLUCOSE TRACE mg/dL (NEGATIVE); UROBILINOGEN,URINE 0.2 EU/dL (0.2)
[2024-04-03] MEDS ORDERED: ONDANSETRON HCL/PF 4 MG/2 ML VIAL ONE (20:25)
[2024-04-03] MEDS: ONDANSETRON HCL/PF - ER 4 MG/2 ML VIAL IV ONE (20:27)
[2024-04-03 22:11] LABS: ADD URINE CULTURE NO; BACTERIA,URINE 1+ /HPF (None Seen); MUCUS,URINE Rare /LPF (None Seen); SQUAMOUS EPITHELIAL CELL,UR 0-2 /HPF (None Seen); WBC,URINE 0-2 /HPF (0-3)
[2024-04-04 01:28] LABS: ABG BASE EXCESS -2.9 mmol/L (-2.0-2.0); ABG OXYGEN SATURATION 96.3 % (92.0-98.5); ABG PCO2 37.5 mmHg (35.0-45.0); ABG PH 7.382 (7.350-7.450); ABG PO2 87.1 mmHg (75.0-100.0); ABG TOTAL HEMOGLOBIN 11.3 G/dL (12.0-16.0); COHb 0.3 % (0.5-1.5); MetHb 0.1 % (0.0-1.5); O2Hb 95.9 % (94.0-97.0); SITE, ABG Left Radial; VENT MODE, BG 3L NASAL CANNULA
[2024-04-04 02:43] LABS: BAND % (MANUAL) 5 % (0.0-5.0); LYMPHOCYTES % (MANUAL) 14 % (16-48); MONOCYTES % (MANUAL) 3 % (0-11.0); MYELOCYTES % 4 % (0-0); NEUTROPHILS % (MANUAL) 74 (42-76); PLATELET ESTIMATE ADEQUATE
[2024-04-04] MEDS ORDERED: IPRATROPIUM NEB FS 0.5 MG/2.5 ML AMPUL.NEB NEB PRN (10:00)
[2024-04-04] MEDS ORDERED: BISACODYL SUPP (10 MG) 10 MG/SUPP.RECT SUPP.RECT RC PRN (10:00)
[2024-04-04] MEDS ORDERED: ALBUTEROL FS 2.5 MG/0.5 ML VIAL.NEB NEB PRN (10:00)
[2024-04-04 10:11] LABS: BASOPHILS # (AUTO) 0.1 K/uL (0.0-0.2); BASOPHILS % (AUTO) 0.3 % (0.0-2.0); EOSINOPHILS # (AUTO) 0.2 K/uL (0.0-0.7); EOSINOPHILS % (AUTO) 0.7 % (0.0-6.0); HEMATOCRIT 30 % (33-45); HEMOGLOBIN 9.4 g/dL (11.5-14.8); LYMPHOCYTES # (AUTO) 1.6 K/uL (0.8-4.8); MEAN CORPUSCULAR HEMOGLOBIN 28 PG (26.0-33.0); MEAN CORPUSCULAR HGB CONC 32 g/dl (31.0-36.0); MEAN CORPUSCULAR VOLUME 89 fL (82-100); MONOCYTES # (AUTO) 1.2 K/uL (0.1-1.30); MONOCYTES % (AUTO) 5.3 % (2.0-12.0); NEUTROPHILS % (AUTO) 86.7 % (43.0-81.0); PLATELET COUNT (AUTO) 146 K/uL (150-450); RED BLOOD CELL COUNT(AUTO) 3.34 MIL/uL (4.0-5.2); RED CELL DISTRIBUTION WIDTH 17.1 % (11.5-15.0)
[2024-04-04 10:35] LABS: CALCIUM, SERUM 7.9 mg/dL (8.5-10.1); CARBON DIOXIDE 22 mmol/L (21-32); CHLORIDE 107 mmol/L (98-107); CREATININE 1.7 mg/dL (0.6-1.3); GLUCOSE 177 mg/dL (74-106); POTASSIUM 3.9 mmol/L (3.5-5.1); SODIUM SERUM 143 mmol/L (136-145); UREA NITROGEN, BLOOD 33 mg/dL (7-18)
[2024-04-04 10:46] LABS: LACTIC ACID 1.5 mmol/L (0.4-2.0)
[2024-04-04] MEDS: methylPREDNISolone SOD SUCC 40 MG/ML VIAL IV SCH (10:56)
[2024-04-04] MEDS: AMLODIPINE BESYLATE 10 MG TABLET PO SCH (10:57)
[2024-04-04] MEDS: ACETAMINOPHEN 325 MG TABLET PO PRN (10:57)
[2024-04-04] MEDS: CEFTRIAXONE 1 G in IV D5W 50 ML IV SCH (11:21)
[2024-04-04] MEDS: ENOXAPARIN SODIUM 30 MG/0.3 ML DISP.SYRIN SQ SCH (11:37)
[2024-04-04] MEDS: ZITHROMAX 500 MG/250 ML D5W IV SCH (11:50)
[2024-04-04 13:19] VITALS: O2SAT 95
[2024-04-04] MEDS: IPRATROPIUM NEB FS 0.5 MG/2.5 ML AMPUL.NEB NEB SCH (13:19)
[2024-04-04] MEDS: ALBUTEROL FS 2.5 MG/0.5 ML VIAL.NEB NEB SCH (13:20)
[2024-04-04 13:36] VITALS: O2SAT 98
[2024-04-04] MEDS: ropiniROLE 0.5 MG TABLET PO SCH (13:42)
[2024-04-04] MEDS: TRAMADOL HCL 50 MG TABLET PO SCH (13:42)
[2024-04-04] MEDS: MESALAMINE 400 MG CAP PO SCH (13:48)
[2024-04-04 15:59] VITALS: BP 158/81; TEMP 97.7; O2SAT 95
[2024-04-04] MEDS ORDERED: MESALAMINE 800 MG PO SCH (17:00)
[2024-04-04 17:11] LABS: ANISOCYTOSIS 1+; LYMPHOCYTES % (MANUAL) 8 % (16-48); MONOCYTES % (MANUAL) 4 % (0-11.0); NEUTROPHILS % (MANUAL) 88 (42-76); PLATELET ESTIMATE ADEQUATE
[2024-04-04] MEDS: FERROUS SULFATE (325 MG) 325 MG/TAB TABLET PO SCH (17:36)
[2024-04-04] MEDS: risperiDONE 0.25 MG TABLET PO SCH (17:38)
[2024-04-04] MEDS: OXYBUTYNIN CHLORIDE 5 MG TABLET PO SCH (17:38)
[2024-04-04] MEDS: PANTOPRAZOLE 40 MG TABLET.DR PO SCH (17:38)
[2024-04-04] MEDS: ZOSYN IVPB 2.25 G in IV D5W 50ml IV SCH (17:39)
[2024-04-04 19:58] VITALS: O2SAT 96
[2024-04-04 20:00] VITALS: BP 166/87; TEMP 98.4; O2SAT 97
[2024-04-04 20:22] VITALS: O2SAT 96; O2SAT 98
[2024-04-04] MEDS ORDERED: PIPERACILLIN /TAZOBACTAM 2.25 G in IV D5W 50 ML IV SCH (21:00)
[2024-04-04] MEDS: DIVALPROEX SODIUM 500 MG TABLET.DR PO SCH (21:22)
[2024-04-04] MEDS: QUETIAPINE FUMARATE 100 MG TABLET PO SCH (21:23)
[2024-04-05] VITALS (14 sets, daily range): BP systolic 146–171; BP diastolic 78–98; TEMP 97.9–98.4; O2SAT 93–98
[2024-04-05 06:42] LABS: BASOPHILS % (AUTO) 0.1 % (0.0-2.0); EOSINOPHILS % (AUTO) 0.1 % (0.0-6.0); HEMATOCRIT 30 % (33-45); HEMOGLOBIN 9.7 g/dL (11.5-14.8); LYMPHOCYTES # (AUTO) 0.7 K/uL (0.8-4.8); LYMPHOCYTES % (AUTO) 4.4 % (20.0-44.0); MEAN CORPUSCULAR HEMOGLOBIN 28 PG (26.0-33.0); MEAN CORPUSCULAR HGB CONC 32 g/dl (31.0-36.0); MEAN CORPUSCULAR VOLUME 89 fL (82-100); MONOCYTES # (AUTO) 0.2 K/uL (0.1-1.30); MONOCYTES % (AUTO) 1.6 % (2.0-12.0); NEUTROPHILS # (AUTO) 13.9 K/uL (1.8-8.9); NEUTROPHILS % (AUTO) 93.8 % (43.0-81.0); PLATELET COUNT (AUTO) 147 K/uL (150-450); RED BLOOD CELL COUNT(AUTO) 3.41 MIL/uL (4.0-5.2); RED CELL DISTRIBUTION WIDTH 16.9 % (11.5-15.0); WHITE BLOOD COUNT (AUTO) 14.8 K/uL (4.3-11.0)
[2024-04-05 06:59] LABS: CALCIUM, SERUM 8.5 mg/dL (8.5-10.1); CARBON DIOXIDE 23 mmol/L (21-32); CHLORIDE 106 mmol/L (98-107); CREATININE 1.5 mg/dL (0.6-1.3); GLUCOSE 183 mg/dL (74-106); POTASSIUM 4.6 mmol/L (3.5-5.1); SODIUM SERUM 139 mmol/L (136-145); UREA NITROGEN, BLOOD 28 mg/dL (7-18)
[2024-04-05 07:40] LABS: LACTIC ACID 1.1 mmol/L (0.4-2.0)
[2024-04-05] MEDS: Fluoxetine 10 mg capsule PO SCH (08:55)
[2024-04-05] MEDS: DOCUSATE SODIUM 100 MG CAPSULE PO SCH (08:57)
[2024-04-05] MEDS: METOPROLOL SUCCINATE 50 MG TAB.SR.24H PO SCH (08:57)
[2024-04-05] MEDS: FUROSEMIDE 40 MG TABLET PO SCH (08:57)
[2024-04-05] MEDS: MAGNESIUM OXIDE 400 MG TABLET PO SCH (08:58)
[2024-04-05 10:10] LABS: NEUTROPHILS % (MANUAL) 94 (42-76)
[2024-04-05 10:11] LABS: ANISOCYTOSIS 1+; BASOPHILS % (MANUAL) 0 % (0.0-2.0); EOSINOPHILS % (MANUAL) 0 % (0-4); LYMPHOCYTES % (MANUAL) 4 % (16-48); MONOCYTES % (MANUAL) 2 % (0-11.0); PLATELET ESTIMATE DECREASED
[2024-04-05] MEDS: methylPREDNISolone SOD SUCC 40 MG/ML VIAL IV SCH (17:26)
[2024-04-06] VITALS (8 sets, daily range): BP systolic 152–174; BP diastolic 83–94; TEMP 97.5–98.6; O2SAT 93–96
[2024-04-06 06:44] LABS: BASOPHILS % (AUTO) 0.1 % (0.0-2.0); HEMATOCRIT 30 % (33-45); HEMOGLOBIN 9.6 g/dL (11.5-14.8); LYMPHOCYTES # (AUTO) 0.7 K/uL (0.8-4.8); LYMPHOCYTES % (AUTO) 5.3 % (20.0-44.0); MEAN CORPUSCULAR HEMOGLOBIN 28 PG (26.0-33.0); MEAN CORPUSCULAR HGB CONC 32 g/dl (31.0-36.0); MEAN CORPUSCULAR VOLUME 90 fL (82-100); MONOCYTES # (AUTO) 0.5 K/uL (0.1-1.30); MONOCYTES % (AUTO) 3.7 % (2.0-12.0); NEUTROPHILS # (AUTO) 12.6 K/uL (1.8-8.9); NEUTROPHILS % (AUTO) 90.9 % (43.0-81.0); PLATELET COUNT (AUTO) 155 K/uL (150-450); RED BLOOD CELL COUNT(AUTO) 3.38 MIL/uL (4.0-5.2); RED CELL DISTRIBUTION WIDTH 16.4 % (11.5-15.0); WHITE BLOOD COUNT (AUTO) 13.8 K/uL (4.3-11.0)
[2024-04-06 07:08] LABS: CARBON DIOXIDE 23 mmol/L (21-32); CHLORIDE 102 mmol/L (98-107); CREATININE 1.5 mg/dL (0.6-1.3); GLUCOSE 218 mg/dL (74-106); POTASSIUM 4.5 mmol/L (3.5-5.1); SODIUM SERUM 134 mmol/L (136-145); UREA NITROGEN, BLOOD 32 mg/dL (7-18)
[2024-04-06] MEDS ORDERED: CEPH-570 PO (08:51)
[2024-04-06] MEDS ORDERED: METOPROLOL SUCCINATE 50 MG TAB.SR.24H PO SCH (09:00)
[2024-04-06] MEDS: METOPROLOL SUCCINATE 50 MG TAB.SR.24H PO SCH (09:16)
[2024-04-06] MEDS: CEPHALEXIN MONOHYDRATE 250 MG CAPSULE PO SCH (12:37)
== END 2024-04-06 13:40 | DRG 871 ==
LOC: ER 17:23 → TRANSITION 04-04 07:37 → TELE 04-04 07:56
PROVIDERS: ADMIT Internal Medicine; ATTEND Internal Medicine
DX: A41.9 Sepsis, unspecified organism (principal); J96.00 Acute respiratory failure, unspecified whether with hypoxia or hypercapnia; J44.1 Chronic obstructive pulmonary disease with (acute) exacerbation; K50.90 Crohn's disease, unspecified, without complications; L03.116 Cellulitis of left lower limb; L03.115 Cellulitis of right lower limb; Z68.43 Body mass index [BMI] 50.0-59.9, adult; N18.30 Chronic kidney disease, stage 3 unspecified; M79.7 Fibromyalgia; E78.5 Hyperlipidemia, unspecified; F41.9 Anxiety disorder, unspecified; M19.90 Unspecified osteoarthritis, unspecified site; I87.2 Venous insufficiency (chronic) (peripheral); I73.9 Peripheral vascular disease, unspecified; E66.01 Morbid (severe) obesity due to excess calories; F32.9 Major depressive disorder, single episode, unspecified; R60.9 Edema, unspecified; G47.33 Obstructive sleep apnea (adult) (pediatric); I12.9 Hypertensive chronic kidney disease with stage 1 through stage 4 chronic kidney disease, or unspecified chronic kidney disease; Z87.891 Personal history of nicotine dependence
CPT/HCPCS: 36415; 36600; 71045-TC; 71250-TC; 80048-TC; 80076-TC; 81001; 82803-TC; 83605-TC; 83880; 84443-TC; 84484-TC; 85025-TC; 85378-TC; 87040-TC; 87086-TC; 93970-TC; 94761-TC; 94799-TC; 97110-TC; 97530-TC; A4223; G0378; J0456; J0692; J0696; J1650; J2405; J2543; J2919; J3370; J7060

== ENCOUNTER 2024-06-17 19:12 | Emergency (ER) | payer OTHER ==
[~2024-06-17] VITALS: Ht 160 cm; Wt 127.0 kg
[~2024-06-17 19:12] MED LIST changes: -BENZ-13 PO; +BUDE10.2 IH; +CEPH-570 PO; -CLIN300C12 PO; +CONGESTION PO; +DICL100G26 TP; +DICY20TA11 PO; +FLUT16SP NS; -FLUTICASONE PROP BNOSTRILS; +FURO-144 PO; -MAGN400O6 PO; -METO-357 PO; +NYST30CR2 TP; -ONDA-97 PO; +POTA-88 PO; +PRED10TA PO; -TRIA5PAS5 TP
[2024-06-17 19:51] LABS: BASOPHILS # (AUTO) 0.1 K/uL (0.0-0.2); BASOPHILS % (AUTO) 0.8 % (0.0-2.0); EOSINOPHILS # (AUTO) 0.3 K/uL (0.0-0.7); EOSINOPHILS % (AUTO) 1.6 % (0.0-6.0); HEMATOCRIT 33 % (33-45); HEMOGLOBIN 10.7 g/dL (11.5-14.8); LYMPHOCYTES # (AUTO) 2.4 K/uL (0.8-4.8); LYMPHOCYTES % (AUTO) 14.7 % (20.0-44.0); MEAN CORPUSCULAR HEMOGLOBIN 29 PG (26.0-33.0); MEAN CORPUSCULAR HGB CONC 32 g/dl (31.0-36.0); MEAN CORPUSCULAR VOLUME 91 fL (82-100); MONOCYTES # (AUTO) 1.1 K/uL (0.1-1.30); MONOCYTES % (AUTO) 6.7 % (2.0-12.0); NEUTROPHILS # (AUTO) 12.4 K/uL (1.8-8.9); NEUTROPHILS % (AUTO) 76.2 % (43.0-81.0); PLATELET COUNT (AUTO) 229 K/uL (150-450); RED BLOOD CELL COUNT(AUTO) 3.65 MIL/uL (4.0-5.2); RED CELL DISTRIBUTION WIDTH 17.4 % (11.5-15.0); WHITE BLOOD COUNT (AUTO) 16.3 K/uL (4.3-11.0)
[2024-06-17 20:03] LABS: CALCIUM, SERUM 8.8 mg/dL (8.5-10.1); CARBON DIOXIDE 28 mmol/L (21-32); CHLORIDE 93 mmol/L (98-107); CREATININE 2.5 mg/dL (0.6-1.3); GLUCOSE 317 mg/dL (74-106); POTASSIUM 2.9 mmol/L (3.5-5.1); SODIUM SERUM 131 mmol/L (136-145); UREA NITROGEN, BLOOD 52 mg/dL (7-18)
[2024-06-17 20:15] LABS: NT-PRO BNP 626 pg/mL (0-125)
[2024-06-17 20:44] VITALS: TEMP 98.5
[2024-06-17] MEDS ORDERED: CEFTRIAXONE 1GM BAG (ER ONLY) 50 ML IV ONE (21:12)
[2024-06-17] MEDS ORDERED: AZITHROMYCIN 500 MG VIAL ONE (21:12)
[2024-06-17] MEDS: CEFTRIAXONE 1 G in IV D5W 50 ML IV ONE (21:21)
[2024-06-17] MEDS: AZITHROMYCIN 500 MG in IV D5W 250 ML IV ONE (21:21)
[2024-06-17] MEDS: POTASSIUM CHLORIDE 20 MEQ TAB.PRT.SR PO ONE (21:40)
[2024-06-17 21:47] VITALS: O2SAT 100
[2024-06-17 21:47] LABS: ANISOCYTOSIS 1+; BAND % (MANUAL) 4 % (0.0-5.0); EOSINOPHILS % (MANUAL) 2 % (0-4); LYMPHOCYTES % (MANUAL) 15 % (16-48); MONOCYTES % (MANUAL) 10 % (0-11.0); NEUTROPHILS % (MANUAL) 69 (42-76); PLATELET ESTIMATE ADEQUATE
[2024-06-17] MEDS: IPRATROPIUM NEB FS 0.5 MG/2.5 ML AMPUL.NEB NEB ONE (21:47)
[2024-06-17] MEDS: ALBUTEROL FS 2.5 MG/3 ML VIAL.NEB NEB ONE (21:47)
[2024-06-17] MEDS ORDERED: ALBUTEROL FS 2.5 MG/3 ML VIAL.NEB ONE (21:50)
[2024-06-17] MEDS ORDERED: IPRATROPIUM NEB FS 0.5 MG/2.5 ML AMPUL.NEB ONE (21:50)
[2024-06-17] MEDS ORDERED: POTASSIUM CHLORIDE 20 MEQ TAB.PRT.SR PO ONE (22:17)
[2024-06-17 23:00] VITALS: BP 158/71
[2024-06-17 23:42] VITALS: O2SAT 100
== END 2024-06-18 01:51 | disposition short-term general hospital (02) ==
LOC: ER 19:22
DX: J45.909 Unspecified asthma, uncomplicated (principal); R65.10 Systemic inflammatory response syndrome (SIRS) of non-infectious origin without acute organ dysfunction; D72.829 Elevated white blood cell count, unspecified; N28.9 Disorder of kidney and ureter, unspecified; G43.909 Migraine, unspecified, not intractable, without status migrainosus; F29 Unspecified psychosis not due to a substance or known physiological condition; E87.6 Hypokalemia; I10 Essential (primary) hypertension; M19.90 Unspecified osteoarthritis, unspecified site; M79.7 Fibromyalgia; R73.9 Hyperglycemia, unspecified; K50.90 Crohn's disease, unspecified, without complications; Z79.51 Long term (current) use of inhaled steroids; Z79.899 Other long term (current) drug therapy; Z91.030 Bee allergy status; Z86.79 Personal history of other diseases of the circulatory system; Z87.448 Personal history of other diseases of urinary system; Z87.42 Personal history of other diseases of the female genital tract; Z91.018 Allergy to other foods; Z20.822 Contact with and (suspected) exposure to COVID-19
CPT/HCPCS: 36415; 71045-TC; 80048-TC; 83605-TC; 83880; 84484-TC; 85025-TC; 87040-TC; J0456; J0696; J7060

== ENCOUNTER 2024-08-03 14:31 | Inpatient (IN) | payer OTHER ==
[~2024-08-03] VITALS: Ht 160 cm; Wt 115.7 kg
[2024-08-03 15:13] LABS: BASOPHILS % (AUTO) 0.2 % (0.0-2.0); EOSINOPHILS # (AUTO) 0.6 K/uL (0.0-0.7); EOSINOPHILS % (AUTO) 4.5 % (0.0-6.0); HEMATOCRIT 29 % (33-45); HEMOGLOBIN 9.7 g/dL (11.5-14.8); LYMPHOCYTES # (AUTO) 1.8 K/uL (0.8-4.8); LYMPHOCYTES % (AUTO) 12.8 % (20.0-44.0); MEAN CORPUSCULAR HEMOGLOBIN 29 PG (26.0-33.0); MEAN CORPUSCULAR HGB CONC 34 g/dl (31.0-36.0); MEAN CORPUSCULAR VOLUME 87 fL (82-100); MONOCYTES # (AUTO) 0.8 K/uL (0.1-1.30); MONOCYTES % (AUTO) 5.6 % (2.0-12.0); NEUTROPHILS # (AUTO) 10.7 K/uL (1.8-8.9); NEUTROPHILS % (AUTO) 76.9 % (43.0-81.0); PLATELET COUNT (AUTO) 271 K/uL (150-450); RED BLOOD CELL COUNT(AUTO) 3.33 MIL/uL (4.0-5.2); RED CELL DISTRIBUTION WIDTH 16.9 % (11.5-15.0); WHITE BLOOD COUNT (AUTO) 13.9 K/uL (4.3-11.0)
[2024-08-03 15:21] LABS: CALCIUM, SERUM 7.6 mg/dL (8.5-10.1); CARBON DIOXIDE 28 mmol/L (21-32); CHLORIDE 96 mmol/L (98-107); CREATININE 2.3 mg/dL (0.6-1.3); GLUCOSE 197 mg/dL (74-106); SODIUM SERUM 136 mmol/L (136-145); UREA NITROGEN, BLOOD 41 mg/dL (7-18)
[2024-08-03 15:24] LABS: INR 1.02 (0.91-1.10); PARTIAL THROMBOPLASTIN TIME 27.9 SEC (24.3-34.3); PROTHROMBIN TIME 10.8 SECS (9.2-11.1)
[2024-08-03 15:39] LABS: ALANINE AMINOTRANSFERASE 24 U/L (12-78); ALBUMIN 2.1 g/dL (3.4-5.0); ALKALINE PHOSPHATASE 103 U/L (46-116); ASPARTATE AMINOTRANSFERASE 16 U/L (15-37); BILIRUBIN,DIRECT 0.1 mg/dL (0.0-0.2); BILIRUBIN,TOTAL 0.2 mg/dL (0.2-1.0); NT-PRO BNP 997 pg/mL (0-125); TOTAL PROTEIN, SERUM 7.3 g/dL (6.4-8.2)
[2024-08-03 15:40] LABS: BAND % (MANUAL) 8 % (0.0-5.0); EOSINOPHILS % (MANUAL) 6 % (0-4); LYMPHOCYTES % (MANUAL) 9 % (16-48); MONOCYTES % (MANUAL) 6 % (0-11.0); MYELOCYTES % 3 % (0-0); NEUTROPHILS % (MANUAL) 68 (42-76); PLATELET ESTIMATE ADEQUATE; POTASSIUM 2.3 mmol/L (3.5-5.1)
[2024-08-03 15:41] LABS: ANISOCYTOSIS 1+
[2024-08-03] MEDS ORDERED: IPRATROPIUM NEB FS 0.5 MG/2.5 ML AMPUL.NEB ONE (15:41)
[2024-08-03] MEDS ORDERED: ALBUTEROL FS 2.5 MG/3 ML VIAL.NEB ONE (15:41)
[2024-08-03 15:45] VITALS: O2SAT 93
[2024-08-03] MEDS: IPRATROPIUM NEB FS 0.5 MG/2.5 ML AMPUL.NEB NEB ONE (15:48)
[2024-08-03] MEDS: ALBUTEROL FS 2.5 MG/3 ML VIAL.NEB CONTNEB ONE (15:48)
[2024-08-03 15:55] VITALS: O2SAT 93
[2024-08-03 15:59] VITALS: O2SAT 99
[2024-08-03 16:10] VITALS: O2SAT 99
[2024-08-03] MEDS ORDERED: POTASSIUM CHLORIDE 20 MEQ TAB.PRT.SR PO ONE (16:21)
[2024-08-03] MEDS: POTASSIUM CHLORIDE 20 MEQ TAB.PRT.SR PO ONE ×2 (16:24→16:26)
[2024-08-03] MEDS ORDERED: FUROSEMIDE 20 MG/2 ML VIAL ONE (16:44)
[2024-08-03] MEDS: FUROSEMIDE 20 MG/2 ML VIAL IV ONE (16:51)
[2024-08-03] MEDS ORDERED: LORA10TA7 PO (17:29)
[2024-08-03] MEDS ORDERED: FLUO10CA29 PO (17:29)
[2024-08-03] MEDS ORDERED: METO5TAB7 PO (17:29)
[2024-08-03] MEDS ORDERED: NA P133E RC (17:29)
[2024-08-03] MEDS ORDERED: CALC-494 PO (17:29)
[2024-08-03] MEDS ORDERED: MAG30ORA PO (17:29)
[2024-08-03] MEDS ORDERED: SENN8.6T19 PO (17:29)
[2024-08-03] MEDS ORDERED: LINA72CA PO (17:29)
[2024-08-03] MEDS ORDERED: INSU100I26 SQ (17:29)
[2024-08-03] MEDS ORDERED: INSU100I34 SQ ×2 (17:29)
[2024-08-03] MEDS ORDERED: MAGN400O6 PO (17:29)
[2024-08-03] MEDS ORDERED: ONDANSETRON HCL/PF 4 MG/2 ML VIAL IV PRN (19:30)
[2024-08-03 20:00] VITALS: BP 149/67; TEMP 98.5; O2SAT 95
[2024-08-04] VITALS (9 sets, daily range): BP systolic 121–160; BP diastolic 67–86; TEMP 98.2–99.1; O2SAT 94–100
[2024-08-04] MEDS: ENOXAPARIN SODIUM 30 MG/0.3 ML DISP.SYRIN SQ SCH (09:18)
[2024-08-04] MEDS ORDERED: OXYBUTYNIN CHLORIDE 5 MG TABLET PO PRN (09:30)
[2024-08-04] MEDS ORDERED: ALBUTEROL FS 2.5 MG/0.5 ML VIAL.NEB NEB PRN (10:00)
[2024-08-04] MEDS ORDERED: POTASSIUM CHLORIDE 20 MEQ TAB.PRT.SR PO SCH (10:00)
[2024-08-04] MEDS ORDERED: IPRATROPIUM NEB FS 0.5 MG/2.5 ML AMPUL.NEB NEB PRN (10:00)
[2024-08-04] MEDS ORDERED: ONDANSETRON HCL/PF 4 MG/2 ML VIAL IV PRN (10:30)
[2024-08-04] MEDS: Z GUARD REMEDY 4 OZ OINT TP SCH (10:59)
[2024-08-04] MEDS: methylPREDNISolone SOD SUCC 40 MG/ML VIAL IV SCH (11:00)
[2024-08-04] MEDS: MESALAMINE 400 MG CAP PO SCH (11:00)
[2024-08-04] MEDS: Fluoxetine 10 mg capsule PO SCH (11:00)
[2024-08-04] MEDS: PANTOPRAZOLE 40 MG TABLET.DR PO SCH (11:01)
[2024-08-04] MEDS: AMLODIPINE BESYLATE 10 MG TABLET PO SCH (11:01)
[2024-08-04] MEDS: ropiniROLE 0.5 MG TABLET PO SCH (11:02)
[2024-08-04 11:52] LABS: BASOPHILS % (AUTO) 0.2 % (0.0-2.0); EOSINOPHILS # (AUTO) 0.7 K/uL (0.0-0.7); EOSINOPHILS % (AUTO) 5.3 % (0.0-6.0); HEMATOCRIT 29 % (33-45); HEMOGLOBIN 9.4 g/dL (11.5-14.8); LYMPHOCYTES # (AUTO) 1.3 K/uL (0.8-4.8); LYMPHOCYTES % (AUTO) 9.4 % (20.0-44.0); MEAN CORPUSCULAR HEMOGLOBIN 29 PG (26.0-33.0); MEAN CORPUSCULAR HGB CONC 32 g/dl (31.0-36.0); MEAN CORPUSCULAR VOLUME 89 fL (82-100); MONOCYTES # (AUTO) 0.7 K/uL (0.1-1.30); MONOCYTES % (AUTO) 4.9 % (2.0-12.0); NEUTROPHILS # (AUTO) 11.4 K/uL (1.8-8.9); NEUTROPHILS % (AUTO) 80.2 % (43.0-81.0); PLATELET COUNT (AUTO) 277 K/uL (150-450); RED BLOOD CELL COUNT(AUTO) 3.26 MIL/uL (4.0-5.2); RED CELL DISTRIBUTION WIDTH 16.5 % (11.5-15.0); WHITE BLOOD COUNT (AUTO) 14.2 K/uL (4.3-11.0)
[2024-08-04 12:03] LABS: CALCIUM, SERUM 7.9 mg/dL (8.5-10.1); CARBON DIOXIDE 29 mmol/L (21-32); CHLORIDE 96 mmol/L (98-107); GLUCOSE 228 mg/dL (74-106); SODIUM SERUM 138 mmol/L (136-145); UREA NITROGEN, BLOOD 35 mg/dL (7-18)
[2024-08-04 12:17] LABS: POTASSIUM 2.4 mmol/L (3.5-5.1)
[2024-08-04 12:22] LABS: CHOLESTEROL 231 mg/dL (<200); HDL CHOLESTEROL 40 mg/dL (40-60); LDL 134 mg/dL (0-99); TRIGLYCERIDES 289 mg/dL (30-150)
[2024-08-04] MEDS: CEFTRIAXONE 1 G in IV D5W 50 ML IV SCH (12:41)
[2024-08-04] MEDS: POTASSIUM CHLORIDE 20 MEQ TAB.PRT.SR PO ONE ×3 (13:07→16:22)
[2024-08-04] MEDS: TRAMADOL HCL 50 MG TABLET PO SCH (13:12)
[2024-08-04] MEDS: ALBUTEROL FS 2.5 MG/0.5 ML VIAL.NEB NEB SCH (13:51)
[2024-08-04] MEDS: IPRATROPIUM NEB FS 0.5 MG/2.5 ML AMPUL.NEB NEB SCH (13:51)
[2024-08-04] MEDS ORDERED: ACETAMINOPHEN 325 MG TABLET PO PRN (16:00)
[2024-08-04] MEDS: CLOTRIMAZOLE/BETAMETASONE DIPROPIONATE 15 GM TUBE TP SCH (16:22)
[2024-08-04] MEDS ORDERED: DEXTROSE 50%-WATER 50 ML DISP.SYRIN IV PRN (16:30)
[2024-08-04] MEDS: INSULIN GLARGINE, 100 UNIT/ML CARTRIDGE SQ SCH (17:20)
[2024-08-04] MEDS: risperiDONE 0.25 MG TABLET PO SCH (17:21)
[2024-08-04] MEDS: BLOOD SUGAR DIAGNOSTIC 1 EACH STRIP VI SCH (17:22)
[2024-08-04] MEDS: INSULIN REGULAR, HUMAN 100 UNIT/ML 3 ML VIAL SQ PRN (17:22)
[2024-08-04] MEDS: DIVALPROEX SODIUM 500 MG TABLET.DR PO SCH (21:24)
[2024-08-04] MEDS: QUETIAPINE FUMARATE 100 MG TABLET PO SCH (21:25)
[2024-08-04] MEDS: *INSULIN REGULAR(HUMULIN R)HUM 100 UNIT/ML VIAL SQ PRN (23:02)
[2024-08-05] VITALS (15 sets, daily range): BP systolic 108–140; BP diastolic 68–91; TEMP 97.3–98.2; O2SAT 94–100
[2024-08-05 07:48] LABS: BASOPHILS % (AUTO) 0.2 % (0.0-2.0); EOSINOPHILS % (AUTO) 0.1 % (0.0-6.0); HEMATOCRIT 29 % (33-45); HEMOGLOBIN 9.3 g/dL (11.5-14.8); LYMPHOCYTES % (AUTO) 7.6 % (20.0-44.0); MEAN CORPUSCULAR HEMOGLOBIN 28 PG (26.0-33.0); MEAN CORPUSCULAR HGB CONC 32 g/dl (31.0-36.0); MEAN CORPUSCULAR VOLUME 88 fL (82-100); MONOCYTES # (AUTO) 0.3 K/uL (0.1-1.30); MONOCYTES % (AUTO) 2.5 % (2.0-12.0); NEUTROPHILS # (AUTO) 11.7 K/uL (1.8-8.9); NEUTROPHILS % (AUTO) 89.6 % (43.0-81.0); PLATELET COUNT (AUTO) 305 K/uL (150-450); RED BLOOD CELL COUNT(AUTO) 3.28 MIL/uL (4.0-5.2); RED CELL DISTRIBUTION WIDTH 16.5 % (11.5-15.0); WHITE BLOOD COUNT (AUTO) 13.1 K/uL (4.3-11.0)
[2024-08-05 07:57] LABS: ALANINE AMINOTRANSFERASE 22 U/L (12-78); ALBUMIN 1.9 g/dL (3.4-5.0); ALKALINE PHOSPHATASE 91 U/L (46-116); ASPARTATE AMINOTRANSFERASE 11 U/L (15-37); BILIRUBIN,TOTAL 0.1 mg/dL (0.2-1.0); CALCIUM, SERUM 8.2 mg/dL (8.5-10.1); CARBON DIOXIDE 30 mmol/L (21-32); CHLORIDE 99 mmol/L (98-107); CREATININE 1.8 mg/dL (0.6-1.3); GLUCOSE 342 mg/dL (74-106); MAGNESIUM 1.3 mg/dL (1.8-2.4); PHOSPHORUS 2.3 mg/dL (2.5-4.9); POTASSIUM 3.1 mmol/L (3.5-5.1); SODIUM SERUM 139 mmol/L (136-145); TOTAL PROTEIN, SERUM 6.8 g/dL (6.4-8.2); UREA NITROGEN, BLOOD 39 mg/dL (7-18)
[2024-08-05 09:03] LABS: IRON, SERUM 45 ug/dl (50-175); TOTAL IRON BINDING CAPACITY 257 ug/dl (250-450)
[2024-08-05 09:17] LABS: FERRITIN 119 ng/mL (8-388)
[2024-08-05] MEDS: Magnesium 1GM/D5W 100ML PREMIX 100 ML IV SCH (09:22)
[2024-08-05] MEDS: POTASSIUM CHLORIDE 20 MEQ TAB.PRT.SR PO SCH (09:27)
[2024-08-05] MEDS: Z GUARD REMEDY 4 OZ OINT TP PRN (09:34)
[2024-08-05] MEDS: NEUTRA PHOS 1 POWD.PACKET PO SCH (09:44)
[2024-08-06] VITALS (15 sets, daily range): BP systolic 143–158; BP diastolic 57–82; TEMP 97.9–98.8; O2SAT 94–100
[2024-08-06 07:15] LABS: ALANINE AMINOTRANSFERASE 24 U/L (12-78); ALKALINE PHOSPHATASE 82 U/L (46-116); ASPARTATE AMINOTRANSFERASE 9 U/L (15-37); BASOPHILS % (AUTO) 0.2 % (0.0-2.0); BILIRUBIN,TOTAL 0.1 mg/dL (0.2-1.0); CALCIUM, SERUM 8.3 mg/dL (8.5-10.1); CARBON DIOXIDE 30 mmol/L (21-32); CHLORIDE 99 mmol/L (98-107); CREATININE 1.8 mg/dL (0.6-1.3); EOSINOPHILS % (AUTO) 0.1 % (0.0-6.0); GLUCOSE 332 mg/dL (74-106); HEMATOCRIT 29 % (33-45); HEMOGLOBIN 9.3 g/dL (11.5-14.8); LYMPHOCYTES % (AUTO) 7.3 % (20.0-44.0); MAGNESIUM 1.6 mg/dL (1.8-2.4); MEAN CORPUSCULAR HEMOGLOBIN 29 PG (26.0-33.0); MEAN CORPUSCULAR HGB CONC 32 g/dl (31.0-36.0); MEAN CORPUSCULAR VOLUME 89 fL (82-100); MONOCYTES # (AUTO) 0.5 K/uL (0.1-1.30); MONOCYTES % (AUTO) 3.5 % (2.0-12.0); NEUTROPHILS # (AUTO) 12.6 K/uL (1.8-8.9); NEUTROPHILS % (AUTO) 88.9 % (43.0-81.0); PHOSPHORUS 3.6 mg/dL (2.5-4.9); PLATELET COUNT (AUTO) 311 K/uL (150-450); POTASSIUM 3.5 mmol/L (3.5-5.1); RED BLOOD CELL COUNT(AUTO) 3.25 MIL/uL (4.0-5.2); RED CELL DISTRIBUTION WIDTH 16.4 % (11.5-15.0); SODIUM SERUM 138 mmol/L (136-145); TOTAL PROTEIN, SERUM 6.9 g/dL (6.4-8.2); UREA NITROGEN, BLOOD 41 mg/dL (7-18); WHITE BLOOD COUNT (AUTO) 14.2 K/uL (4.3-11.0)
[2024-08-06 07:39] LABS: BAND % (MANUAL) 4 % (0.0-5.0); LYMPHOCYTES % (MANUAL) 11 % (16-48); MONOCYTES % (MANUAL) 5 % (0-11.0); MYELOCYTES % 3 % (0-0); NEUTROPHILS % (MANUAL) 77 (42-76); PLATELET ESTIMATE ADEQUATE
[2024-08-06 07:40] LABS: STOMATOCYTES 1+
[2024-08-06] MEDS: Magnesium 1GM/D5W 100ML PREMIX 100 ML IV SCH (08:47)
[2024-08-06] MEDS: LINAGLIPTIN 5 MG TABLET PO SCH (09:59)
[2024-08-06] MEDS: INSULIN GLARGINE, 100 UNIT/ML CARTRIDGE SQ SCH (10:04)
[2024-08-06] MEDS ORDERED: CLONIDINE HCL 0.1 MG TABLET PO PRN (16:00)
[2024-08-06] MEDS: INSULIN GLARGINE, 100 UNIT/ML CARTRIDGE SQ ONE (22:39)
[2024-08-07] VITALS: BP 145/72; TEMP 98.5; O2SAT 98
[2024-08-07 04:00] VITALS: BP 136/78; TEMP 98.1; O2SAT 95
[2024-08-07 07:41] LABS: CALCIUM, SERUM 8.9 mg/dL (8.5-10.1); CARBON DIOXIDE 28 mmol/L (21-32); CHLORIDE 95 mmol/L (98-107); CREATININE 1.7 mg/dL (0.6-1.3); GLUCOSE 341 mg/dL (74-106); MAGNESIUM 1.9 mg/dL (1.8-2.4); POTASSIUM 3.7 mmol/L (3.5-5.1); SODIUM SERUM 136 mmol/L (136-145); UREA NITROGEN, BLOOD 44 mg/dL (7-18)
[2024-08-07 07:54] VITALS: O2SAT 96
[2024-08-07 08:00] VITALS: BP 176/102; TEMP 97.7; O2SAT 96
[2024-08-07 12:00] VITALS: BP 149/72; TEMP 98.1; O2SAT 96
[2024-08-08] MEDS ORDERED: INSULIN GLARGINE, 100 UNIT/ML CARTRIDGE SQ SCH (09:00)
== END 2024-08-07 16:17 | DRG 190 ==
LOC: ER 14:34 → TELE1 18:12 → MEDSG1 08-07 10:47
PROVIDERS: ADMIT Internal Medicine; ATTEND Internal Medicine
DX: J44.1 Chronic obstructive pulmonary disease with (acute) exacerbation (principal); J96.00 Acute respiratory failure, unspecified whether with hypoxia or hypercapnia; I13.0 Hypertensive heart and chronic kidney disease with heart failure and stage 1 through stage 4 chronic kidney disease, or unspecified chronic kidney disease; K50.90 Crohn's disease, unspecified, without complications; N18.4 Chronic kidney disease, stage 4 (severe); N17.9 Acute kidney failure, unspecified; L03.115 Cellulitis of right lower limb; L03.116 Cellulitis of left lower limb; I50.9 Heart failure, unspecified; E11.22 Type 2 diabetes mellitus with diabetic chronic kidney disease; E11.51 Type 2 diabetes mellitus with diabetic peripheral angiopathy without gangrene; E78.5 Hyperlipidemia, unspecified; M79.7 Fibromyalgia; G43.909 Migraine, unspecified, not intractable, without status migrainosus; M89.8X9 Other specified disorders of bone, unspecified site; F29 Unspecified psychosis not due to a substance or known physiological condition; M19.90 Unspecified osteoarthritis, unspecified site; D64.9 Anemia, unspecified; Z91.018 Allergy to other foods; Z91.030 Bee allergy status; Z79.4 Long term (current) use of insulin; Z79.51 Long term (current) use of inhaled steroids; Z79.899 Other long term (current) drug therapy; I87.8 Other specified disorders of veins; I87.2 Venous insufficiency (chronic) (peripheral); F32.9 Major depressive disorder, single episode, unspecified; Z68.38 Body mass index [BMI] 38.0-38.9, adult; E66.9 Obesity, unspecified; E87.6 Hypokalemia; G40.909 Epilepsy, unspecified, not intractable, without status epilepticus; G47.33 Obstructive sleep apnea (adult) (pediatric); E83.42 Hypomagnesemia; I70.0 Atherosclerosis of aorta; I71.40 Abdominal aortic aneurysm, without rupture, unspecified; Z98.890 Other specified postprocedural states; T38.0X5A Adverse effect of glucocorticoids and synthetic analogues, initial encounter; Y92.9 Unspecified place or not applicable; T50.2X5A Adverse effect of carbonic-anhydrase inhibitors, benzothiadiazides and other diuretics, initial encounter; Z74.09 Other reduced mobility; Z99.3 Dependence on wheelchair; Z90.49 Acquired absence of other specified parts of digestive tract
CPT/HCPCS: 36415; 71045-TC; 80048-TC; 80053-TC; 80061-TC; 80076-TC; 82728-TC; 82962-TC; 83540-TC; 83735-TC; 83880; 84100-TC; 84484-TC; 85025-TC; 85730-TC; 93307-TC; 93970-TC; 94762-TC; 94799-TC; A4223; G0378; J0696; J1650; J1815; J1940; J2919; J3475; J7050; J7060

== ENCOUNTER 2024-09-10 01:47 | Inpatient (IN) | payer OTHER, MEDICAID ==
[~2024-09-10] VITALS: Ht 154.9 cm; Wt 117.9 kg
[~2024-09-10 01:47] MED LIST changes: -BUDE10.2 IH; +CALC-494 PO; -CEPH-570 PO; -CONGESTION PO; +FLUO10CA29 PO; -FLUO20CA36 PO; +INSU100I26 SQ; +INSU100I34 SQ; +LINA72CA PO; +LORA10TA7 PO; +MAG30ORA PO; +MAGN400O6 PO; +METO5TAB7 PO; +NA P133E RC; -NYST30CR2 TP; -PRED10TA PO; +SENN8.6T19 PO
[2024-09-10] MEDS ORDERED: methylPREDNISolone SOD SUCC 125 MG/2ML VIAL ONE (02:17)
[2024-09-10] MEDS ORDERED: Magnesium 1GM/D5W 100ML PREMIX 100 ML IV ONE ×2 (02:18→03:59)
[2024-09-10 02:23] LABS: BASOPHILS # (AUTO) 0.1 K/uL (0.0-0.2); BASOPHILS % (AUTO) 0.3 % (0.0-2.0); EOSINOPHILS % (AUTO) 0.2 % (0.0-6.0); HEMATOCRIT 31 % (33-45); HEMOGLOBIN 9.9 g/dL (11.5-14.8); LYMPHOCYTES # (AUTO) 0.4 K/uL (0.8-4.8); MEAN CORPUSCULAR HEMOGLOBIN 29 PG (26.0-33.0); MEAN CORPUSCULAR HGB CONC 32 g/dl (31.0-36.0); MEAN CORPUSCULAR VOLUME 90 fL (82-100); MONOCYTES # (AUTO) 0.3 K/uL (0.1-1.30); MONOCYTES % (AUTO) 1.8 % (2.0-12.0); NEUTROPHILS # (AUTO) 16.8 K/uL (1.8-8.9); NEUTROPHILS % (AUTO) 95.7 % (43.0-81.0); PLATELET COUNT (AUTO) 236 K/uL (150-450); RED BLOOD CELL COUNT(AUTO) 3.47 MIL/uL (4.0-5.2); RED CELL DISTRIBUTION WIDTH 16.9 % (11.5-15.0); WHITE BLOOD COUNT (AUTO) 17.5 K/uL (4.3-11.0)
[2024-09-10] MEDS: methylPREDNISolone SOD SUCC 125 MG/2ML VIAL IV ONE (02:23)
[2024-09-10] MEDS: Magnesium 1GM/D5W 100ML PREMIX 200 ML IV ONE (02:23)
[2024-09-10 02:33] LABS: CALCIUM, SERUM 8.2 mg/dL (8.5-10.1); CARBON DIOXIDE 26 mmol/L (21-32); CHLORIDE 92 mmol/L (98-107); CREATININE 2.8 mg/dL (0.6-1.3); POTASSIUM 2.9 mmol/L (3.5-5.1); SODIUM SERUM 133 mmol/L (136-145); UREA NITROGEN, BLOOD 50 mg/dL (7-18)
[2024-09-10 02:41] LABS: GLUCOSE 603 mg/dL (74-106)
[2024-09-10] MEDS ORDERED: IPRATROPIUM NEB FS 0.5 MG/2.5 ML AMPUL.NEB ONE (02:42)
[2024-09-10] MEDS ORDERED: ALBUTEROL FS 2.5 MG/3 ML VIAL.NEB ONE (02:42)
[2024-09-10 02:44] LABS: ALANINE AMINOTRANSFERASE 31 U/L (12-78); ALBUMIN 2.1 g/dL (3.4-5.0); ALKALINE PHOSPHATASE 112 U/L (46-116); ASPARTATE AMINOTRANSFERASE 11 U/L (15-37); BILIRUBIN,DIRECT 0.1 mg/dL (0.0-0.2); BILIRUBIN,TOTAL 0.1 mg/dL (0.2-1.0); NT-PRO BNP 590 pg/mL (0-125); TOTAL PROTEIN, SERUM 7.6 g/dL (6.4-8.2)
[2024-09-10] MEDS: IPRATROPIUM NEB FS 0.5 MG/2.5 ML AMPUL.NEB NEB ONE (02:50)
[2024-09-10] MEDS: ALBUTEROL FS 2.5 MG/3 ML VIAL.NEB CONTNEB ONE (02:50)
[2024-09-10 02:51] VITALS: O2SAT 95
[2024-09-10 03:51] VITALS: O2SAT 100
[2024-09-10] MEDS ORDERED: AZITHROMYCIN 500 MG VIAL ONE (03:59)
[2024-09-10] MEDS: AZITHROMYCIN 500 MG in IV D5W 250 ML IV ONE (04:10)
[2024-09-10] MEDS: INSULIN REGULAR, HUMAN 100 UNIT/ML 10 ML VIAL SQ ONE (04:11)
[2024-09-10] MEDS: POTASSIUM CHLORIDE 20 MEQ POWDER PACKET PO ONE (04:15)
[2024-09-10] MEDS ORDERED: HYDROCODONE/APAP 10/325MG TABLET PO PRN (05:00)
[2024-09-10] MEDS ORDERED: HYDROCODONE/APAP 5/325MG TABLET PO PRN (05:00)
[2024-09-10] MEDS ORDERED: ACET-868 PO (06:14)
[2024-09-10] MEDS ORDERED: DEXTROSE 50%-WATER 50 ML DISP.SYRIN IV PRN (06:30)
[2024-09-10] MEDS ORDERED: ACETAMINOPHEN 325 MG TABLET ONE (07:33)
[2024-09-10] MEDS ORDERED: ONDANSETRON HCL/PF 4 MG/2 ML VIAL ONE (07:33)
[2024-09-10] MEDS: ACETAMINOPHEN 325 MG TABLET PO ONE (07:42)
[2024-09-10] MEDS: ONDANSETRON HCL/PF 4 MG/2 ML VIAL IV ONE (07:42)
[2024-09-10] MEDS: BLOOD SUGAR DIAGNOSTIC 1 EACH STRIP VI SCH (07:43)
[2024-09-10] MEDS ORDERED: INSULIN REGULAR, HUMAN 100 UNIT/ML 10 ML VIAL ONE (07:47)
[2024-09-10] MEDS: INSULIN REGULAR, HUMAN 100 UNIT/ML 3 ML VIAL SQ PRN (07:56)
[2024-09-10] MEDS ORDERED: METHYLPREDNISOLONE 2 MG PO SCH ×2 (09:00)
[2024-09-10] MEDS ORDERED: BISACODYL SUPP (10 MG) 10 MG/SUPP.RECT SUPP.RECT RC PRN (09:30)
[2024-09-10] MEDS ORDERED: MAGNESIUM HYDROXIDE 30 ML UDC PO PRN (09:30)
[2024-09-10] MEDS ORDERED: NA PHOS,M-B/NA PHOS,DI-BA 1 EA ENEMA RC PRN (09:30)
[2024-09-10] MEDS ORDERED: MAG HYDROX/AL HYDROX/SIMETH 30 ML UDC PO PRN (09:30)
[2024-09-10] MEDS ORDERED: ACETAMINOPHEN 325 MG TABLET PO PRN (09:30)
[2024-09-10] MEDS: methylPREDNISolone SOD SUCC 40 MG/ML VIAL IV SCH (09:44)
[2024-09-10] MEDS: ENOXAPARIN SODIUM 30 MG/0.3 ML DISP.SYRIN SQ SCH (09:46)
[2024-09-10 10:00] VITALS: BP 148/77; TEMP 98.1; O2SAT 94
[2024-09-10] MEDS ORDERED: CALCIUM CARBONATE 500 MG TAB.CHEW PO PRN (10:00)
[2024-09-10] MEDS ORDERED: AZITHROMYCIN 250 MG TABLET PO SCH (10:30)
[2024-09-10] MEDS: POTASSIUM CHLORIDE 20 MEQ TAB.PRT.SR PO SCH (10:40)
[2024-09-10] MEDS: INSULIN GLARGINE, 100 UNIT/ML CARTRIDGE SQ SCH (11:53)
[2024-09-10 12:00] VITALS: BP 148/91; TEMP 98.2; O2SAT 96
[2024-09-10] MEDS: INSULIN REGULAR, HUMAN 100 UNIT/ML 3 ML VIAL SQ SCH (12:29)
[2024-09-10] MEDS: ropiniROLE 0.5 MG TABLET PO SCH (12:30)
[2024-09-10] MEDS: DICYCLOMINE HCL 10 MG CAPSULE PO SCH (12:30)
[2024-09-10] MEDS: TRAMADOL HCL 50 MG TABLET PO SCH (12:30)
[2024-09-10] MEDS ORDERED: BENZ-38 PO (12:50)
[2024-09-10] MEDS ORDERED: DEXT15LI PO (12:50)
[2024-09-10] MEDS ORDERED: FLUT1BLS12 INH (12:50)
[2024-09-10] MEDS ORDERED: INSULIN LISPRO 8 UNIT SQ SCH (13:30)
[2024-09-10 16:00] VITALS: BP 147/83; TEMP 98.1; O2SAT 96
[2024-09-10] MEDS: MESALAMINE 400 MG CAP PO SCH (16:21)
[2024-09-10] MEDS: PANTOPRAZOLE 40 MG TABLET.DR PO SCH (16:21)
[2024-09-10] MEDS: risperiDONE 0.25 MG TABLET PO SCH (17:07)
[2024-09-10 20:00] VITALS: BP 126/67; TEMP 98.6; O2SAT 100
[2024-09-10] MEDS: FLUTICASONE PROPIONATE 16 GM BOTTLE NS SCH (20:30)
[2024-09-10] MEDS: *INSULIN REGULAR(HUMULIN R)HUM 100 UNIT/ML VIAL SQ PRN (20:56)
[2024-09-10] MEDS ORDERED: INSULIN GLARGINE, 100 UNIT/ML CARTRIDGE SQ SCH (22:00)
[2024-09-10] MEDS: QUETIAPINE FUMARATE 100 MG TABLET PO SCH (22:19)
[2024-09-10] MEDS: DIVALPROEX SODIUM 500 MG TABLET.DR PO SCH (22:20)
[2024-09-10] MEDS: SENNOSIDES 8.6 MG TABLET PO SCH (22:20)
[2024-09-11] VITALS: BP 143/79; TEMP 98.3; O2SAT 98
[2024-09-11 04:00] VITALS: BP 117/77; TEMP 99
[2024-09-11 05:53] LABS: BASOPHILS % (AUTO) 0.2 % (0.0-2.0); HEMATOCRIT 29 % (33-45); HEMOGLOBIN 9.5 g/dL (11.5-14.8); LYMPHOCYTES # (AUTO) 0.7 K/uL (0.8-4.8); LYMPHOCYTES % (AUTO) 5.3 % (20.0-44.0); MEAN CORPUSCULAR HEMOGLOBIN 29 PG (26.0-33.0); MEAN CORPUSCULAR HGB CONC 32 g/dl (31.0-36.0); MEAN CORPUSCULAR VOLUME 88 fL (82-100); MONOCYTES # (AUTO) 0.4 K/uL (0.1-1.30); MONOCYTES % (AUTO) 3.2 % (2.0-12.0); NEUTROPHILS # (AUTO) 11.9 K/uL (1.8-8.9); NEUTROPHILS % (AUTO) 91.3 % (43.0-81.0); PLATELET COUNT (AUTO) 224 K/uL (150-450); RED BLOOD CELL COUNT(AUTO) 3.33 MIL/uL (4.0-5.2)
[2024-09-11 06:16] LABS: CALCIUM, SERUM 8.7 mg/dL (8.5-10.1); CREATININE 2.3 mg/dL (0.6-1.3); POTASSIUM 3.3 mmol/L (3.5-5.1)
[2024-09-11 07:06] LABS: BASOPHILS % (MANUAL) 0 % (0.0-2.0); EOSINOPHILS % (MANUAL) 0 % (0-4); LYMPHOCYTES % (MANUAL) 8 % (16-48); MONOCYTES % (MANUAL) 5 % (0-11.0); NEUTROPHILS % (MANUAL) 87 (42-76)
[2024-09-11 07:07] LABS: PLATELET ESTIMATE ADEQUATE
[2024-09-11 08:00] VITALS: BP 135/66; TEMP 98; O2SAT 97
[2024-09-11] MEDS: Fluoxetine 10 mg capsule PO SCH (09:00)
[2024-09-11] MEDS ORDERED: Medication Not On Formulary EA (Linaclotide (Linzess) 72 MCG) PO SCH (09:00)
[2024-09-11] MEDS: METOLAZONE 2.5 MG TABLET PO SCH (09:01)
[2024-09-11] MEDS: DOCUSATE SODIUM 100 MG CAPSULE PO SCH (09:01)
[2024-09-11] MEDS: LORATADINE 10 MG TABLET PO SCH (09:01)
[2024-09-11] MEDS: FUROSEMIDE 40 MG TABLET PO SCH (09:01)
[2024-09-11] MEDS: FERROUS SULFATE (325 MG) 325 MG/TAB TABLET PO SCH (09:01)
[2024-09-11] MEDS: MAGNESIUM OXIDE 400 MG TABLET PO SCH (09:02)
[2024-09-11] MEDS: AZITHROMYCIN 250 MG TABLET PO SCH (09:02)
[2024-09-11] MEDS: AMLODIPINE BESYLATE 10 MG TABLET PO SCH (09:02)
[2024-09-11] MEDS: POTASSIUM CHLORIDE 20 MEQ TAB.PRT.SR PO ONE (09:17)
[2024-09-11] MEDS: methylPREDNISolone SOD SUCC 40 MG/ML VIAL IV SCH (09:21)
[2024-09-11 12:00] VITALS: BP 141/79; TEMP 98.2; O2SAT 96
[2024-09-11 16:00] VITALS: BP 140/76; TEMP 98.1; O2SAT 97
[2024-09-11 20:00] VITALS: BP 122/68; TEMP 98; O2SAT 97
[2024-09-12] VITALS: BP 125/65; TEMP 98.2; O2SAT 96
[2024-09-12 04:00] VITALS: BP 128/63; TEMP 98.4; O2SAT 96
[2024-09-12 07:03] LABS: CALCIUM, SERUM 9.5 mg/dL (8.5-10.1); CREATININE 2.2 mg/dL (0.6-1.3); POTASSIUM 3.4 mmol/L (3.5-5.1)
[2024-09-12 08:00] VITALS: BP 129/87; TEMP 98.1; O2SAT 97
[2024-09-12] MEDS: POTASSIUM CHLORIDE 20 MEQ TAB.PRT.SR PO ONE (08:38)
[2024-09-12] MEDS: INSULIN GLARGINE, 100 UNIT/ML CARTRIDGE SQ SCH (08:57)
[2024-09-12 12:00] VITALS: BP 163/85; TEMP 97.5; O2SAT 95
[2024-09-12 16:00] VITALS: BP 139/89; TEMP 98.2; O2SAT 97
[2024-09-12 20:00] VITALS: BP 156/103; TEMP 98.6; O2SAT 97
[2024-09-13 00:12] VITALS: BP 160/87; TEMP 98.9; O2SAT 97
[2024-09-13 04:53] VITALS: BP 150/85; TEMP 98.7; O2SAT 97
[2024-09-13 07:10] LABS: CALCIUM, SERUM 9.7 mg/dL (8.5-10.1); POTASSIUM 3.1 mmol/L (3.5-5.1)
[2024-09-13 07:11] LABS: BASOPHILS % (AUTO) 0.3 % (0.0-2.0); EOSINOPHILS % (AUTO) 0.1 % (0.0-6.0); HEMATOCRIT 32 % (33-45); HEMOGLOBIN 10.6 g/dL (11.5-14.8); LYMPHOCYTES # (AUTO) 1.8 K/uL (0.8-4.8); LYMPHOCYTES % (AUTO) 13.8 % (20.0-44.0); MEAN CORPUSCULAR HEMOGLOBIN 29 PG (26.0-33.0); MEAN CORPUSCULAR HGB CONC 33 g/dl (31.0-36.0); MEAN CORPUSCULAR VOLUME 88 fL (82-100); MONOCYTES # (AUTO) 0.7 K/uL (0.1-1.30); MONOCYTES % (AUTO) 5.7 % (2.0-12.0); NEUTROPHILS # (AUTO) 10.3 K/uL (1.8-8.9); NEUTROPHILS % (AUTO) 80.1 % (43.0-81.0); PLATELET COUNT (AUTO) 260 K/uL (150-450); WHITE BLOOD COUNT (AUTO) 12.8 K/uL (4.3-11.0)
[2024-09-13 08:00] VITALS: BP 164/97; TEMP 97.7; O2SAT 98
[2024-09-13] MEDS: methylPREDNISolone SOD SUCC 40 MG/ML VIAL IV SCH (09:00)
[2024-09-13] MEDS ORDERED: PRED5TAB48 PO (09:05)
[2024-09-13] MEDS ORDERED: AZIT250T PO (09:05)
[2024-09-13] MEDS ORDERED: IPRA3AMP23 IH (09:05)
[2024-09-13] MEDS: POTASSIUM CHLORIDE 20 MEQ TAB.PRT.SR PO ONE (09:41)
[2024-09-13] MEDS ORDERED: POTASSIUM CHLORIDE 20 MEQ TAB.PRT.SR PO SCH (10:00)
[2024-09-13 12:00] VITALS: BP 164/98; TEMP 98.3; O2SAT 95
[2024-09-13 14:20] LABS: BAND % (MANUAL) 6 % (0.0-5.0); EOSINOPHILS % (MANUAL) 1 % (0-4); LYMPHOCYTES % (MANUAL) 11 % (16-48); MONOCYTES % (MANUAL) 11 % (0-11.0); NEUTROPHILS % (MANUAL) 71 (42-76); PLATELET ESTIMATE ADEQUATE
[2024-09-13 14:21] LABS: ANISOCYTOSIS 1+
== END 2024-09-13 18:29 | DRG 190 ==
LOC: ER 01:51 → TRANSITION 05:51 → TELE1 08:49
PROVIDERS: ADMIT Internal Medicine; ATTEND Internal Medicine
DX: J44.1 Chronic obstructive pulmonary disease with (acute) exacerbation (principal); J96.00 Acute respiratory failure, unspecified whether with hypoxia or hypercapnia; N17.9 Acute kidney failure, unspecified; Z68.42 Body mass index [BMI] 45.0-49.9, adult; K50.90 Crohn's disease, unspecified, without complications; M79.7 Fibromyalgia; N18.30 Chronic kidney disease, stage 3 unspecified; I12.9 Hypertensive chronic kidney disease with stage 1 through stage 4 chronic kidney disease, or unspecified chronic kidney disease; D64.9 Anemia, unspecified; E66.9 Obesity, unspecified; E78.5 Hyperlipidemia, unspecified; E87.6 Hypokalemia; M19.90 Unspecified osteoarthritis, unspecified site; Z79.4 Long term (current) use of insulin; E11.51 Type 2 diabetes mellitus with diabetic peripheral angiopathy without gangrene; F32.9 Major depressive disorder, single episode, unspecified; Z20.822 Contact with and (suspected) exposure to COVID-19; I87.8 Other specified disorders of veins; E11.22 Type 2 diabetes mellitus with diabetic chronic kidney disease; E11.65 Type 2 diabetes mellitus with hyperglycemia; T38.0X5A Adverse effect of glucocorticoids and synthetic analogues, initial encounter; Y92.89 Other specified places as the place of occurrence of the external cause
CPT/HCPCS: 36415; 71045-TC; 80048-TC; 80076-TC; 82962-TC; 83880; 84484-TC; 85025-TC; 87040-TC; 97530-TC; G0378; J0456; J1650; J1815; J2405; J2919; J3475; J7060

== ENCOUNTER 2024-10-07 03:10 | Inpatient (IN) | payer OTHER ==
[2024-10-07] VITALS (7 sets, daily range): BP systolic 109; BP diastolic 72; TEMP 98.4; O2SAT 90–99
[~2024-10-07] VITALS: Ht 165.1 cm; Wt 112.0 kg
[~2024-10-07 03:10] MED LIST changes: +AZIT250T PO; +BENZ-38 PO; +DEXT15LI PO; +FLUT1BLS12 INH; +IPRA3AMP23 IH; +PRED5TAB48 PO; -TRAM50TA2 PO
[2024-10-07] MEDS: methylPREDNISolone SOD SUCC 125 MG/2ML VIAL IV ONE (04:08)
[2024-10-07] MEDS ORDERED: methylPREDNISolone SOD SUCC 125 MG/2ML VIAL ONE (04:09)
[2024-10-07 04:10] LABS: BASOPHILS # (AUTO) 0.1 K/uL (0.0-0.2); BASOPHILS % (AUTO) 0.7 % (0.0-2.0); EOSINOPHILS # (AUTO) 0.4 K/uL (0.0-0.7); EOSINOPHILS % (AUTO) 3.5 % (0.0-6.0); HEMATOCRIT 31 % (33-45); LYMPHOCYTES # (AUTO) 2.1 K/uL (0.8-4.8); LYMPHOCYTES % (AUTO) 16.2 % (20.0-44.0); MEAN CORPUSCULAR HEMOGLOBIN 29 PG (26.0-33.0); MEAN CORPUSCULAR HGB CONC 32 g/dl (31.0-36.0); MEAN CORPUSCULAR VOLUME 89 fL (82-100); MONOCYTES # (AUTO) 0.8 K/uL (0.1-1.30); MONOCYTES % (AUTO) 6.2 % (2.0-12.0); NEUTROPHILS # (AUTO) 9.4 K/uL (1.8-8.9); NEUTROPHILS % (AUTO) 73.4 % (43.0-81.0); PLATELET COUNT (AUTO) 187 K/uL (150-450); RED BLOOD CELL COUNT(AUTO) 3.49 MIL/uL (4.0-5.2); RED CELL DISTRIBUTION WIDTH 16.7 % (11.5-15.0); WHITE BLOOD COUNT (AUTO) 12.8 K/uL (4.3-11.0)
[2024-10-07] MEDS: ALBUTEROL FS 2.5 MG/0.5 ML VIAL.NEB NEB ONE (04:20)
[2024-10-07] MEDS ORDERED: ALBUTEROL FS 2.5 MG/0.5 ML VIAL.NEB ONE ×3 (04:21→19:18)
[2024-10-07 04:22] LABS: INR 1.03 (0.91-1.10); PARTIAL THROMBOPLASTIN TIME 25.9 SEC (24.3-34.3); PROTHROMBIN TIME 10.9 SECS (9.2-11.1)
[2024-10-07 04:30] LABS: CALCIUM, SERUM 8.5 mg/dL (8.5-10.1); CARBON DIOXIDE 27 mmol/L (21-32); CHLORIDE 104 mmol/L (98-107); CREATININE 1.5 mg/dL (0.6-1.3); GLUCOSE 172 mg/dL (74-106); POTASSIUM 3.3 mmol/L (3.5-5.1); SODIUM SERUM 142 mmol/L (136-145); UREA NITROGEN, BLOOD 34 mg/dL (7-18)
[2024-10-07 04:38] LABS: LACTIC ACID 1.2 mmol/L (0.4-2.0)
[2024-10-07 04:44] LABS: ALANINE AMINOTRANSFERASE 29 U/L (12-78); ALBUMIN 2.3 g/dL (3.4-5.0); ALKALINE PHOSPHATASE 79 U/L (46-116); ASPARTATE AMINOTRANSFERASE 12 U/L (15-37); BILIRUBIN,DIRECT 0.1 mg/dL (0.0-0.2); BILIRUBIN,TOTAL 0.2 mg/dL (0.2-1.0); NT-PRO BNP 613 pg/mL (0-125); TOTAL PROTEIN, SERUM 6.3 g/dL (6.4-8.2)
[2024-10-07] MEDS ORDERED: CEFEPIME 1 GM VIAL ONE (05:50)
[2024-10-07] MEDS: CEFEPIME 1 GM in IV D5W 50 ML IV ONE (05:56)
[2024-10-07 06:05] LABS: APPEARANCE,URINE CLEAR (CLEAR); BILIRUBIN,URINE NEGATIVE (NEGATIVE); BLOOD, URINE NEGATIVE Ery/uL (NEGATIVE); COLOR,URINE YELLOW (YELLOW); KETONES,URINE NEGATIVE (NEGATIVE); LEUKOCYTE ESTERASE ,URINE NEGATIVE (NEGATIVE); NITRITE, URINE NEGATIVE (NEGATIVE); PH,URINE 6.5 (5.0-8.0); PROTEIN,URINE 2+ mg/dl (NEGATIVE); UGLUCOSE TRACE mg/dL (NEGATIVE); UROBILINOGEN,URINE 0.2 EU/dL (0.2)
[2024-10-07 06:16] LABS: ADD URINE CULTURE NO; BACTERIA,URINE Rare /HPF (None Seen); RBC,URINE 0-2 /HPF (0-2); SQUAMOUS EPITHELIAL CELL,UR Rare /HPF (None Seen); WBC,URINE 0-2 /HPF (0-3)
[2024-10-07] MEDS ORDERED: ACETAMINOPHEN 325 MG TABLET PO PRN (06:30)
[2024-10-07] MEDS ORDERED: MAGNESIUM HYDROXIDE 30 ML UDC PO PRN (06:30)
[2024-10-07] MEDS ORDERED: AZITHROMYCIN 500 MG in IV D5W 250 ML IV SCH (06:30)
[2024-10-07] MEDS ORDERED: IPRATROPIUM NEB FS 0.5 MG/2.5 ML AMPUL.NEB NEB PRN (06:30)
[2024-10-07] MEDS ORDERED: MAG HYDROX/AL HYDROX/SIMETH 30 ML UDC PO PRN (06:30)
[2024-10-07] MEDS ORDERED: Z GUARD REMEDY 4 OZ OINT TP PRN (06:30)
[2024-10-07] MEDS ORDERED: ONDANSETRON HCL/PF 4 MG/2 ML VIAL IVP PRN ×2 (06:30→08:30)
[2024-10-07] MEDS ORDERED: ALBUTEROL FS 2.5 MG/0.5 ML VIAL.NEB NEB PRN (06:30)
[2024-10-07] MEDS ORDERED: DEXTROSE 50%-WATER 50 ML DISP.SYRIN IV PRN (06:30)
[2024-10-07] MEDS: BLOOD SUGAR DIAGNOSTIC 1 EACH STRIP IN SCH (07:30)
[2024-10-07] MEDS: ENOXAPARIN SODIUM 30 MG/0.3 ML DISP.SYRIN SQ SCH (08:00)
[2024-10-07] MEDS: PANTOPRAZOLE 40 MG VIAL IV SCH (09:00)
[2024-10-07] MEDS: POTASSIUM CHLORIDE 20 MEQ TAB.PRT.SR PO SCH (10:00)
[2024-10-07] MEDS ORDERED: PANTOPRAZOLE 40 MG VIAL ONE (11:30)
[2024-10-07] MEDS ORDERED: POTASSIUM CHLORIDE 20 MEQ TAB.PRT.SR PO ONE (11:30)
[2024-10-07] MEDS ORDERED: ENOXAPARIN SODIUM 30 MG/0.3 ML DISP.SYRIN ONE (11:31)
[2024-10-07] MEDS: CEFEPIME 1 GM in IV D5W 50 ML IV SCH (12:00)
[2024-10-07] MEDS: AZITHROMYCIN 500 MG in IV D5W 250 ML IV SCH (12:34)
[2024-10-07] MEDS ORDERED: methylPREDNISolone SOD SUCC 40 MG/ML VIAL IV SCH (13:00)
[2024-10-07] MEDS ORDERED: INSULIN REGULAR, HUMAN 100 UNIT/ML 10 ML VIAL ONE (13:53)
[2024-10-07] MEDS ORDERED: BENZONATATE 100 MG CAPSULE PO PRN (14:00)
[2024-10-07] MEDS ORDERED: BISACODYL SUPP (10 MG) 10 MG/SUPP.RECT SUPP.RECT RC PRN (14:00)
[2024-10-07] MEDS: INSULIN REGULAR, HUMAN 100 UNIT/ML 3 ML VIAL SQ PRN (14:01)
[2024-10-07] MEDS ORDERED: PSEUDOEPHEDRINE HCL 30 MG TABLET ONE (14:10)
[2024-10-07] MEDS ORDERED: methylPREDNISolone SOD SUCC 40 MG/ML VIAL ONE (14:11)
[2024-10-07] MEDS ORDERED: IPRATROPIUM NEB FS 0.5 MG/2.5 ML AMPUL.NEB ONE ×2 (14:16→19:18)
[2024-10-07] MEDS: methylPREDNISolone SOD SUCC 40 MG/ML VIAL IV SCH (14:16)
[2024-10-07] MEDS: PSEUDOEPHEDRINE HCL 30 MG TABLET PO SCH (14:17)
[2024-10-07] MEDS: IPRATROPIUM NEB FS 0.5 MG/2.5 ML AMPUL.NEB NEB SCH (14:19)
[2024-10-07] MEDS: ALBUTEROL FS 2.5 MG/0.5 ML VIAL.NEB NEB SCH (14:20)
[2024-10-07] MEDS: FERROUS SULFATE (325 MG) 325 MG/TAB TABLET PO SCH (17:00)
[2024-10-08] VITALS (14 sets, daily range): BP systolic 130–169; BP diastolic 79–95; TEMP 97.5–98.8; O2SAT 94–98
[2024-10-08] MEDS: DIVALPROEX SODIUM 500 MG TABLET.DR PO SCH (00:09)
[2024-10-08] MEDS: INSULIN GLARGINE, 100 UNIT/ML CARTRIDGE SQ SCH (00:23)
[2024-10-08] MEDS ORDERED: CEFEPIME 1 GM VIAL ONE (00:29)
[2024-10-08] MEDS: CEFEPIME 2 GM in IV D5W 100 ML IV SCH (01:17)
[2024-10-08 07:40] LABS: CALCIUM, SERUM 8.8 mg/dL (8.5-10.1); CREATININE 1.4 mg/dL (0.6-1.3); MAGNESIUM 1.3 mg/dL (1.8-2.4); PHOSPHORUS 3.3 mg/dL (2.5-4.9); POTASSIUM 3.3 mmol/L (3.5-5.1)
[2024-10-08 07:47] LABS: BASOPHILS % (AUTO) 0.1 % (0.0-2.0); HEMATOCRIT 32 % (33-45); HEMOGLOBIN 10.6 g/dL (11.5-14.8); LYMPHOCYTES % (AUTO) 7.1 % (20.0-44.0); MEAN CORPUSCULAR HEMOGLOBIN 29 PG (26.0-33.0); MEAN CORPUSCULAR HGB CONC 33 g/dl (31.0-36.0); MEAN CORPUSCULAR VOLUME 87 fL (82-100); MONOCYTES # (AUTO) 0.6 K/uL (0.1-1.30); MONOCYTES % (AUTO) 4.1 % (2.0-12.0); NEUTROPHILS # (AUTO) 13.1 K/uL (1.8-8.9); NEUTROPHILS % (AUTO) 88.7 % (43.0-81.0); PLATELET COUNT (AUTO) 229 K/uL (150-450); RED BLOOD CELL COUNT(AUTO) 3.63 MIL/uL (4.0-5.2); RED CELL DISTRIBUTION WIDTH 16.3 % (11.5-15.0); WHITE BLOOD COUNT (AUTO) 14.7 K/uL (4.3-11.0)
[2024-10-08] MEDS: Fluoxetine 10 mg capsule PO SCH (08:52)
[2024-10-08] MEDS: DOCUSATE SODIUM 100 MG CAPSULE PO SCH (08:52)
[2024-10-08] MEDS: PANTOPRAZOLE 40 MG TABLET.DR PO SCH (08:53)
[2024-10-08] MEDS: AMLODIPINE BESYLATE 10 MG TABLET PO SCH (08:54)
[2024-10-08] MEDS: NEOMY SULF/BACITRAC ZN/POLY 15 GM TUBE TP SCH (10:10)
[2024-10-08] MEDS: MAGNESIUM OXIDE 400 MG TABLET PO ONE (10:11)
[2024-10-08] MEDS: POTASSIUM CHLORIDE 20 MEQ TAB.PRT.SR PO SCH (10:11)
[2024-10-08 11:33] LABS: BAND % (MANUAL) 1 % (0.0-5.0); LYMPHOCYTES % (MANUAL) 6 % (16-48); MONOCYTES % (MANUAL) 2 % (0-11.0); MYELOCYTES % 1 % (0-0); NEUTROPHILS % (MANUAL) 90 (42-76)
[2024-10-08 11:34] LABS: PLATELET ESTIMATE ADEQUATE
[2024-10-08] MEDS: CLOTRIMAZOLE 1% 15 GM TUBE TP SCH (16:26)
[2024-10-09] VITALS (7 sets, daily range): BP systolic 139–168; BP diastolic 71–93; TEMP 97.5–98.5; O2SAT 98–99
[2024-10-09] MEDS: CLONIDINE HCL 0.1 MG TABLET PO PRN (00:32)
[2024-10-09] MEDS: ALBUTEROL FS 2.5 MG/3 ML VIAL.NEB NEB PRN (00:58)
[2024-10-09 06:30] LABS: BASOPHILS # (AUTO) 0.1 K/uL (0.0-0.2); BASOPHILS % (AUTO) 0.5 % (0.0-2.0); HEMATOCRIT 30 % (33-45); HEMOGLOBIN 9.8 g/dL (11.5-14.8); LYMPHOCYTES % (AUTO) 6.9 % (20.0-44.0); MEAN CORPUSCULAR HEMOGLOBIN 29 PG (26.0-33.0); MEAN CORPUSCULAR HGB CONC 32 g/dl (31.0-36.0); MEAN CORPUSCULAR VOLUME 89 fL (82-100); MONOCYTES # (AUTO) 0.7 K/uL (0.1-1.30); NEUTROPHILS # (AUTO) 12.8 K/uL (1.8-8.9); NEUTROPHILS % (AUTO) 87.6 % (43.0-81.0); PLATELET COUNT (AUTO) 230 K/uL (150-450); RED BLOOD CELL COUNT(AUTO) 3.39 MIL/uL (4.0-5.2); RED CELL DISTRIBUTION WIDTH 17.1 % (11.5-15.0); WHITE BLOOD COUNT (AUTO) 14.7 K/uL (4.3-11.0)
[2024-10-09 06:48] LABS: CALCIUM, SERUM 8.9 mg/dL (8.5-10.1); CREATININE 1.6 mg/dL (0.6-1.3); POTASSIUM 4.3 mmol/L (3.5-5.1)
[2024-10-09] MEDS ORDERED: FLUT1DIS INH (12:52)
[2024-10-09] MEDS ORDERED: AMOX-430 PO (12:52)
[2024-10-09] MEDS ORDERED: METH4TAB3 PO (12:52)
[2024-10-09 13:31] LABS: LYMPHOCYTES % (MANUAL) 8 % (16-48); MONOCYTES % (MANUAL) 3 % (0-11.0); NEUTROPHILS % (MANUAL) 89 (42-76)
[2024-10-09 13:32] LABS: ANISOCYTOSIS 1+; PLATELET ESTIMATE ADEQUATE
[2024-10-10] MEDS ORDERED: AZITHROMYCIN 250 MG TABLET PO SCH (09:00)
[2024-10-10] MEDS ORDERED: methylPREDNISolone SOD SUCC 40 MG/ML VIAL IV SCH (09:00)
== END 2024-10-09 17:00 | DRG 191 ==
LOC: ER 03:29 → TRANSITION 06:39 → TELE 18:37
PROVIDERS: ADMIT Nurse Practitioner Family
DX: J44.1 Chronic obstructive pulmonary disease with (acute) exacerbation (principal); F03.93 Unspecified dementia, unspecified severity, with mood disturbance; I13.0 Hypertensive heart and chronic kidney disease with heart failure and stage 1 through stage 4 chronic kidney disease, or unspecified chronic kidney disease; N17.9 Acute kidney failure, unspecified; N18.4 Chronic kidney disease, stage 4 (severe); K50.90 Crohn's disease, unspecified, without complications; L03.115 Cellulitis of right lower limb; L03.116 Cellulitis of left lower limb; Z20.822 Contact with and (suspected) exposure to COVID-19; E78.5 Hyperlipidemia, unspecified; M79.7 Fibromyalgia; M89.8X9 Other specified disorders of bone, unspecified site; G43.909 Migraine, unspecified, not intractable, without status migrainosus; I50.9 Heart failure, unspecified; I87.2 Venous insufficiency (chronic) (peripheral); I87.8 Other specified disorders of veins; F29 Unspecified psychosis not due to a substance or known physiological condition; Z91.030 Bee allergy status; Z91.018 Allergy to other foods; Z79.51 Long term (current) use of inhaled steroids; Z79.4 Long term (current) use of insulin; Z79.899 Other long term (current) drug therapy; D64.9 Anemia, unspecified; E11.22 Type 2 diabetes mellitus with diabetic chronic kidney disease; E11.40 Type 2 diabetes mellitus with diabetic neuropathy, unspecified; E11.51 Type 2 diabetes mellitus with diabetic peripheral angiopathy without gangrene; E66.01 Morbid (severe) obesity due to excess calories; F32.A Depression, unspecified; E87.6 Hypokalemia; Z87.891 Personal history of nicotine dependence; Z90.49 Acquired absence of other specified parts of digestive tract
CPT/HCPCS: 36415; 71045-TC; 76770-TC; 80048-TC; 80076-TC; 81001; 82962-TC; 83605-TC; 83735-TC; 83880; 84100-TC; 84484-TC; 85025-TC; 85730-TC; 87040-TC; 94760-TC; 94799-TC; 97110-TC; 97530-TC; A4223; G0378; J0456; J0692; J1650; J1815; J2405; J2470; J2919; J7050; J7060

== ENCOUNTER 2024-11-10 22:13 | Inpatient (IN) | payer MEDICAID, OTHER ==
[~2024-11-10] VITALS: Ht 162.6 cm; Wt 110.2 kg
[2024-11-10] MEDS: VANCOMYCIN 1 GM in IV D5W 250 ML IV ONE
[~2024-11-10 22:13] MED LIST changes: +AMOX-430 PO; -AZIT250T PO; -DICY20TA11 PO; -FLUT16SP NS; -FLUT1BLS12 INH; +FLUT1DIS INH; -FURO-144 PO; -IPRA3AMP23 IH; -LINA72CA PO; -LORA10TA7 PO; -MAG30ORA PO; -MAGN400O6 PO; -MAGN400T8 PO; -MESA800T9 PO; +METH4TAB3 PO; -METO5TAB7 PO; -OXYB5TAB16 PO; -PANT40TA2 PO; -POTA-88 PO; -PRED5TAB48 PO; -QUET200T PO; -RISP0.5T5 PO; -ROPI0.5T PO; -SENN8.6T19 PO
[2024-11-10 23:05] LABS: BASOPHILS # (AUTO) 0.1 K/uL (0.0-0.2); BASOPHILS % (AUTO) 0.4 % (0.0-2.0); EOSINOPHILS % (AUTO) 0.1 % (0.0-6.0); HEMATOCRIT 40 % (33-45); HEMOGLOBIN 13.3 g/dL (11.5-14.8); LYMPHOCYTES # (AUTO) 2.2 K/uL (0.8-4.8); LYMPHOCYTES % (AUTO) 10.8 % (20.0-44.0); MEAN CORPUSCULAR HEMOGLOBIN 29 PG (26.0-33.0); MEAN CORPUSCULAR HGB CONC 33 g/dl (31.0-36.0); MEAN CORPUSCULAR VOLUME 86 fL (82-100); MONOCYTES # (AUTO) 1.4 K/uL (0.1-1.30); MONOCYTES % (AUTO) 6.8 % (2.0-12.0); NEUTROPHILS # (AUTO) 16.9 K/uL (1.8-8.9); NEUTROPHILS % (AUTO) 81.9 % (43.0-81.0); PLATELET COUNT (AUTO) 278 K/uL (150-450); RED BLOOD CELL COUNT(AUTO) 4.64 MIL/uL (4.0-5.2); RED CELL DISTRIBUTION WIDTH 16.8 % (11.5-15.0); WHITE BLOOD COUNT (AUTO) 20.6 K/uL (4.3-11.0)
[2024-11-10 23:17] LABS: INR 1.01 (0.91-1.10); PARTIAL THROMBOPLASTIN TIME 23.5 SEC (24.3-34.3); PROTHROMBIN TIME 10.7 SECS (9.2-11.1)
[2024-11-10] MEDS ORDERED: CEFEPIME 1 GM VIAL ONE (23:25)
[2024-11-10] MEDS ORDERED: VANCOMYCIN 1 GM /D5W 250 ML PB IV ONE (23:25)
[2024-11-10 23:32] LABS: LACTIC ACID 3.1 mmol/L (0.4-2.0)
[2024-11-10 23:35] LABS: CALCIUM, SERUM 9.4 mg/dL (8.5-10.1); CARBON DIOXIDE 28 mmol/L (21-32); CHLORIDE 91 mmol/L (98-107); CREATININE 2.7 mg/dL (0.6-1.3); GLUCOSE 179 mg/dL (74-106); POTASSIUM 2.9 mmol/L (3.5-5.1); SODIUM SERUM 135 mmol/L (136-145)
[2024-11-10] MEDS: IV NS 0.9% 1,000 ML BAG IV ONE (23:37)
[2024-11-10 23:39] LABS: UREA NITROGEN, BLOOD 106 mg/dL (7-18)
[2024-11-10] MEDS: CEFEPIME 1 GM in IV D5W 50 ML IV ONE (23:39)
[2024-11-10 23:49] LABS: ALANINE AMINOTRANSFERASE 35 U/L (12-78); ALKALINE PHOSPHATASE 98 U/L (46-116); ASPARTATE AMINOTRANSFERASE 12 U/L (15-37); BILIRUBIN,DIRECT 0.1 mg/dL (0.0-0.2); BILIRUBIN,TOTAL 0.3 mg/dL (0.2-1.0)
[2024-11-10 23:53] LABS: BAND % (MANUAL) 2 % (0.0-5.0); EOSINOPHILS % (MANUAL) 1 % (0-4); LYMPHOCYTES % (MANUAL) 13 % (16-48); METAMYELOCYTES % 1 % (0-0); MONOCYTES % (MANUAL) 5 % (0-11.0); NEUTROPHILS % (MANUAL) 78 (42-76)
[2024-11-10 23:54] LABS: ANISOCYTOSIS 1+; PLATELET ESTIMATE ADEQUATE
[2024-11-10 23:56] LABS: APPEARANCE,URINE CLEAR (CLEAR); BILIRUBIN,URINE NEGATIVE (NEGATIVE); BLOOD, URINE NEGATIVE Ery/uL (NEGATIVE); COLOR,URINE YELLOW (YELLOW); KETONES,URINE NEGATIVE (NEGATIVE); LEUKOCYTE ESTERASE ,URINE NEGATIVE (NEGATIVE); NITRITE, URINE NEGATIVE (NEGATIVE); PROTEIN,URINE 2+ mg/dl (NEGATIVE); UGLUCOSE NEGATIVE (NEGATIVE); UROBILINOGEN,URINE 0.2 EU/dL (0.2)
[2024-11-11] VITALS (15 sets, daily range): BP systolic 124–164; BP diastolic 70–94; TEMP 97.5–98.6; O2SAT 97–100
[2024-11-11 00:08] LABS: ADD URINE CULTURE NO; BACTERIA,URINE Rare /HPF (None Seen); RBC,URINE 0-2 /HPF (0-2); SQUAMOUS EPITHELIAL CELL,UR Few /HPF (None Seen); WBC,URINE 0-2 /HPF (0-3)
[2024-11-11] MEDS: IPRATROPIUM NEB FS 0.5 MG/2.5 ML AMPUL.NEB NEB ONE (01:00)
[2024-11-11] MEDS: ALBUTEROL FS 2.5 MG/3 ML VIAL.NEB NEB ONE (01:00)
[2024-11-11] MEDS ORDERED: IPRATROPIUM NEB FS 0.5 MG/2.5 ML AMPUL.NEB ONE (01:04)
[2024-11-11] MEDS ORDERED: ALBUTEROL FS 2.5 MG/3 ML VIAL.NEB ONE (01:04)
[2024-11-11] MEDS: POTASSIUM CHLORIDE 20 MEQ TAB.PRT.SR PO ONE (01:06)
[2024-11-11] MEDS ORDERED: ACETAMINOPHEN 325 MG TABLET PO PRN ×2 (02:00)
[2024-11-11] MEDS ORDERED: ONDANSETRON HCL/PF 4 MG/2 ML VIAL IVP PRN (02:00)
[2024-11-11] MEDS ORDERED: BISACODYL SUPP (10 MG) 10 MG/SUPP.RECT SUPP.RECT RC PRN (02:00)
[2024-11-11] MEDS ORDERED: IV NS 0.9% 1,000 ML BAG IV PRN (02:00)
[2024-11-11] MEDS ORDERED: HYDROCODONE/APAP 5/325MG TABLET PO PRN (02:00)
[2024-11-11] MEDS ORDERED: BENZONATATE 100 MG CAPSULE PO PRN (02:00)
[2024-11-11] MEDS ORDERED: DEXTROSE 50%-WATER 50 ML DISP.SYRIN IV PRN (02:30)
[2024-11-11] MEDS ORDERED: AZITHROMYCIN 500 MG VIAL ONE (03:05)
[2024-11-11] MEDS: AZITHROMYCIN 500 MG in IV D5W 250 ML IV SCH (03:10)
[2024-11-11] MEDS: BLOOD SUGAR DIAGNOSTIC 1 EACH STRIP VI SCH (03:16)
[2024-11-11] MEDS: IV NS 0.9% 1,000 ML BAG IV PRN (03:26)
[2024-11-11] MEDS: IPRATROPIUM NEB FS 0.5 MG/2.5 ML AMPUL.NEB NEB SCH ×2 (03:48→09:30)
[2024-11-11] MEDS: ALBUTEROL FS 2.5 MG/0.5 ML VIAL.NEB NEB PRN (03:49)
[2024-11-11] MEDS: ALBUTEROL FS 2.5 MG/0.5 ML VIAL.NEB NEB SCH ×2 (07:55→13:36)
[2024-11-11] MEDS: Fluoxetine 10 mg capsule PO SCH (08:36)
[2024-11-11] MEDS: AMLODIPINE BESYLATE 10 MG TABLET PO SCH (08:36)
[2024-11-11] MEDS: DOCUSATE SODIUM 100 MG CAPSULE PO SCH (08:37)
[2024-11-11] MEDS: CEFEPIME 1 GM in IV D5W 50 ML IV SCH (08:37)
[2024-11-11] MEDS: PANTOPRAZOLE 40 MG TABLET.DR PO SCH (08:37)
[2024-11-11] MEDS: HEPARIN SODIUM, PORCINE 5000 UNITS/1 ML VIAL SQ SCH (08:38)
[2024-11-11] MEDS: INSULIN REGULAR, HUMAN 100 UNIT/ML 3 ML VIAL SQ PRN (08:40)
[2024-11-11] MEDS ORDERED: ROPI1TAB6 PO (08:54)
[2024-11-11] MEDS ORDERED: METO5TAB7 PO (08:54)
[2024-11-11] MEDS ORDERED: LINA72CA PO (08:54)
[2024-11-11] MEDS ORDERED: MESA800T9 PO (08:54)
[2024-11-11] MEDS ORDERED: LEVO750T46 PO (08:54)
[2024-11-11] MEDS ORDERED: PANT40TA2 PO (08:54)
[2024-11-11] MEDS ORDERED: TRAM50TA2 PO (08:54)
[2024-11-11] MEDS ORDERED: RISP0.5T65 PO (08:54)
[2024-11-11] MEDS ORDERED: CALC355O18 PO (08:54)
[2024-11-11] MEDS ORDERED: MAGN400O6 PO (08:54)
[2024-11-11] MEDS ORDERED: IPRA3AMP22 IH (08:54)
[2024-11-11] MEDS ORDERED: FLUT1BLS12 IH (08:54)
[2024-11-11] MEDS ORDERED: LORA10TA7 PO (08:54)
[2024-11-11] MEDS ORDERED: QUET200T PO (08:54)
[2024-11-11] MEDS ORDERED: OXYB5TAB16 PO (08:54)
[2024-11-11] MEDS ORDERED: SENN8.6T19 PO (08:54)
[2024-11-11] MEDS ORDERED: MAGN400T30 PO (08:54)
[2024-11-11] MEDS ORDERED: POTA-88 PO (08:54)
[2024-11-11] MEDS ORDERED: FLUT16SP16 NS (08:54)
[2024-11-11] MEDS ORDERED: FURO-144 PO (08:54)
[2024-11-11] MEDS ORDERED: methylPREDNISolone SOD SUCC 125 MG/2ML VIAL IV SCH (09:30)
[2024-11-11 10:39] LABS: BASOPHILS % (AUTO) 0.3 % (0.0-2.0); EOSINOPHILS % (AUTO) 0.1 % (0.0-6.0); HEMATOCRIT 35 % (33-45); HEMOGLOBIN 11.8 g/dL (11.5-14.8); LYMPHOCYTES # (AUTO) 2.4 K/uL (0.8-4.8); LYMPHOCYTES % (AUTO) 12.8 % (20.0-44.0); MEAN CORPUSCULAR HEMOGLOBIN 29 PG (26.0-33.0); MEAN CORPUSCULAR HGB CONC 34 g/dl (31.0-36.0); MEAN CORPUSCULAR VOLUME 86 fL (82-100); MONOCYTES # (AUTO) 1.4 K/uL (0.1-1.30); MONOCYTES % (AUTO) 7.4 % (2.0-12.0); NEUTROPHILS # (AUTO) 15.1 K/uL (1.8-8.9); NEUTROPHILS % (AUTO) 79.4 % (43.0-81.0); PLATELET COUNT (AUTO) 233 K/uL (150-450); RED BLOOD CELL COUNT(AUTO) 4.06 MIL/uL (4.0-5.2); RED CELL DISTRIBUTION WIDTH 16.8 % (11.5-15.0)
[2024-11-11] MEDS: methylPREDNISolone SOD SUCC 40 MG/ML VIAL IV SCH (10:47)
[2024-11-11 10:50] LABS: CALCIUM, SERUM 8.5 mg/dL (8.5-10.1); CREATININE 2.1 mg/dL (0.6-1.3)
[2024-11-11 11:14] LABS: POTASSIUM 2.5 mmol/L (3.5-5.1)
[2024-11-11] MEDS ORDERED: POTASSIUM CHLORIDE 20 MEQ TAB.PRT.SR PO SCH (12:00)
[2024-11-11] MEDS ORDERED: POTASSIUM CHLORIDE 20 MEQ TAB.PRT.SR PO ONE (12:00)
[2024-11-11] MEDS ORDERED: POTASSIUM CHLORIDE 10 MEQ/50 ML PREMIXED IVPB FOR PERIPHERAL LINE IV SCH (12:00)
[2024-11-11] MEDS: POTASSIUM CHLORIDE 20 MEQ TAB.PRT.SR PO SCH (12:26)
[2024-11-11] MEDS: POTASSIUM CHLORIDE 10 MEQ/50 ML PREMIXED IVPB FOR PERIPHERAL LINE IV SCH (13:58)
[2024-11-11] MEDS: Potassium Chloride 40 MEQ in IV NS 0.9% 1,000 ML IV SCH (15:37)
[2024-11-11] MEDS ORDERED: methylPREDNISolone SOD SUCC 40 MG/ML VIAL IV SCH (17:00)
[2024-11-11 17:01] LABS: LYMPHOCYTES % (MANUAL) 13 % (16-48); MONOCYTES % (MANUAL) 8 % (0-11.0); MYELOCYTES % 1 % (0-0); NEUTROPHILS % (MANUAL) 78 (42-76); PLATELET ESTIMATE ADEQUATE
[2024-11-11 17:02] LABS: ANISOCYTOSIS 1+
[2024-11-11] MEDS: DIVALPROEX SODIUM 500 MG TABLET.DR PO SCH (21:49)
[2024-11-11] MEDS ORDERED: INSULIN GLARGINE, 100 UNIT/ML CARTRIDGE SQ SCH (22:00)
[2024-11-11] MEDS: *INSULIN REGULAR(HUMULIN R)HUM 100 UNIT/ML VIAL SQ PRN (22:02)
[2024-11-11] MEDS: INSULIN GLARGINE, 100 UNIT/ML CARTRIDGE SQ SCH (22:02)
[2024-11-12] VITALS (15 sets, daily range): BP systolic 115–168; BP diastolic 56–94; TEMP 97.5–98.6; O2SAT 92–100
[2024-11-12 07:42] LABS: BASOPHILS # (AUTO) 0.1 K/uL (0.0-0.2); BASOPHILS % (AUTO) 0.3 % (0.0-2.0); HEMATOCRIT 32 % (33-45); HEMOGLOBIN 10.7 g/dL (11.5-14.8); LYMPHOCYTES # (AUTO) 1.4 K/uL (0.8-4.8); LYMPHOCYTES % (AUTO) 8.7 % (20.0-44.0); MEAN CORPUSCULAR HEMOGLOBIN 29 PG (26.0-33.0); MEAN CORPUSCULAR HGB CONC 33 g/dl (31.0-36.0); MEAN CORPUSCULAR VOLUME 88 fL (82-100); MONOCYTES # (AUTO) 0.8 K/uL (0.1-1.30); MONOCYTES % (AUTO) 4.8 % (2.0-12.0); NEUTROPHILS # (AUTO) 13.7 K/uL (1.8-8.9); NEUTROPHILS % (AUTO) 86.2 % (43.0-81.0); PLATELET COUNT (AUTO) 191 K/uL (150-450); RED BLOOD CELL COUNT(AUTO) 3.64 MIL/uL (4.0-5.2); RED CELL DISTRIBUTION WIDTH 16.4 % (11.5-15.0)
[2024-11-12 07:46] LABS: ALBUMIN 2.3 g/dL (3.4-5.0); POTASSIUM 3.3 mmol/L (3.5-5.1)
[2024-11-12 08:05] LABS: BILIRUBIN,TOTAL 0.2 mg/dL (0.2-1.0); CALCIUM, SERUM 8.2 mg/dL (8.5-10.1); CREATININE 1.7 mg/dL (0.6-1.3); MAGNESIUM 1.7 mg/dL (1.8-2.4); TOTAL PROTEIN, SERUM 6.2 g/dL (6.4-8.2)
[2024-11-12 08:16] LABS: THYROID STIMULATING HORMONE 0.45 uIU/mL (0.358-3.74)
[2024-11-12] MEDS ORDERED: Z GUARD REMEDY 4 OZ OINT TP PRN (08:30)
[2024-11-12] MEDS: Z GUARD REMEDY 4 OZ OINT TP SCH (09:06)
[2024-11-12] MEDS: MESALAMINE 400 MG CAP PO SCH (09:59)
[2024-11-12 11:56] LABS: BAND % (MANUAL) 1 % (0.0-5.0); LYMPHOCYTES % (MANUAL) 11 % (16-48); MONOCYTES % (MANUAL) 5 % (0-11.0); MYELOCYTES % 4 % (0-0); NEUTROPHILS % (MANUAL) 79 (42-76); PLATELET ESTIMATE ADEQUATE
[2024-11-12 11:58] LABS: ANISOCYTOSIS 1+
[2024-11-12] MEDS: INSULIN GLARGINE, 100 UNIT/ML CARTRIDGE SQ SCH (21:30)
[2024-11-12] MEDS ORDERED: INSULIN GLARGINE, 100 UNIT/ML CARTRIDGE SQ SCH (22:00)
[2024-11-13] VITALS (14 sets, daily range): BP systolic 124–163; BP diastolic 59–93; TEMP 96.4–98.4; O2SAT 95–99
[2024-11-13 08:33] LABS: BASOPHILS % (AUTO) 0.2 % (0.0-2.0); HEMOGLOBIN 10.6 g/dL (11.5-14.8); MONOCYTES # (AUTO) 1.1 K/uL (0.1-1.30); WHITE BLOOD COUNT (AUTO) 17.6 K/uL (4.3-11.0)
[2024-11-13 08:36] LABS: CALCIUM, SERUM 9.1 mg/dL (8.5-10.1); CREATININE 1.3 mg/dL (0.6-1.3); MAGNESIUM 1.4 mg/dL (1.8-2.4); PHOSPHORUS 2.9 mg/dL (2.5-4.9); POTASSIUM 3.6 mmol/L (3.5-5.1)
[2024-11-13 08:55] LABS: EOSINOPHILS % (AUTO) 0.1 % (0.0-6.0); HEMATOCRIT 32 % (33-45); LYMPHOCYTES # (AUTO) 1.9 K/uL (0.8-4.8); LYMPHOCYTES % (AUTO) 10.5 % (20.0-44.0); MEAN CORPUSCULAR HEMOGLOBIN 29 PG (26.0-33.0); MEAN CORPUSCULAR HGB CONC 33 g/dl (31.0-36.0); MEAN CORPUSCULAR VOLUME 87 fL (82-100); MONOCYTES % (AUTO) 6.1 % (2.0-12.0); NEUTROPHILS # (AUTO) 14.7 K/uL (1.8-8.9); NEUTROPHILS % (AUTO) 83.1 % (43.0-81.0); PLATELET COUNT (AUTO) 186 K/uL (150-450); RED BLOOD CELL COUNT(AUTO) 3.69 MIL/uL (4.0-5.2); RED CELL DISTRIBUTION WIDTH 16.2 % (11.5-15.0)
[2024-11-13] MEDS: METOPROLOL TARTRATE 25 MG TABLET PO SCH (10:14)
[2024-11-13] MEDS: MAGNESIUM OXIDE 400 MG TABLET PO ONE (10:15)
[2024-11-13] MEDS: POTASSIUM CHLORIDE 20 MEQ TAB.PRT.SR PO ONE (10:24)
[2024-11-13] MEDS: Magnesium 1GM/D5W 100ML PREMIX 100 ML IV SCH (10:24)
[2024-11-13] MEDS: CLOTRIMAZOLE 1% 15 GM TUBE TP SCH (10:42)
[2024-11-13] MEDS ORDERED: Magnesium 1GM/D5W 100ML PREMIX 1 G in PREMIX 1 EA IV SCH (18:00)
[2024-11-13] MEDS: MGSO4/D5W 100 ML IV SCH (18:04)
[2024-11-13] MEDS ORDERED: POTASSIUM CL. PREMIX PERIPHER. 50 ML IV SCH (20:00)
[2024-11-14] VITALS (14 sets, daily range): BP systolic 135–174; BP diastolic 62–89; TEMP 97–98.6; O2SAT 93–100
[2024-11-14] MEDS: methylPREDNISolone SOD SUCC 40 MG/ML VIAL IV SCH (08:35)
[2024-11-14 16:08] LABS: BASOPHILS # (AUTO) 0.1 K/uL (0.0-0.2); BASOPHILS % (AUTO) 0.5 % (0.0-2.0); HEMATOCRIT 32 % (33-45); HEMOGLOBIN 10.6 g/dL (11.5-14.8); LYMPHOCYTES # (AUTO) 1.2 K/uL (0.8-4.8); LYMPHOCYTES % (AUTO) 7.5 % (20.0-44.0); MEAN CORPUSCULAR HEMOGLOBIN 29 PG (26.0-33.0); MEAN CORPUSCULAR HGB CONC 33 g/dl (31.0-36.0); MEAN CORPUSCULAR VOLUME 88 fL (82-100); MONOCYTES # (AUTO) 0.3 K/uL (0.1-1.30); NEUTROPHILS # (AUTO) 14.1 K/uL (1.8-8.9); PLATELET COUNT (AUTO) 191 K/uL (150-450); RED BLOOD CELL COUNT(AUTO) 3.66 MIL/uL (4.0-5.2); RED CELL DISTRIBUTION WIDTH 16.9 % (11.5-15.0); WHITE BLOOD COUNT (AUTO) 15.6 K/uL (4.3-11.0)
[2024-11-14 16:35] LABS: CALCIUM, SERUM 8.8 mg/dL (8.5-10.1); CREATININE 1.6 mg/dL (0.6-1.3)
[2024-11-14 19:57] LABS: ANISOCYTOSIS 1+; LYMPHOCYTES % (MANUAL) 18 % (16-48); MONOCYTES % (MANUAL) 3 % (0-11.0); NEUTROPHILS % (MANUAL) 79 (42-76); PLATELET ESTIMATE ADEQUATE
[2024-11-14 19:58] LABS: OVALOCYTES RARE
[2024-11-15] VITALS (13 sets, daily range): BP systolic 150–174; BP diastolic 71–95; TEMP 97.5–97.7; O2SAT 94–100
[2024-11-15] MEDS: ALBUTEROL FS 2.5 MG/0.5 ML VIAL.NEB NEB PRN (00:05)
[2024-11-15 06:49] LABS: BASOPHILS # (AUTO) 0.2 K/uL (0.0-0.2); EOSINOPHILS # (AUTO) 0.1 K/uL (0.0-0.7); EOSINOPHILS % (AUTO) 0.8 % (0.0-6.0); HEMATOCRIT 36 % (33-45); HEMOGLOBIN 11.5 g/dL (11.5-14.8); LYMPHOCYTES # (AUTO) 3.3 K/uL (0.8-4.8); MEAN CORPUSCULAR HEMOGLOBIN 29 PG (26.0-33.0); MEAN CORPUSCULAR HGB CONC 32 g/dl (31.0-36.0); MEAN CORPUSCULAR VOLUME 90 fL (82-100); MONOCYTES % (AUTO) 5.4 % (2.0-12.0); NEUTROPHILS # (AUTO) 13.8 K/uL (1.8-8.9); NEUTROPHILS % (AUTO) 74.8 % (43.0-81.0); PLATELET COUNT (AUTO) 181 K/uL (150-450); RED BLOOD CELL COUNT(AUTO) 3.97 MIL/uL (4.0-5.2); RED CELL DISTRIBUTION WIDTH 16.9 % (11.5-15.0); WHITE BLOOD COUNT (AUTO) 18.4 K/uL (4.3-11.0)
[2024-11-15 06:57] LABS: CALCIUM, SERUM 8.8 mg/dL (8.5-10.1); CREATININE 1.1 mg/dL (0.6-1.3); POTASSIUM 4.2 mmol/L (3.5-5.1)
== END 2024-11-15 15:34 | DRG 871 ==
LOC: ER 22:23 → TELE1 11-11 01:14 → MEDSG1 11-13 11:04
PROVIDERS: ADMIT Internal Medicine; ATTEND Internal Medicine
DX: A41.9 Sepsis, unspecified organism (principal); I21.A1 Myocardial infarction type 2; J96.01 Acute respiratory failure with hypoxia; K50.90 Crohn's disease, unspecified, without complications; J44.1 Chronic obstructive pulmonary disease with (acute) exacerbation; N17.9 Acute kidney failure, unspecified; Z68.41 Body mass index [BMI] 40.0-44.9, adult; E87.20 Acidosis, unspecified; I13.0 Hypertensive heart and chronic kidney disease with heart failure and stage 1 through stage 4 chronic kidney disease, or unspecified chronic kidney disease; I50.32 Chronic diastolic (congestive) heart failure; L03.115 Cellulitis of right lower limb; L03.116 Cellulitis of left lower limb; N18.9 Chronic kidney disease, unspecified; Z20.822 Contact with and (suspected) exposure to COVID-19; E78.5 Hyperlipidemia, unspecified; M79.7 Fibromyalgia; M19.90 Unspecified osteoarthritis, unspecified site; G43.909 Migraine, unspecified, not intractable, without status migrainosus; F29 Unspecified psychosis not due to a substance or known physiological condition; Z90.49 Acquired absence of other specified parts of digestive tract; Z99.81 Dependence on supplemental oxygen; Z91.030 Bee allergy status; Z91.013 Allergy to seafood; Z91.018 Allergy to other foods; Z79.4 Long term (current) use of insulin; Z79.51 Long term (current) use of inhaled steroids; Z79.899 Other long term (current) drug therapy; Z86.79 Personal history of other diseases of the circulatory system; Z87.11 Personal history of peptic ulcer disease; Z87.891 Personal history of nicotine dependence; N18.30 Chronic kidney disease, stage 3 unspecified; Z74.01 Bed confinement status; M89.8X9 Other specified disorders of bone, unspecified site; Z79.01 Long term (current) use of anticoagulants; Z80.9 Family history of malignant neoplasm, unspecified; Z82.49 Family history of ischemic heart disease and other diseases of the circulatory system; J20.9 Acute bronchitis, unspecified; I87.8 Other specified disorders of veins; E11.65 Type 2 diabetes mellitus with hyperglycemia; E11.51 Type 2 diabetes mellitus with diabetic peripheral angiopathy without gangrene; E11.40 Type 2 diabetes mellitus with diabetic neuropathy, unspecified; E66.01 Morbid (severe) obesity due to excess calories; E83.42 Hypomagnesemia; E11.22 Type 2 diabetes mellitus with diabetic chronic kidney disease; G40.909 Epilepsy, unspecified, not intractable, without status epilepticus; G47.33 Obstructive sleep apnea (adult) (pediatric); I25.10 Atherosclerotic heart disease of native coronary artery without angina pectoris; I70.0 Atherosclerosis of aorta; I87.2 Venous insufficiency (chronic) (peripheral); B35.6 Tinea cruris; D64.9 Anemia, unspecified; E87.6 Hypokalemia
CPT/HCPCS: 36415; 71045-TC; 80048-TC; 80053-TC; 80076-TC; 81001; 82607-TC; 82728-TC; 82962-TC; 83540-TC; 83605-TC; 83735-TC; 83880; 84100-TC; 84443-TC; 84484-TC; 85025-TC; 85730-TC; 87040-TC; 87081-TC; 87086-TC; 92526; 92611-TC; 93307-TC; 93970-TC; 94760-TC; 94761-TC; 94799-TC; 97110-TC; 97112-TC; 97530-TC; A4216; A4223; G0378; J0456; J0692; J1644; J1815; J2919; J3370; J3475; J3480; J7030; J7050; J7060

== ENCOUNTER 2024-11-16 11:32 | Inpatient (IN) | payer OTHER ==
[~2024-11-16] VITALS: Ht 152.4 cm; Wt 112.5 kg
[~2024-11-16 11:32] MED LIST changes: -AMOX-430 PO; +CALC355O18 PO; +FLUT16SP16 NS; +FLUT1BLS12 IH; -FLUT1DIS INH; +FURO-144 PO; +IPRA3AMP22 IH; +LEVO750T46 PO; +LINA72CA PO; +LORA10TA7 PO; +MAGN400O6 PO; +MAGN400T30 PO; +MESA800T9 PO; +METO5TAB7 PO; +OXYB5TAB16 PO; +PANT40TA2 PO; +POTA-88 PO; +QUET200T PO; +RISP0.5T65 PO; +ROPI1TAB6 PO; +SENN8.6T19 PO; +TRAM50TA2 PO
[2024-11-16] MEDS ORDERED: methylPREDNISolone SOD SUCC 125 MG/2ML VIAL ONE (11:41)
[2024-11-16] MEDS: ALBUTEROL FS 2.5 MG/3 ML VIAL.NEB NEB ONE (11:44)
[2024-11-16] MEDS: IPRATROPIUM NEB FS 0.5 MG/2.5 ML AMPUL.NEB NEB ONE (11:44)
[2024-11-16 11:45] VITALS: O2SAT 96
[2024-11-16] MEDS ORDERED: IPRATROPIUM NEB FS 0.5 MG/2.5 ML AMPUL.NEB ONE (11:45)
[2024-11-16] MEDS ORDERED: ALBUTEROL FS 2.5 MG/3 ML VIAL.NEB ONE (11:45)
[2024-11-16] MEDS: methylPREDNISolone SOD SUCC 125 MG/2ML VIAL IV ONE (11:50)
[2024-11-16 12:22] LABS: BASOPHILS # (AUTO) 0.1 K/uL (0.0-0.2); BASOPHILS % (AUTO) 0.3 % (0.0-2.0); EOSINOPHILS % (AUTO) 0.2 % (0.0-6.0); HEMATOCRIT 38 % (33-45); HEMOGLOBIN 12.3 g/dL (11.5-14.8); LYMPHOCYTES # (AUTO) 1.5 K/uL (0.8-4.8); LYMPHOCYTES % (AUTO) 7.3 % (20.0-44.0); MEAN CORPUSCULAR HEMOGLOBIN 29 PG (26.0-33.0); MEAN CORPUSCULAR HGB CONC 33 g/dl (31.0-36.0); MEAN CORPUSCULAR VOLUME 89 fL (82-100); MONOCYTES # (AUTO) 0.7 K/uL (0.1-1.30); MONOCYTES % (AUTO) 3.6 % (2.0-12.0); NEUTROPHILS # (AUTO) 18.2 K/uL (1.8-8.9); NEUTROPHILS % (AUTO) 88.6 % (43.0-81.0); PLATELET COUNT (AUTO) 196 K/uL (150-450); RED BLOOD CELL COUNT(AUTO) 4.22 MIL/uL (4.0-5.2); RED CELL DISTRIBUTION WIDTH 17.1 % (11.5-15.0); WHITE BLOOD COUNT (AUTO) 20.5 K/uL (4.3-11.0)
[2024-11-16 12:41] VITALS: O2SAT 97
[2024-11-16 12:43] LABS: CARBON DIOXIDE 23 mmol/L (21-32); CHLORIDE 103 mmol/L (98-107); CREATININE 1.5 mg/dL (0.6-1.3); GLUCOSE 204 mg/dL (74-106); NT-PRO BNP 2377 pg/mL (0-125); POTASSIUM 4.7 mmol/L (3.5-5.1); SODIUM SERUM 137 mmol/L (136-145); UREA NITROGEN, BLOOD 51 mg/dL (7-18)
[2024-11-16 12:48] LABS: CALCIUM, SERUM 8.8 mg/dL (8.5-10.1)
[2024-11-16] MEDS ORDERED: FUROSEMIDE 20 MG/2 ML VIAL ONE (13:05)
[2024-11-16] MEDS: FUROSEMIDE 20 MG/2 ML VIAL IV ONE (13:35)
[2024-11-16] MEDS: CEFEPIME 1 GM in IV D5W 50 ML IV ONE (14:30)
[2024-11-16 14:57] LABS: LACTIC ACID 2.1 mmol/L (0.4-2.0)
[2024-11-16] MEDS: VANCOMYCIN 1 GM in IV D5W 250 ML IV ONE (15:00)
[2024-11-16 16:14] LABS: BILIRUBIN,DIRECT 0.1 mg/dL (0.0-0.2); BILIRUBIN,TOTAL 0.3 mg/dL (0.2-1.0)
[2024-11-16 16:20] LABS: LACTIC ACID REFLEX 2.4 mmol/L (0.4-1.9)
[2024-11-16] MEDS ORDERED: ONDANSETRON HCL/PF 4 MG/2 ML VIAL IVP PRN (19:00)
[2024-11-16] MEDS ORDERED: MAG HYDROX/AL HYDROX/SIMETH 30 ML UDC PO PRN (19:00)
[2024-11-16] MEDS ORDERED: ACETAMINOPHEN 325 MG TABLET PO PRN (19:00)
[2024-11-16] MEDS ORDERED: DEXTROSE 50%-WATER 50 ML DISP.SYRIN IV PRN (19:00)
[2024-11-16] MEDS ORDERED: BISACODYL SUPP (10 MG) 10 MG/SUPP.RECT SUPP.RECT RC PRN (19:30)
[2024-11-16] MEDS ORDERED: NA PHOS,M-B/NA PHOS,DI-BA 1 EA ENEMA RC PRN (19:30)
[2024-11-16 21:30] VITALS: BP 150/93; TEMP 98.2; O2SAT 99
[2024-11-16] MEDS: FLUTICASONE PROPIONATE 16 GM BOTTLE NS SCH (21:50)
[2024-11-16] MEDS: QUETIAPINE FUMARATE 100 MG TABLET PO SCH (22:00)
[2024-11-16] MEDS: SENNOSIDES 8.6 MG TABLET PO SCH (22:00)
[2024-11-16] MEDS: DIVALPROEX SODIUM 500 MG TABLET.DR PO SCH (22:00)
[2024-11-16] MEDS: BLOOD SUGAR DIAGNOSTIC 1 EACH STRIP VI SCH (22:01)
[2024-11-16] MEDS: *INSULIN REGULAR(HUMULIN R)HUM 100 UNIT/ML VIAL SQ PRN (22:06)
[2024-11-16] MEDS: methylPREDNISolone SOD SUCC 40 MG/ML VIAL IV SCH (23:10)
[2024-11-17] VITALS (13 sets, daily range): BP systolic 130–160; BP diastolic 76–98; TEMP 97.7–98.6; O2SAT 96–100
[2024-11-17] MEDS: ALBUTEROL FS 2.5 MG/3 ML VIAL.NEB IH SCH (00:31)
[2024-11-17] MEDS: INSULIN REGULAR, HUMAN 100 UNIT/ML 3 ML VIAL SQ PRN (06:32)
[2024-11-17] MEDS: BUDESONIDE RESPULE INH 0.5 MG/2 ML AMPUL.NEB HHN SCH (07:05)
[2024-11-17 07:55] LABS: BASOPHILS % (AUTO) 0.3 % (0.0-2.0); HEMATOCRIT 35 % (33-45); HEMOGLOBIN 11.3 g/dL (11.5-14.8); LYMPHOCYTES # (AUTO) 0.8 K/uL (0.8-4.8); LYMPHOCYTES % (AUTO) 5.8 % (20.0-44.0); MEAN CORPUSCULAR HEMOGLOBIN 29 PG (26.0-33.0); MEAN CORPUSCULAR HGB CONC 32 g/dl (31.0-36.0); MEAN CORPUSCULAR VOLUME 89 fL (82-100); MONOCYTES # (AUTO) 0.3 K/uL (0.1-1.30); MONOCYTES % (AUTO) 2.5 % (2.0-12.0); NEUTROPHILS # (AUTO) 12.1 K/uL (1.8-8.9); NEUTROPHILS % (AUTO) 91.4 % (43.0-81.0); PLATELET COUNT (AUTO) 150 K/uL (150-450); RED BLOOD CELL COUNT(AUTO) 3.95 MIL/uL (4.0-5.2); RED CELL DISTRIBUTION WIDTH 17.1 % (11.5-15.0); WHITE BLOOD COUNT (AUTO) 13.3 K/uL (4.3-11.0)
[2024-11-17 07:59] LABS: CALCIUM, SERUM 9.1 mg/dL (8.5-10.1); CREATININE 1.6 mg/dL (0.6-1.3); MAGNESIUM 1.8 mg/dL (1.8-2.4); PHOSPHORUS 4.5 mg/dL (2.5-4.9); POTASSIUM 4.3 mmol/L (3.5-5.1)
[2024-11-17] MEDS: PANTOPRAZOLE 40 MG TABLET.DR PO SCH (08:24)
[2024-11-17] MEDS: TRAMADOL HCL 50 MG TABLET PO SCH (08:25)
[2024-11-17] MEDS: ropiniROLE 0.5 MG TABLET PO SCH (08:26)
[2024-11-17] MEDS: FERROUS SULFATE (325 MG) 325 MG/TAB TABLET PO SCH (08:26)
[2024-11-17] MEDS: MAGNESIUM OXIDE 400 MG TABLET PO SCH (08:26)
[2024-11-17] MEDS: Fluoxetine 10 mg capsule PO SCH (08:27)
[2024-11-17] MEDS: DOCUSATE SODIUM 100 MG CAPSULE PO SCH (08:27)
[2024-11-17] MEDS: AMLODIPINE BESYLATE 10 MG TABLET PO SCH (08:27)
[2024-11-17 08:40] LABS: APPEARANCE,URINE CLEAR (CLEAR); BILIRUBIN,URINE NEGATIVE (NEGATIVE); BLOOD, URINE NEGATIVE Ery/uL (NEGATIVE); COLOR,URINE YELLOW (YELLOW); KETONES,URINE NEGATIVE (NEGATIVE); LEUKOCYTE ESTERASE ,URINE NEGATIVE (NEGATIVE); NITRITE, URINE NEGATIVE (NEGATIVE); PH,URINE 5.5 (5.0-8.0); PROTEIN,URINE 2+ mg/dl (NEGATIVE); UGLUCOSE 2+ mg/dL (NEGATIVE); UROBILINOGEN,URINE 0.2 EU/dL (0.2)
[2024-11-17 09:18] LABS: ADD URINE CULTURE NO; BACTERIA,URINE Rare /HPF (None Seen); RBC,URINE 0-2 /HPF (0-2); WBC,URINE 0-2 /HPF (0-3); YEAST,URINE Few /HPF (None Seen)
[2024-11-17] MEDS: IPRATROPIUM NEB FS 0.5 MG/2.5 ML AMPUL.NEB NEB SCH (10:00)
[2024-11-17] MEDS: HEPARIN SODIUM, PORCINE 5000 UNITS/1 ML VIAL SQ SCH (10:29)
[2024-11-17] MEDS ORDERED: VANCOMYCIN 1 GM in IV D5W 250ml IV SCH (15:00)
[2024-11-17] MEDS: CEFEPIME 2 GM in IV D5W 100 ML IV SCH (15:59)
[2024-11-17 16:33] LABS: BAND % (MANUAL) 2 % (0.0-5.0); LYMPHOCYTES % (MANUAL) 7 % (16-48); MONOCYTES % (MANUAL) 5 % (0-11.0); NEUTROPHILS % (MANUAL) 86 (42-76)
[2024-11-17 16:34] LABS: ANISOCYTOSIS 1+; PLATELET ESTIMATE ADEQUATE
[2024-11-17] MEDS: risperiDONE 0.25 MG TABLET PO SCH (17:21)
[2024-11-18] VITALS (13 sets, daily range): BP systolic 129–152; BP diastolic 73–90; TEMP 97.7–98.6; O2SAT 93–100
[2024-11-18] MEDS: Z GUARD REMEDY 4 OZ OINT TP PRN (04:47)
[2024-11-18] MEDS: MAGNESIUM HYDROXIDE 30 ML UDC PO PRN (11:33)
[2024-11-18 16:58] LABS: BASOPHILS % (AUTO) 0.3 % (0.0-2.0); HEMATOCRIT 34 % (33-45); HEMOGLOBIN 10.8 g/dL (11.5-14.8); LYMPHOCYTES # (AUTO) 0.4 K/uL (0.8-4.8); LYMPHOCYTES % (AUTO) 2.8 % (20.0-44.0); MEAN CORPUSCULAR HEMOGLOBIN 29 PG (26.0-33.0); MEAN CORPUSCULAR HGB CONC 32 g/dl (31.0-36.0); MEAN CORPUSCULAR VOLUME 91 fL (82-100); MONOCYTES # (AUTO) 0.4 K/uL (0.1-1.30); MONOCYTES % (AUTO) 2.8 % (2.0-12.0); NEUTROPHILS # (AUTO) 14.3 K/uL (1.8-8.9); NEUTROPHILS % (AUTO) 94.1 % (43.0-81.0); PLATELET COUNT (AUTO) 135 K/uL (150-450); RED BLOOD CELL COUNT(AUTO) 3.72 MIL/uL (4.0-5.2); RED CELL DISTRIBUTION WIDTH 17.3 % (11.5-15.0); WHITE BLOOD COUNT (AUTO) 15.2 K/uL (4.3-11.0)
[2024-11-18 17:37] LABS: CREATININE 1.8 mg/dL (0.6-1.3); POTASSIUM 4.1 mmol/L (3.5-5.1)
[2024-11-19] VITALS (9 sets, daily range): BP systolic 131–154; BP diastolic 85–93; TEMP 97.7–98.4; O2SAT 94–100
[2024-11-19] MEDS: INSULIN REGULAR, HUMAN 100 UNIT/ML 10 ML VIAL SQ ONE (02:04)
[2024-11-19 04:46] LABS: BAND % (MANUAL) 3 % (0.0-5.0); LYMPHOCYTES % (MANUAL) 4 % (16-48); MONOCYTES % (MANUAL) 2 % (0-11.0); NEUTROPHILS % (MANUAL) 91 (42-76)
[2024-11-19 04:47] LABS: ANISOCYTOSIS 1+; PLATELET ESTIMATE DECREASED
[2024-11-19] MEDS ORDERED: PRED50TA PO (06:53)
[2024-11-19 07:03] LABS: BASOPHILS # (AUTO) 0.1 K/uL (0.0-0.2); BASOPHILS % (AUTO) 0.4 % (0.0-2.0); HEMATOCRIT 32 % (33-45); HEMOGLOBIN 10.9 g/dL (11.5-14.8); LYMPHOCYTES # (AUTO) 0.6 K/uL (0.8-4.8); LYMPHOCYTES % (AUTO) 3.9 % (20.0-44.0); MEAN CORPUSCULAR HEMOGLOBIN 30 PG (26.0-33.0); MEAN CORPUSCULAR HGB CONC 34 g/dl (31.0-36.0); MEAN CORPUSCULAR VOLUME 88 fL (82-100); MONOCYTES # (AUTO) 0.5 K/uL (0.1-1.30); MONOCYTES % (AUTO) 3.8 % (2.0-12.0); NEUTROPHILS # (AUTO) 13.1 K/uL (1.8-8.9); NEUTROPHILS % (AUTO) 91.9 % (43.0-81.0); PLATELET COUNT (AUTO) 127 K/uL (150-450); RED BLOOD CELL COUNT(AUTO) 3.67 MIL/uL (4.0-5.2); RED CELL DISTRIBUTION WIDTH 16.3 % (11.5-15.0); WHITE BLOOD COUNT (AUTO) 14.3 K/uL (4.3-11.0)
[2024-11-19 07:31] LABS: CALCIUM, SERUM 9.6 mg/dL (8.5-10.1); CREATININE 1.6 mg/dL (0.6-1.3); POTASSIUM 3.7 mmol/L (3.5-5.1)
[2024-11-19] MEDS: INSULIN GLARGINE, 100 UNIT/ML CARTRIDGE SQ SCH (10:17)
== END 2024-11-19 15:43 | DRG 190 ==
LOC: ER 11:35 → TELE 20:37
PROVIDERS: ADMIT Internal Medicine; ATTEND Internal Medicine
DX: J44.1 Chronic obstructive pulmonary disease with (acute) exacerbation (principal); J96.01 Acute respiratory failure with hypoxia; N17.0 Acute kidney failure with tubular necrosis; K50.90 Crohn's disease, unspecified, without complications; J45.901 Unspecified asthma with (acute) exacerbation; Z68.41 Body mass index [BMI] 40.0-44.9, adult; K86.1 Other chronic pancreatitis; E87.20 Acidosis, unspecified; J44.0 Chronic obstructive pulmonary disease with (acute) lower respiratory infection; J20.9 Acute bronchitis, unspecified; I12.9 Hypertensive chronic kidney disease with stage 1 through stage 4 chronic kidney disease, or unspecified chronic kidney disease; E78.5 Hyperlipidemia, unspecified; M79.7 Fibromyalgia; G43.909 Migraine, unspecified, not intractable, without status migrainosus; K59.00 Constipation, unspecified; M19.90 Unspecified osteoarthritis, unspecified site; N18.9 Chronic kidney disease, unspecified; F29 Unspecified psychosis not due to a substance or known physiological condition; Z90.49 Acquired absence of other specified parts of digestive tract; Z91.030 Bee allergy status; Z91.013 Allergy to seafood; Z91.018 Allergy to other foods; Z79.51 Long term (current) use of inhaled steroids; Z79.4 Long term (current) use of insulin; Z79.899 Other long term (current) drug therapy; Z87.11 Personal history of peptic ulcer disease; Z87.891 Personal history of nicotine dependence; E66.01 Morbid (severe) obesity due to excess calories; E11.22 Type 2 diabetes mellitus with diabetic chronic kidney disease; E11.51 Type 2 diabetes mellitus with diabetic peripheral angiopathy without gangrene; E11.65 Type 2 diabetes mellitus with hyperglycemia; E83.42 Hypomagnesemia; E87.6 Hypokalemia; G47.33 Obstructive sleep apnea (adult) (pediatric)
CPT/HCPCS: 36415; 70220-TC; 71045-TC; 80048-TC; 81001; 82247-TC; 82248-TC; 82962-TC; 83605-TC; 83735-TC; 83880; 84100-TC; 84484-TC; 85025-TC; 87040-TC; 87086-TC; 94760-TC; 94799-TC; A4223; G0378; J0692; J1644; J1815; J1940; J2919; J3370; J7050; J7060

== ENCOUNTER 2025-02-10 20:18 | Emergency (ER) | payer MEDICARE, OTHER ==
[~2025-02-10] VITALS: Ht 165.1 cm; Wt 81.6 kg
[~2025-02-10 20:18] MED LIST changes: -ACET-868 PO; -ALBU18HF2 IH; -INSU100I34 SQ; -IPRA3AMP22 IH; -LEVO750T46 PO; -METH4TAB3 PO; -METO5TAB7 PO; +PRED50TA PO
[2025-02-10] MEDS ORDERED: HYDR28.318 TP (20:58)
[2025-02-10] MEDS ORDERED: ACETAMINOPHEN 325 MG TABLET ONE (21:28)
[2025-02-10] MEDS: ACETAMINOPHEN 325 MG TABLET PO ONE (21:32)
[2025-02-11 02:59] VITALS: BP 168/83; TEMP 98.3; O2SAT 93
== END 2025-02-11 03:00 ==
LOC: ER 20:20
DX: L30.9 Dermatitis, unspecified (principal); I10 Essential (primary) hypertension; E11.9 Type 2 diabetes mellitus without complications; F32.A Depression, unspecified; F41.9 Anxiety disorder, unspecified; M19.90 Unspecified osteoarthritis, unspecified site; Z79.51 Long term (current) use of inhaled steroids; Z79.52 Long term (current) use of systemic steroids; Z79.899 Other long term (current) drug therapy; Z90.49 Acquired absence of other specified parts of digestive tract; Z91.030 Bee allergy status

== ENCOUNTER 2025-02-17 19:32 | Inpatient (IN) | payer MEDICARE, OTHER ==
[~2025-02-17] VITALS: Ht 175.3 cm; Wt 102.5 kg
[~2025-02-17 19:32] MED LIST changes: +HYDR28.318 TP; +NYST60PO TP; +PRED20TA PO; +SULF1TAB48 PO
[2025-02-17 19:55] VITALS: O2SAT 98
[2025-02-17] MEDS: IPRATROPIUM NEB FS 0.5 MG/2.5 ML AMPUL.NEB NEB ONE (19:55)
[2025-02-17] MEDS: ALBUTEROL FS 2.5 MG/3 ML VIAL.NEB NEB ONE (19:55)
[2025-02-17] MEDS ORDERED: CEFTRIAXONE 1GM BAG (ER ONLY) 50 ML IV ONE (20:01)
[2025-02-17] MEDS ORDERED: AZITHROMYCIN 500 MG VIAL ONE (20:01)
[2025-02-17] MEDS ORDERED: methylPREDNISolone SOD SUCC 125 MG/2ML VIAL ONE (20:01)
[2025-02-17] MEDS ORDERED: Magnesium 1GM/D5W 100ML PREMIX 200 ML IV ONE (20:02)
[2025-02-17 20:09] LABS: BASOPHILS # (AUTO) 0.1 K/uL (0.0-0.2); BASOPHILS % (AUTO) 0.8 % (0.0-2.0); EOSINOPHILS % (AUTO) 0.3 % (0.0-6.0); HEMATOCRIT 33 % (33-45); HEMOGLOBIN 10.8 g/dL (11.5-14.8); LYMPHOCYTES # (AUTO) 1.6 K/uL (0.8-4.8); LYMPHOCYTES % (AUTO) 12.5 % (20.0-44.0); MEAN CORPUSCULAR HEMOGLOBIN 29 PG (26.0-33.0); MEAN CORPUSCULAR HGB CONC 32 g/dl (31.0-36.0); MEAN CORPUSCULAR VOLUME 91 fL (82-100); MONOCYTES # (AUTO) 0.7 K/uL (0.1-1.30); MONOCYTES % (AUTO) 5.4 % (2.0-12.0); NEUTROPHILS # (AUTO) 10.2 K/uL (1.8-8.9); PLATELET COUNT (AUTO) 279 K/uL (150-450); RED BLOOD CELL COUNT(AUTO) 3.65 MIL/uL (4.0-5.2); RED CELL DISTRIBUTION WIDTH 17.5 % (11.5-15.0); WHITE BLOOD COUNT (AUTO) 12.6 K/uL (4.3-11.0)
[2025-02-17] MEDS: Magnesium 1GM/D5W 100ML PREMIX 200 ML IV ONE (20:11)
[2025-02-17] MEDS: methylPREDNISolone SOD SUCC 125 MG/2ML VIAL IV ONE (20:11)
[2025-02-17 20:15] LABS: CALCIUM, SERUM 8.3 mg/dL (8.5-10.1); CARBON DIOXIDE 27 mmol/L (21-32); CHLORIDE 100 mmol/L (98-107); CREATININE 1.8 mg/dL (0.6-1.3); GLUCOSE 144 mg/dL (74-106); POTASSIUM 4.7 mmol/L (3.5-5.1); SODIUM SERUM 135 mmol/L (136-145); UREA NITROGEN, BLOOD 39 mg/dL (7-18)
[2025-02-17] MEDS: AZITHROMYCIN 500 MG in IV D5W 250 ML IV ONE (20:22)
[2025-02-17 20:26] LABS: LACTIC ACID 2.8 mmol/L (0.4-2.0)
[2025-02-17] MEDS ORDERED: ALBUTEROL FS 2.5 MG/3 ML VIAL.NEB ONE (20:34)
[2025-02-17] MEDS ORDERED: IPRATROPIUM NEB FS 0.5 MG/2.5 ML AMPUL.NEB ONE (20:34)
[2025-02-17 20:55] VITALS: O2SAT 100
[2025-02-17] MEDS ORDERED: ALBUTEROL FS 2.5 MG/0.5 ML VIAL.NEB NEB PRN ×3 (21:00→22:23)
[2025-02-17] MEDS ORDERED: ONDANSETRON HCL/PF 4 MG/2 ML VIAL IVP PRN (21:00)
[2025-02-17] MEDS ORDERED: MORPHINE SULFATE INJ 2 MG/ML DISP.SYRIN IV PRN (21:00)
[2025-02-17] MEDS ORDERED: OXYBUTYNIN CHLORIDE 5 MG TABLET PO PRN (21:00)
[2025-02-17] MEDS: CEFTRIAXONE 1GM BAG (ER ONLY) 50 ML IV ONE (21:12)
[2025-02-17 21:37] LABS: ANISOCYTOSIS 1+; BASOPHILS % (MANUAL) 0 % (0.0-2.0); EOSINOPHILS % (MANUAL) 0 % (0-4); LYMPHOCYTES % (MANUAL) 10 % (16-48); MONOCYTES % (MANUAL) 3 % (0-11.0); NEUTROPHILS % (MANUAL) 87 (42-76); PLATELET ESTIMATE ADEQUATE
[2025-02-17] MEDS ORDERED: INSULIN GLARGINE,BASAGLAR 100 UNIT/ML INSULN.PEN SQ SCH (22:00)
[2025-02-17 22:42] LABS: BILIRUBIN,DIRECT 0.2 mg/dL (0.0-0.2); BILIRUBIN,TOTAL 0.2 mg/dL (0.2-1.0)
[2025-02-17 23:00] LABS: LACTIC ACID REFLEX 1.3 mmol/L (0.4-1.9)
[2025-02-17] MEDS ORDERED: INSULIN GLARGINE, 100 UNIT/ML CARTRIDGE SQ ONE (23:45)
[2025-02-17] MEDS: DIVALPROEX SODIUM 500 MG TABLET.DR PO SCH (23:48)
[2025-02-17] MEDS: LEVOFLOXACIN 750 MG /D5W 150ML PIGGYBACK IV SCH (23:50)
[2025-02-17] MEDS: methylPREDNISolone SOD SUCC 40 MG/ML VIAL IV SCH (23:50)
[2025-02-17] MEDS: HEPARIN SODIUM, PORCINE 5000 UNITS/1 ML VIAL SQ SCH (23:52)
[2025-02-18] VITALS (14 sets, daily range): BP systolic 132–151; BP diastolic 62–85; TEMP 98.1–98.4; O2SAT 93–99
[2025-02-18] MEDS ORDERED: IPRATROPIUM/ALBUTEROL INHALER IH SCH
[2025-02-18] MEDS ORDERED: DEXTROSE 50%-WATER 50 ML DISP.SYRIN IV PRN
[2025-02-18] MEDS: INSULIN GLARGINE, 100 UNIT/ML CARTRIDGE SQ SCH (00:24)
[2025-02-18] MEDS: *INSULIN REGULAR(HUMULIN R)HUM 100 UNIT/ML VIAL SQ PRN (00:36)
[2025-02-18] MEDS: IPRATROPIUM NEB FS 0.5 MG/2.5 ML AMPUL.NEB NEB SCH (00:56)
[2025-02-18] MEDS: ALBUTEROL FS 2.5 MG/0.5 ML VIAL.NEB NEB SCH (00:56)
[2025-02-18 01:16] LABS: ABG BASE EXCESS -1.6 mmol/L (-2.0-3.0); ABG OXYGEN SATURATION 93.7 % (94.0-98.0); ABG PCO2 30.9 mmHg (32.0-45.0); ABG PH 7.459 (7.350-7.450); ABG PO2 69.6 mmHg (83.0-108.0); COHb 0.2 % (0.5-1.5); MetHb 0.3 % (0.0-1.5); O2Hb 93.2 % (94.0-97.0); SITE, ABG RIGHT RADIAL
[2025-02-18] MEDS: BLOOD SUGAR DIAGNOSTIC 1 EACH STRIP VI SCH (07:37)
[2025-02-18 08:52] LABS: BASOPHILS % (AUTO) 0.3 % (0.0-2.0); HEMATOCRIT 35 % (33-45); HEMOGLOBIN 10.8 g/dL (11.5-14.8); LYMPHOCYTES # (AUTO) 1.4 K/uL (0.8-4.8); LYMPHOCYTES % (AUTO) 9.1 % (20.0-44.0); MEAN CORPUSCULAR HEMOGLOBIN 29 PG (26.0-33.0); MEAN CORPUSCULAR HGB CONC 31 g/dl (31.0-36.0); MEAN CORPUSCULAR VOLUME 91 fL (82-100); MONOCYTES # (AUTO) 0.2 K/uL (0.1-1.30); MONOCYTES % (AUTO) 1.5 % (2.0-12.0); NEUTROPHILS # (AUTO) 13.5 K/uL (1.8-8.9); NEUTROPHILS % (AUTO) 89.1 % (43.0-81.0); PLATELET COUNT (AUTO) 299 K/uL (150-450); RED BLOOD CELL COUNT(AUTO) 3.78 MIL/uL (4.0-5.2); RED CELL DISTRIBUTION WIDTH 17.8 % (11.5-15.0); WHITE BLOOD COUNT (AUTO) 15.2 K/uL (4.3-11.0)
[2025-02-18] MEDS: DOCUSATE SODIUM LIQ 100 MG/10 ML UDC PO SCH (09:00)
[2025-02-18] MEDS: POLYETHYLENE GLYCOL 3350 17 GM POWD.PACK PO SCH (09:00)
[2025-02-18] MEDS: LORATADINE 10 MG TABLET PO SCH (09:00)
[2025-02-18 09:06] LABS: ALBUMIN 2.7 g/dL (3.4-5.0); BILIRUBIN,TOTAL 0.2 mg/dL (0.2-1.0); CALCIUM, SERUM 8.9 mg/dL (8.5-10.1); CREATININE 2.1 mg/dL (0.6-1.3); MAGNESIUM 2.2 mg/dL (1.8-2.4); PHOSPHORUS 4.2 mg/dL (2.5-4.9); POTASSIUM 4.5 mmol/L (3.5-5.1); TOTAL PROTEIN, SERUM 8.1 g/dL (6.4-8.2)
[2025-02-18] MEDS: FUROSEMIDE 40 MG/4 ML VIAL IV SCH (09:49)
[2025-02-18] MEDS: FERROUS SULFATE (325 MG) 325 MG/TAB TABLET PO SCH (09:50)
[2025-02-18] MEDS: ropiniROLE 0.5 MG TABLET PO SCH (09:50)
[2025-02-18] MEDS: PANTOPRAZOLE 40 MG TABLET.DR PO SCH (09:50)
[2025-02-18] MEDS: Fluoxetine 10 mg capsule PO SCH (09:50)
[2025-02-18] MEDS: AMLODIPINE BESYLATE 10 MG TABLET PO SCH (09:50)
[2025-02-18] MEDS: INSULIN REGULAR, HUMAN 100 UNIT/ML 3 ML VIAL SQ PRN (10:53)
[2025-02-18 11:37] LABS: LYMPHOCYTES % (MANUAL) 7 % (16-48); MONOCYTES % (MANUAL) 1 % (0-11.0); NEUTROPHILS % (MANUAL) 92 (42-76); PLATELET ESTIMATE ADEQUATE
[2025-02-18] MEDS: ACETAMINOPHEN 325 MG TABLET PO PRN (15:04)
[2025-02-18] MEDS ORDERED: FURO20TA4 PO (16:07)
[2025-02-18] MEDS ORDERED: LUBI8CAP PO (16:07)
[2025-02-18] MEDS ORDERED: CETI10TA14 PO (16:07)
[2025-02-18] MEDS ORDERED: FLUO20TA28 PO (16:07)
[2025-02-18] MEDS ORDERED: VITAMIN D3 PO (16:07)
[2025-02-18] MEDS ORDERED: IPRA3AMP23 IH (16:07)
[2025-02-18] MEDS ORDERED: POTA-10 PO (16:07)
[2025-02-18] MEDS ORDERED: MAG355OR18 PO (16:07)
[2025-02-18] MEDS ORDERED: OMEP20CA15 PO (16:07)
[2025-02-18] MEDS ORDERED: METO25TA4 PO (16:07)
[2025-02-18] MEDS ORDERED: CLOT15CR5 TP (16:07)
[2025-02-18] MEDS ORDERED: ALBU6.7H9 IH (16:07)
[2025-02-18] MEDS ORDERED: ACET325T53 PO (16:07)
[2025-02-18] MEDS ORDERED: INSU100V39 SQ (16:07)
[2025-02-18] MEDS ORDERED: CALC500T53 PO (16:07)
[2025-02-18] MEDS: FUROSEMIDE 40 MG TABLET PO SCH (17:32)
[2025-02-18] MEDS: risperiDONE 0.25 MG TABLET PO SCH (17:32)
[2025-02-18] MEDS ORDERED: Medication Not On Formulary EA (Risperidone 0.5 MG) PO SCH (18:00)
[2025-02-18] MEDS: QUETIAPINE FUMARATE 100 MG TABLET PO SCH (21:22)
[2025-02-18] MEDS: hydrALAZINE HCL IV 20 MG VIAL IV PRN (23:59)
[2025-02-19] VITALS (14 sets, daily range): BP systolic 134–166; BP diastolic 73–95; TEMP 97.9–98.4; O2SAT 95–99
[2025-02-19] MEDS: methylPREDNISolone SOD SUCC 40 MG/ML VIAL IV SCH (12:00)
[2025-02-20] VITALS (12 sets, daily range): BP systolic 143–174; BP diastolic 71–95; TEMP 97.9–98.1; O2SAT 95–100
[2025-02-20 07:16] LABS: BASOPHILS % (AUTO) 0.5 % (0.0-2.0); HEMATOCRIT 32 % (33-45); HEMOGLOBIN 10.1 g/dL (11.5-14.8); LYMPHOCYTES # (AUTO) 0.5 K/uL (0.8-4.8); LYMPHOCYTES % (AUTO) 5.3 % (20.0-44.0); MEAN CORPUSCULAR HEMOGLOBIN 29 PG (26.0-33.0); MEAN CORPUSCULAR HGB CONC 32 g/dl (31.0-36.0); MEAN CORPUSCULAR VOLUME 93 fL (82-100); MONOCYTES # (AUTO) 0.5 K/uL (0.1-1.30); MONOCYTES % (AUTO) 5.9 % (2.0-12.0); NEUTROPHILS # (AUTO) 8.1 K/uL (1.8-8.9); NEUTROPHILS % (AUTO) 88.3 % (43.0-81.0); PLATELET COUNT (AUTO) 195 K/uL (150-450); RED BLOOD CELL COUNT(AUTO) 3.44 MIL/uL (4.0-5.2); RED CELL DISTRIBUTION WIDTH 18.1 % (11.5-15.0); WHITE BLOOD COUNT (AUTO) 9.2 K/uL (4.3-11.0)
[2025-02-20 07:25] LABS: ALBUMIN 2.3 g/dL (3.4-5.0); BILIRUBIN,TOTAL 0.2 mg/dL (0.2-1.0); CALCIUM, SERUM 8.7 mg/dL (8.5-10.1); CREATININE 1.7 mg/dL (0.6-1.3); PHOSPHORUS 4.4 mg/dL (2.5-4.9); POTASSIUM 3.9 mmol/L (3.5-5.1); TOTAL PROTEIN, SERUM 6.8 g/dL (6.4-8.2)
[2025-02-20 10:02] LABS: ABG BASE EXCESS -2.4 mmol/L (-2.0-3.0); ABG OXYGEN SATURATION 96.7 % (94.0-98.0); ABG PCO2 34.3 mmHg (32.0-45.0); ABG PH 7.416 (7.350-7.450); ABG PO2 93.7 mmHg (83.0-108.0); ABG TOTAL HEMOGLOBIN 11.1 G/dL (12.0-16.0); COHb 0.3 % (0.5-1.5); MetHb 0.1 % (0.0-1.5); O2Hb 96.3 % (94.0-97.0); SITE, ABG RIGHT RADIAL
[2025-02-20 10:31] LABS: BAND % (MANUAL) 1 % (0.0-5.0); LYMPHOCYTES % (MANUAL) 5 % (16-48); MONOCYTES % (MANUAL) 2 % (0-11.0); NEUTROPHILS % (MANUAL) 92 (42-76); PLATELET ESTIMATE ADEQUATE
[2025-02-20 10:32] LABS: ANISOCYTOSIS 1+
[2025-02-21] VITALS (8 sets, daily range): BP systolic 121–172; BP diastolic 73–97; TEMP 97.3–98.2; O2SAT 97–100
[2025-02-21 07:13] LABS: CALCIUM, SERUM 9.3 mg/dL (8.5-10.1); CREATININE 1.8 mg/dL (0.6-1.3); POTASSIUM 4.1 mmol/L (3.5-5.1)
[2025-02-21 07:48] LABS: BASOPHILS % (AUTO) 0.2 % (0.0-2.0); EOSINOPHILS % (AUTO) 0.1 % (0.0-6.0); HEMATOCRIT 36 % (33-45); HEMOGLOBIN 11.3 g/dL (11.5-14.8); LYMPHOCYTES # (AUTO) 1.4 K/uL (0.8-4.8); LYMPHOCYTES % (AUTO) 14.5 % (20.0-44.0); MEAN CORPUSCULAR HEMOGLOBIN 29 PG (26.0-33.0); MEAN CORPUSCULAR HGB CONC 32 g/dl (31.0-36.0); MEAN CORPUSCULAR VOLUME 92 fL (82-100); MONOCYTES % (AUTO) 9.9 % (2.0-12.0); NEUTROPHILS # (AUTO) 7.3 K/uL (1.8-8.9); NEUTROPHILS % (AUTO) 75.3 % (43.0-81.0); PLATELET COUNT (AUTO) 180 K/uL (150-450); RED BLOOD CELL COUNT(AUTO) 3.87 MIL/uL (4.0-5.2); RED CELL DISTRIBUTION WIDTH 17.6 % (11.5-15.0); WHITE BLOOD COUNT (AUTO) 9.8 K/uL (4.3-11.0)
[2025-02-21] MEDS: methylPREDNISolone SOD SUCC 40 MG/ML VIAL IV SCH (10:22)
[2025-02-21] MEDS ORDERED: POLY17PO29 PO (10:36)
[2025-02-21] MEDS ORDERED: ROPI0.5T4 PO (10:36)
[2025-02-21] MEDS ORDERED: RISP0.2515 PO (10:36)
[2025-02-21] MEDS ORDERED: BUDE10.2 INH (10:36)
[2025-02-21] MEDS ORDERED: METH4TAB17 PO (10:36)
[2025-02-21] MEDS ORDERED: LEVO750T46 PO (10:36)
[2025-02-21] MEDS ORDERED: PANT40TA49 PO (10:36)
[2025-02-21] MEDS ORDERED: Quetiapine Fumarate PO (10:36)
[2025-02-21 14:31] LABS: LYMPHOCYTES % (MANUAL) 14 % (16-48); MONOCYTES % (MANUAL) 9 % (0-11.0); NEUTROPHILS % (MANUAL) 77 (42-76); PLATELET ESTIMATE ADEQUATE
[2025-02-21] MEDS ORDERED: LEVOFLOXACIN (250MG) 250 MG TABLET PO SCH (21:00)
== END 2025-02-21 14:25 | disposition home health service (06) | DRG 871 ==
LOC: ER 19:40 → TELE-TD 22:11 → TELE1 23:31 → MEDSG1 02-20 13:10
PROVIDERS: ADMIT Internal Medicine; ATTEND Nurse Practitioner Acute Care
DX: A41.9 Sepsis, unspecified organism (principal); J15.9 Unspecified bacterial pneumonia; J96.21 Acute and chronic respiratory failure with hypoxia; N17.0 Acute kidney failure with tubular necrosis; I13.0 Hypertensive heart and chronic kidney disease with heart failure and stage 1 through stage 4 chronic kidney disease, or unspecified chronic kidney disease; I50.32 Chronic diastolic (congestive) heart failure; J44.0 Chronic obstructive pulmonary disease with (acute) lower respiratory infection; J44.1 Chronic obstructive pulmonary disease with (acute) exacerbation; E44.0 Moderate protein-calorie malnutrition; E66.2 Morbid (severe) obesity with alveolar hypoventilation; K50.90 Crohn's disease, unspecified, without complications; R65.20 Severe sepsis without septic shock; N18.9 Chronic kidney disease, unspecified; E88.09 Other disorders of plasma-protein metabolism, not elsewhere classified; M19.90 Unspecified osteoarthritis, unspecified site; M79.7 Fibromyalgia; Z79.899 Other long term (current) drug therapy; Z87.891 Personal history of nicotine dependence; Z87.11 Personal history of peptic ulcer disease; E11.51 Type 2 diabetes mellitus with diabetic peripheral angiopathy without gangrene; E11.22 Type 2 diabetes mellitus with diabetic chronic kidney disease; Z20.822 Contact with and (suspected) exposure to COVID-19; E11.65 Type 2 diabetes mellitus with hyperglycemia; Z68.33 Body mass index [BMI] 33.0-33.9, adult; N25.0 Renal osteodystrophy; Z79.4 Long term (current) use of insulin
CPT/HCPCS: 31720; 36415; 36600; 71045-TC; 80048-TC; 80053-TC; 82247-TC; 82248-TC; 82803-TC; 82962-TC; 83605-TC; 83735-TC; 83880; 84100-TC; 84484-TC; 85025-TC; 87040-TC; 92526; 92611-TC; 94760-TC; 94799-TC; 97110-TC; 97116-TC; 97530-TC; A4223; G0378; J0360; J0456; J0696; J1644; J1815; J1938; J1956; J2919; J3475; J7050; J7060

== ENCOUNTER 2025-03-09 17:41 | Inpatient (IN) | payer MEDICARE, OTHER, MEDICAID ==
[~2025-03-09] VITALS: Ht 152.4 cm; Wt 110.7 kg
[~2025-03-09 17:41] MED LIST changes: +ACET325T53 PO; +ALBU6.7H9 IH; -BENZ-38 PO; +BUDE10.2 INH; -CALC-494 PO; -CALC355O18 PO; +CALC500T53 PO; +CLOT15CR5 TP; -DEXT15LI PO; -FLUO10CA29 PO; +FLUO20TA28 PO; -FLUT1BLS12 IH; -FURO-144 PO; +FURO20TA4 PO; -HYDR28.318 TP; +INSU100V39 SQ; +IPRA3AMP23 IH; +LEVO750T46 PO; -LINA72CA PO; -LORA10TA7 PO; +LUBI8CAP PO; +MAG355OR18 PO; +METH4TAB17 PO; +METO25TA4 PO; +OMEP20CA15 PO; -OXYB5TAB16 PO; -PANT40TA2 PO; +PANT40TA49 PO; +POLY17PO29 PO; +POTA-10 PO; -POTA-88 PO; -PRED20TA PO; -PRED50TA PO; +Quetiapine Fumarate PO; +RISP0.2515 PO; -RISP0.5T65 PO; +ROPI0.5T4 PO; -SULF1TAB48 PO; +VITAMIN D3 PO
[2025-03-09 19:01] LABS: BASOPHILS # (AUTO) 0.1 K/uL (0.0-0.2); EOSINOPHILS # (AUTO) 0.6 K/uL (0.0-0.7); EOSINOPHILS % (AUTO) 6.7 % (0.0-6.0); HEMATOCRIT 27 % (33-45); HEMOGLOBIN 8.8 g/dL (11.5-14.8); LYMPHOCYTES # (AUTO) 1.6 K/uL (0.8-4.8); LYMPHOCYTES % (AUTO) 17.3 % (20.0-44.0); MEAN CORPUSCULAR HEMOGLOBIN 30 PG (26.0-33.0); MEAN CORPUSCULAR HGB CONC 32 g/dl (31.0-36.0); MEAN CORPUSCULAR VOLUME 91 fL (82-100); MONOCYTES # (AUTO) 0.5 K/uL (0.1-1.30); MONOCYTES % (AUTO) 5.6 % (2.0-12.0); NEUTROPHILS # (AUTO) 6.5 K/uL (1.8-8.9); NEUTROPHILS % (AUTO) 69.4 % (43.0-81.0); PLATELET COUNT (AUTO) 205 K/uL (150-450); RED BLOOD CELL COUNT(AUTO) 2.98 MIL/uL (4.0-5.2); RED CELL DISTRIBUTION WIDTH 17.2 % (11.5-15.0); WHITE BLOOD COUNT (AUTO) 9.3 K/uL (4.3-11.0)
[2025-03-09 19:09] LABS: CALCIUM, SERUM 8.4 mg/dL (8.5-10.1); CARBON DIOXIDE 22 mmol/L (21-32); CHLORIDE 107 mmol/L (98-107); CREATININE 1.6 mg/dL (0.6-1.3); GLUCOSE 126 mg/dL (74-106); POTASSIUM 4.1 mmol/L (3.5-5.1); SODIUM SERUM 142 mmol/L (136-145); UREA NITROGEN, BLOOD 22 mg/dL (7-18)
[2025-03-09] MEDS ORDERED: RISP0.5T5 PO (19:14)
[2025-03-09] MEDS ORDERED: CHOL500052 PO (19:14)
[2025-03-09] MEDS ORDERED: POLY17PO4 PO (19:14)
[2025-03-09] MEDS ORDERED: LINA145C PO (19:14)
[2025-03-09 19:23] LABS: ALANINE AMINOTRANSFERASE 15 U/L (12-78); ALBUMIN 2.1 g/dL (3.4-5.0); ALKALINE PHOSPHATASE 90 U/L (46-116); ASPARTATE AMINOTRANSFERASE 12 U/L (15-37); BILIRUBIN,TOTAL 0.2 mg/dL (0.2-1.0); TOTAL PROTEIN, SERUM 6.4 g/dL (6.4-8.2)
[2025-03-09] MEDS ORDERED: FUROSEMIDE 20 MG/2 ML VIAL ONE (19:43)
[2025-03-09 19:45] LABS: LACTIC ACID 1.6 mmol/L (0.4-2.0)
[2025-03-09 19:50] LABS: EOSINOPHILS % (MANUAL) 4 % (0-4); LYMPHOCYTES % (MANUAL) 26 % (16-48); MONOCYTES % (MANUAL) 1 % (0-11.0); NEUTROPHILS % (MANUAL) 69 (42-76)
[2025-03-09 19:51] LABS: ANISOCYTOSIS 1+; PLATELET ESTIMATE ADEQUATE
[2025-03-09] MEDS: FUROSEMIDE 20 MG/2 ML VIAL IV ONE (19:53)
[2025-03-09] MEDS ORDERED: ONDANSETRON HCL/PF 4 MG/2 ML VIAL IVP PRN (20:00)
[2025-03-09] MEDS ORDERED: Z GUARD REMEDY 4 OZ OINT TP PRN (20:00)
[2025-03-09] MEDS ORDERED: MAG HYDROX/AL HYDROX/SIMETH 30 ML UDC PO PRN (20:00)
[2025-03-09] MEDS ORDERED: MAGNESIUM HYDROXIDE 30 ML UDC PO PRN (20:00)
[2025-03-09] MEDS ORDERED: ACETAMINOPHEN 325 MG TABLET PO PRN (20:00)
[2025-03-09] MEDS: VANCOMYCIN 1 GM in IV D5W 250 ML IV ONE ×2 (20:06→22:52)
[2025-03-09 21:21] VITALS: BP 151/77; TEMP 98.6; O2SAT 94
[2025-03-09 22:00] VITALS: BP 151/77; TEMP 98.6; O2SAT 94
[2025-03-09] MEDS ORDERED: VANCOMYCIN 1 GM /D5W 250 ML PB IV ONE (22:50)
[2025-03-09] MEDS: HYDROCODONE/APAP 5/325MG TABLET PO PRN (23:20)
[2025-03-10] VITALS (7 sets, daily range): BP systolic 124–163; BP diastolic 54–98; TEMP 97.9–98.4; O2SAT 94–100
[2025-03-10 06:58] LABS: BASOPHILS # (AUTO) 0.1 K/uL (0.0-0.2); BASOPHILS % (AUTO) 0.8 % (0.0-2.0); EOSINOPHILS # (AUTO) 0.5 K/uL (0.0-0.7); EOSINOPHILS % (AUTO) 5.5 % (0.0-6.0); HEMATOCRIT 27 % (33-45); HEMOGLOBIN 8.6 g/dL (11.5-14.8); LYMPHOCYTES # (AUTO) 1.4 K/uL (0.8-4.8); LYMPHOCYTES % (AUTO) 17.2 % (20.0-44.0); MEAN CORPUSCULAR HEMOGLOBIN 30 PG (26.0-33.0); MEAN CORPUSCULAR HGB CONC 32 g/dl (31.0-36.0); MEAN CORPUSCULAR VOLUME 96 fL (82-100); MONOCYTES # (AUTO) 0.5 K/uL (0.1-1.30); MONOCYTES % (AUTO) 6.1 % (2.0-12.0); NEUTROPHILS # (AUTO) 5.8 K/uL (1.8-8.9); NEUTROPHILS % (AUTO) 70.4 % (43.0-81.0); PLATELET COUNT (AUTO) 202 K/uL (150-450); RED BLOOD CELL COUNT(AUTO) 2.83 MIL/uL (4.0-5.2); RED CELL DISTRIBUTION WIDTH 17.6 % (11.5-15.0); WHITE BLOOD COUNT (AUTO) 8.2 K/uL (4.3-11.0)
[2025-03-10 07:30] LABS: CALCIUM, SERUM 8.7 mg/dL (8.5-10.1); CREATININE 1.8 mg/dL (0.6-1.3); MAGNESIUM 1.6 mg/dL (1.8-2.4); PHOSPHORUS 3.5 mg/dL (2.5-4.9)
[2025-03-10] MEDS: FUROSEMIDE 20 MG/2 ML VIAL IV SCH (08:50)
[2025-03-10] MEDS: HEPARIN SODIUM, PORCINE 5000 UNITS/1 ML VIAL SQ SCH (08:51)
[2025-03-10] MEDS ORDERED: LINZESS 145 MCG XX SCH (09:00)
[2025-03-10] MEDS ORDERED: NA PHOS,M-B/NA PHOS,DI-BA 1 EA ENEMA RC PRN (09:00)
[2025-03-10] MEDS ORDERED: HOME MED MISCELLANEOUS XX SCH (09:00)
[2025-03-10] MEDS ORDERED: MAG HYDROX/AL HYDROX/SIMETH 30 ML UDC PO PRN (09:00)
[2025-03-10] MEDS ORDERED: TRAMADOL HCL 50 MG TABLET PO PRN (09:00)
[2025-03-10] MEDS ORDERED: FUROSEMIDE 20 MG TABLET PO SCH (09:00)
[2025-03-10] MEDS ORDERED: IPRATROPIUM NEB FS 0.5 MG/2.5 ML AMPUL.NEB NEB PRN (09:30)
[2025-03-10] MEDS ORDERED: ALBUTEROL HALF STRENGTH 1.25 MG/3 ML VIAL.NEB NEB PRN (09:30)
[2025-03-10] MEDS ORDERED: DEXTROSE 50%-WATER 50 ML DISP.SYRIN IV PRN (10:00)
[2025-03-10] MEDS: BISACODYL SUPP (10 MG) 10 MG/SUPP.RECT SUPP.RECT RC PRN (10:18)
[2025-03-10] MEDS: METOPROLOL SUCCINATE 25 MG TAB.SR.24H PO SCH (10:19)
[2025-03-10] MEDS: MAGNESIUM OXIDE 400 MG TABLET PO SCH (10:19)
[2025-03-10] MEDS: FLUOXETINE HCL 20 MG CAPSULE PO SCH (10:19)
[2025-03-10] MEDS: AMLODIPINE BESYLATE 10 MG TABLET PO SCH (10:20)
[2025-03-10] MEDS: POTASSIUM CHLORIDE 10 MEQ TABLET.SA PO SCH (10:20)
[2025-03-10] MEDS: DOCUSATE SODIUM 100 MG CAPSULE PO SCH (10:21)
[2025-03-10] MEDS: FERROUS SULFATE (325 MG) 325 MG/TAB TABLET PO SCH (10:21)
[2025-03-10] MEDS: POLYETHYLENE GLYCOL 3350 17 GM POWD.PACK PO SCH (10:22)
[2025-03-10] MEDS: FLUTICASONE PROPIONATE 16 GM BOTTLE NS SCH (10:27)
[2025-03-10] MEDS: MAGNESIUM OXIDE 400 MG TABLET PO ONE (10:38)
[2025-03-10] MEDS: BLOOD SUGAR DIAGNOSTIC 1 EACH STRIP IN SCH (11:58)
[2025-03-10] MEDS: INSULIN REGULAR, HUMAN 100 UNIT/ML 3 ML VIAL SQ PRN (12:00)
[2025-03-10] MEDS: ropiniROLE 0.5 MG TABLET PO SCH (12:03)
[2025-03-10] MEDS: risperiDONE 1 MG TABLET PO SCH (17:31)
[2025-03-10] MEDS: MESALAMINE 400 MG CAP PO SCH (17:40)
[2025-03-10] MEDS: DICLOFENAC TOPICAL 100 GM TUBE TP SCH (17:40)
[2025-03-10] MEDS: CLOTRIMAZOLE 1% 15 GM TUBE TP SCH (17:41)
[2025-03-10] MEDS: QUETIAPINE FUMARATE 100 MG TABLET PO SCH (21:45)
[2025-03-10] MEDS: DIVALPROEX SODIUM 500 MG TABLET.DR PO SCH (21:45)
[2025-03-10] MEDS: SENNOSIDES 8.6 MG TABLET PO SCH (21:45)
[2025-03-10] MEDS: INSULIN GLARGINE, 100 UNIT/ML CARTRIDGE SQ SCH (22:00)
[2025-03-10] MEDS ORDERED: VANCOMYCIN 1 GM in IV D5W 250 ML IV SCH (22:00)
[2025-03-11] VITALS: BP 128/61; TEMP 98.4; O2SAT 97
[2025-03-11 04:00] VITALS: BP 158/79; TEMP 98.2; O2SAT 91
[2025-03-11 07:23] LABS: CALCIUM, SERUM 8.8 mg/dL (8.5-10.1); CREATININE 1.5 mg/dL (0.6-1.3); MAGNESIUM 1.4 mg/dL (1.8-2.4); POTASSIUM 3.7 mmol/L (3.5-5.1)
[2025-03-11 08:00] VITALS: BP 135/78; TEMP 98.1; O2SAT 94
[2025-03-11] MEDS: Magnesium 1GM/D5W 100ML PREMIX 100 ML IV SCH (09:13)
[2025-03-11 11:30] VITALS: BP 168/77; TEMP 98.6; O2SAT 97
[2025-03-11] MEDS: VANCOMYCIN HCL 1.25 GM in IV D5W 250 ML IV SCH (11:37)
[2025-03-11 16:00] VITALS: BP 163/72; TEMP 98.4; O2SAT 96
[2025-03-11 20:00] VITALS: BP 145/73; TEMP 98.4; O2SAT 94
[2025-03-12] VITALS: BP 142/74; TEMP 97.9; O2SAT 99
[2025-03-12 04:00] VITALS: BP 130/60; TEMP 97.9; O2SAT 98
[2025-03-12 07:30] VITALS: BP 140/81; TEMP 98.4; O2SAT 94
[2025-03-12 08:06] LABS: CALCIUM, SERUM 9.2 mg/dL (8.5-10.1); CREATININE 1.6 mg/dL (0.6-1.3); POTASSIUM 3.6 mmol/L (3.5-5.1)
[2025-03-12 11:46] LABS: IRON, SERUM 38 ug/dl (50-175); TOTAL IRON BINDING CAPACITY 194 ug/dl (250-450)
[2025-03-12 14:24] LABS: FERRITIN 114 ng/mL (8-388)
[2025-03-12 15:43] VITALS: BP 144/81; TEMP 98.6; O2SAT 94
[2025-03-13] MEDS ORDERED: ERGOCALCIFEROL (VITAMIN D 2) 50,000 UNIT CAPSULE PO SCH (10:00)
== END 2025-03-12 18:56 | DRG 602 ==
LOC: ER 17:51 → MED 20:55 → TELE 21:44
PROVIDERS: ATTEND Nurse Practitioner Acute Care
DX: L03.115 Cellulitis of right lower limb (principal); E43 Unspecified severe protein-calorie malnutrition; I50.33 Acute on chronic diastolic (congestive) heart failure; N17.9 Acute kidney failure, unspecified; I13.0 Hypertensive heart and chronic kidney disease with heart failure and stage 1 through stage 4 chronic kidney disease, or unspecified chronic kidney disease; K50.90 Crohn's disease, unspecified, without complications; Z68.42 Body mass index [BMI] 45.0-49.9, adult; L03.116 Cellulitis of left lower limb; E11.22 Type 2 diabetes mellitus with diabetic chronic kidney disease; M79.7 Fibromyalgia; I87.2 Venous insufficiency (chronic) (peripheral); E66.01 Morbid (severe) obesity due to excess calories; Z79.899 Other long term (current) drug therapy; M19.90 Unspecified osteoarthritis, unspecified site; E11.51 Type 2 diabetes mellitus with diabetic peripheral angiopathy without gangrene; E11.40 Type 2 diabetes mellitus with diabetic neuropathy, unspecified; D63.8 Anemia in other chronic diseases classified elsewhere; E88.09 Other disorders of plasma-protein metabolism, not elsewhere classified; E78.5 Hyperlipidemia, unspecified; Z79.4 Long term (current) use of insulin; F32.A Depression, unspecified; F41.9 Anxiety disorder, unspecified; F29 Unspecified psychosis not due to a substance or known physiological condition; Z87.11 Personal history of peptic ulcer disease; Z87.891 Personal history of nicotine dependence; E83.42 Hypomagnesemia; G47.33 Obstructive sleep apnea (adult) (pediatric); Z90.49 Acquired absence of other specified parts of digestive tract; Z98.890 Other specified postprocedural states; Z91.030 Bee allergy status; Z91.013 Allergy to seafood; Z91.018 Allergy to other foods; Z79.51 Long term (current) use of inhaled steroids; M89.8X9 Other specified disorders of bone, unspecified site; N18.9 Chronic kidney disease, unspecified
CPT/HCPCS: 36415; 71045-TC; 80048-TC; 80076-TC; 82728-TC; 82962-TC; 83540-TC; 83605-TC; 83735-TC; 83880; 84100-TC; 84484-TC; 85025-TC; 87081-TC; 93970-TC; A4223; G0378; J1644; J1815; J1938; J3370; J3475; J7060

== ENCOUNTER 2025-04-11 10:27 | Inpatient (IN) | payer MEDICARE, OTHER, MEDICAID ==
[~2025-04-11] VITALS: Ht 167.6 cm; Wt 105.7 kg
[~2025-04-11 10:27] MED LIST changes: -BUDE10.2 INH; -CALC500T53 PO; +CHOL500052 PO; -CLOT15CR5 TP; -IPRA3AMP23 IH; -LEVO750T46 PO; +LINA145C PO; -LUBI8CAP PO; -MAGN400O6 PO; -METH4TAB17 PO; -NYST60PO TP; -PANT40TA49 PO; -POLY17PO29 PO; +POLY17PO4 PO; -Quetiapine Fumarate PO; -RISP0.2515 PO; +RISP0.5T5 PO; -ROPI0.5T4 PO; -VITAMIN D3 PO
[2025-04-11 11:28] LABS: PLATELET COUNT (AUTO) 243 K/uL (150-450); RED BLOOD CELL COUNT(AUTO) 2.93 MIL/uL (4.0-5.2); RED CELL DISTRIBUTION WIDTH 17.1 % (11.5-15.0); WHITE BLOOD COUNT (AUTO) 13.6 K/uL (4.3-11.0)
[2025-04-11 11:35] LABS: CALCIUM, SERUM 8.6 mg/dL (8.5-10.1); CREATININE 2.0 mg/dL (0.6-1.3); SODIUM SERUM 140 mmol/L (136-145); UREA NITROGEN, BLOOD 41 mg/dL (7-18)
[2025-04-11 11:42] LABS: LACTIC ACID 1.4 mmol/L (0.4-2.0)
[2025-04-11 11:49] LABS: ASPARTATE AMINOTRANSFERASE 15 U/L (15-37); NT-PRO BNP 1165 pg/mL (0-125); TOTAL PROTEIN, SERUM 7.7 g/dL (6.4-8.2)
[2025-04-11] MEDS ORDERED: FUROSEMIDE 40 MG/4 ML VIAL ONE (12:28)
[2025-04-11] MEDS ORDERED: INSU100V42 SQ (12:30)
[2025-04-11] MEDS ORDERED: IPRA3AMP22 IH (12:30)
[2025-04-11] MEDS ORDERED: HYDR-4209 PO (12:30)
[2025-04-11] MEDS ORDERED: ONDA-97 PO (12:30)
[2025-04-11] MEDS: FUROSEMIDE 40 MG/4 ML VIAL IV ONE (12:43)
[2025-04-11 14:12] VITALS: BP 145/76; TEMP 97.7; O2SAT 97
[2025-04-11] MEDS ORDERED: MAGNESIUM HYDROXIDE 30 ML UDC PO PRN (14:30)
[2025-04-11] MEDS ORDERED: MAG HYDROX/AL HYDROX/SIMETH 30 ML UDC PO PRN (14:30)
[2025-04-11] MEDS ORDERED: Z GUARD REMEDY 4 OZ OINT TP PRN (14:30)
[2025-04-11] MEDS ORDERED: ALBUTEROL FS 2.5 MG/0.5 ML VIAL.NEB NEB PRN (14:30)
[2025-04-11] MEDS ORDERED: ONDANSETRON HCL/PF 4 MG/2 ML VIAL IVP PRN (14:30)
[2025-04-11] MEDS ORDERED: IPRATROPIUM NEB FS 0.5 MG/2.5 ML AMPUL.NEB NEB PRN (14:30)
[2025-04-11] MEDS: FUROSEMIDE 40 MG/4 ML VIAL IV SCH (14:43)
[2025-04-11] MEDS: ENOXAPARIN SODIUM 30 MG/0.3 ML DISP.SYRIN SQ SCH (14:43)
[2025-04-11 16:00] VITALS: BP 155/73; TEMP 97.2; O2SAT 98
[2025-04-11 20:00] VITALS: BP 153/79; TEMP 98.1; O2SAT 98
[2025-04-11] MEDS: ZOLPIDEM TARTRATE 5 MG TABLET PO PRN (20:56)
[2025-04-11] MEDS: ACETAMINOPHEN 325 MG TABLET PO PRN (22:26)
[2025-04-12] VITALS (9 sets, daily range): BP systolic 141–164; BP diastolic 64–89; TEMP 97.7–98.2; O2SAT 95–99
[2025-04-12 06:49] LABS: CALCIUM, SERUM 9.2 mg/dL (8.5-10.1); CREATININE 2.2 mg/dL (0.6-1.3); SODIUM SERUM 137.0 mmol/L (136-145); UREA NITROGEN, BLOOD 49.0 mg/dL (7-18)
[2025-04-12] MEDS: PANTOPRAZOLE 40 MG TABLET.DR PO SCH (08:18)
[2025-04-12] MEDS ORDERED: ALBUTEROL FS 2.5 MG/0.5 ML VIAL.NEB NEB SCH (10:00)
[2025-04-12] MEDS ORDERED: IPRATROPIUM NEB FS 0.5 MG/2.5 ML AMPUL.NEB NEB SCH (10:00)
[2025-04-12 10:03] LABS: PLATELET COUNT (AUTO) 289 K/uL (150-450); RED BLOOD CELL COUNT(AUTO) 3.42 MIL/uL (4.0-5.2); RED CELL DISTRIBUTION WIDTH 17.1 % (11.5-15.0); WHITE BLOOD COUNT (AUTO) 14.1 K/uL (4.3-11.0)
[2025-04-12] MEDS: CLOTRIMAZOLE 1% 15 GM TUBE TP SCH (10:47)
[2025-04-12] MEDS: LEVOFLOXACIN (250MG) 250 MG TABLET PO ONE (11:01)
[2025-04-12 12:57] LABS: LYMPHOCYTES % (MANUAL) 8 % (16-48); MONOCYTES % (MANUAL) 5 % (0-11.0)
[2025-04-12 12:58] LABS: BAND % (MANUAL) 5 % (0.0-5.0); NEUTROPHILS % (MANUAL) 82 (42-76); PLATELET ESTIMATE ADEQUATE
[2025-04-12] MEDS: ALBUTEROL FS 2.5 MG/0.5 ML VIAL.NEB NEB SCH ×2 (15:15→19:44)
[2025-04-12] MEDS: IPRATROPIUM NEB FS 0.5 MG/2.5 ML AMPUL.NEB NEB SCH (15:15)
[2025-04-12 16:09] LABS: CREATININE, URINE < 13.0 MG/DL (30.0-125.0); URINE SODIUM, RANDOM 109 mmol/l (40-220); URINE TOTAL PROTEIN 46.0 mg/dL (0-11.9)
[2025-04-12 16:15] LABS: APPEARANCE,URINE CLEAR (CLEAR); BLOOD, URINE NEGATIVE Ery/uL (NEGATIVE); LEUKOCYTE ESTERASE ,URINE NEGATIVE (NEGATIVE); NITRITE, URINE NEGATIVE (NEGATIVE); UGLUCOSE TRACE mg/dL (NEGATIVE)
[2025-04-12] MEDS: CLONIDINE HCL 0.1 MG TABLET PO PRN (16:37)
[2025-04-12 17:25] LABS: ADD URINE CULTURE YES; SQUAMOUS EPITHELIAL CELL,UR Few /HPF (None Seen)
[2025-04-12 17:29] LABS: HYALINE CASTS, URINE Few /LPF (None Seen)
[2025-04-12 17:52] LABS: EOSINOPHIL,URINE None Seen
[2025-04-12] MEDS ORDERED: MAG HYDROX/AL HYDROX/SIMETH 30 ML UDC PO PRN (19:00)
[2025-04-12] MEDS ORDERED: BISACODYL SUPP (10 MG) 10 MG/SUPP.RECT SUPP.RECT RC PRN (19:00)
[2025-04-12] MEDS ORDERED: NA PHOS,M-B/NA PHOS,DI-BA 1 EA ENEMA RC PRN (19:00)
[2025-04-12] MEDS ORDERED: ACETAMINOPHEN 325 MG TABLET PO PRN (19:00)
[2025-04-12] MEDS ORDERED: ONDANSETRON 4 MG TAB.RAPDIS PO PRN (19:30)
[2025-04-12] MEDS ORDERED: IPRATROPIUM NEB FS 0.5 MG/2.5 ML AMPUL.NEB NEB PRN (19:30)
[2025-04-12] MEDS ORDERED: ALBUTEROL FS 2.5 MG/0.5 ML VIAL.NEB NEB PRN (19:30)
[2025-04-12] MEDS: QUETIAPINE FUMARATE 100 MG TABLET PO SCH (21:22)
[2025-04-12] MEDS: DIVALPROEX SODIUM 500 MG TABLET.DR PO SCH (21:22)
[2025-04-12] MEDS: HYDROCODONE/APAP 5/325MG TABLET PO PRN (22:44)
[2025-04-12] MEDS: INSULIN GLARGINE, 100 UNIT/ML CARTRIDGE SQ SCH (22:46)
[2025-04-12] MEDS: FLUTICASONE PROPIONATE 16 GM BOTTLE NS SCH (22:47)
[2025-04-12] MEDS ORDERED: DEXTROSE 50%-WATER 50 ML DISP.SYRIN IV PRN (23:30)
[2025-04-12] MEDS: BLOOD SUGAR DIAGNOSTIC 1 EACH STRIP VI SCH (23:56)
[2025-04-13] VITALS (14 sets, daily range): BP systolic 147–163; BP diastolic 79–95; TEMP 97.3–98.2; O2SAT 94–99
[2025-04-13] MEDS ORDERED: ALBUTEROL SULFATE 8 GM HFA.AER.AD IH SCH
[2025-04-13] MEDS: TRAMADOL HCL 50 MG TABLET PO PRN (02:14)
[2025-04-13] MEDS ORDERED: DOSING PER PHARMACY-VANCOMYCIN IV XX PRN (05:30)
[2025-04-13] MEDS: INSULIN REGULAR, HUMAN 100 UNIT/ML 3 ML VIAL SQ PRN (05:54)
[2025-04-13] MEDS: VANCOMYCIN 1 GM /D5W 250 ML PB IV ONE (06:15)
[2025-04-13] MEDS: VANCOMYCIN 1 GM in IV NS 0.9% 250 ML IV SCH (06:17)
[2025-04-13 06:58] LABS: PLATELET COUNT (AUTO) 276 K/uL (150-450); RED BLOOD CELL COUNT(AUTO) 3.15 MIL/uL (4.0-5.2); RED CELL DISTRIBUTION WIDTH 17.0 % (11.5-15.0); WHITE BLOOD COUNT (AUTO) 14.9 K/uL (4.3-11.0)
[2025-04-13] MEDS ORDERED: OMEPRAZOLE 20 MG CAPSULE.DR PO SCH (07:30)
[2025-04-13 07:53] LABS: ASPARTATE AMINOTRANSFERASE 10.0 U/L (15-37); CALCIUM, SERUM 8.9 mg/dL (8.5-10.1); CREATININE 2.0 mg/dL (0.6-1.3); PHOSPHORUS 4.2 mg/dL (2.5-4.9); SODIUM SERUM 133.0 mmol/L (136-145); TOTAL PROTEIN, SERUM 7.8 g/dL (6.4-8.2); UREA NITROGEN, BLOOD 60.0 mg/dL (7-18)
[2025-04-13] MEDS: AMLODIPINE BESYLATE 10 MG TABLET PO SCH (08:18)
[2025-04-13] MEDS: METOPROLOL SUCCINATE 25 MG TAB.SR.24H PO SCH (08:18)
[2025-04-13] MEDS: POLYETHYLENE GLYCOL 3350 17 GM POWD.PACK PO SCH (08:18)
[2025-04-13] MEDS: MESALAMINE 400 MG CAP PO SCH (08:18)
[2025-04-13] MEDS: DOCUSATE SODIUM 100 MG CAPSULE PO SCH (08:19)
[2025-04-13] MEDS: FLUOXETINE HCL 20 MG CAPSULE PO SCH (08:19)
[2025-04-13] MEDS: FERROUS SULFATE (325 MG) 325 MG/TAB TABLET PO SCH (08:19)
[2025-04-13] MEDS: FUROSEMIDE 20 MG TABLET PO SCH (08:19)
[2025-04-13] MEDS: MAGNESIUM OXIDE 400 MG TABLET PO SCH (08:19)
[2025-04-13] MEDS: DICLOFENAC TOPICAL 100 GM TUBE TP SCH (08:59)
[2025-04-13] MEDS: LEVOFLOXACIN (250MG) 250 MG TABLET PO SCH (11:25)
[2025-04-13 14:16] LABS: LYMPHOCYTES % (MANUAL) 17 % (16-48); MONOCYTES % (MANUAL) 4 % (0-11.0); NEUTROPHILS % (MANUAL) 79 (42-76); PLATELET ESTIMATE ADEQUATE
[2025-04-14] VITALS (13 sets, daily range): BP systolic 138–171; BP diastolic 64–90; TEMP 97–98.2; O2SAT 93–100
[2025-04-14 09:03] LABS: CALCIUM, SERUM 9.1 mg/dL (8.5-10.1); CREATININE 2.0 mg/dL (0.6-1.3); PHOSPHORUS 4.0 mg/dL (2.5-4.9); SODIUM SERUM 133.0 mmol/L (136-145); UREA NITROGEN, BLOOD 65.0 mg/dL (7-18)
[2025-04-14] MEDS: *INSULIN REGULAR(HUMULIN R)HUM 100 UNIT/ML VIAL SQ PRN (12:19)
[2025-04-14 17:12] LABS: PLATELET COUNT (AUTO) 281 K/uL (150-450); RED BLOOD CELL COUNT(AUTO) 3.32 MIL/uL (4.0-5.2); RED CELL DISTRIBUTION WIDTH 16.8 % (11.5-15.0); WHITE BLOOD COUNT (AUTO) 13.7 K/uL (4.3-11.0)
[2025-04-14 18:17] LABS: LYMPHOCYTES % (MANUAL) 3 % (16-48); MYELOCYTES % 3 % (0-0); NEUTROPHILS % (MANUAL) 94 (42-76)
[2025-04-14 18:18] LABS: PLATELET ESTIMATE ADEQUATE
[2025-04-15] VITALS (14 sets, daily range): BP systolic 142–186; BP diastolic 75–90; TEMP 96.8–98.1; O2SAT 96–99
[2025-04-15] MEDS ORDERED: VANCOMYCIN 750 MG in IV D5W 250 ML IV SCH ×5 (08:00→11:00)
[2025-04-15 08:27] LABS: CALCIUM, SERUM 9.0 mg/dL (8.5-10.1); CREATININE 1.9 mg/dL (0.6-1.3); PHOSPHORUS 3.6 mg/dL (2.5-4.9); SODIUM SERUM 134.0 mmol/L (136-145); UREA NITROGEN, BLOOD 70.0 mg/dL (7-18)
[2025-04-15] MEDS: VANCOMYCIN 750 MG in IV D5W 250 ML IV SCH ×2 (10:40→11:53)
[2025-04-15 12:32] LABS: PLATELET COUNT (AUTO) 267 K/uL (150-450); RED BLOOD CELL COUNT(AUTO) 3.30 MIL/uL (4.0-5.2); RED CELL DISTRIBUTION WIDTH 16.9 % (11.5-15.0); WHITE BLOOD COUNT (AUTO) 13.1 K/uL (4.3-11.0)
[2025-04-15 13:59] LABS: BAND % (MANUAL) 1 % (0.0-5.0); LYMPHOCYTES % (MANUAL) 8 % (16-48); MONOCYTES % (MANUAL) 7 % (0-11.0); NEUTROPHILS % (MANUAL) 84 (42-76)
[2025-04-15 14:00] LABS: PLATELET ESTIMATE ADEQUATE
[2025-04-16] VITALS (8 sets, daily range): BP systolic 135–143; BP diastolic 63–70; TEMP 97.3–97.9; O2SAT 98–100
[2025-04-16] MEDS ORDERED: VANC750F IV (10:57)
[2025-04-16] MEDS ORDERED: METH4TAB3 PO (11:14)
[2025-04-16 11:20] LABS: PLATELET COUNT (AUTO) 251 K/uL (150-450); RED BLOOD CELL COUNT(AUTO) 3.18 MIL/uL (4.0-5.2); RED CELL DISTRIBUTION WIDTH 16.9 % (11.5-15.0); WHITE BLOOD COUNT (AUTO) 11.5 K/uL (4.3-11.0)
[2025-04-16 11:27] LABS: CALCIUM, SERUM 9.2 mg/dL (8.5-10.1); CREATININE 1.9 mg/dL (0.6-1.3); PHOSPHORUS 4.4 mg/dL (2.5-4.9); SODIUM SERUM 140.0 mmol/L (136-145); UREA NITROGEN, BLOOD 78.0 mg/dL (7-18)
[2025-04-16 12:38] LABS: LYMPHOCYTES % (MANUAL) 19 % (16-48); MONOCYTES % (MANUAL) 13 % (0-11.0); MYELOCYTES % 3 % (0-0); NEUTROPHILS % (MANUAL) 65 (42-76); PLATELET ESTIMATE ADEQUATE
[2025-04-16] MEDS: ERGOCALCIFEROL (VITAMIN D 2) 50,000 UNIT CAPSULE PO SCH (12:51)
== END 2025-04-16 17:27 | disposition home health service (06) | DRG 190 ==
LOC: ER 10:30 → TELE1 12:18 → MEDSG1 04-12 08:13
PROVIDERS: ATTEND Student in an Organized Health Care Education/Training Program
DX: J44.1 Chronic obstructive pulmonary disease with (acute) exacerbation (principal); E43 Unspecified severe protein-calorie malnutrition; J96.01 Acute respiratory failure with hypoxia; I13.0 Hypertensive heart and chronic kidney disease with heart failure and stage 1 through stage 4 chronic kidney disease, or unspecified chronic kidney disease; N17.9 Acute kidney failure, unspecified; L03.115 Cellulitis of right lower limb; L03.116 Cellulitis of left lower limb; N18.4 Chronic kidney disease, stage 4 (severe); R78.81 Bacteremia; K50.90 Crohn's disease, unspecified, without complications; D63.8 Anemia in other chronic diseases classified elsewhere; E88.09 Other disorders of plasma-protein metabolism, not elsewhere classified; E78.5 Hyperlipidemia, unspecified; G47.33 Obstructive sleep apnea (adult) (pediatric); M79.7 Fibromyalgia; Z87.891 Personal history of nicotine dependence; E11.22 Type 2 diabetes mellitus with diabetic chronic kidney disease; E11.51 Type 2 diabetes mellitus with diabetic peripheral angiopathy without gangrene; F32.A Depression, unspecified; E66.01 Morbid (severe) obesity due to excess calories; G89.4 Chronic pain syndrome; Z68.37 Body mass index [BMI] 37.0-37.9, adult; F39 Unspecified mood [affective] disorder; I87.2 Venous insufficiency (chronic) (peripheral); E11.40 Type 2 diabetes mellitus with diabetic neuropathy, unspecified; Z79.4 Long term (current) use of insulin; Z87.11 Personal history of peptic ulcer disease; M19.90 Unspecified osteoarthritis, unspecified site; I50.9 Heart failure, unspecified; B95.62 Methicillin resistant Staphylococcus aureus infection as the cause of diseases classified elsewhere; Z79.899 Other long term (current) drug therapy; E11.65 Type 2 diabetes mellitus with hyperglycemia
CPT/HCPCS: 36415; 71045-TC; 80048-TC; 80053-TC; 80076-TC; 80202-TC; 81001; 82570-TC; 82962-TC; 83605-TC; 83735-TC; 83880; 84100-TC; 84300-TC; 84443-TC; 84484-TC; 85025-TC; 85027-TC; 86850-TC; 87040-TC; 87081-TC; 87086-TC; 93307-TC; 94760-TC; 94762-TC; 94799-TC; 97110-TC; 97112-TC; 97530-TC; 97535-TC; A4223; G0378; J1650; J1815; J1938; J2919; J3373; J3374; J7030; J7050; J7060

== ENCOUNTER 2025-05-19 01:18 | Inpatient (IN) | payer MEDICARE, OTHER ==
[2025-05-19] VITALS (11 sets, daily range): BP systolic 133–147; BP diastolic 76–95; TEMP 97.1–98.2; O2SAT 96–99
[~2025-05-19] VITALS: Ht 162.6 cm; Wt 101.7 kg
[~2025-05-19 01:18] MED LIST changes: +HYDR-4209 PO; -INSU100V39 SQ; +INSU100V42 SQ; +IPRA3AMP22 IH; +METH4TAB3 PO; +ONDA-97 PO; +VANC750F IV
[2025-05-19 01:59] LABS: ABG BASE EXCESS -4.3 mmol/L (-2.0-3.0); ABG OXYGEN SATURATION 95.9 % (94.0-98.0); ABG PCO2 39.8 mmHg (32.0-45.0); ABG PH 7.342 (7.350-7.450); ABG PO2 88.4 mmHg (83.0-108.0); ABG TOTAL HEMOGLOBIN 11.7 G/dL (12.0-16.0); FLOW, BLOOD GAS 2.00 L/min (0.00-30.00); SITE, ABG RIGHT RADIAL
[2025-05-19 01:59] LABS: PLATELET COUNT (AUTO) 247 K/uL (150-450); RED BLOOD CELL COUNT(AUTO) 3.67 MIL/uL (4.0-5.2); RED CELL DISTRIBUTION WIDTH 16.3 % (11.5-15.0); WHITE BLOOD COUNT (AUTO) 19.9 K/uL (4.3-11.0)
[2025-05-19 02:04] LABS: CALCIUM, SERUM 9.0 mg/dL (8.5-10.1); CREATININE 2.5 mg/dL (0.6-1.3); SODIUM SERUM 139.0 mmol/L (136-145); UREA NITROGEN, BLOOD 56.0 mg/dL (7-18)
[2025-05-19 02:17] LABS: ASPARTATE AMINOTRANSFERASE 11.0 U/L (15-37); NT-PRO BNP 549.0 pg/mL (0-125); TOTAL PROTEIN, SERUM 7.6 g/dL (6.4-8.2)
[2025-05-19 02:35] LABS: LACTIC ACID 1.6 mmol/L (0.4-2.0)
[2025-05-19] MEDS ORDERED: CEFTRIAXONE 1GM BAG (ER ONLY) 50 ML IV ONE (02:53)
[2025-05-19 02:56] LABS: APPEARANCE,URINE CLEAR (CLEAR); BLOOD, URINE NEGATIVE Ery/uL (NEGATIVE); LEUKOCYTE ESTERASE ,URINE NEGATIVE (NEGATIVE); NITRITE, URINE NEGATIVE (NEGATIVE); UGLUCOSE NEGATIVE (NEGATIVE)
[2025-05-19] MEDS: CEFTRIAXONE 1 G in IV D5W 50 ML IV ONE (03:00)
[2025-05-19 03:01] LABS: ADD URINE CULTURE NO; SQUAMOUS EPITHELIAL CELL,UR Few /HPF (None Seen)
[2025-05-19 03:04] LABS: BAND % (MANUAL) 2 % (0.0-5.0); LYMPHOCYTES % (MANUAL) 15 % (16-48); MONOCYTES % (MANUAL) 7 % (0-11.0); MYELOCYTES % 3 % (0-0); NEUTROPHILS % (MANUAL) 73 (42-76); PLATELET ESTIMATE ADEQUATE
[2025-05-19] MEDS ORDERED: DEXTROSE 50%-WATER 50 ML DISP.SYRIN IV PRN (04:00)
[2025-05-19] MEDS ORDERED: HYDROCODONE/APAP 5/325MG TABLET PO PRN (04:00)
[2025-05-19] MEDS ORDERED: ACETAMINOPHEN 325 MG TABLET PO PRN (04:00)
[2025-05-19] MEDS ORDERED: HYDROCODONE/APAP 10/325MG TABLET PO PRN (04:00)
[2025-05-19] MEDS ORDERED: ONDANSETRON HCL/PF 4 MG/2 ML VIAL IVP PRN (04:00)
[2025-05-19] MEDS ORDERED: Z GUARD REMEDY 4 OZ OINT TP PRN (04:00)
[2025-05-19] MEDS ORDERED: ENOXAPARIN SODIUM 30 MG/0.3 ML DISP.SYRIN SQ SCH (04:00)
[2025-05-19] MEDS ORDERED: FUROSEMIDE 40 MG/4 ML VIAL ONE (04:08)
[2025-05-19] MEDS: FUROSEMIDE 40 MG/4 ML VIAL IV ONE (04:13)
[2025-05-19] MEDS ORDERED: LEVOFLOXACIN 750 MG /D5W 150ML 750 MG in PREMIX 1 EA IV SCH (04:30)
[2025-05-19] MEDS ORDERED: ALBUTEROL FS 2.5 MG/0.5 ML VIAL.NEB NEB PRN (04:30)
[2025-05-19] MEDS: LEVOFLOXACIN 750 MG /D5W 150ML 150 ML IV ONE (05:36)
[2025-05-19] MEDS: METOPROLOL SUCCINATE 25 MG TAB.SR.24H PO SCH (05:46)
[2025-05-19] MEDS: LEVOFLOXACIN 750 MG /D5W 150ML 750 MG in PREMIX 1 EA IV SCH (05:53)
[2025-05-19] MEDS: PANTOPRAZOLE 40 MG TABLET.DR PO SCH (08:23)
[2025-05-19] MEDS: FERROUS SULFATE (325 MG) 325 MG/TAB TABLET PO SCH (08:23)
[2025-05-19] MEDS: POTASSIUM CHLORIDE 10 MEQ TABLET.SA PO SCH (08:23)
[2025-05-19] MEDS: FLUOXETINE HCL 20 MG CAPSULE PO SCH (08:23)
[2025-05-19] MEDS: DOCUSATE SODIUM 100 MG CAPSULE PO SCH (08:23)
[2025-05-19] MEDS: AMLODIPINE BESYLATE 5 MG TABLET PO SCH (08:25)
[2025-05-19] MEDS: MESALAMINE 400 MG CAP PO SCH (08:26)
[2025-05-19] MEDS: BLOOD SUGAR DIAGNOSTIC 1 EACH STRIP IN SCH (08:36)
[2025-05-19] MEDS ORDERED: ALBUTEROL FS 2.5 MG/0.5 ML VIAL.NEB NEB SCH (09:00)
[2025-05-19] MEDS: ALBUTEROL HALF STRENGTH 1.25 MG/3 ML VIAL.NEB NEB SCH (10:16)
[2025-05-19] MEDS: IPRATROPIUM NEB FS 0.5 MG/2.5 ML AMPUL.NEB NEB SCH (10:16)
[2025-05-19 10:33] LABS: PLATELET COUNT (AUTO) 194 K/uL (150-450); RED BLOOD CELL COUNT(AUTO) 3.52 MIL/uL (4.0-5.2); RED CELL DISTRIBUTION WIDTH 17.7 % (11.5-15.0); WHITE BLOOD COUNT (AUTO) 14.1 K/uL (4.3-11.0)
[2025-05-19 10:51] LABS: CALCIUM, SERUM 8.4 mg/dL (8.5-10.1); CREATININE 2.3 mg/dL (0.6-1.3); NT-PRO BNP 533.0 pg/mL (0-125); SODIUM SERUM 136.0 mmol/L (136-145); UREA NITROGEN, BLOOD 59.0 mg/dL (7-18)
[2025-05-19 13:03] LABS: BAND % (MANUAL) 3 % (0.0-5.0); LYMPHOCYTES % (MANUAL) 10 % (16-48); MONOCYTES % (MANUAL) 2 % (0-11.0); MYELOCYTES % 1 % (0-0); NEUTROPHILS % (MANUAL) 84 (42-76); PLATELET ESTIMATE ADEQUATE
[2025-05-19] MEDS: HEPARIN SODIUM, PORCINE 5000 UNITS/1 ML VIAL SQ SCH (13:16)
[2025-05-19] MEDS: INSULIN REGULAR, HUMAN 100 UNIT/ML 3 ML VIAL SQ PRN (13:18)
[2025-05-19] MEDS: QUETIAPINE FUMARATE 100 MG TABLET PO SCH (21:29)
[2025-05-19] MEDS ORDERED: DIVALPROEX SODIUM 500 MG TABLET.DR PO SCH (22:00)
[2025-05-20] VITALS (14 sets, daily range): BP systolic 113–153; BP diastolic 59–73; TEMP 97–98.2; O2SAT 95–99
[2025-05-20 07:50] LABS: CREATININE, URINE 55.0 MG/DL (30.0-125.0); URINE SODIUM, RANDOM 26.0 mmol/l (40-220); URINE TOTAL PROTEIN 67.4 mg/dL (0-11.9)
[2025-05-20] MEDS: FUROSEMIDE 20 MG TABLET PO SCH (08:47)
[2025-05-20 15:50] LABS: PLATELET COUNT (AUTO) 152 K/uL (150-450); RED BLOOD CELL COUNT(AUTO) 3.50 MIL/uL (4.0-5.2); RED CELL DISTRIBUTION WIDTH 16.7 % (11.5-15.0); WHITE BLOOD COUNT (AUTO) 15.3 K/uL (4.3-11.0)
[2025-05-20 15:56] LABS: CREATINE KINASE, TOTAL 29.0 U/L (26-192)
[2025-05-20 15:57] LABS: ASPARTATE AMINOTRANSFERASE 13.0 U/L (15-37); CALCIUM, SERUM 8.7 mg/dL (8.5-10.1); CREATININE 2.1 mg/dL (0.6-1.3); PHOSPHORUS 4.8 mg/dL (2.5-4.9); SODIUM SERUM 135.0 mmol/L (136-145); TOTAL PROTEIN, SERUM 7.4 g/dL (6.4-8.2); UREA NITROGEN, BLOOD 64.0 mg/dL (7-18)
[2025-05-21] VITALS (14 sets, daily range): BP systolic 118–149; BP diastolic 55–84; TEMP 97.3–98.2; O2SAT 93–99
[2025-05-21 06:42] LABS: PLATELET COUNT (AUTO) 187 K/uL (150-450); RED BLOOD CELL COUNT(AUTO) 3.44 MIL/uL (4.0-5.2); RED CELL DISTRIBUTION WIDTH 16.5 % (11.5-15.0); WHITE BLOOD COUNT (AUTO) 14.8 K/uL (4.3-11.0)
[2025-05-21 07:28] LABS: ASPARTATE AMINOTRANSFERASE 11.0 U/L (15-37); CALCIUM, SERUM 8.9 mg/dL (8.5-10.1); CREATININE 2.0 mg/dL (0.6-1.3); PHOSPHORUS 4.6 mg/dL (2.5-4.9); SODIUM SERUM 139.0 mmol/L (136-145); TOTAL PROTEIN, SERUM 6.9 g/dL (6.4-8.2); UREA NITROGEN, BLOOD 64.0 mg/dL (7-18)
[2025-05-21 09:07] LABS: PTH, INTACT 98 pg/mL (15-65)
[2025-05-22] VITALS (14 sets, daily range): BP systolic 134–178; BP diastolic 58–97; TEMP 97.5–98.2; O2SAT 94–99
[2025-05-22 11:54] LABS: PLATELET COUNT (AUTO) 154 K/uL (150-450); RED BLOOD CELL COUNT(AUTO) 3.76 MIL/uL (4.0-5.2); RED CELL DISTRIBUTION WIDTH 17.3 % (11.5-15.0); WHITE BLOOD COUNT (AUTO) 12.5 K/uL (4.3-11.0)
[2025-05-22 11:55] LABS: CALCIUM, SERUM 8.6 mg/dL (8.5-10.1); CREATININE 1.9 mg/dL (0.6-1.3); SODIUM SERUM 137.0 mmol/L (136-145); UREA NITROGEN, BLOOD 58.0 mg/dL (7-18)
[2025-05-23] VITALS (15 sets, daily range): BP systolic 148–159; BP diastolic 67–84; TEMP 97.5–98.4; O2SAT 95–99
[2025-05-23] MEDS: ACETYLCYSTEINE 10% SOLN 400 MG/4 ML VIAL NEB SCH (09:30)
[2025-05-23 22:43] LABS: PLATELET COUNT (AUTO) 210 K/uL (150-450); RED BLOOD CELL COUNT(AUTO) 3.70 MIL/uL (4.0-5.2); RED CELL DISTRIBUTION WIDTH 16.9 % (11.5-15.0); WHITE BLOOD COUNT (AUTO) 16.4 K/uL (4.3-11.0)
[2025-05-23 22:52] LABS: CALCIUM, SERUM 8.8 mg/dL (8.5-10.1); CREATININE 2.1 mg/dL (0.6-1.3); SODIUM SERUM 133.0 mmol/L (136-145); UREA NITROGEN, BLOOD 57.0 mg/dL (7-18)
[2025-05-23 23:18] LABS: LYMPHOCYTES % (MANUAL) 14 % (16-48); MONOCYTES % (MANUAL) 5 % (0-11.0); NEUTROPHILS % (MANUAL) 81 (42-76); PLATELET ESTIMATE ADEQUATE
[2025-05-24] VITALS (18 sets, daily range): BP systolic 141–160; BP diastolic 75–86; TEMP 97.7–98.4; O2SAT 95–99
[2025-05-24] MEDS: SODIUM ZIRCONIUM CYCLOSILICATE 5 GM POWD.PACK PO ONE (08:21)
[2025-05-24 11:20] LABS: PLATELET COUNT (AUTO) 200 K/uL (150-450); RED BLOOD CELL COUNT(AUTO) 3.54 MIL/uL (4.0-5.2); RED CELL DISTRIBUTION WIDTH 16.8 % (11.5-15.0); WHITE BLOOD COUNT (AUTO) 17.7 K/uL (4.3-11.0)
[2025-05-24 11:29] LABS: CALCIUM, SERUM 9.1 mg/dL (8.5-10.1); CREATININE 2.0 mg/dL (0.6-1.3); SODIUM SERUM 136.0 mmol/L (136-145); UREA NITROGEN, BLOOD 59.0 mg/dL (7-18)
[2025-05-24 18:21] LABS: BAND % (MANUAL) 5 % (0.0-5.0); LYMPHOCYTES % (MANUAL) 10 % (16-48); MONOCYTES % (MANUAL) 7 % (0-11.0); NEUTROPHILS % (MANUAL) 78 (42-76); PLATELET ESTIMATE ADEQUATE
[2025-05-25 00:01] VITALS: O2SAT 98
[2025-05-25 04:00] VITALS: BP 130/60; TEMP 98.5; O2SAT 99
[2025-05-25 07:37] VITALS: O2SAT 97
[2025-05-25 08:12] VITALS: O2SAT 98
[2025-05-25 08:55] VITALS: BP 154/67
[2025-05-25 11:00] VITALS: O2SAT 97
== END 2025-05-25 19:04 | DRG 177 ==
LOC: ER 01:22 → TELE1 04:20
PROVIDERS: ADMIT Nurse Practitioner Family; ATTEND Nurse Practitioner Acute Care
DX: J15.69 Pneumonia due to other Gram-negative bacteria (principal); I50.33 Acute on chronic diastolic (congestive) heart failure; J96.21 Acute and chronic respiratory failure with hypoxia; I13.0 Hypertensive heart and chronic kidney disease with heart failure and stage 1 through stage 4 chronic kidney disease, or unspecified chronic kidney disease; J44.1 Chronic obstructive pulmonary disease with (acute) exacerbation; K50.90 Crohn's disease, unspecified, without complications; N18.4 Chronic kidney disease, stage 4 (severe); E44.1 Mild protein-calorie malnutrition; D68.59 Other primary thrombophilia; J44.0 Chronic obstructive pulmonary disease with (acute) lower respiratory infection; J98.11 Atelectasis; N17.9 Acute kidney failure, unspecified; T17.890A Other foreign object in other parts of respiratory tract causing asphyxiation, initial encounter; M79.7 Fibromyalgia; E11.51 Type 2 diabetes mellitus with diabetic peripheral angiopathy without gangrene; F29 Unspecified psychosis not due to a substance or known physiological condition; F41.9 Anxiety disorder, unspecified; E11.22 Type 2 diabetes mellitus with diabetic chronic kidney disease; D64.9 Anemia, unspecified; Z74.09 Other reduced mobility; E87.5 Hyperkalemia; E88.09 Other disorders of plasma-protein metabolism, not elsewhere classified; G47.33 Obstructive sleep apnea (adult) (pediatric); Z87.891 Personal history of nicotine dependence; F39 Unspecified mood [affective] disorder; E66.01 Morbid (severe) obesity due to excess calories; Z90.49 Acquired absence of other specified parts of digestive tract; Z99.81 Dependence on supplemental oxygen; Z20.822 Contact with and (suspected) exposure to COVID-19; E83.89 Other disorders of mineral metabolism; Z68.38 Body mass index [BMI] 38.0-38.9, adult; W44.F9XA Other object of natural or organic material, entering into or through a natural orifice, initial encounter; Y93.9 Activity, unspecified; Y92.89 Other specified places as the place of occurrence of the external cause
CPT/HCPCS: 36415; 71045-TC; 71250-TC; 80048-TC; 80053-TC; 81001; 82550-TC; 82570-TC; 82962-TC; 83605-TC; 83735-TC; 83880; 83970; 84100-TC; 84155; 84165; 84300-TC; 84484-TC; 85025-TC; 85027-TC; 87040-TC; 94760-TC; 94762-TC; 94799-TC; A4216; A4223; G0378; J0696; J1644; J1815; J1938; J1956; J7050; J7060

== ENCOUNTER 2025-06-25 16:50 | Inpatient (IN) | payer MEDICARE, OTHER ==
[~2025-06-25] VITALS: Ht 162.6 cm; Wt 105.2 kg
[~2025-06-25 16:50] MED LIST changes: +FLUT1BLS6 IH; -IPRA3AMP22 IH; -METH4TAB3 PO; +PRED20TA PO; -VANC750F IV
[2025-06-25] MEDS ORDERED: ALBUTEROL FS 2.5 MG/3 ML VIAL.NEB ONE (17:30)
[2025-06-25] MEDS ORDERED: IPRATROPIUM NEB FS 0.5 MG/2.5 ML AMPUL.NEB ONE (17:30)
[2025-06-25 17:35] VITALS: O2SAT 98
[2025-06-25] MEDS: IPRATROPIUM NEB FS 0.5 MG/2.5 ML AMPUL.NEB NEB ONE (17:35)
[2025-06-25] MEDS: ALBUTEROL FS 2.5 MG/3 ML VIAL.NEB NEB ONE (17:35)
[2025-06-25 17:39] LABS: ABG BASE EXCESS -7.2 mmol/L (-2.0-3.0); ABG OXYGEN SATURATION 97.7 % (94.0-98.0); ABG PCO2 33.4 mmHg (32.0-45.0); ABG PH 7.342 (7.350-7.450); ABG PO2 115.4 mmHg (83.0-108.0); ABG TOTAL HEMOGLOBIN 9.2 G/dL (12.0-16.0); FLOW, BLOOD GAS 10.00 L/min (0.00-30.00); FRACTIONATED INSPIRED OXYGEN 60.0 %; SITE, ABG LEFT RADIAL
[2025-06-25 17:52] LABS: PLATELET COUNT (AUTO) 171 K/uL (150-450); RED BLOOD CELL COUNT(AUTO) 2.99 MIL/uL (4.0-5.2); RED CELL DISTRIBUTION WIDTH 17.6 % (11.5-15.0); WHITE BLOOD COUNT (AUTO) 11.8 K/uL (4.3-11.0)
[2025-06-25 17:53] VITALS: O2SAT 100
[2025-06-25 18:07] LABS: ASPARTATE AMINOTRANSFERASE 11 U/L (15-37); CALCIUM, SERUM 7.9 mg/dL (8.5-10.1); CREATININE 1.8 mg/dL (0.6-1.3); SODIUM SERUM 143 mmol/L (136-145); TOTAL PROTEIN, SERUM 6.4 g/dL (6.4-8.2); UREA NITROGEN, BLOOD 33 mg/dL (7-18)
[2025-06-25 18:10] LABS: LACTIC ACID 1.9 mmol/L (0.4-2.0)
[2025-06-25] MEDS: FUROSEMIDE 20 MG/2 ML VIAL IV ONE (18:51)
[2025-06-25 18:56] LABS: EOSINOPHILS % (MANUAL) 3 % (0-4); LYMPHOCYTES % (MANUAL) 18 % (16-48); METAMYELOCYTES % 1 % (0-0); MONOCYTES % (MANUAL) 4 % (0-11.0); MYELOCYTES % 6 % (0-0); NEUTROPHILS % (MANUAL) 68 (42-76)
[2025-06-25 18:57] LABS: PLATELET ESTIMATE ADEQUATE
[2025-06-25] MEDS ORDERED: ACETAMINOPHEN 325 MG TABLET PO PRN (20:00)
[2025-06-25] MEDS ORDERED: DEXTROSE 50%-WATER 50 ML DISP.SYRIN IV PRN (20:00)
[2025-06-25] MEDS: POTASSIUM CHLORIDE 10 MEQ TABLET.SA PO ONE (20:00)
[2025-06-25] MEDS ORDERED: Z GUARD REMEDY 4 OZ OINT TP PRN (20:00)
[2025-06-25] MEDS ORDERED: INSULIN REGULAR, HUMAN 100 UNIT/ML 3 ML VIAL SQ PRN (20:00)
[2025-06-25] MEDS ORDERED: ONDANSETRON HCL/PF 4 MG/2 ML VIAL IVP PRN (20:00)
[2025-06-25] MEDS: BLOOD SUGAR DIAGNOSTIC 1 EACH STRIP IN SCH (22:00)
[2025-06-25] MEDS ORDERED: DOSING PER PHARMACY-VANCOMYCIN IV XX PRN (23:00)
[2025-06-25] MEDS: ALBUTEROL FS 2.5 MG/3 ML VIAL.NEB NEB SCH (23:30)
[2025-06-25] MEDS: IPRATROPIUM NEB FS 0.5 MG/2.5 ML AMPUL.NEB NEB SCH (23:30)
[2025-06-26] VITALS (28 sets, daily range): BP systolic 105–156; BP diastolic 49–117; TEMP 97.8–98.3; O2SAT 91–100
[2025-06-26] MEDS ORDERED: DEXTROSE 50%-WATER 50 ML DISP.SYRIN IV PRN (00:30)
[2025-06-26] MEDS: BLOOD SUGAR DIAGNOSTIC 1 EACH STRIP IN SCH (01:00)
[2025-06-26] MEDS: VANCOMYCIN 1 GM in IV D5W 250ml IV ONE (01:02)
[2025-06-26] MEDS: HEPARIN SODIUM, PORCINE 5000 UNITS/1 ML VIAL SQ SCH (01:03)
[2025-06-26] MEDS: INSULIN REGULAR, HUMAN 100 UNIT/ML 3 ML VIAL SQ PRN (01:04)
[2025-06-26] MEDS: VANCOMYCIN 1 GM /D5W 250 ML PB IV ONE (01:05)
[2025-06-26] MEDS ORDERED: ALBUTEROL FS 2.5 MG/3 ML VIAL.NEB NEB SCH (01:30)
[2025-06-26] MEDS ORDERED: IPRATROPIUM NEB FS 0.5 MG/2.5 ML AMPUL.NEB NEB SCH (01:30)
[2025-06-26] MEDS: POTASSIUM CL. PREMIX PERIPHER. 50 ML IV SCH (02:45)
[2025-06-26] MEDS ORDERED: CEFEPIME 1 GM VIAL ONE (02:50)
[2025-06-26] MEDS: CEFEPIME 1 GM in IV D5W 50 ML IV SCH (04:07)
[2025-06-26 04:31] LABS: PLATELET COUNT (AUTO) 157 K/uL (150-450); RED BLOOD CELL COUNT(AUTO) 2.99 MIL/uL (4.0-5.2); RED CELL DISTRIBUTION WIDTH 17.7 % (11.5-15.0); WHITE BLOOD COUNT (AUTO) 11.6 K/uL (4.3-11.0)
[2025-06-26 04:50] LABS: CALCIUM, SERUM 8.4 mg/dL (8.5-10.1); CREATININE 2.2 mg/dL (0.6-1.3); PHOSPHORUS 4.5 mg/dL (2.5-4.9); SODIUM SERUM 143.0 mmol/L (136-145); UREA NITROGEN, BLOOD 41.0 mg/dL (7-18)
[2025-06-26 04:52] LABS: IRON, SERUM 18.0 ug/dl (50-175)
[2025-06-26 05:39] LABS: BAND % (MANUAL) 8 % (0.0-5.0); LYMPHOCYTES % (MANUAL) 3 % (16-48); MONOCYTES % (MANUAL) 1 % (0-11.0); MYELOCYTES % 7 % (0-0); NEUTROPHILS % (MANUAL) 81 (42-76); PLATELET ESTIMATE ADEQUATE
[2025-06-26 06:29] LABS: ABG BASE EXCESS -6.7 mmol/L (-2.0-3.0); ABG OXYGEN SATURATION 98.6 % (94.0-98.0); ABG PCO2 42.6 mmHg (32.0-45.0); ABG PH 7.280 (7.350-7.450); ABG PO2 157.1 mmHg (83.0-108.0); ABG TOTAL HEMOGLOBIN 9.4 G/dL (12.0-16.0); FRACTIONATED INSPIRED OXYGEN 30.0 %; SET RATE, BG 20.0; SITE, ABG RIGHT RADIAL
[2025-06-26] MEDS ORDERED: IPRA3AMP23 NEB (08:38)
[2025-06-26] MEDS ORDERED: PANT40TA49 PO (08:38)
[2025-06-26] MEDS ORDERED: APIX2.5T PO (08:38)
[2025-06-26 10:00] LABS: ABG BASE EXCESS -6.2 mmol/L (-2.0-3.0); ABG OXYGEN SATURATION 94.2 % (94.0-98.0); ABG PCO2 36.1 mmHg (32.0-45.0); ABG PH 7.339 (7.350-7.450); ABG PO2 75.2 mmHg (83.0-108.0); ABG TOTAL HEMOGLOBIN 8.8 G/dL (12.0-16.0); FLOW, BLOOD GAS 1.00 L/min (0.00-30.00); FRACTIONATED INSPIRED OXYGEN 24.0 %; SITE, ABG LEFT RADIAL
[2025-06-26] MEDS: PANTOPRAZOLE 40 MG TABLET.DR PO SCH (10:11)
[2025-06-26] MEDS: Magnesium 1GM/D5W 100ML PREMIX 100 ML IV SCH (11:29)
[2025-06-27] VITALS (28 sets, daily range): BP systolic 90–178; BP diastolic 59–93; TEMP 98.1–98.8; O2SAT 93–100
[2025-06-27] MEDS: DOXYCYCLINE HYCLATE (100 MG) 100 MG TABLET PO SCH (08:27)
[2025-06-27] MEDS: hydrALAZINE HCL IV 20 MG VIAL IV PRN (12:29)
[2025-06-27] MEDS ORDERED: VANCOMYCIN 1 GM in IV D5W 250ml IV SCH (13:00)
[2025-06-27] MEDS: AMLODIPINE BESYLATE 10 MG TABLET PO SCH (16:06)
[2025-06-27] MEDS: APIXABAN 2.5 MG TABLET PO SCH (16:10)
[2025-06-27] MEDS: MESALAMINE 400 MG CAP PO SCH (17:39)
[2025-06-27] MEDS: DIVALPROEX SODIUM 500 MG TABLET.DR PO SCH (21:20)
[2025-06-27] MEDS: FLUTICASONE PROPIONATE 16 GM BOTTLE NS SCH (21:20)
[2025-06-28] VITALS (24 sets, daily range): BP systolic 107–174; BP diastolic 39–90; TEMP 98.3–98.9; O2SAT 96–100
[2025-06-28] MEDS: FLUOXETINE HCL 20 MG CAPSULE PO SCH (08:32)
[2025-06-28] MEDS: METOPROLOL SUCCINATE 25 MG TAB.SR.24H PO SCH (08:37)
[2025-06-28 15:55] LABS: APPEARANCE,URINE CLEAR (CLEAR); BLOOD, URINE TRACE-INTA Ery/uL (NEGATIVE); LEUKOCYTE ESTERASE ,URINE NEGATIVE (NEGATIVE); NITRITE, URINE NEGATIVE (NEGATIVE); UGLUCOSE TRACE mg/dL (NEGATIVE)
[2025-06-28 16:01] LABS: CREATININE, URINE < 13.0 MG/DL (30.0-125.0); URINE SODIUM, RANDOM 86 mmol/l (40-220); URINE TOTAL PROTEIN 62.7 mg/dL (0-11.9)
[2025-06-28 16:09] LABS: SQUAMOUS EPITHELIAL CELL,UR Few /HPF (None Seen)
[2025-06-28 16:50] LABS: ADD URINE CULTURE YES; EOSINOPHIL,URINE None Seen
[2025-06-29] VITALS (7 sets, daily range): BP systolic 145–178; BP diastolic 51–97; TEMP 97.3–97.9; O2SAT 96–100
[2025-06-29] MEDS ORDERED: PRED20TA PO (11:24)
[2025-06-29] MEDS ORDERED: DOXY100T2 PO (11:24)
[2025-06-29] MEDS ORDERED: AZIT500T PO (11:24)
[2025-06-29 12:10] LABS: PLATELET COUNT (AUTO) 185 K/uL (150-450); RED BLOOD CELL COUNT(AUTO) 3.48 MIL/uL (4.0-5.2); RED CELL DISTRIBUTION WIDTH 17.8 % (11.5-15.0); WHITE BLOOD COUNT (AUTO) 11.5 K/uL (4.3-11.0)
[2025-06-29 12:26] LABS: ASPARTATE AMINOTRANSFERASE 14.0 U/L (15-37); CALCIUM, SERUM 9.4 mg/dL (8.5-10.1); CREATININE 1.4 mg/dL (0.6-1.3); PHOSPHORUS 3.5 mg/dL (2.5-4.9); SODIUM SERUM 138.0 mmol/L (136-145); TOTAL PROTEIN, SERUM 6.7 g/dL (6.4-8.2); UREA NITROGEN, BLOOD 41.0 mg/dL (7-18)
== END 2025-06-29 15:46 | disposition home health service (06) | DRG 190 ==
LOC: ER 16:56 → TELE 19:23 → ICU 23:01 → TELE1 06-28 17:06
PROVIDERS: ADMIT Nurse Practitioner Family; ATTEND Nurse Practitioner Family
PROC: 5A09357 Assistance with Respiratory Ventilation, Less than 24 Consecutive Hours, Continuous Positive Airway Pressure (ICD-10-PCS; principal; 2025-06-26)
DX: J44.1 Chronic obstructive pulmonary disease with (acute) exacerbation (principal); G93.41 Metabolic encephalopathy; J96.21 Acute and chronic respiratory failure with hypoxia; I50.33 Acute on chronic diastolic (congestive) heart failure; I13.0 Hypertensive heart and chronic kidney disease with heart failure and stage 1 through stage 4 chronic kidney disease, or unspecified chronic kidney disease; N17.9 Acute kidney failure, unspecified; E87.20 Acidosis, unspecified; N18.4 Chronic kidney disease, stage 4 (severe); K50.90 Crohn's disease, unspecified, without complications; G47.33 Obstructive sleep apnea (adult) (pediatric); I25.10 Atherosclerotic heart disease of native coronary artery without angina pectoris; D63.8 Anemia in other chronic diseases classified elsewhere; E66.01 Morbid (severe) obesity due to excess calories; F32.A Depression, unspecified; M79.7 Fibromyalgia; Z87.891 Personal history of nicotine dependence; E87.6 Hypokalemia; F41.9 Anxiety disorder, unspecified; Z20.822 Contact with and (suspected) exposure to COVID-19; J44.9 Chronic obstructive pulmonary disease, unspecified; F29 Unspecified psychosis not due to a substance or known physiological condition; E11.51 Type 2 diabetes mellitus with diabetic peripheral angiopathy without gangrene; E11.22 Type 2 diabetes mellitus with diabetic chronic kidney disease; F39 Unspecified mood [affective] disorder; Z68.39 Body mass index [BMI] 39.0-39.9, adult; E83.89 Other disorders of mineral metabolism; Z91.199 Patient's noncompliance with other medical treatment and regimen due to unspecified reason
CPT/HCPCS: 36415; 36600; 71045-TC; 80048-TC; 80053-TC; 80076-TC; 81001; 82570-TC; 82728-TC; 82803-TC; 82962-TC; 83540-TC; 83605-TC; 83735-TC; 83880; 84100-TC; 84300-TC; 84439-TC; 84443-TC; 84484-TC; 85025-TC; 85027-TC; 87040-TC; 87081-TC; 87086-TC; 94799-TC; 97112-TC; 97116-TC; 97530-TC; A4223; G0378; J0360; J0692; J1644; J1815; J1938; J2919; J3373; J3475; J3480; J7050; J7060

== ENCOUNTER 2025-06-29 19:03 | Inpatient (IN) | payer MEDICARE, OTHER ==
[~2025-06-29] VITALS: Ht 152.4 cm; Wt 103.2 kg
[~2025-06-29 19:03] MED LIST changes: +APIX2.5T PO; +AZIT500T PO; +DOXY100T2 PO; -FLUT1BLS6 IH; -FURO20TA4 PO; +IPRA3AMP23 NEB; +PANT40TA49 PO
[2025-06-29] MEDS ORDERED: Magnesium 1GM/D5W 100ML PREMIX 200 ML IV ONE (19:42)
[2025-06-29 19:47] LABS: PLATELET COUNT (AUTO) 210 K/uL (150-450); RED BLOOD CELL COUNT(AUTO) 3.44 MIL/uL (4.0-5.2); RED CELL DISTRIBUTION WIDTH 18.0 % (11.5-15.0); WHITE BLOOD COUNT (AUTO) 11.3 K/uL (4.3-11.0)
[2025-06-29] MEDS: IPRATROPIUM NEB FS 0.5 MG/2.5 ML AMPUL.NEB NEB ONE (19:48)
[2025-06-29] MEDS: ALBUTEROL FS 2.5 MG/3 ML VIAL.NEB NEB ONE (19:48)
[2025-06-29 19:49] VITALS: O2SAT 94
[2025-06-29] MEDS ORDERED: ALBUTEROL FS 2.5 MG/3 ML VIAL.NEB ONE (19:52)
[2025-06-29] MEDS ORDERED: IPRATROPIUM NEB FS 0.5 MG/2.5 ML AMPUL.NEB ONE (19:52)
[2025-06-29 20:00] LABS: CALCIUM, SERUM 9.3 mg/dL (8.5-10.1); CREATININE 1.9 mg/dL (0.6-1.3); SODIUM SERUM 135.0 mmol/L (136-145); UREA NITROGEN, BLOOD 47.0 mg/dL (7-18)
[2025-06-29] MEDS: Magnesium 1GM/D5W 100ML PREMIX 200 ML IV ONE (20:16)
[2025-06-29 20:19] LABS: LYMPHOCYTES % (MANUAL) 10 % (16-48); MONOCYTES % (MANUAL) 3 % (0-11.0); MYELOCYTES % 3 % (0-0); NEUTROPHILS % (MANUAL) 84 (42-76); PLATELET ESTIMATE ADEQUATE
[2025-06-29 20:49] VITALS: O2SAT 100
[2025-06-29] MEDS ORDERED: ONDANSETRON HCL/PF 4 MG/2 ML VIAL IVP PRN (22:00)
[2025-06-29] MEDS ORDERED: DEXTROSE 50%-WATER 50 ML DISP.SYRIN IV PRN (22:00)
[2025-06-29] MEDS ORDERED: Z GUARD REMEDY 4 OZ OINT TP PRN (22:00)
[2025-06-29] MEDS ORDERED: ALBUTEROL FS 2.5 MG/0.5 ML VIAL.NEB NEB PRN (22:00)
[2025-06-29] MEDS ORDERED: IPRATROPIUM NEB FS 0.5 MG/2.5 ML AMPUL.NEB NEB PRN (22:00)
[2025-06-29 23:30] VITALS: BP 152/84; TEMP 97.9; O2SAT 97
[2025-06-30] VITALS (7 sets, daily range): BP systolic 135–178; BP diastolic 62–96; TEMP 97.7–98.1; O2SAT 92–98
[2025-06-30] MEDS: BLOOD SUGAR DIAGNOSTIC 1 EACH STRIP IN SCH (00:40)
[2025-06-30] MEDS: INSULIN REGULAR, HUMAN 100 UNIT/ML 3 ML VIAL SQ PRN (00:49)
[2025-06-30] MEDS ORDERED: BISACODYL SUPP (10 MG) 10 MG/SUPP.RECT SUPP.RECT RC PRN (02:00)
[2025-06-30] MEDS ORDERED: TRAMADOL HCL 50 MG TABLET PO PRN (02:00)
[2025-06-30] MEDS ORDERED: HYDROCODONE/APAP 5/325MG TABLET PO PRN (02:00)
[2025-06-30] MEDS: IV NS 0.9% 1,000 ML IV PRN (02:36)
[2025-06-30] MEDS: AZITHROMYCIN 250 MG TABLET PO ONE (02:49)
[2025-06-30 07:36] LABS: PLATELET COUNT (AUTO) 172 K/uL (150-450); RED BLOOD CELL COUNT(AUTO) 3.21 MIL/uL (4.0-5.2); RED CELL DISTRIBUTION WIDTH 17.1 % (11.5-15.0); WHITE BLOOD COUNT (AUTO) 11.5 K/uL (4.3-11.0)
[2025-06-30 07:59] LABS: CALCIUM, SERUM 8.9 mg/dL (8.5-10.1); CREATININE 1.7 mg/dL (0.6-1.3); PHOSPHORUS 4.3 mg/dL (2.5-4.9); SODIUM SERUM 137.0 mmol/L (136-145); UREA NITROGEN, BLOOD 50.0 mg/dL (7-18)
[2025-06-30] MEDS: PANTOPRAZOLE 40 MG TABLET.DR PO SCH (08:27)
[2025-06-30] MEDS: DOCUSATE SODIUM 100 MG CAPSULE PO SCH (11:21)
[2025-06-30] MEDS: POTASSIUM CHLORIDE 10 MEQ TABLET.SA PO SCH (11:21)
[2025-06-30] MEDS: FERROUS SULFATE (325 MG) 325 MG/TAB TABLET PO SCH (11:22)
[2025-06-30] MEDS: METOPROLOL SUCCINATE 25 MG TAB.SR.24H PO SCH (11:39)
[2025-06-30] MEDS: AMLODIPINE BESYLATE 10 MG TABLET PO SCH (11:40)
[2025-06-30] MEDS: FLUOXETINE HCL 20 MG CAPSULE PO SCH (11:40)
[2025-06-30] MEDS: FLUTICASONE PROPIONATE 16 GM BOTTLE NS SCH (11:41)
[2025-06-30] MEDS: MESALAMINE 400 MG CAP PO SCH (11:41)
[2025-06-30] MEDS: APIXABAN 2.5 MG TABLET PO SCH (11:48)
[2025-06-30 14:59] LABS: LYMPHOCYTES % (MANUAL) 8 % (16-48); MONOCYTES % (MANUAL) 5 % (0-11.0); MYELOCYTES % 4 % (0-0); NEUTROPHILS % (MANUAL) 83 (42-76)
[2025-06-30 15:00] LABS: PLATELET ESTIMATE ADEQUATE
[2025-06-30] MEDS: SENNOSIDES 8.6 MG TABLET PO SCH (21:56)
[2025-06-30] MEDS: DIVALPROEX SODIUM 500 MG TABLET.DR PO SCH (21:56)
[2025-06-30] MEDS: AZITHROMYCIN 250 MG TABLET PO SCH (21:56)
[2025-06-30] MEDS: QUETIAPINE FUMARATE 100 MG TABLET PO SCH (21:57)
[2025-07-01] VITALS (11 sets, daily range): BP systolic 136–170; BP diastolic 59–80; TEMP 97.5–98.5; O2SAT 95–100
[2025-07-01 10:07] LABS: PLATELET COUNT (AUTO) 181 K/uL (150-450); RED BLOOD CELL COUNT(AUTO) 3.28 MIL/uL (4.0-5.2); RED CELL DISTRIBUTION WIDTH 16.8 % (11.5-15.0); WHITE BLOOD COUNT (AUTO) 14.3 K/uL (4.3-11.0)
[2025-07-01 10:26] LABS: CALCIUM, SERUM 9.1 mg/dL (8.5-10.1); CREATININE 1.5 mg/dL (0.6-1.3); SODIUM SERUM 140.0 mmol/L (136-145); UREA NITROGEN, BLOOD 53.0 mg/dL (7-18)
[2025-07-02] VITALS (10 sets, daily range): BP systolic 124–179; BP diastolic 58–81; TEMP 96.8–98.8; O2SAT 94–100
[2025-07-02 06:40] LABS: CALCIUM, SERUM 9.1 mg/dL (8.5-10.1); CREATININE 1.4 mg/dL (0.6-1.3); PLATELET COUNT (AUTO) 169 K/uL (150-450); RED BLOOD CELL COUNT(AUTO) 3.46 MIL/uL (4.0-5.2); RED CELL DISTRIBUTION WIDTH 17.2 % (11.5-15.0); SODIUM SERUM 140.0 mmol/L (136-145); UREA NITROGEN, BLOOD 54.0 mg/dL (7-18); WHITE BLOOD COUNT (AUTO) 12.7 K/uL (4.3-11.0)
[2025-07-02] MEDS: ALBUTEROL FS 2.5 MG/0.5 ML VIAL.NEB NEB SCH (13:26)
[2025-07-02] MEDS: IPRATROPIUM NEB FS 0.5 MG/2.5 ML AMPUL.NEB NEB SCH (13:26)
[2025-07-02] MEDS: ACETAMINOPHEN 325 MG TABLET PO PRN (20:52)
[2025-07-03] VITALS: BP 138/54; TEMP 97.7; O2SAT 97
[2025-07-03 04:00] VITALS: BP 104/57; TEMP 97.3; O2SAT 99
[2025-07-03 07:31] LABS: PLATELET COUNT (AUTO) 150 K/uL (150-450); RED BLOOD CELL COUNT(AUTO) 3.29 MIL/uL (4.0-5.2); RED CELL DISTRIBUTION WIDTH 17.6 % (11.5-15.0); WHITE BLOOD COUNT (AUTO) 13.2 K/uL (4.3-11.0)
[2025-07-03 07:53] LABS: CALCIUM, SERUM 8.8 mg/dL (8.5-10.1); CREATININE 1.6 mg/dL (0.6-1.3); SODIUM SERUM 141.0 mmol/L (136-145); UREA NITROGEN, BLOOD 55.0 mg/dL (7-18)
[2025-07-03 20:00] VITALS: BP 139/67; TEMP 97.9; O2SAT 96
[2025-07-04] VITALS (7 sets, daily range): BP systolic 122–176; BP diastolic 64–101; TEMP 97.7–99.5; O2SAT 96–100
[2025-07-04 07:29] LABS: PLATELET COUNT (AUTO) 163 K/uL (150-450); RED BLOOD CELL COUNT(AUTO) 3.42 MIL/uL (4.0-5.2); RED CELL DISTRIBUTION WIDTH 17.7 % (11.5-15.0); WHITE BLOOD COUNT (AUTO) 12.0 K/uL (4.3-11.0)
[2025-07-04 08:03] LABS: CALCIUM, SERUM 8.9 mg/dL (8.5-10.1); CREATININE 1.6 mg/dL (0.6-1.3); SODIUM SERUM 139.0 mmol/L (136-145); UREA NITROGEN, BLOOD 52.0 mg/dL (7-18)
[2025-07-04] MEDS: hydrALAZINE HCL IV 20 MG VIAL IV ONE (22:06)
== END 2025-07-04 22:31 | DRG 191 ==
LOC: ER 19:07 → MED 22:54 → TELE 06-30 → MED 07-04 11:06
PROVIDERS: ADMIT Registered Nurse Psychiatric/Mental Health; ATTEND Internal Medicine
DX: J44.1 Chronic obstructive pulmonary disease with (acute) exacerbation (principal); E87.1 Hypo-osmolality and hyponatremia; I13.0 Hypertensive heart and chronic kidney disease with heart failure and stage 1 through stage 4 chronic kidney disease, or unspecified chronic kidney disease; N18.4 Chronic kidney disease, stage 4 (severe); N17.9 Acute kidney failure, unspecified; K50.90 Crohn's disease, unspecified, without complications; Z68.41 Body mass index [BMI] 40.0-44.9, adult; E11.65 Type 2 diabetes mellitus with hyperglycemia; E11.22 Type 2 diabetes mellitus with diabetic chronic kidney disease; E11.51 Type 2 diabetes mellitus with diabetic peripheral angiopathy without gangrene; M79.7 Fibromyalgia; I50.9 Heart failure, unspecified; J45.909 Unspecified asthma, uncomplicated; I25.10 Atherosclerotic heart disease of native coronary artery without angina pectoris; M19.90 Unspecified osteoarthritis, unspecified site; F29 Unspecified psychosis not due to a substance or known physiological condition; F41.9 Anxiety disorder, unspecified; F32.A Depression, unspecified; Z90.49 Acquired absence of other specified parts of digestive tract; Z98.890 Other specified postprocedural states; Z91.013 Allergy to seafood; Z91.018 Allergy to other foods; Z91.030 Bee allergy status; Z79.51 Long term (current) use of inhaled steroids; Z79.4 Long term (current) use of insulin; Z79.899 Other long term (current) drug therapy; E66.01 Morbid (severe) obesity due to excess calories; G47.33 Obstructive sleep apnea (adult) (pediatric); D64.9 Anemia, unspecified; Z79.01 Long term (current) use of anticoagulants; Z87.891 Personal history of nicotine dependence; M89.8X9 Other specified disorders of bone, unspecified site
CPT/HCPCS: 36415; 71045-TC; 80048-TC; 82962-TC; 83735-TC; 84100-TC; 85025-TC; 85027-TC; 87081-TC; 94762-TC; 94799-TC; 97110-TC; 97116-TC; 97530-TC; A4223; G0378; J0360; J1815; J2919; J3475; J7030

== ENCOUNTER 2025-08-17 07:16 | Inpatient (IN) | payer MEDICARE, OTHER ==
[~2025-08-17] VITALS: Ht 167.6 cm; Wt 109.0 kg
[2025-08-17 07:43] LABS: ABG BASE EXCESS -4.0 mmol/L (-2.0-3.0); ABG OXYGEN SATURATION 94.2 % (94.0-98.0); ABG PCO2 32.0 mmHg (32.0-45.0); ABG PH 7.412 (7.350-7.450); ABG PO2 75.5 mmHg (83.0-108.0); ABG TOTAL HEMOGLOBIN 9.8 G/dL (12.0-16.0); FRACTIONATED INSPIRED OXYGEN 21.0 %; SITE, ABG LEFT RADIAL
[2025-08-17] MEDS: IPRATROPIUM NEB FS 0.5 MG/2.5 ML AMPUL.NEB NEB ONE (07:47)
[2025-08-17] MEDS ORDERED: IPRATROPIUM NEB FS 0.5 MG/2.5 ML AMPUL.NEB ONE (07:47)
[2025-08-17] MEDS ORDERED: ALBUTEROL FS 2.5 MG/3 ML VIAL.NEB ONE (07:47)
[2025-08-17] MEDS: ALBUTEROL FS 2.5 MG/3 ML VIAL.NEB CONTNEB ONE (07:47)
[2025-08-17 07:48] VITALS: O2SAT 96
[2025-08-17] MEDS ORDERED: HYDR-4076 PO (08:00)
[2025-08-17] MEDS ORDERED: FLUT1BLS IH (08:00)
[2025-08-17] MEDS ORDERED: ALBU2.5V13 NEB (08:00)
[2025-08-17 08:01] LABS: PLATELET COUNT (AUTO) 152 K/uL (150-450); RED BLOOD CELL COUNT(AUTO) 3.19 MIL/uL (4.0-5.2); RED CELL DISTRIBUTION WIDTH 18.3 % (11.5-15.0); WHITE BLOOD COUNT (AUTO) 16.5 K/uL (4.3-11.0)
[2025-08-17] MEDS: AZITHROMYCIN 500 MG in IV D5W 250 ML IV STA (08:02)
[2025-08-17 08:10] LABS: CALCIUM, SERUM 9.1 mg/dL (8.5-10.1); CREATININE 1.4 mg/dL (0.6-1.3); SODIUM SERUM 144 mmol/L (136-145); UREA NITROGEN, BLOOD 51 mg/dL (7-18)
[2025-08-17 08:19] LABS: LACTIC ACID 2.4 mmol/L (0.4-2.0)
[2025-08-17] MEDS ORDERED: Magnesium 1GM/D5W 100ML PREMIX 100 ML IV ONE (08:23)
[2025-08-17 08:25] LABS: ASPARTATE AMINOTRANSFERASE 10 U/L (15-37); TOTAL PROTEIN, SERUM 6.4 g/dL (6.4-8.2)
[2025-08-17] MEDS: Magnesium 1GM/D5W 100ML PREMIX 200 ML IV ONE (08:29)
[2025-08-17] MEDS: CEFTRIAXONE 1 G in IV D5W 50 ML IV ONE (08:32)
[2025-08-17 08:48] VITALS: O2SAT 100
[2025-08-17] MEDS ORDERED: Z GUARD REMEDY 4 OZ OINT TP PRN (09:00)
[2025-08-17] MEDS ORDERED: MAG HYDROX/AL HYDROX/SIMETH 30 ML UDC PO PRN (09:00)
[2025-08-17] MEDS ORDERED: ZOLPIDEM TARTRATE 5 MG TABLET PO PRN (09:00)
[2025-08-17] MEDS ORDERED: MAGNESIUM HYDROXIDE 30 ML UDC PO PRN (09:00)
[2025-08-17] MEDS ORDERED: ONDANSETRON HCL/PF 4 MG/2 ML VIAL IVP PRN (09:00)
[2025-08-17 09:06] LABS: LYMPHOCYTES % (MANUAL) 16 % (16-48); MONOCYTES % (MANUAL) 1 % (0-11.0); MYELOCYTES % 3 % (0-0); NEUTROPHILS % (MANUAL) 80 (42-76); PLATELET ESTIMATE ADEQUATE
[2025-08-17] MEDS: ENOXAPARIN SODIUM 40 MG/0.4 ML DISP.SYRIN SQ SCH (12:47)
[2025-08-17] MEDS: ACETAMINOPHEN 325 MG TABLET PO PRN (18:15)
[2025-08-17 19:56] VITALS: O2SAT 98
[2025-08-17] MEDS: IPRATROPIUM NEB FS 0.5 MG/2.5 ML AMPUL.NEB NEB SCH ×2 (19:56→23:48)
[2025-08-17] MEDS: ALBUTEROL FS 2.5 MG/0.5 ML VIAL.NEB NEB SCH ×2 (19:56→23:48)
[2025-08-17 20:00] VITALS: BP 157/82; TEMP 99.1; O2SAT 98
[2025-08-17] MEDS: IV NS 0.9% 1,000 ML IV PRN (20:09)
[2025-08-17] MEDS: LEVOFLOXACIN 500 MG /D5W 100ML 500 MG in PREMIX 1 EA IV ONE (20:09)
[2025-08-17 20:11] VITALS: O2SAT 100
[2025-08-17 23:49] VITALS: O2SAT 98
[2025-08-18] VITALS (19 sets, daily range): BP systolic 153–179; BP diastolic 72–90; TEMP 97.7–98.5; O2SAT 96–100
[2025-08-18 06:56] LABS: PLATELET COUNT (AUTO) 140 K/uL (150-450); RED BLOOD CELL COUNT(AUTO) 2.79 MIL/uL (4.0-5.2); RED CELL DISTRIBUTION WIDTH 18.2 % (11.5-15.0); WHITE BLOOD COUNT (AUTO) 16.1 K/uL (4.3-11.0)
[2025-08-18 07:09] LABS: CALCIUM, SERUM 8.6 mg/dL (8.5-10.1); CREATININE 1.6 mg/dL (0.6-1.3); PHOSPHORUS 3.7 mg/dL (2.5-4.9); SODIUM SERUM 140.0 mmol/L (136-145); UREA NITROGEN, BLOOD 49.0 mg/dL (7-18)
[2025-08-18] MEDS: CLOTRIMAZOLE 1% 15 GM TUBE TP SCH (16:27)
[2025-08-18] MEDS: LEVOFLOXACIN 250 MG /D5W 50 ML 250 MG in PREMIX 1 EA IV SCH (21:23)
[2025-08-19] VITALS (16 sets, daily range): BP systolic 114–180; BP diastolic 78–100; TEMP 97.3–98.7; O2SAT 97–100
[2025-08-19] MEDS: hydrALAZINE HCL IV 20 MG VIAL IV PRN (01:18)
[2025-08-19 10:24] LABS: PLATELET COUNT (AUTO) 143 K/uL (150-450); RED BLOOD CELL COUNT(AUTO) 2.82 MIL/uL (4.0-5.2); RED CELL DISTRIBUTION WIDTH 18.1 % (11.5-15.0); WHITE BLOOD COUNT (AUTO) 15.8 K/uL (4.3-11.0)
[2025-08-19 13:31] LABS: LYMPHOCYTES % (MANUAL) 7 % (16-48); MONOCYTES % (MANUAL) 3 % (0-11.0); MYELOCYTES % 7 % (0-0); NEUTROPHILS % (MANUAL) 83 (42-76); PLATELET ESTIMATE DECREASED
[2025-08-20] VITALS (19 sets, daily range): BP systolic 136–171; BP diastolic 69–99; TEMP 97.3–98.9; O2SAT 90–100
[2025-08-21] VITALS (19 sets, daily range): BP systolic 100–165; BP diastolic 55–94; TEMP 97.5–99.5; O2SAT 95–100
[2025-08-21] MEDS ORDERED: ALBUTEROL FS 2.5 MG/0.5 ML VIAL.NEB NEB PRN (10:30)
[2025-08-21] MEDS: DIVALPROEX SODIUM 500 MG TABLET.DR PO SCH (10:34)
[2025-08-21] MEDS: AMLODIPINE BESYLATE 10 MG TABLET PO SCH (10:34)
[2025-08-21] MEDS: APIXABAN 2.5 MG TABLET PO SCH (10:35)
[2025-08-21] MEDS: risperiDONE-M 0.5 MG TAB.RAPDIS PO SCH (12:22)
[2025-08-21 12:45] LABS: ABG BASE EXCESS -4.4 mmol/L (-2.0-3.0); ABG OXYGEN SATURATION 99.3 % (94.0-98.0); ABG PCO2 35.2 mmHg (32.0-45.0); ABG PH 7.377 (7.350-7.450); ABG PO2 460.8 mmHg (83.0-108.0); ABG TOTAL HEMOGLOBIN 9.4 G/dL (12.0-16.0); FLOW, BLOOD GAS 15.00 L/min (0.00-30.00); FRACTIONATED INSPIRED OXYGEN 100.0 %; SITE, ABG LEFT RADIAL
[2025-08-21] MEDS: MESALAMINE 400 MG CAP PO SCH (16:29)
[2025-08-21] MEDS: FLUTICASONE PROPIONATE 16 GM BOTTLE NS SCH (21:16)
[2025-08-21] MEDS ORDERED: DEXTROSE 50%-WATER 50 ML DISP.SYRIN IV PRN (21:30)
[2025-08-21] MEDS: INSULIN GLARGINE, 100 UNIT/ML CARTRIDGE SQ SCH (21:31)
[2025-08-21] MEDS: BLOOD SUGAR DIAGNOSTIC 1 EACH STRIP IN SCH (21:37)
[2025-08-21] MEDS: INSULIN REGULAR, HUMAN 100 UNIT/ML 3 ML VIAL SQ PRN (21:39)
[2025-08-22] VITALS (14 sets, daily range): BP systolic 124–155; BP diastolic 61–79; TEMP 97.3–98.8; O2SAT 98–100
[2025-08-22] MEDS: DOCUSATE SODIUM 100 MG CAPSULE PO SCH (09:04)
[2025-08-22] MEDS: FLUOXETINE HCL 20 MG CAPSULE PO SCH (09:04)
[2025-08-22] MEDS: METOPROLOL SUCCINATE 25 MG TAB.SR.24H PO SCH (09:05)
[2025-08-22] MEDS: FLUTICASONE/VILANTEROL 1 EACH BLST.W.DEV IH SCH (11:11)
[2025-08-22 11:25] LABS: PLATELET COUNT (AUTO) 125 K/uL (150-450); RED BLOOD CELL COUNT(AUTO) 2.65 MIL/uL (4.0-5.2); RED CELL DISTRIBUTION WIDTH 18.8 % (11.5-15.0); WHITE BLOOD COUNT (AUTO) 13.6 K/uL (4.3-11.0)
[2025-08-22] MEDS ORDERED: LEVO500T90 PO (11:47)
[2025-08-22] MEDS ORDERED: PRED20TA PO (11:47)
[2025-08-23] MEDS: LEVOFLOXACIN 500 MG /D5W 100ML 100 ML IV ONE (02:51)
[2025-08-23 02:56] VITALS: O2SAT 97
[2025-08-23] MEDS: LEVOFLOXACIN 250 MG /D5W 50 ML 250 MG in PREMIX 1 EA IV SCH (02:56)
[2025-08-23 07:46] VITALS: O2SAT 96
[2025-08-23 08:00] VITALS: BP 161/84; TEMP 98.6; O2SAT 100; O2SAT 99
[2025-08-23 11:21] VITALS: O2SAT 96
[2025-08-23 11:33] VITALS: O2SAT 100
[2025-08-23 13:00] VITALS: BP 138/66; TEMP 98; O2SAT 99
[2025-08-23] MEDS: LORAZEPAM 1 MG TABLET PO ONE (13:08)
[2025-08-31] MEDS ORDERED: PRED20TA PO (12:22)
[2025-08-31] MEDS ORDERED: RISP0.5T65 PO (12:27)
[2025-08-31] MEDS ORDERED: DIVA500T2 PO (12:27)
[2025-08-31] MEDS ORDERED: FURO-144 PO (12:31)
== END 2025-08-23 14:30 | disposition home health service (06) | DRG 190 ==
LOC: ER 07:18 → TELE1 09:34 → MEDSG1 08-22 10:00 → UNDODISIN 08-22 16:50 → MEDSG1 08-22 18:57
PROVIDERS: ADMIT Internal Medicine; ATTEND Internal Medicine
DX: J44.1 Chronic obstructive pulmonary disease with (acute) exacerbation (principal); J96.21 Acute and chronic respiratory failure with hypoxia; I13.0 Hypertensive heart and chronic kidney disease with heart failure and stage 1 through stage 4 chronic kidney disease, or unspecified chronic kidney disease; N18.4 Chronic kidney disease, stage 4 (severe); E11.22 Type 2 diabetes mellitus with diabetic chronic kidney disease; D64.9 Anemia, unspecified; E11.51 Type 2 diabetes mellitus with diabetic peripheral angiopathy without gangrene; E11.65 Type 2 diabetes mellitus with hyperglycemia; F32.A Depression, unspecified; E66.01 Morbid (severe) obesity due to excess calories; K50.90 Crohn's disease, unspecified, without complications; F41.9 Anxiety disorder, unspecified; Z20.822 Contact with and (suspected) exposure to COVID-19; Z87.891 Personal history of nicotine dependence; G47.33 Obstructive sleep apnea (adult) (pediatric); M79.7 Fibromyalgia; Z68.38 Body mass index [BMI] 38.0-38.9, adult; E83.89 Other disorders of mineral metabolism
CPT/HCPCS: 36415; 36600; 71045-TC; 80048-TC; 80076-TC; 82803-TC; 82962-TC; 83605-TC; 83735-TC; 84100-TC; 84484-TC; 85025-TC; 85027-TC; 87040-TC; 87081-TC; 94760-TC; 94761-TC; 94799-TC; 97110-TC; 97112-TC; 97116-TC; 97530-TC; A4216; A4223; A6213; G0378; J0360; J0456; J0696; J1650; J1815; J1956; J2919; J3475; J7030; J7040; J7042; J7060

== ENCOUNTER 2025-08-26 14:15 | Inpatient (IN) | payer MEDICARE, OTHER ==
[~2025-08-26] VITALS: Ht 167.6 cm; Wt 108.9 kg
[~2025-08-26 14:15] MED LIST changes: +ALBU2.5V13 NEB; -ALBU6.7H9 IH; -AZIT500T PO; -DOXY100T2 PO; -FERR325T28 PO; +FLUT1BLS IH; +HYDR-4076 PO; -IPRA3AMP23 NEB; +LEVO500T90 PO; -PANT40TA49 PO
[2025-08-26] MEDS: BACI/NEOM/POLY B OINT PKT 1 UDPKT PACKET TP ONE (14:46)
[2025-08-26 15:02] LABS: PLATELET COUNT (AUTO) 156 K/uL (150-450); RED BLOOD CELL COUNT(AUTO) 2.92 MIL/uL (4.0-5.2); RED CELL DISTRIBUTION WIDTH 18.4 % (11.5-15.0); WHITE BLOOD COUNT (AUTO) 10.9 K/uL (4.3-11.0)
[2025-08-26 15:12] LABS: CALCIUM, SERUM 8.9 mg/dL (8.5-10.1); CREATININE 1.4 mg/dL (0.6-1.3); SODIUM SERUM 144 mmol/L (136-145); UREA NITROGEN, BLOOD 36 mg/dL (7-18)
[2025-08-26 15:17] LABS: ASPARTATE AMINOTRANSFERASE 11 U/L (15-37); TOTAL PROTEIN, SERUM 6.3 g/dL (6.4-8.2)
[2025-08-26 15:18] LABS: ALCOHOL, BLOOD < 3 mg/dL (0-10)
[2025-08-26 16:15] LABS: BAND % (MANUAL) 3 % (0.0-5.0); LYMPHOCYTES % (MANUAL) 4 % (16-48); MONOCYTES % (MANUAL) 3 % (0-11.0); NEUTROPHILS % (MANUAL) 87 (42-76)
[2025-08-26 16:16] LABS: METAMYELOCYTES % 2 % (0-0); MYELOCYTES % 1 % (0-0); PLATELET ESTIMATE ADEQUATE
[2025-08-26 16:38] LABS: APPEARANCE,URINE SLIGHTLY CLOUDY (CLEAR); BLOOD, URINE Trace-lysed Ery/uL (NEGATIVE); LEUKOCYTE ESTERASE ,URINE Small (NEGATIVE); NITRITE, URINE NEGATIVE (NEGATIVE); UGLUCOSE 100 MG/DL mg/dL (NEGATIVE)
[2025-08-26 16:51] LABS: AMPHETAMINE, URINE NEGATIVE (NEGATIVE); BARBITURATE, URINE NEGATIVE (NEGATIVE); BENZODIAZEPINE, URINE NEGATIVE (NEGATIVE); CANNABINOID, URINE NEGATIVE (NEGATIVE); COCCAINE, URINE NEGATIVE (NEGATIVE)
[2025-08-26 16:52] LABS: ADD URINE CULTURE YES
[2025-08-26 16:54] LABS: URINE AMORPHOUS URATE Few /HPF (None Seen)
[2025-08-26 16:55] LABS: YEAST,URINE Few /HPF (None Seen)
[2025-08-26 16:56] LABS: OPIATE, URINE POSITIVE (NEGATIVE)
[2025-08-26] MEDS ORDERED: BISACODYL SUPP (10 MG) 10 MG/SUPP.RECT SUPP.RECT RC PRN (17:30)
[2025-08-26] MEDS ORDERED: HYDROCODONE/APAP 5/325MG TABLET PO PRN (17:30)
[2025-08-26] MEDS ORDERED: TEMAZEPAM 7.5 MG CAPSULE PO PRN (17:30)
[2025-08-26] MEDS ORDERED: NA PHOS,M-B/NA PHOS,DI-BA 1 EA ENEMA RC PRN (17:30)
[2025-08-26] MEDS ORDERED: LORAZEPAM 0.5 MG TABLET PO PRN (17:30)
[2025-08-26] MEDS ORDERED: MAG HYDROX/AL HYDROX/SIMETH 30 ML UDC PO PRN ×2 (17:30)
[2025-08-26] MEDS ORDERED: MAGNESIUM HYDROXIDE 30 ML UDC PO PRN (17:30)
[2025-08-26] MEDS ORDERED: TRAMADOL HCL 50 MG TABLET PO PRN (17:30)
[2025-08-26] MEDS ORDERED: ACETAMINOPHEN 325 MG TABLET PO PRN ×2 (17:30)
[2025-08-26 17:49] VITALS: O2SAT 95
[2025-08-26] MEDS: IPRATROPIUM NEB FS 0.5 MG/2.5 ML AMPUL.NEB ONE (17:49)
[2025-08-26] MEDS: ALBUTEROL FS 2.5 MG/0.5 ML VIAL.NEB ONE (17:49)
[2025-08-26] MEDS ORDERED: ONDANSETRON 4 MG TAB.RAPDIS PO PRN (18:00)
[2025-08-26 18:04] VITALS: O2SAT 100
[2025-08-26] MEDS: BLOOD SUGAR DIAGNOSTIC 1 EACH STRIP IN ONE (18:10)
[2025-08-26 20:00] VITALS: BP 161/83; TEMP 98.8; O2SAT 96
[2025-08-26] MEDS: FLUTICASONE PROPIONATE 16 GM BOTTLE NS SCH (21:36)
[2025-08-26] MEDS: SENNOSIDES 8.6 MG TABLET PO SCH (21:36)
[2025-08-26] MEDS ORDERED: DIVALPROEX SODIUM 500 MG TABLET.DR PO SCH (22:00)
[2025-08-26] MEDS: ALBUTEROL FS 2.5 MG/0.5 ML VIAL.NEB NEB PRN (22:08)
[2025-08-26 22:09] VITALS: O2SAT 95
[2025-08-26] MEDS: INSULIN GLARGINE, 100 UNIT/ML CARTRIDGE SQ SCH (22:13)
[2025-08-26 22:21] VITALS: O2SAT 100
[2025-08-26] MEDS ORDERED: INSULIN REGULAR, HUMAN 100 UNIT/ML 3 ML VIAL SQ PRN (22:30)
[2025-08-26] MEDS ORDERED: DEXTROSE 50%-WATER 50 ML DISP.SYRIN IV PRN (22:30)
[2025-08-27] MEDS ORDERED: methylPREDNISolone DOSPAK(4MG) 1 PACK TAB.DS.PK PO ONE
[2025-08-27] MEDS: MOMETASONE/FORMOTEROL 8.8 GM HFA.AER.AD IH SCH (00:08)
[2025-08-27] MEDS ORDERED: Z GUARD REMEDY 4 OZ OINT TP PRN (03:30)
[2025-08-27] MEDS: PANTOPRAZOLE 40 MG TABLET.DR PO SCH (06:37)
[2025-08-27] MEDS: BLOOD SUGAR DIAGNOSTIC 1 EACH STRIP IN SCH (06:47)
[2025-08-27] MEDS: IPRATROPIUM NEB FS 0.5 MG/2.5 ML AMPUL.NEB NEB PRN (07:21)
[2025-08-27] MEDS: ALBUTEROL FS 2.5 MG/0.5 ML VIAL.NEB NEB PRN (07:21)
[2025-08-27 07:22] VITALS: O2SAT 95
[2025-08-27 08:00] VITALS: BP 154/82; TEMP 97.8; O2SAT 98
[2025-08-27 08:13] LABS: LDL 160 mg/dL (0-99)
[2025-08-27 08:28] LABS: ASPARTATE AMINOTRANSFERASE 8.0 U/L (15-37); CALCIUM, SERUM 8.5 mg/dL (8.5-10.1); CREATININE 1.3 mg/dL (0.6-1.3); SODIUM SERUM 142.0 mmol/L (136-145); TOTAL PROTEIN, SERUM 6.0 g/dL (6.4-8.2); UREA NITROGEN, BLOOD 31.0 mg/dL (7-18)
[2025-08-27 08:35] VITALS: O2SAT 100
[2025-08-27] MEDS: POLYETHYLENE GLYCOL 3350 17 GM POWD.PACK PO SCH (08:55)
[2025-08-27] MEDS: DOCUSATE SODIUM 100 MG CAPSULE PO SCH (08:55)
[2025-08-27 08:56] VITALS: BP 154/82
[2025-08-27] MEDS: METOPROLOL SUCCINATE 25 MG TAB.SR.24H PO SCH (08:56)
[2025-08-27] MEDS: POTASSIUM CHLORIDE 10 MEQ TABLET.SA PO SCH (08:56)
[2025-08-27] MEDS: MAGNESIUM OXIDE 400 MG TABLET PO SCH (08:56)
[2025-08-27] MEDS: CEPHALEXIN MONOHYDRATE 250 MG CAPSULE PO SCH (08:56)
[2025-08-27] MEDS: AMLODIPINE BESYLATE 10 MG TABLET PO SCH (08:56)
[2025-08-27] MEDS: APIXABAN 2.5 MG TABLET PO SCH (08:58)
[2025-08-27] MEDS ORDERED: methylPREDNISolone (4MG) 4 MG TABLET PO SCH (09:00)
[2025-08-27] MEDS: MESALAMINE 400 MG CAP PO SCH (09:00)
[2025-08-27] MEDS ORDERED: MOMETASONE/FORMOTEROL 8.8 GM HFA.AER.AD IH SCH (09:00)
[2025-08-27] MEDS ORDERED: FLUTICASONE/VILANTEROL 1 EACH BLST.W.DEV IH SCH (09:00)
[2025-08-27] MEDS ORDERED: methylPREDNISolone (4MG) 4 MG TABLET (DAY #1) PO ONE (09:30)
[2025-08-27] MEDS ORDERED: methylPREDNISolone (4MG) 4 MG TABLET (DAY #1, BEFORE DINNER) PO ONE (17:30)
[2025-08-27] MEDS ORDERED: methylPREDNISolone (4MG) 4 MG TABLET (DAY #1, HS) PO ONE (22:00)
[2025-08-28] MEDS ORDERED: methylPREDNISolone (4MG) 4 MG TABLET (DAY#2 ACB) PO ONE (07:30)
[2025-08-28] MEDS ORDERED: methylPREDNISolone (4MG) 4 MG TABLET PO SCH (09:00)
[2025-08-28] MEDS ORDERED: TEMA7.5C12 PO (09:59)
[2025-08-28] MEDS ORDERED: DEXT50DI8 IV (09:59)
[2025-08-28] MEDS ORDERED: CEPH-570 PO (09:59)
[2025-08-28] MEDS ORDERED: BLOO-668 IN (09:59)
[2025-08-28] MEDS ORDERED: LORA-259 PO (09:59)
[2025-08-28] MEDS ORDERED: IPRA0.2S49 NEB (09:59)
[2025-08-28] MEDS ORDERED: PANT40TA49 PO (09:59)
[2025-08-28] MEDS ORDERED: MOME15OI2 IH (09:59)
[2025-08-28] MEDS ORDERED: MAGN400O6 PO (09:59)
[2025-08-28] MEDS ORDERED: methylPREDNISolone (4MG) 4 MG TABLET (DAY#2,PC LUNCH) PO ONE (12:30)
[2025-08-28] MEDS ORDERED: methylPREDNISolone (4MG) 4 MG TABLET (DAY#2, PC DINNER) PO ONE (17:30)
[2025-08-28] MEDS ORDERED: methylPREDNISolone (4MG) 4 MG TABLET (DAY#2, HS) PO ONE (21:00)
[2025-08-29] MEDS ORDERED: methylPREDNISolone (4MG) 4 MG TABLET (DAY#3,ACB) PO ONE (07:30)
[2025-08-29] MEDS ORDERED: methylPREDNISolone (4MG) 4 MG TABLET PO SCH (09:00)
[2025-08-29] MEDS ORDERED: methylPREDNISolone (4MG) 4 MG TABLET (DAY#3,PC LUNCH) PO ONE (12:30)
[2025-08-29] MEDS ORDERED: methylPREDNISolone (4MG) 4 MG TABLET (DAY#3,PC DINNER) PO ONE (17:30)
[2025-08-29] MEDS ORDERED: methylPREDNISolone (4MG) 4 MG TABLET (DAY#3, HS) PO ONE (22:00)
[2025-08-30] MEDS ORDERED: methylPREDNISolone (4MG) 4 MG TABLET (DAY #4, ACB) PO ONE (07:30)
[2025-08-30] MEDS ORDERED: methylPREDNISolone (4MG) 4 MG TABLET PO SCH (09:00)
[2025-08-30] MEDS ORDERED: methylPREDNISolone (4MG) 4 MG TABLET (DAY #4, PC LUNCH) PO ONE (12:30)
[2025-08-30] MEDS ORDERED: methylPREDNISolone (4MG) 4 MG TABLET (DAY#4 HS) PO ONE (22:00)
[2025-08-31] MEDS ORDERED: methylPREDNISolone (4MG) 4 MG TABLET (DAY#5, ACB) PO ONE (07:30)
[2025-08-31] MEDS ORDERED: methylPREDNISolone (4MG) 4 MG TABLET (DAY#5,HS) PO ONE (22:00)
[2025-09-01] MEDS ORDERED: methylPREDNISolone (4MG) 4 MG TABLET (DAY#6,ACB) PO ONE (07:30)
== END 2025-08-27 09:50 | disposition short-term general hospital (02) | DRG 885 ==
LOC: ER 15:01 → GPS 16:59
PROVIDERS: ADMIT Internal Medicine; ATTEND Nurse Practitioner Acute Care
DX: F29 Unspecified psychosis not due to a substance or known physiological condition (principal); J44.1 Chronic obstructive pulmonary disease with (acute) exacerbation; N18.4 Chronic kidney disease, stage 4 (severe); I50.33 Acute on chronic diastolic (congestive) heart failure; I13.0 Hypertensive heart and chronic kidney disease with heart failure and stage 1 through stage 4 chronic kidney disease, or unspecified chronic kidney disease; F03.92 Unspecified dementia, unspecified severity, with psychotic disturbance; Z79.01 Long term (current) use of anticoagulants; E11.22 Type 2 diabetes mellitus with diabetic chronic kidney disease; E66.01 Morbid (severe) obesity due to excess calories; F32.A Depression, unspecified; F03.93 Unspecified dementia, unspecified severity, with mood disturbance; R45.851 Suicidal ideations; K50.90 Crohn's disease, unspecified, without complications; F03.94 Unspecified dementia, unspecified severity, with anxiety; E11.51 Type 2 diabetes mellitus with diabetic peripheral angiopathy without gangrene; Z68.38 Body mass index [BMI] 38.0-38.9, adult; F41.9 Anxiety disorder, unspecified; M79.7 Fibromyalgia; K21.9 Gastro-esophageal reflux disease without esophagitis; E78.5 Hyperlipidemia, unspecified; M19.90 Unspecified osteoarthritis, unspecified site; Z90.49 Acquired absence of other specified parts of digestive tract; Z91.013 Allergy to seafood; Z91.018 Allergy to other foods; Z91.030 Bee allergy status; Z79.51 Long term (current) use of inhaled steroids; Z79.4 Long term (current) use of insulin; Z79.899 Other long term (current) drug therapy; S61.512A Laceration without foreign body of left wrist, initial encounter; X78.1XXA Intentional self-harm by knife, initial encounter; Y92.129 Unspecified place in nursing home as the place of occurrence of the external cause
CPT/HCPCS: 36415; 71045-TC; 73110; 80048-TC; 80053-TC; 80061-TC; 80076-TC; 81001; 82962-TC; 85027-TC; 87086-TC; 94760-TC; 94799-TC; G0480; J1815; J7509

== ENCOUNTER 2025-08-27 09:59 | Inpatient (IN) | payer MEDICARE, OTHER ==
[~2025-08-27] VITALS: Ht 167.6 cm; Wt 103.4 kg
[2025-08-27] MEDS: ALBUTEROL FS 2.5 MG/0.5 ML VIAL.NEB NEB PRN (14:14)
[2025-08-27 14:19] VITALS: O2SAT 95
[2025-08-27] MEDS: IPRATROPIUM NEB FS 0.5 MG/2.5 ML AMPUL.NEB NEB PRN (14:19)
[2025-08-27] MEDS ORDERED: ONDANSETRON HCL/PF 4 MG/2 ML VIAL IVP PRN (14:30)
[2025-08-27] MEDS ORDERED: DEXTROSE 50%-WATER 50 ML DISP.SYRIN IV PRN (14:30)
[2025-08-27] MEDS ORDERED: MAG HYDROX/AL HYDROX/SIMETH 30 ML UDC PO PRN (14:30)
[2025-08-27] MEDS ORDERED: CEFTRIAXONE 1 G in IV D5W 50 ML IV SCH (14:30)
[2025-08-27] MEDS ORDERED: MAGNESIUM HYDROXIDE 30 ML UDC PO PRN (14:30)
[2025-08-27 14:31] VITALS: O2SAT 100
[2025-08-27] MEDS: FUROSEMIDE 40 MG/4 ML VIAL IV SCH (16:08)
[2025-08-27] MEDS: DOXYCYCLINE 100 MG in IV D5W 100 ML IV SCH (16:11)
[2025-08-27] MEDS: Z GUARD REMEDY 4 OZ OINT TP PRN (16:46)
[2025-08-27] MEDS: CEFTRIAXONE 2 G in IV D5W 100 ML IV SCH (16:52)
[2025-08-27] MEDS: BLOOD SUGAR DIAGNOSTIC 1 EACH STRIP IN SCH (16:55)
[2025-08-27] MEDS: INSULIN REGULAR, HUMAN 100 UNIT/ML 3 ML VIAL SQ PRN (17:00)
[2025-08-27 20:00] VITALS: BP 126/88; TEMP 99.1; O2SAT 98
[2025-08-27] MEDS ORDERED: NITROGLYCERIN 0.4 MG/TAB BOTTLE SL PRN (20:30)
[2025-08-27] MEDS: ZOLPIDEM TARTRATE 10 MG TABLET PO PRN (21:03)
[2025-08-27] MEDS: ACETAMINOPHEN 325 MG TABLET PO PRN (22:02)
[2025-08-28] VITALS (10 sets, daily range): BP systolic 143–160; BP diastolic 73–88; TEMP 97.5; O2SAT 97–100
[2025-08-28 07:35] LABS: PLATELET COUNT (AUTO) 164 K/uL (150-450); RED BLOOD CELL COUNT(AUTO) 2.88 MIL/uL (4.0-5.2); RED CELL DISTRIBUTION WIDTH 17.5 % (11.5-15.0); WHITE BLOOD COUNT (AUTO) 12.5 K/uL (4.3-11.0)
[2025-08-28 07:47] LABS: CALCIUM, SERUM 8.7 mg/dL (8.5-10.1); CREATININE 1.5 mg/dL (0.6-1.3); PHOSPHORUS 4.6 mg/dL (2.5-4.9); SODIUM SERUM 139.0 mmol/L (136-145); UREA NITROGEN, BLOOD 38.0 mg/dL (7-18)
[2025-08-28 07:52] LABS: LDL 194.0 mg/dL (0-99)
[2025-08-28] MEDS: PANTOPRAZOLE 40 MG TABLET.DR PO SCH (08:23)
[2025-08-28] MEDS: HYDROCODONE/APAP 5/325MG TABLET PO PRN (09:39)
[2025-08-28] MEDS: MAGNESIUM OXIDE 400 MG TABLET PO ONE (09:39)
[2025-08-28] MEDS ORDERED: DEXT50DI8 IV (09:59)
[2025-08-28] MEDS ORDERED: LORA-259 PO (09:59)
[2025-08-28] MEDS ORDERED: BLOO-668 IN (09:59)
[2025-08-28] MEDS ORDERED: MOME15OI2 IH (09:59)
[2025-08-28] MEDS ORDERED: CEPH-570 PO (09:59)
[2025-08-28] MEDS ORDERED: IPRA0.2S49 NEB (09:59)
[2025-08-28] MEDS ORDERED: MAGN400O6 PO (09:59)
[2025-08-28] MEDS ORDERED: PANT40TA49 PO (09:59)
[2025-08-28] MEDS ORDERED: TEMA7.5C12 PO (09:59)
[2025-08-28 10:19] LABS: ABG BASE EXCESS -5.3 mmol/L (-2.0-3.0); ABG OXYGEN SATURATION 96.8 % (94.0-98.0); ABG PCO2 34.7 mmHg (32.0-45.0); ABG PH 7.366 (7.350-7.450); ABG PO2 100.1 mmHg (83.0-108.0); ABG TOTAL HEMOGLOBIN 8.6 G/dL (12.0-16.0); FLOW, BLOOD GAS 3.00 L/min (0.00-30.00); FRACTIONATED INSPIRED OXYGEN 32.0 %; SITE, ABG RIGHT RADIAL
[2025-08-28] MEDS ORDERED: MAG HYDROX/AL HYDROX/SIMETH 30 ML UDC PO PRN (10:30)
[2025-08-28] MEDS ORDERED: HYDROCODONE/APAP 5/325MG TABLET PO PRN (10:30)
[2025-08-28] MEDS ORDERED: MAGNESIUM HYDROXIDE 30 ML UDC PO PRN (10:30)
[2025-08-28] MEDS ORDERED: BISACODYL SUPP (10 MG) 10 MG/SUPP.RECT SUPP.RECT RC PRN (10:30)
[2025-08-28] MEDS ORDERED: NA PHOS,M-B/NA PHOS,DI-BA 1 EA ENEMA RC PRN (10:30)
[2025-08-28] MEDS: METOPROLOL SUCCINATE 25 MG TAB.SR.24H PO SCH (11:22)
[2025-08-28] MEDS: AMLODIPINE BESYLATE 10 MG TABLET PO SCH (11:22)
[2025-08-28] MEDS: APIXABAN 2.5 MG TABLET PO SCH (11:28)
[2025-08-28] MEDS: IPRATROPIUM NEB FS 0.5 MG/2.5 ML AMPUL.NEB NEB SCH (11:58)
[2025-08-28] MEDS: DIVALPROEX SODIUM 250 MG TABLET.DR PO SCH (12:24)
[2025-08-28] MEDS: TRAMADOL HCL 50 MG TABLET PO PRN (14:10)
[2025-08-28] MEDS: ALBUTEROL HALF STRENGTH 1.25 MG/3 ML VIAL.NEB NEB SCH (14:21)
[2025-08-28] MEDS: MESALAMINE 400 MG CAP PO SCH (16:23)
[2025-08-28 18:27] LABS: APPEARANCE,URINE CLEAR (CLEAR); BLOOD, URINE TRACE-INTA Ery/uL (NEGATIVE); LEUKOCYTE ESTERASE ,URINE NEGATIVE (NEGATIVE); NITRITE, URINE NEGATIVE (NEGATIVE); UGLUCOSE TRACE mg/dL (NEGATIVE)
[2025-08-28 18:36] LABS: ADD URINE CULTURE NO
[2025-08-28] MEDS: SENNOSIDES 8.6 MG TABLET PO SCH (21:45)
[2025-08-28] MEDS: FLUTICASONE PROPIONATE 16 GM BOTTLE NS SCH (21:47)
[2025-08-28] MEDS: INSULIN GLARGINE, 100 UNIT/ML CARTRIDGE SQ SCH (22:53)
[2025-08-29] VITALS (8 sets, daily range): BP systolic 125–165; BP diastolic 66–85; TEMP 98.1–98.6; O2SAT 97–100
[2025-08-29 06:24] LABS: PLATELET COUNT (AUTO) 176 K/uL (150-450); RED BLOOD CELL COUNT(AUTO) 2.55 MIL/uL (4.0-5.2); RED CELL DISTRIBUTION WIDTH 17.7 % (11.5-15.0); WHITE BLOOD COUNT (AUTO) 12.5 K/uL (4.3-11.0)
[2025-08-29 06:26] LABS: CALCIUM, SERUM 8.6 mg/dL (8.5-10.1); CREATININE 1.8 mg/dL (0.6-1.3); SODIUM SERUM 138.0 mmol/L (136-145); UREA NITROGEN, BLOOD 49.0 mg/dL (7-18)
[2025-08-29] MEDS: POLYETHYLENE GLYCOL 3350 17 GM POWD.PACK PO SCH (08:11)
[2025-08-29] MEDS: PANTOPRAZOLE 40 MG TABLET.DR PO SCH (08:12)
[2025-08-29] MEDS: MAGNESIUM OXIDE 400 MG TABLET PO SCH (08:12)
[2025-08-29] MEDS: DOCUSATE SODIUM 100 MG CAPSULE PO SCH (08:12)
[2025-08-29] MEDS: DOXYCYCLINE HYCLATE (100 MG) 100 MG TABLET PO SCH (08:13)
[2025-08-29] MEDS: CLOTRIMAZOLE 1% 15 GM TUBE TP SCH (16:13)
[2025-08-30] VITALS (10 sets, daily range): BP systolic 134–166; BP diastolic 64–81; TEMP 97.5–98.2; O2SAT 96–100
[2025-08-30 06:30] LABS: PLATELET COUNT (AUTO) 178 K/uL (150-450); RED BLOOD CELL COUNT(AUTO) 2.58 MIL/uL (4.0-5.2); RED CELL DISTRIBUTION WIDTH 17.4 % (11.5-15.0); WHITE BLOOD COUNT (AUTO) 12.0 K/uL (4.3-11.0)
[2025-08-30 06:41] LABS: CALCIUM, SERUM 8.6 mg/dL (8.5-10.1); CREATININE 1.6 mg/dL (0.6-1.3); SODIUM SERUM 139.0 mmol/L (136-145); UREA NITROGEN, BLOOD 58.0 mg/dL (7-18)
[2025-08-30 11:09] LABS: BAND % (MANUAL) 2 % (0.0-5.0); LYMPHOCYTES % (MANUAL) 5 % (16-48); MONOCYTES % (MANUAL) 2 % (0-11.0); NEUTROPHILS % (MANUAL) 91 (42-76); PLATELET ESTIMATE ADEQUATE
[2025-08-30] MEDS: INSULIN REGULAR, HUMAN 100 UNIT/ML 10 ML VIAL SQ ONE (13:08)
[2025-08-31] VITALS (10 sets, daily range): BP systolic 138–158; BP diastolic 57–60; TEMP 98.2; O2SAT 98–100
[2025-08-31] MEDS: ALBUTEROL FS 2.5 MG/3 ML VIAL.NEB NEB PRN (00:01)
[2025-08-31 00:58] LABS: ABG BASE EXCESS 3.0 mmol/L (-2.0-3.0); ABG OXYGEN SATURATION 96.4 % (94.0-98.0); ABG PCO2 41.6 mmHg (32.0-45.0); ABG PH 7.437 (7.350-7.450); ABG PO2 88.4 mmHg (83.0-108.0); ABG TOTAL HEMOGLOBIN 10.8 G/dL (12.0-16.0); FLOW, BLOOD GAS 2.00 L/min (0.00-30.00); FRACTIONATED INSPIRED OXYGEN 28.0 %; SITE, ABG RIGHT RADIAL
[2025-08-31 06:59] LABS: PLATELET COUNT (AUTO) 154 K/uL (150-450); RED BLOOD CELL COUNT(AUTO) 3.01 MIL/uL (4.0-5.2); RED CELL DISTRIBUTION WIDTH 17.6 % (11.5-15.0); WHITE BLOOD COUNT (AUTO) 12.5 K/uL (4.3-11.0)
[2025-08-31 07:54] LABS: CALCIUM, SERUM 8.8 mg/dL (8.5-10.1); CREATININE 1.4 mg/dL (0.6-1.3); PHOSPHORUS 2.9 mg/dL (2.5-4.9); SODIUM SERUM 142.0 mmol/L (136-145); UREA NITROGEN, BLOOD 54.0 mg/dL (7-18)
[2025-08-31] MEDS: Magnesium 1GM/D5W 100ML PREMIX 100 ML IV SCH (10:00)
[2025-08-31 11:03] LABS: SERUM AMMONIA 12.0 umol/L (11-32)
[2025-08-31 11:15] LABS: ASPARTATE AMINOTRANSFERASE 17.0 U/L (15-37); TOTAL PROTEIN, SERUM 5.5 g/dL (6.4-8.2)
[2025-08-31] MEDS: MAGNESIUM OXIDE 400 MG TABLET PO ONE (12:19)
[2025-08-31] MEDS ORDERED: PRED20TA PO (12:22)
[2025-08-31] MEDS ORDERED: DIVA500T2 PO (12:27)
[2025-08-31] MEDS ORDERED: RISP0.5T65 PO (12:27)
[2025-08-31] MEDS ORDERED: FURO-144 PO (12:31)
[2025-09-03] MEDS ORDERED: ERGOCALCIFEROL (VITAMIN D 2) 50,000 UNIT CAPSULE PO SCH (10:16)
== END 2025-08-31 16:10 | disposition home health service (06) | DRG 193 ==
LOC: MED 09:59
PROVIDERS: ADMIT Nurse Practitioner Acute Care; ATTEND Nurse Practitioner Family
DX: J15.9 Unspecified bacterial pneumonia (principal); I50.33 Acute on chronic diastolic (congestive) heart failure; J96.01 Acute respiratory failure with hypoxia; E87.20 Acidosis, unspecified; I13.0 Hypertensive heart and chronic kidney disease with heart failure and stage 1 through stage 4 chronic kidney disease, or unspecified chronic kidney disease; N17.9 Acute kidney failure, unspecified; R45.851 Suicidal ideations; D63.8 Anemia in other chronic diseases classified elsewhere; J44.0 Chronic obstructive pulmonary disease with (acute) lower respiratory infection; Z79.01 Long term (current) use of anticoagulants; F03.93 Unspecified dementia, unspecified severity, with mood disturbance; F33.9 Major depressive disorder, recurrent, unspecified; E11.22 Type 2 diabetes mellitus with diabetic chronic kidney disease; Z68.38 Body mass index [BMI] 38.0-38.9, adult; N18.9 Chronic kidney disease, unspecified; F39 Unspecified mood [affective] disorder; J44.1 Chronic obstructive pulmonary disease with (acute) exacerbation; K50.90 Crohn's disease, unspecified, without complications; F03.94 Unspecified dementia, unspecified severity, with anxiety; J98.11 Atelectasis; D50.9 Iron deficiency anemia, unspecified; R07.89 Other chest pain; E78.5 Hyperlipidemia, unspecified; Z90.49 Acquired absence of other specified parts of digestive tract; Z87.891 Personal history of nicotine dependence; Z79.899 Other long term (current) drug therapy; R79.89 Other specified abnormal findings of blood chemistry; E66.01 Morbid (severe) obesity due to excess calories; F41.9 Anxiety disorder, unspecified; G47.33 Obstructive sleep apnea (adult) (pediatric); M79.7 Fibromyalgia; K21.9 Gastro-esophageal reflux disease without esophagitis; Z84.19 Family history of other disorders of kidney and ureter; Z79.51 Long term (current) use of inhaled steroids; Z79.4 Long term (current) use of insulin; Z91.030 Bee allergy status; Z91.013 Allergy to seafood; Z91.018 Allergy to other foods
CPT/HCPCS: 36415; 36600; 71045-TC; 80048-TC; 80061-TC; 80076-TC; 81001; 82140-TC; 82803-TC; 82962-TC; 83735-TC; 84100-TC; 85025-TC; 85027-TC; 93970-TC; 94760-TC; 94762-TC; 94799-TC; 97110-TC; 97112-TC; 97530-TC; 97535-TC; A4223; G0378; J0696; J1815; J1938; J2919; J3475; J3490; J7040; J7060

== ENCOUNTER 2025-09-02 14:48 | Inpatient (IN) | payer MEDICARE, OTHER ==
[~2025-09-02] VITALS: Ht 172.7 cm; Wt 101.2 kg
[2025-09-02] VITALS (11 sets, daily range): BP systolic 130–154; BP diastolic 62–82; TEMP 98.7; O2SAT 95–100
[~2025-09-02 14:48] MED LIST changes: +BLOO-668 IN; +DEXT50DI8 IV; -DIVA-78 PO; +DIVA500T2 PO; -FLUO20TA28 PO; -FLUT1BLS IH; +FURO-144 PO; -LEVO500T90 PO; -LINA145C PO; -MAG355OR18 PO; +MOME15OI2 IH; -OMEP20CA15 PO; +PANT40TA49 PO; -POTA-10 PO; -QUET200T PO; -RISP0.5T5 PO; +RISP0.5T65 PO; +TEMA7.5C12 PO
[2025-09-02] MEDS: IPRATROPIUM NEB FS 0.5 MG/2.5 ML AMPUL.NEB NEB ONE (15:11)
[2025-09-02] MEDS: ALBUTEROL FS 2.5 MG/3 ML VIAL.NEB NEB ONE (15:11)
[2025-09-02] MEDS ORDERED: IPRATROPIUM NEB FS 0.5 MG/2.5 ML AMPUL.NEB ONE (15:22)
[2025-09-02] MEDS ORDERED: Magnesium 1GM/D5W 100ML PREMIX 100 ML IV ONE ×2 (15:32→17:51)
[2025-09-02 15:39] LABS: PLATELET COUNT (AUTO) 200 K/uL (150-450); RED BLOOD CELL COUNT(AUTO) 3.04 MIL/uL (4.0-5.2); RED CELL DISTRIBUTION WIDTH 17.7 % (11.5-15.0); WHITE BLOOD COUNT (AUTO) 12.3 K/uL (4.3-11.0)
[2025-09-02] MEDS: IV NS 0.9% 500 ML BAG IV ONE (15:56)
[2025-09-02 15:57] LABS: LACTIC ACID 2.0 mmol/L (0.4-2.0)
[2025-09-02] MEDS: Magnesium 1GM/D5W 100ML PREMIX 200 ML IV ONE (15:57)
[2025-09-02] MEDS: CEFEPIME 1 GM in IV D5W 50 ML IV ONE (15:58)
[2025-09-02 15:59] LABS: CALCIUM, SERUM 8.5 mg/dL (8.5-10.1); CREATININE 1.3 mg/dL (0.6-1.3); SODIUM SERUM 147 mmol/L (136-145); UREA NITROGEN, BLOOD 44 mg/dL (7-18)
[2025-09-02 16:05] LABS: ASPARTATE AMINOTRANSFERASE 11 U/L (15-37); INR 0.98 (0.91-1.10); TOTAL PROTEIN, SERUM 5.8 g/dL (6.4-8.2)
[2025-09-02] MEDS ORDERED: DEXTROSE 50%-WATER 50 ML DISP.SYRIN IV PRN (17:00)
[2025-09-02] MEDS ORDERED: DOSING PER PHARMACY-CEFEPIME IVPB XX PRN (17:00)
[2025-09-02] MEDS ORDERED: hydrALAZINE HCL IV 20 MG VIAL IV PRN (17:00)
[2025-09-02] MEDS ORDERED: ONDANSETRON HCL/PF 4 MG/2 ML VIAL IVP PRN (17:00)
[2025-09-02] MEDS ORDERED: ALBUTEROL FS 2.5 MG/0.5 ML VIAL.NEB NEB PRN (17:00)
[2025-09-02] MEDS ORDERED: MORPHINE SULFATE INJ 2 MG/ML DISP.SYRIN IV PRN (17:00)
[2025-09-02] MEDS ORDERED: DOSING PER PHARMACY-VANCOMYCIN IV XX PRN (17:00)
[2025-09-02 17:10] LABS: ABG BASE EXCESS 3.5 mmol/L (-2.0-3.0); ABG OXYGEN SATURATION 98.3 % (94.0-98.0); ABG PCO2 37.9 mmHg (32.0-45.0); ABG PH 7.475 (7.350-7.450); ABG PO2 141.5 mmHg (83.0-108.0); ABG TOTAL HEMOGLOBIN 9.1 G/dL (12.0-16.0); FLOW, BLOOD GAS 4.00 L/min (0.00-30.00); FRACTIONATED INSPIRED OXYGEN 36.0 %
[2025-09-02] MEDS: VANCOMYCIN 1 GM in IV D5W 250 ML IV ONE (17:20)
[2025-09-02 17:25] LABS: APPEARANCE,URINE CLEAR (CLEAR); BLOOD, URINE TRACE-INTA Ery/uL (NEGATIVE); LEUKOCYTE ESTERASE ,URINE 1+ (NEGATIVE); NITRITE, URINE NEGATIVE (NEGATIVE); UGLUCOSE NEGATIVE (NEGATIVE)
[2025-09-02 17:41] LABS: ADD URINE CULTURE YES
[2025-09-02] MEDS: DIVALPROEX SODIUM 250 MG TABLET.DR PO SCH (18:43)
[2025-09-02] MEDS: DOCUSATE SODIUM LIQ 100 MG/10 ML UDC PO SCH (18:43)
[2025-09-02] MEDS: FUROSEMIDE 40 MG/4 ML VIAL IV SCH (18:44)
[2025-09-02] MEDS: MESALAMINE 400 MG CAP PO SCH (18:44)
[2025-09-02] MEDS: APIXABAN 2.5 MG TABLET PO SCH (18:44)
[2025-09-02] MEDS: INSULIN REGULAR, HUMAN 100 UNIT/ML 3 ML VIAL SQ PRN (18:52)
[2025-09-02] MEDS: BLOOD SUGAR DIAGNOSTIC 1 EACH STRIP VI SCH (18:52)
[2025-09-02] MEDS: ALBUTEROL FS 2.5 MG/3 ML VIAL.NEB NEB SCH (19:41)
[2025-09-02] MEDS: IPRATROPIUM NEB FS 0.5 MG/2.5 ML AMPUL.NEB NEB SCH (19:41)
[2025-09-02] MEDS: VANCOMYCIN HCL 1.25 GM in IV D5W 250 ML IV ONE (20:00)
[2025-09-02] MEDS: *INSULIN REGULAR(HUMULIN R)HUM 100 UNIT/ML VIAL SQ PRN (21:29)
[2025-09-03] VITALS (37 sets, daily range): BP systolic 88–159; BP diastolic 33–126; TEMP 98–98.2; O2SAT 93–100
[2025-09-03] MEDS: CEFEPIME 2 GM in IV D5W 100 ML IV SCH (04:10)
[2025-09-03 05:04] LABS: PLATELET COUNT (AUTO) 169 K/uL (150-450); RED BLOOD CELL COUNT(AUTO) 2.73 MIL/uL (4.0-5.2); RED CELL DISTRIBUTION WIDTH 17.5 % (11.5-15.0); WHITE BLOOD COUNT (AUTO) 13.9 K/uL (4.3-11.0)
[2025-09-03 05:19] LABS: ASPARTATE AMINOTRANSFERASE 7.0 U/L (15-37); CALCIUM, SERUM 8.1 mg/dL (8.5-10.1); CREATININE 1.6 mg/dL (0.6-1.3); PHOSPHORUS 5.0 mg/dL (2.5-4.9); SODIUM SERUM 138.0 mmol/L (136-145); TOTAL PROTEIN, SERUM 5.7 g/dL (6.4-8.2); UREA NITROGEN, BLOOD 46.0 mg/dL (7-18)
[2025-09-03 05:46] LABS: BAND % (MANUAL) 1 % (0.0-5.0); LYMPHOCYTES % (MANUAL) 8 % (16-48); MONOCYTES % (MANUAL) 1 % (0-11.0); MYELOCYTES % 2 % (0-0); NEUTROPHILS % (MANUAL) 88 (42-76); PLATELET ESTIMATE ADEQUATE
[2025-09-03] MEDS: PANTOPRAZOLE 40 MG TABLET.DR PO SCH (07:39)
[2025-09-03] MEDS: AMLODIPINE BESYLATE 10 MG TABLET PO SCH (08:36)
[2025-09-03] MEDS: POLYETHYLENE GLYCOL 3350 17 GM POWD.PACK PO SCH (08:36)
[2025-09-03] MEDS: METOPROLOL SUCCINATE 25 MG TAB.SR.24H PO SCH (08:36)
[2025-09-03] MEDS: BUDESONIDE RESPULE INH 0.5 MG/2 ML AMPUL.NEB NEB SCH (09:20)
[2025-09-03] MEDS: ACETYLCYSTEINE 20% SOLN 800 MG/4 ML VIAL NEB SCH (13:38)
[2025-09-03 19:19] LABS: CREATININE, URINE 47.6 MG/DL (30.0-125.0); URINE SODIUM, RANDOM 36.0 mmol/l (40-220); URINE TOTAL PROTEIN 89.1 mg/dL (0-11.9)
[2025-09-04] VITALS (18 sets, daily range): BP systolic 133–149; BP diastolic 49–79; TEMP 98.1–98.4; O2SAT 95–99
[2025-09-04] MEDS: VANCOMYCIN HCL 1.25 GM in IV D5W 250 ML IV SCH (05:41)
[2025-09-04 06:14] LABS: CALCIUM, SERUM 8.3 mg/dL (8.5-10.1); CREATININE 1.4 mg/dL (0.6-1.3); SODIUM SERUM 143 mmol/L (136-145); UREA NITROGEN, BLOOD 45 mg/dL (7-18)
[2025-09-04] MEDS: FUROSEMIDE 40 MG/4 ML VIAL IV SCH (10:20)
[2025-09-04 11:01] LABS: PLATELET COUNT (AUTO) 154 K/uL (150-450); RED BLOOD CELL COUNT(AUTO) 2.73 MIL/uL (4.0-5.2); RED CELL DISTRIBUTION WIDTH 18.0 % (11.5-15.0); WHITE BLOOD COUNT (AUTO) 9.3 K/uL (4.3-11.0)
[2025-09-04] MEDS: ACETAMINOPHEN 325 MG TABLET PO PRN (22:32)
[2025-09-05] VITALS (14 sets, daily range): BP systolic 127–163; BP diastolic 70–91; TEMP 97.5–99.1; O2SAT 93–100
[2025-09-05 05:42] LABS: PLATELET COUNT (AUTO) 142 K/uL (150-450); RED BLOOD CELL COUNT(AUTO) 2.61 MIL/uL (4.0-5.2); RED CELL DISTRIBUTION WIDTH 17.7 % (11.5-15.0); WHITE BLOOD COUNT (AUTO) 8.4 K/uL (4.3-11.0)
[2025-09-05 05:53] LABS: CALCIUM, SERUM 8.6 mg/dL (8.5-10.1); CREATININE 1.5 mg/dL (0.6-1.3); PHOSPHORUS 2.8 mg/dL (2.5-4.9); SODIUM SERUM 140.0 mmol/L (136-145); UREA NITROGEN, BLOOD 43.0 mg/dL (7-18)
[2025-09-05 06:19] LABS: LYMPHOCYTES % (MANUAL) 11 % (16-48); MONOCYTES % (MANUAL) 4 % (0-11.0); NEUTROPHILS % (MANUAL) 80 (42-76)
[2025-09-05 06:20] LABS: MYELOCYTES % 5 % (0-0); PLATELET ESTIMATE DECREASED
[2025-09-05] MEDS: VANCOMYCIN HCL 1.25 GM in IV D5W 250 ML IV SCH (06:24)
[2025-09-05] MEDS: MAGNESIUM OXIDE 400 MG TABLET PO ONE (09:24)
[2025-09-06] VITALS (15 sets, daily range): BP systolic 105–161; BP diastolic 61–90; TEMP 97.7–98.3; O2SAT 93–100
[2025-09-06 06:29] LABS: CALCIUM, SERUM 8.8 mg/dL (8.5-10.1); CREATININE 1.4 mg/dL (0.6-1.3); SODIUM SERUM 141.0 mmol/L (136-145); UREA NITROGEN, BLOOD 45.0 mg/dL (7-18)
[2025-09-06] MEDS: ISOSORBIDE DINITRATE (20MG) 20 MG TABLET PO SCH (09:06)
[2025-09-06] MEDS: FUROSEMIDE 40 MG TABLET PO SCH (09:06)
[2025-09-06] MEDS: POTASSIUM CHLORIDE 20 MEQ TAB.PRT.SR PO SCH (09:06)
[2025-09-06] MEDS ORDERED: Z GUARD REMEDY 4 OZ OINT TP PRN (10:30)
[2025-09-06] MEDS: Z GUARD REMEDY 4 OZ OINT TP SCH (11:13)
[2025-09-06] MEDS: CLOTRIMAZOLE 1% 15 GM TUBE TP SCH (16:28)
[2025-09-07] VITALS (13 sets, daily range): BP systolic 124–132; BP diastolic 70–76; TEMP 97.5–98.6; O2SAT 95–100
[2025-09-07 07:29] LABS: CALCIUM, SERUM 8.7 mg/dL (8.5-10.1); CREATININE 2.0 mg/dL (0.6-1.3); SODIUM SERUM 139.0 mmol/L (136-145); UREA NITROGEN, BLOOD 49.0 mg/dL (7-18)
[2025-09-07] MEDS: POTASSIUM CHLORIDE 10 MEQ TABLET.SA PO ONE (09:32)
[2025-09-08] VITALS (12 sets, daily range): BP systolic 96–132; BP diastolic 54–78; TEMP 97.9–98.3; O2SAT 98–100
[2025-09-08] MEDS: CEFEPIME 2 GM in IV D5W 100 ML IV SCH (03:56)
[2025-09-08 17:42] LABS: PLATELET COUNT (AUTO) 164 K/uL (150-450); RED BLOOD CELL COUNT(AUTO) 2.65 MIL/uL (4.0-5.2); RED CELL DISTRIBUTION WIDTH 17.8 % (11.5-15.0); WHITE BLOOD COUNT (AUTO) 13.5 K/uL (4.3-11.0)
[2025-09-08 18:36] LABS: LYMPHOCYTES % (MANUAL) 16 % (16-48); MONOCYTES % (MANUAL) 7 % (0-11.0); NEUTROPHILS % (MANUAL) 77 (42-76)
[2025-09-08 18:37] LABS: PLATELET ESTIMATE ADEQUATE
[2025-09-08 19:14] LABS: ASPARTATE AMINOTRANSFERASE 10.0 U/L (15-37); CALCIUM, SERUM 8.2 mg/dL (8.5-10.1); CREATININE 2.0 mg/dL (0.6-1.3); PHOSPHORUS 2.7 mg/dL (2.5-4.9); SODIUM SERUM 140.0 mmol/L (136-145); TOTAL PROTEIN, SERUM 5.7 g/dL (6.4-8.2); UREA NITROGEN, BLOOD 51.0 mg/dL (7-18)
[2025-09-09] VITALS (10 sets, daily range): BP systolic 113–133; BP diastolic 54–74; TEMP 98.1–98.2; O2SAT 95–100
[2025-09-09 06:58] LABS: PLATELET COUNT (AUTO) 154 K/uL (150-450); RED BLOOD CELL COUNT(AUTO) 2.56 MIL/uL (4.0-5.2); RED CELL DISTRIBUTION WIDTH 18.1 % (11.5-15.0); WHITE BLOOD COUNT (AUTO) 12.7 K/uL (4.3-11.0)
[2025-09-09 07:08] LABS: ASPARTATE AMINOTRANSFERASE 9.0 U/L (15-37); CALCIUM, SERUM 7.9 mg/dL (8.5-10.1); CREATININE 1.9 mg/dL (0.6-1.3); PHOSPHORUS 2.6 mg/dL (2.5-4.9); SODIUM SERUM 140.0 mmol/L (136-145); TOTAL PROTEIN, SERUM 5.6 g/dL (6.4-8.2); UREA NITROGEN, BLOOD 57.0 mg/dL (7-18)
[2025-09-09 08:39] LABS: BAND % (MANUAL) 2 % (0.0-5.0); LYMPHOCYTES % (MANUAL) 16 % (16-48); MYELOCYTES % 4 % (0-0); NEUTROPHILS % (MANUAL) 71 (42-76); PLATELET ESTIMATE ADEQUATE; REACTIVE LYMPHOCYTES 7 % (0-0)
[2025-09-09] MEDS ORDERED: PRED20TA PO (09:03)
[2025-09-09] MEDS ORDERED: AZIT250T13 PO (09:07)
[2025-09-09] MEDS: POTASSIUM CHLORIDE 10 MEQ TABLET.SA PO ONE (09:53)
[2025-09-09] MEDS: MAGNESIUM OXIDE 400 MG TABLET PO ONE (10:36)
== END 2025-09-09 13:40 | disposition home health service (06) | DRG 291 ==
LOC: ER 14:57 → ICU 17:30 → TELE-TD 09-03 23:09 → TELE1 09-04 07:46 → MEDSG1 09-06 11:03
PROVIDERS: ADMIT Internal Medicine; ATTEND Internal Medicine
DX: I13.0 Hypertensive heart and chronic kidney disease with heart failure and stage 1 through stage 4 chronic kidney disease, or unspecified chronic kidney disease (principal); I50.33 Acute on chronic diastolic (congestive) heart failure; J96.21 Acute and chronic respiratory failure with hypoxia; R53.2 Functional quadriplegia; N17.0 Acute kidney failure with tubular necrosis; J44.1 Chronic obstructive pulmonary disease with (acute) exacerbation; E87.20 Acidosis, unspecified; D63.8 Anemia in other chronic diseases classified elsewhere; Z79.01 Long term (current) use of anticoagulants; N18.4 Chronic kidney disease, stage 4 (severe); E11.22 Type 2 diabetes mellitus with diabetic chronic kidney disease; F32.A Depression, unspecified; E66.01 Morbid (severe) obesity due to excess calories; R45.851 Suicidal ideations; K50.90 Crohn's disease, unspecified, without complications; E11.51 Type 2 diabetes mellitus with diabetic peripheral angiopathy without gangrene; M79.7 Fibromyalgia; K21.9 Gastro-esophageal reflux disease without esophagitis; M19.90 Unspecified osteoarthritis, unspecified site; Z90.49 Acquired absence of other specified parts of digestive tract; Z91.013 Allergy to seafood; Z91.018 Allergy to other foods; Z91.030 Bee allergy status; Z79.51 Long term (current) use of inhaled steroids; Z79.4 Long term (current) use of insulin; Z79.899 Other long term (current) drug therapy; Z86.59 Personal history of other mental and behavioral disorders; R79.89 Other specified abnormal findings of blood chemistry; F41.9 Anxiety disorder, unspecified; M89.8X9 Other specified disorders of bone, unspecified site; Z68.37 Body mass index [BMI] 37.0-37.9, adult; D50.9 Iron deficiency anemia, unspecified; G47.33 Obstructive sleep apnea (adult) (pediatric); Z87.891 Personal history of nicotine dependence; R60.9 Edema, unspecified; Z91.51 Personal history of suicidal behavior
CPT/HCPCS: 36415; 36600; 71045-TC; 71250-TC; 80048-TC; 80053-TC; 80076-TC; 80202-TC; 81001; 82570-TC; 82803-TC; 82962-TC; 83605-TC; 83735-TC; 83880; 84100-TC; 84300-TC; 84484-TC; 85025-TC; 85027-TC; 85730-TC; 87040-TC; 87081-TC; 87086-TC; 94760-TC; 94799-TC; A4223; G0378; J0692; J1815; J1938; J2919; J3373; J3475; J7030; J7040; J7050; J7060